=== PATIENT | female | born 1935 | race Hispanic/Latino ===

== ENCOUNTER 2018-01-23 18:37 | Observation (INO) | payer MEDICARE, BC ==
[2018-01-23 20:19] LABS: BASO # 0.01 K/mm3 (0.0-2.0); BASO % 0.1 % (0.0-3.0); EOS # 0.1 (0.0-0.7); EOS % 1.2 % (1.5-5.0); GRAN # 9.51 (1.4-6.5); GRAN % 84.7 % (50.0-68.0); HEMOGLOBIN 12.9 g/dL (12.0-16.0); LYMPH % 8.5 % (22.0-35.0); MEAN CELL VOLUME 87.6 fl (80.0-105.0); MEAN CORPUSCULAR HEMOGLOBIN 28.2 pg (25.0-35.0); MEAN CORPUSCULAR HGB CONC 32.2 g/dl (31.0-37.0); MEAN PLATELET VOLUME 12.1 fl (7.0-11.0); MONO # 0.6 (0.1-0.6); MONO % 5.5 % (1.0-6.0); RBC 4.58 10^6/uL (3.5-6.1); RED CELL DISTRIBUTION WIDTH 15.4 % (11.5-14.5); WHITE BLOOD COUNT 11.2 10^3/ul (4.5-11.0)
[2018-01-23 20:33] LABS: INR 0.99 (0.93-1.08); PROTHROMBIN TIME 11.3 SECONDS (9.4-12.5)
[2018-01-23 20:37] LABS: ALB/GLOB RATIO 1.2 (1.1-1.8); ALT/SGPT 29 U/L (7-56); AST/SGOT 26 U/L (14-36); BLOOD UREA NITROGEN 27 mg/dL (7-21); CALCIUM 9.3 mg/dL (8.4-10.5); GFR AFRICAN-AMERICAN > 60; GFR NON-AFRICAN AMERICAN 53
[2018-01-23 20:44] LABS: TROPONIN I 0.03 ng/mL
[2018-01-23] MEDS ORDERED: Potassium Chloride 20 mEq ER Tab PO STA (22:39)
[2018-01-23] MEDS ORDERED: Albuterol-Ipratrop 3 mg / 0.5 (3 ml) UD IH PRN (22:49)
--- NOTE | 2018-01-24 00:11 | ED PDOC ---
Arrival/HPI - General Chief Complaint: Trauma Time Seen by Provider: 01/23/18 19:24 Historian: Patient, Family - History of Present Illness Narrative History of Present Illness (Text): 01/24/18 00:07 82 year old female, whose past medical history includes COPD and CHF, who presents to the emergency department brought in by family for frequent falls this past week. Patient's family notes patient fell 3 times this week. Patient notes lower back pain. Patient notes recent change in medication, non specific water pill. Patient denies any fever, chills, chest pain, shortness of breath, nausea, vomiting, diarrhea, neck pain, headache, dizziness, or any other complaints. Time/Duration: 1 week Symptom Onset: Gradual Symptom Course: Unchanged Activities at Onset: Light Context: Home Past Medical History - Provider Review Nursing Documentation Reviewed: Yes - Infectious Disease Hx of Infectious Diseases: None - Tetanus Immunization Tetanus Immunization: Unknown - Cardiac Hx Cardiac Disorders: Yes Hx Congestive Heart Failure: Yes Hx Hypertension: Yes - Pulmonary Hx Respiratory Disorders: Yes Hx Chronic Obstructive Pulmonary Disease (COPD): Yes - Neurological Hx Neurological Disorder: No HX Cerebrovascular Accident: No - HEENT Hx HEENT Disorder: No - Renal Hx Renal Disorder: No - Endocrine/Metabolic Hx Endocrine Disorders: Yes Hx Diabetes Mellitus Type 2: Yes - Hematological/Oncological Hx Blood Disorders: Yes Hx Cancer: Yes - Integumentary Hx Dermatological Disorder: No - Musculoskeletal/Rheumatological Hx Musculoskeletal Disorders: Yes Hx Arthritis: Yes (left shoulder) Hx Rheumatoid Arthritis: No - Gastrointestinal Hx Gastrointestinal Disorders: No Hx Gastroesophageal Reflux: No - Genitourinary/Gynecological Hx Genitourinary Disorders: Yes Hx Bladder Cancer: Yes - Psychiatric Hx Psychophysiologic Disorder: No Hx Substance Use: No - Surgical History Hx Mastectomy: Yes (1989) - Anesthesia Hx Anesthesia: Yes Hx Anesthesia Reactions: No Hx Malignant Hyperthermia: No - Suicidal Assessment Feels Threatened In Home Enviroment: No Family/Social History - Physician Review Nursing Documentation Reviewed: Yes Family/Social History: Unknown Family HX Smoking Status: Former Smoker Hx Alcohol Use: No Hx Substance Use: No Hx Substance Use Treatment: No Allergies/Home Meds Allergies/Adverse Reactions: Allergies aspirin Allergy (Verified 08/31/16 12:03) PAIN Home Medications: Home Meds Medication Instructions Recorded Confirmed Furosemide [Lasix] 40 mg PO BID 01/20/16 01/25/18 Venlafaxine [Effexor XR] 75 mg PO DAILY 01/20/16 01/25/18 predniSONE [predniSONE Tab] 5 mg PO DAILY 01/20/16 01/25/18 Atorvastatin [Lipitor] 20 mg PO HS 08/31/16 01/25/18 Dipyridamole [Persantine] 25 mg PO TID 08/31/16 01/25/18 Lansoprazole [Lansoprazole] 30 mg PO HS 08/31/16 01/23/18 Mecobal/Levomefolat Ca/B6 Phos 1 tab PO DAILY 08/31/16 01/25/18 [Foltanx Tablet] Memantine HCl [Memantine HCl] 10 mg PO BID 08/31/16 01/25/18 Potassium Chloride [Klor-Con 10] 10 meq PO DAILY 08/31/16 01/25/18 Review of Systems - Physician Review All systems were reviewed & negative as marked: Yes - Review of Systems Constitutional: Normal Eyes: Normal ENT: Normal Respiratory: Normal. absent: SOB, Cough Cardiovascular: Normal. absent: Chest Pain Gastrointestinal: Normal Genitourinary Female: Normal. absent: Dysuria, Frequency Musculoskeletal: Back Pain (lower back pain). absent: Neck Pain Skin: Normal. absent: Rash Neurological: Normal. absent: Headache, Dizziness Endocrine: Normal Hemo/Lymphatic: Normal Psychiatric: Normal Physical Exam Vital Signs Reviewed: Yes Vital Signs Temp Pulse Pulse Resp BP Pulse Ox 01/24/18 01:03 98.6 F 96 H 20 133/81 90 L 01/24/18 00:37 97.8 F 101 H 90 20 126/68 01/24/18 00:23 97 H 20 91 L 01/23/18 20:21 98.2 F 70 18 91 L 01/23/18 18:53 99.3 F 88 21 110/64 93 L Temperature: Afebrile Blood Pressure: Normal Pulse: Regular Respiratory Rate: Normal Appearance: Positive for: Well-Appearing, Non-Toxic, Comfortable Pain Distress: None Mental Status: Positive for: Alert and Oriented X 3 - Systems Exam Head: Present: Atraumatic, Normocephalic Pupils: Present: PERRL Extroacular Muscles: Present: EOMI Conjunctiva: Present: Normal Mouth: Present: Moist Mucous Membranes Neck: Present: Normal Range of Motion. No: Meningeal Signs, MIDLINE TENDERNESS , Paraspinal Tenderness Respiratory/Chest: Present: Clear to Auscultation, Good Air Exchange. No: Respiratory Distress, Accessory Muscle Use Cardiovascular: Present: Regular Rate and Rhythm, Normal S1, S2. No: Murmurs Abdomen: No: Tenderness, Distention, Peritoneal Signs Back: Present: Normal Inspection. No: CVA Tenderness, Midline Tenderness, Paraspinal Tenderness Upper Extremity: Present: Normal Inspection. No: Cyanosis, Edema Lower Extremity: Present: Normal Inspection. No: Edema, CALF TENDERNESS Neurological: Present: GCS=15, CN II-XII Intact, Speech Normal Skin: Present: Warm, Dry, Normal Color. No: Rashes Psychiatric: Present: Alert, Oriented x 3, Normal Insight, Normal Concentration Medical Decision Making ED Course and Treatment: 01/24/18 00:14 Impression: 82 year old female presents to the emergency department by family for frequent falls this past week. Plan: -- CT Head -- CT Lumbar Spine -- CT Thoracic Spine -- EKG -- Chest X-ray -- Duoneb -- Humulin R Low -- Potassium Chloride -- Tylenol -- Reassess and disposition Progress Notes: 01/24/18 01:18 CT Head reviewed, shows: Brain: Periventricular hypoattenuation is likely related to small vessel disease. Isodensity noted in the left frontal region extra-axial space on image 22 series 2 probably related to a vessel. Calcified lesion in the left frontal region question hemangioma. No definite hemorrhage. Ventricles: Unremarkable. No ventriculomegaly. Bones/joints: Unremarkable. No acute fracture. Soft tissues: Unremarkable. Sinuses: Unremarkable as visualized. No acute sinusitis. Mastoid air cells: Unremarkable as visualized. No mastoid effusion. IMPRESSION: No acute findings. Other findings as above. CT Lumbar Spine reviewed, shows: Vertebrae: Osteopenia. No acute fracture. Other bones/joints: Sclerotic density in the left iliac bone. Discs/spinal canal/neural foramina: Disc degenerative changes are noted at multiple levels. No spinal canal stenosis. Soft tissues: Unremarkable. Vasculature: Infrarenal abdominal aortic dilatation, measuring 2.6 cm. Lungs: Bibasal atelectatic changes. Kidneys and ureters: cystic lesion in the left kidney partially included. Ultrasound correlation is advised. IMPRESSION: cystic lesion in the left kidney partially included. Ultrasound correlation is advised. CT Thoracic Spine reviewed, shows: Vertebrae: There is osteopenia. Sclerotic density in the seventh rib and sixth vertebra. No acute fracture. Discs/spinal canal/neural foramina: Disc degenerative changes are noted at multiple levels. No spinal canal stenosis. Soft tissues: Unremarkable. Vasculature: Significant atherosclerotic changes of the aorta. Lungs: Bibasal atelectatic changes. Heart: Significant coronary artery calcification. IMPRESSION: No acute findings case d/w dr gutierrez will obs on tele - Lab Interpretations Lab Results: 01/23/18 20:05 01/23/18 20:05 Lab Results 01/23/18 20:05: Sodium 133, Potassium 2.6 L* D, Chloride 77 L, Carbon Dioxide 44 H, Anion Gap 15, BUN 27 H, Creatinine 1.0, Est GFR ( Amer) > 60, Est GFR (Non-Af Amer) 53, Random Glucose 327 H* D, Calcium 9.3, Total Bilirubin 0.6 , AST 26, ALT 29, Alkaline Phosphatase 128 H, Troponin I 0.03 D, Total Protein 7.3, Albumin 4.0, Globulin 3.3, Albumin/Globulin Ratio 1.2 01/23/18 20:05: PT 11.3, INR 0.99, APTT 30.0 01/23/18 20:05: WBC 11.2 H D, RBC 4.58, Hgb 12.9, Hct 40.1, MCV 87.6, MCH 28.2, MCHC 32.2, RDW 15.4 H, Plt Count 223, MPV 12.1 H, Gran % 84.7 H, Lymph % (Auto) 8.5 L, [place] % (Auto) 5.5, Eos % (Auto) 1.2 L, Baso % (Auto) 0.1, Gran # 9.51 H, Lymph # (Auto) 1.0 L, [place] # (Auto) 0.6, Eos # (Auto) 0.1, Baso # (Auto) 0.01 - RAD Interpretation Radiology Orders: 01/23/18 19:39 HEAD W/O CONTRAST [CT] Stat 01/23/18 19:40 LUMBAR SPINE W/O CONTRAST [CT] Stat CHEST TWO VIEWS (PA/LAT) [RAD] Stat 01/23/18 19:41 THORACIC SPINE W/O CONT [CT] Stat - EKG Interpretation EKG Interpretation (Text): 01/24/18 04:[address] s changes - Medication Orders Current Medication Orders: Discontinued Medications Acetaminophen (Tylenol 325mg Tab) 650 mg PO Q4H PRN PRN Reason: Pain, Mild (1-3) Albuterol/Ipratropium (Duoneb 3 Mg/0.5 Mg (3 Ml) Ud) 3 ml IH Q4H PRN PRN Reason: Shortness of Breath Last Admin: 01/25/18 15:51 Dose: 3 ml Amlodipine Besylate (Norvasc) 10 mg PO DAILY [facility] Last Admin: 01/25/18 09:39 Dose: 10 mg MAR Blood Pressure Document 01/25/18 09:39 CD (Rec: 01/25/18 09:39 CD [id number]) Blood Pressure Blood Pressure (100/60-150/90) 161/76 Atorvastatin Calcium (Lipitor) 20 mg PO HS [facility] Last Admin: 01/24/18 21:15 Dose: 20 mg Donepezil HCl (Aricept) 10 mg PO [facility] Last Admin: 01/24/18 21:15 Dose: 10 mg Potassium Chloride (Potassium Chloride 20 Meq/100 Ml) 20 meq in 100 mls @ 50 mls/hr IVPB Q2H BABAR Stop: 01/24/18 00:44 Last Admin: 01/24/18 02:21 Dose: 50 mls/hr eMAR Start Stop Document 01/24/18 02:21 GC (Rec: 01/24/18 02:21 GC [id number]) Intravenous Solution Start Date 01/24/18 Start Time 02:21 Insulin Human Regular (Humulin R Low) 0 units SC [facility] PRN Reason: Protocol Insulin Human Regular (Humulin R Med) [address] [facility] PRN Reason: Protocol Last Admin: 01/25/18 16:56 Dose: 5 unit MAR Blood Glucose Document 01/25/18 16:56 CD (Rec: 01/25/18 16:56 CD [id number]) Blood Glucose Finger Stick Blood Glucose (70-120) 251 Subcutaneous Administrations Document 01/25/18 16:56 CD (Rec: 01/25/18 16:56 CD [id number]) Injection Site MAR Injection Site Right Arm Charges for Administration # of Subcutaneous Administrations 1 Memantine (Namenda) 10 mg PO BID [facility] Last Admin: 01/25/18 18:26 Dose: 10 mg Potassium Chloride (K-Dur 20 Meq Er Tab) 40 meq PO STAT STA Stop: 01/23/18 22:40 Last Admin: 01/24/18 00:25 Dose: 40 meq Potassium Chloride (K-Dur 20 Meq Er Tab) 20 meq PO ONCE ONE Stop: 01/24/18 03:01 Last Admin: 01/24/18 02:20 Dose: 20 meq Potassium Chloride (K-Dur 20 Meq Er Tab) 40 meq PO TID BABAR Stop: 01/25/18 10:15 Last Admin: 01/25/18 10:14 Dose: Potassium Chloride (K-Dur 20 Meq Er Tab) 40 meq PO ONCE ONE Stop: 01/25/18 08:39 Last Admin: 01/25/18 09:39 Dose: 40 meq Prednisone (Prednisone Tab) 5 mg PO DAILY [facility] Last Admin: 01/25/18 09:39 Dose: 5 mg Venlafaxine HCl (Effexor Xr) 75 mg PO DAILY [facility] Last Admin: 01/25/18 09:39 Dose: 75 mg - [place] Statement The provider has reviewed the documentation as recorded by the Franca Montanez All medical record entries made by the Franca were at my direction and personally dictated by me. I have reviewed the chart and agree that the record accurately reflects my personal performance of the history, physical exam, medical decision making, and the department course for this patient. I have also personally directed, reviewed, and agree with the discharge instructions and disposition. Disposition/Present on Arrival - Present on Arrival Any Indicators Present on Arrival: No History of DVT/PE: No History of Uncontrolled Diabetes: No Urinary Catheter: No History of Decub. Ulcer: No History Surgical Site Infection Following: None - Disposition Have Diagnosis and Disposition been Completed?: Yes Diagnosis: COPD with acute exacerbation, Hypokalemia Disposition: HOSPITALIZED Disposition Time: 22:35 Condition: GOOD
[2018-01-24 01:53] VITALS: BMI 32.7
[2018-01-24] MEDS ORDERED: Potassium Chloride 20 mEq ER Tab PO ONE (03:00)
[2018-01-24] MEDS ORDERED: Insulin Reg-LOW-Coverage SC SCH (07:30)
[2018-01-24 07:59] LABS: BLOOD UREA NITROGEN 21 mg/dL (7-21); CALCIUM 8.7 mg/dL (8.4-10.5); GFR AFRICAN-AMERICAN > 60; GFR NON-AFRICAN AMERICAN > 60
[2018-01-24] MEDS: Insulin Reg-MEDIUM-Coverage SC SCH ×4 (08:14→22:05)
[2018-01-24] MEDS: Venlafaxine 75 mg ER Cap PO SCH (09:55)
[2018-01-24] MEDS: Potassium Chloride 20 mEq ER Tab PO SCH ×3 (10:20→17:35)
--- NOTE | 2018-01-24 10:20 | CT ---
PROCEDURE: CT HEAD WITHOUT CONTRAST. HISTORY: syncope COMPARISON: Comparison made with prior studies dated 8 11/25/2014 TECHNIQUE: Axial computed tomography images were obtained through the head/brain without intravenous contrast. Radiation dose: Total exam DLP = 863.38 mGy-cm. This CT exam was performed using one or more of the following dose reduction techniques: Automated exposure control, adjustment of the mA and/or kV according to patient size, and/or use of iterative reconstruction technique. FINDINGS: HEMORRHAGE: No acute parenchymal, subarachnoid or extra-axial the the intracranial hemorrhage. BRAIN: Mild chronic periventricular white matter ischemic changes. . . There also appear to be a few scattered chronic bilateral basal nuclei lacunar type infarcts. Re- demonstrated is a elliptical shaped extra-axial calcification in the left inferior/mid frontal region that could represent a large dural base calcification however the possibility of an incidental partially calcified meningioma not excluded. Mild generalized volume loss. Vascular calcifications both carotid siphons vertebral arteries. VENTRICLES: No obstructive hydrocephalus. CALVARIUM: No acute calvarial fractures. PARANASAL SINUSES: Unremarkable as visualized. No significant inflammatory changes. MASTOID AIR CELLS: Unremarkable as visualized. No inflammatory changes. OTHER FINDINGS: Changes of bilateral cataract surgery. IMPRESSION: Mild chronic white matter ischemic and basal nuclei ischemic changes. Mild generalized volume loss. There is a elliptical shaped extra-axial calcification left frontal region that could represent dural based calcification versus calcified meningioma.
--- NOTE | 2018-01-24 13:45 | CARD ---
APPROVED REPORT EKG Measurement Heart [id number] <Conclusion> Sinus rhythm with sinus arrhythmia with 1st degree AV block Nonspecific ST and T wave abnormality Abnormal ECG
--- NOTE | 2018-01-24 15:25 | CT ---
PROCEDURE: CT Lumbar Spine without contrast HISTORY: Status post fall. COMPARISON: None. TECHNIQUE: Axial computed tomography images were obtained of the lumbar spine without the use of intravenous contrast. Coronal and sagittal reformatted images were created and reviewed. Radiation dose: Total exam DLP = 1352.34 mGy-cm. This CT exam was performed using one or more of the following dose reduction techniques: Automated exposure control, adjustment of the mA and/or kV according to patient size, and/or use of iterative reconstruction technique. FINDINGS: VERTEBRAE: No acute compression fractures no retropulsed fragments. Vertebral bodies exhibit normal stature. Vertebral bodies and facets normally aligned. DISCS/SPINAL CANAL/NEURAL FORAMINA: Multilevel degenerative spondylosis of the lumbar spine. Changes include varying degrees of disc space narrowing with vacuum disc phenomena. . mild varying degrees of facet arthropathy throughout. These changes most notably At the L5-S1 level, there is central and bilateral (right larger than left disc herniation which extends superiorly and inferiorly over short distance and results in compression of the ventral surface of the thecal sac and mild compressive effects on the descending extra thecal S1 nerve roots. Facets also quite hypertrophic at this level. Exit foramina are narrowed bilaterally. At the L4-L5 level with buckled ligamentum flavum of all which result in moderate bilateral lateral recess and central canal stenosis. Central canal stenosis. Exit foramina are narrowed bilaterally. Similar changes at the L3-L4 level also result in mild bilateral lateral recess and central canal stenosis. Exit foramina appear narrowed bilaterally. Similar but less severe broad-based disc bulging changes noted at the L2-L3 level. PARASPINAL SOFT TISSUES: Note made of an incompletely visualized cyst arising from the left kidney. OTHER FINDINGS: Bibasilar atelectasis and or scarring changes. IMPRESSION: No acute fractures. Multilevel degenerative spondylosis most notably affecting the through L5-S1 through the L3-L4 levels. Incompletely visualized left renal cystic lesion. Consider follow-up ultrasound for further evaluation
--- NOTE | 2018-01-24 15:41 | CT ---
PROCEDURE: CT Thoracic Spine without contrast HISTORY: Status post fall COMPARISON: None. TECHNIQUE: Axial computed tomography images were obtained of the thoracic spine without intravenous contrast. Coronal and sagittal reformatted images were created and reviewed. Radiation dose: Total exam DLP = 974.62 mGy-cm. This CT exam was performed using one or more of the following dose reduction techniques: Automated exposure control, adjustment of the mA and/or kV according to patient size, and/or use of iterative reconstruction technique. FINDINGS: VERTEBRAE: No acute compression fractures no retropulsed fragments. Vertebral bodies exhibit normal stature. Vertebral bodies and facets normally aligned. . Mild diffuse demineralization. There is also small bone island or osteoma within the posterior corner of the T7 segment. DISCS/SPINAL CANAL/NEURAL FORAMINA: Multilevel degenerative spondylosis. . Varying degrees of moderate to significant disc space narrowing with anterolateral partially bridging osteophyte formation. No disc herniation or significant disc bulge. The overall central bony canal and exit foramina appear adequate so far as can be seen. PARASPINAL SOFT TISSUES: Unremarkable. OTHER FINDINGS: Mild bibasilar atelectasis and or scarring. Heart appears enlarged IMPRESSION: No acute fractures. Mild multilevel degenerative spondylosis of the thoracic spine. Central canal and exit foramina appear adequate so far as can be seen. Mild bibasilar atelectasis and or scarring changes. Cardiomegaly.
--- NOTE | 2018-01-24 16:13 | RAD ---
HISTORY: sob COMPARISON: Comparison chest dated 09/07/2016 TECHNIQUE: Chest PA and lateral FINDINGS: LUNGS: Hyperinflation. Rule out underlying COPD .Coarsened/ increased interstitial markings. Bibasilar atelectasis and or scarring. . PLEURA: No significant pleural effusion identified. No pneumothorax apparent. CARDIOVASCULAR: Cardiomegaly OSSEOUS STRUCTURES: Deformity of the right left humeral head most consistent with old posttraumatic sequela (healed fracture deformity) and secondary DJD. Multilevel degenerative spondylosis of the thoracic spine. VISUALIZED UPPER ABDOMEN: Normal. OTHER FINDINGS: None. IMPRESSION: Hyperinflation. Rule out underlying COPD . The the the Coarsened/ increased interstitial markings. Bibasilar atelectasis and or scarring. .
[2018-01-25 05:41] VITALS: O2SAT 96
[2018-01-25 07:15] LABS: HEMOGLOBIN 11.8 g/dL (12.0-16.0); MEAN CELL VOLUME 88.6 fl (80.0-105.0); MEAN CORPUSCULAR HEMOGLOBIN 27.4 pg (25.0-35.0); MEAN PLATELET VOLUME 11.6 fl (7.0-11.0); RBC 4.3 10^6/uL (3.5-6.1); RED CELL DISTRIBUTION WIDTH 15.2 % (11.5-14.5); WHITE BLOOD COUNT 8.6 10^3/ul (4.5-11.0)
[2018-01-25 07:24] LABS: ALB/GLOB RATIO 1.1 (1.1-1.8); ALBUMIN 3.5 g/dL (3.0-4.8); ALT/SGPT 27 U/L (7-56); AST/SGOT 19 U/L (14-36); BLOOD UREA NITROGEN 21 mg/dL (7-21); GFR AFRICAN-AMERICAN > 60; GFR NON-AFRICAN AMERICAN > 60
[2018-01-25] MEDS: Insulin Reg-MEDIUM-Coverage SC SCH ×3 (08:00→16:56)
--- NOTE | 2018-01-25 08:22 | HP ---
CHIEF COMPLAINT AND HISTORY OF PRESENT ILLNESS: This is an 82-year-old female who is coming into the hospital with complaints of difficulty in ambulating. The patient has a past medical history of COPD and is on home O2. She has a history of CHF. The patient was brought in by her daughter because of frequent falls for the past week. The patient has not been eating well. She has been complaining of back pain. She has been having difficulty in remembering to take her medications and eating. She has no complaint of any chest pain. No nausea, no vomiting. No dysuria or frequency. No nocturia. No weakness in the arms or the legs. No headaches. No fevers or chills. All other review of symptoms are within normal limits except what is mentioned. She does have shortness of breath when she exerts herself even though she is on home O2, but this is at baseline. ALLERGIES: TO ASPIRIN. HOME MEDICATIONS: Has been reviewed on the [facility]. PAST MEDICAL HISTORY: 1. COPD, on home O2. 2. Hypertension. 3. Breast cancer with bilateral mastectomies. 4. Peripheral neuropathy. 5. Peptic ulcer disease. 6. Peripheral arterial disease. 7. Varicose veins. 8. History of bladder cancer. 9. Cervical and lumbar radiculopathy. SOCIAL HISTORY: She was a heavy smoker, but quit. She denies alcohol or drugs. FAMILY HISTORY: Nonsignificant. PHYSICAL EXAMINATION: VITAL SIGNS: She has a temperature of 98, pulse of 90, blood pressure is 127/75, respirations 20, O2 saturation 96%. Height is 5 feet 2 inches, weight is 173 pounds. BMI is 31.6 and normal. GENERAL: The patient lying in bed, uncomfortable, and in no acute distress. HEENT: Atraumatic and normocephalic. Anicteric sclerae. Moist mucosa. [place] conjunctivae. No oral lesions. NECK: No JVD, anterior and posterior adenopathy, thyromegaly, or bruits. CARDIOVASCULAR: S1 and S2 regular. No murmur, rubs, or gallop. LUNGS: Clear to auscultation bilaterally. No wheezes, rales, or rhonchi. ABDOMEN: Bowel sounds are positive. Soft, nontender and nondistended. No hepatosplenomegaly. No rebound and no guarding EXTREMITIES: No cyanosis, clubbing, or edema. NEUROLOGIC: No facial asymmetry. Tongue is midline. No uvula deviation. Power is 5/5 upper extremity and lower extremity. Sensation intact in upper extremity and lower extremity. Alert, awake, oriented x2. PSYCHIATRIC: She is awake, alert and oriented x3. No anxiety or depression. She has normal affect. GENITOURINARY: No CVA tenderness. VASCULAR: 2+ pulses in the carotid pulses and pedal pulses. SKIN: No erythema or nodules SPINE: Shows normal curvature. LABORATORY DATA: Labs have been reviewed. White count of 11.2. Patient's potassium is 2.6, bicarb is 44. Lumbar CAT scan is done shows no acute fractures. There is a multiple DJD that affects L5-S1 through L3-L4. Thoracic spine CT shows no acute fractures. Chest x-ray done shows . CT of the head done shows mild chronic white matter changes. An EKG done shows sinus rhythm with first degree AV block, nonspecific ST changes. ASSESSMENT: 1. Fall. 2. Hypokalemia. 3. Chronic obstructive lung disease, on home O2. 4. Degenerative joint disease of back. 5. Peripheral arterial disease. 6. Peripheral neuropathy. 7. History of bladder cancer. 8. History of breast cancer. 9. Dementia, Alzheimer's type. PLAN: The patient is admitted to the hospital. She is going to be getting multiple potassium treatment throughout the day. She did get potassium yesterday. She is on Aricept for dementia. She is on Lipitor for dyslipidemia. She is on Memantine for dementia. The patient is on amlodipine for hypertension. She is on prednisone chronically. She is on a carbohydrate-consistent diet. I did speak to the patient's daughter at the bedside to give her an update on the patient's diagnosis and plan of care. We will continue to follow closely. We will get physical therapy to evaluate the patient. Minh Scales MD
[2018-01-25] MEDS ORDERED: Potassium Chloride 20 mEq ER Tab PO ONE (08:38)
[2018-01-25] MEDS: Venlafaxine 75 mg ER Cap PO SCH (09:39)
[2018-01-25] MEDS: Potassium Chloride 20 mEq ER Tab PO SCH (10:14)
--- NOTE | 2018-01-25 16:23 | DS ---
HISTORY OF PRESENT ILLNESS: This is an 82-year-old female who has come into the hospital because of difficulty in walking. She has been falling. The patient was found to have significant hypokalemia. The patient has not been eating well as well. She does have underlying dementia and the patient's daughter states that she does forget at times. She says she is feeling better. She has no complaints of any headaches or dizziness. No nausea, no vomiting. She was given multiple doses of potassium and her potassium is normal today. PHYSICAL EXAMINATION VITAL SIGNS: Temperature is 97.8, pulse of 74, blood pressure 161/76, respirations 20, O2 saturation 96%. GENERAL: The patient is lying in bed, flat, comfortable. HEENT: No oral lesion. Anicteric sclerae. Moist mucosa. NECK: No JVD, adenopathy, or thyromegaly. CARDIOVASCULAR: S1 and S2, regular. No murmurs, rubs, or gallops. LUNGS: Clear to auscultation bilaterally. No wheeze, rales, or rhonchi. ABDOMEN: Bowel sounds are positive, soft, nontender and nondistended. EXTREMITIES: no cyanosis, clubbing or edema. ASSESSMENT: 1. Fall. 2. Hypokalemia, improved. 3. Chronic obstructive pulmonary disease, on home O2. 4. Degenerative joint disease. 5. Peripheral arterial disease. 6. Peripheral neuropathy. 7. Dementia of Alzheimer's type. 8. History of breast cancer. 9. History of bladder cancer. PLAN: The patient is currently on Aricept and memantine for her dementia. The patient is going to continue with nebulizer treatments. She is on amlodipine for her hypertension. She is on Tylenol. She is going to be discharged home today. I did speak to the patient's daughter to give an update. The patient is going to be followed up as an outpatient. She is going to have repeat blood work done in 1-2 weeks to check potassium levels. CONDITION: Stable. ACTIVITIES: Increase as tolerated. Minh Scales MD
[2018-01-25 17:38] VITALS: BP 146/77; PULSE 86; RESP 20; TEMP 98
== END 2018-01-25 19:50 | disposition home or self-care (01) ==
LOC: ED 18:37 → ERH 22:35 → 2RNO 01-24 01:19
PROVIDERS: ADMIT Internal Medicine Nephrology; ATTEND Internal Medicine Nephrology
DX: E87.6 Hypokalemia (principal); E11.51 Type 2 diabetes mellitus with diabetic peripheral angiopathy without gangrene; G30.9 Alzheimer's disease, unspecified; F02.80 Dementia in other diseases classified elsewhere, unspecified severity, without behavioral disturbance, psychotic disturbance, mood disturbance, and anxiety; G62.9 Polyneuropathy, unspecified; I11.0 Hypertensive heart disease with heart failure; I25.10 Atherosclerotic heart disease of native coronary artery without angina pectoris; I50.9 Heart failure, unspecified; I70.0 Atherosclerosis of aorta; I77.811 Abdominal aortic ectasia; J44.9 Chronic obstructive pulmonary disease, unspecified; M47.9 Spondylosis, unspecified; M85.88 Other specified disorders of bone density and structure, other site; N28.9 Disorder of kidney and ureter, unspecified; R29.6 Repeated falls; Z85.3 Personal history of malignant neoplasm of breast; Z85.51 Personal history of malignant neoplasm of bladder; Z87.11 Personal history of peptic ulcer disease; Z87.891 Personal history of nicotine dependence; Z90.13 Acquired absence of bilateral breasts and nipples; Z99.81 Dependence on supplemental oxygen; M54.5 Low back pain; Z88.6 Allergy status to analgesic agent; R40.2412 Glasgow coma scale score 13-15, at arrival to emergency department
CPT/HCPCS: 36415; 70450; 71046; 72128; 72131; 80048; 80053; 82948; 83735; 84100; 84484; 85025; 85027; 85610; 85730; 93005; 94640; 94760; 96360; 96361; 97161; 97530; 99285; G0378; G8978; G8979; J3480

== ENCOUNTER 2018-03-20 07:05 | Inpatient (IN) | payer MEDICARE, BC ==
[2018-03-20 07:15] VITALS: BMI 31.8
--- NOTE | 2018-03-20 08:20 | ED PDOC ---
Arrival/HPI <Luiz Hicks - Last Filed: 03/20/18 09:09> - General Historian: Patient, Family - History of Present Illness Time/Duration: Prior to Arrival Symptom Onset: Sudden Symptom Course: Unchanged Activities at Onset: Other (bathroom) Context: Tripped <TommyDerek - Last Filed: 03/20/18 13:08> - General Chief Complaint: Trauma Time Seen by Provider: 03/20/18 07:19 - History of Present Illness Narrative History of Present Illness (Text): 03/20/18 08:15 Patient is an 82 year old female with PMH of COPD (on home O2 3L), L shoulder fx (s/p repair 3 years ago), HTN, HLD, dementia, bladder CA (treated, in remission), and breast CA (s/p b/l mastectomy) who presents to Emergency department following a fall in her bathroom. She fell while getting up from the toilet, she believes she tripped on her clothes. She hit her head on the vanity. She remembers the fall and denies losing consciousness at the time. She has had multiple falls in the past few weeks. She has been working with PT who recently signed off. Her daughter is present at the bedside and is her main caregiver. In spite of having a home health aid who comes four times a week, patient lives alone. Currently, her main complaint is left sided neck pain, ANDERSON, and left knee pain. She denies fever, chills, CP, SOB, peripheral numbness/tingling, or other arthralgias. (Derek Sanders) Past Medical History - Provider Review Nursing Documentation Reviewed: Yes - Travel History Have you recently traveled outside [place] w/in the past 3 mons?: No - Infectious Disease Hx of Infectious Diseases: None - Tetanus Immunization Tetanus Immunization: Unknown - Cardiac Hx Cardiac Disorders: Yes Hx Congestive Heart Failure: Yes Hx Hypertension: Yes - Pulmonary Hx Respiratory Disorders: Yes Hx Chronic Obstructive Pulmonary Disease (COPD): Yes - Neurological Hx Neurological Disorder: No HX Cerebrovascular Accident: No - HEENT Hx HEENT Disorder: No - Renal Hx Renal Disorder: No - Endocrine/Metabolic Hx Endocrine Disorders: Yes Hx Diabetes Mellitus Type 2: Yes - Hematological/Oncological Hx Blood Disorders: Yes Hx Cancer: Yes - Integumentary Hx Dermatological Disorder: No - Musculoskeletal/Rheumatological Hx Musculoskeletal Disorders: Yes Hx Arthritis: Yes (left shoulder) Hx Rheumatoid Arthritis: No - Gastrointestinal Hx Gastrointestinal Disorders: No Hx Gastroesophageal Reflux: No - Genitourinary/Gynecological Hx Genitourinary Disorders: Yes Hx Bladder Cancer: Yes - Psychiatric Hx Psychophysiologic Disorder: No Hx Substance Use: No - Surgical History Hx Mastectomy: Yes (1989) - Anesthesia Hx Anesthesia: Yes Hx Anesthesia Reactions: No Hx Malignant Hyperthermia: No - Suicidal Assessment Feels Threatened In Home Enviroment: No <Derek Sanders - Last Filed: 03/20/18 13:08> Family/Social History - Physician Review Nursing Documentation Reviewed: Yes Family/Social History: No Known Family HX Smoking Status: Former Smoker Hx Alcohol Use: No Hx Substance Use: No Hx Substance Use Treatment: No <Derek Sanders - Last Filed: 03/20/18 13:08> Allergies/Home Meds <Luiz Hicks - Last Filed: 03/20/18 09:09> <Derek Sanders - Last Filed: 03/20/18 13:08> Allergies/Adverse Reactions: Allergies aspirin Allergy (Verified 03/20/18 12:53) PAIN Home Medications: Home Meds Medication Instructions Recorded Confirmed Furosemide [Lasix] 40 mg PO BID 01/20/16 03/20/18 Venlafaxine [Effexor XR] 75 mg PO DAILY 01/20/16 03/20/18 predniSONE [predniSONE Tab] 5 mg PO DAILY 01/20/16 03/20/18 Atorvastatin [Lipitor] 20 mg PO HS 08/31/16 03/20/18 Dipyridamole [Persantine] 25 mg PO TID 08/31/16 03/20/18 Memantine HCl [Memantine HCl] 10 mg PO BID 08/31/16 03/20/18 Potassium Chloride [Klor-Con 10] 20 meq PO DAILY 08/31/16 03/20/18 Esomeprazole Magnesium [Nexium] 40 mg PO DAILY 03/20/18 03/20/18 Review of Systems - Physician Review All systems were reviewed & negative as marked: Yes - Review of Systems Constitutional: absent: Fatigue, Fevers Eyes: absent: Vision Changes, Photophobia ENT: absent: Hearing Changes, Sore Throat Respiratory: absent: SOB, Cough Cardiovascular: absent: Chest Pain, Syncope Gastrointestinal: absent: Abdominal Pain, Nausea, Vomiting Genitourinary Female: absent: Dysuria, Frequency Musculoskeletal: Neck Pain, Joint Swelling Skin: absent: Rash, Pruritis Neurological: Headache. absent: Dizziness, Speech Changes, Facial Droop Endocrine: absent: Diaphoresis Hemo/Lymphatic: absent: Adenopathy Psychiatric: absent: Anxiety, Depression <Derek Sanders - Last Filed: 03/20/18 13:08> Physical Exam Vital Signs Reviewed: Yes Temperature: Afebrile Blood Pressure: Normal Pulse: Regular Respiratory Rate: Normal Appearance: Positive for: Non-Toxic, Uncomfortable Pain Distress: Moderate Mental Status: Positive for: Alert and Oriented X 3 - Systems Exam Head: Present: Other (visible hematoma on left forehead) Pupils: Present: PERRL Extroacular Muscles: Present: EOMI Conjunctiva: Present: Normal Ears: Present: Normal Mouth: Present: Moist Mucous Membranes Pharnyx: Present: Normal. No: ERYTHEMA, EXUDATE Nose (External): Present: Atraumatic Neck: Present: Paraspinal Tenderness (L > R) Respiratory/Chest: Present: Clear to Auscultation. No: Wheezes, Rales, Rhonchi Cardiovascular: Present: Regular Rate and Rhythm, Normal S1, S2. No: Murmurs, Rub, Gallop Abdomen: No: Tenderness, Rebound, Guarding Upper Extremity: Present: Neurovascularly Intact, Other (visible ecchymosis on dorsum of left hand, no tenderness to palpation of UE, including shoulders, bilaterally). No: Cyanosis, Edema, Normal ROM (ROM limited in left shoulder due to old fx), Tenderness Lower Extremity: Present: Neurovascularly Intact, Other (ecchymosis noted on R knee, L knee tender to palpation). No: Edema, CALF TENDERNESS Neurological: Present: CN II-XII Intact, Speech Normal, Motor Func Grossly Intact, Normal Sensory Function, Normal 2Pt Descrimination Skin: Present: Warm, Other (erythematous patches on lower legs bilaterally consistent with venous stasis dermatitis) Psychiatric: Present: Alert, Oriented x 3 <Derek Sanders - Last Filed: 03/20/18 13:08> Vital Signs Temp Pulse Resp BP Pulse Ox 03/20/18 12:48 98.4 F 85 19 103/53 L 94 L 03/20/18 11:00 76 18 133/61 95 03/20/18 09:32 81 18 137/59 L 94 L 03/20/18 07:27 97.9 F 88 20 139/55 L 93 L Medical Decision Making <Luiz Hicks - Last Filed: 03/20/18 09:09> - Lab Interpretations I have reviewed the lab results: Yes Interpretation: Abnormal lab values (consistent with UTI) - RAD Interpretation Security Guard Supervisor: ED Physician, Radiologist <Derek Sanders - Last Filed: 03/20/18 13:08> ED Course and Treatment: 03/20/18 09:07 An 82 year old female presenting to the Emergency department status post fall. Patient Seen With Resident: In agreement with resident note which contains more details about the patient. Patient was seen and evaluated with resident. Came up with plan and treatment together. (Luiz Hicks) 03/20/18 08:27 -Patient presenting s/p fall -Main complaints are ANDERSON, neck pain, and left knee pain -Will get CT head and cervical spine wo contrast, L knee, chest, and pelvis radiographs -CBC, CMP, UA 03/20/18 10:21 -Patient noted to be hypokalemic at 3.2 -Single dose of KCl 40 mEq tablet given in ED 03/20/18 12:12 -Patient states she still has pain in her neck -Will give single dose of ibuprofen 600 mg in Emergency department -Patient's family states they do not feel comfortable with her going home as she lives alone and they would like additional PT -Case discussed with Dr. Scales who agrees to admission 03/20/18 12:27 -Patient noted to have UTI -Rocephin 1 g IVPB given in ED (Derek Sanders) - Lab Interpretations Lab Results: 03/20/18 09:00 03/20/18 09:00 Lab Results 03/20/18 10:25: Urine Color Yellow, Urine Appearance Clear, Urine pH 7.0, Ur Specific [place] 1.010, Urine Protein Negative, Urine Glucose (UA) 100 H, Urine Ketones Negative, Urine Blood Negative, Urine Nitrate Negative, Urine Bilirubin Negative, Urine Urobilinogen 1.0 H, Ur Leukocyte Esterase Moderate H, Urine RBC 0 - 2, Urine WBC 20 - 25, Ur Epithelial Cells 4 - 5, Urine Bacteria Large, Urine Other Uyeast 03/20/18 09:00: Sodium 137, Potassium 3.2 L, Chloride 79 L, Carbon Dioxide 45 H , Anion Gap 16, BUN 31 H, Creatinine 0.9, Est GFR ( Amer) > 60, Est GFR ( Non-Af Amer) 60, Random Glucose 288 H, Calcium 8.9, Total Bilirubin 0.5, AST 19 , ALT 32, Alkaline Phosphatase 130 H D, Total Protein 7.1, Albumin 3.9, Globulin 3.2, Albumin/Globulin Ratio 1.2 03/20/18 09:00: WBC 10.2, RBC 4.42, Hgb 12.5, Hct 39.1, MCV 88.5, MCH 28.3, MCHC 32.0, RDW 15.7 H, Plt Count 214, MPV 12.1 H, Gran % 83.0 H, Lymph % (Auto) 9.5 L, [place] % (Auto) 6.6 H, Eos % (Auto) 0.8 L, Baso % (Auto) 0.1, Gran # 8.49 H , Lymph # (Auto) 1.0 L, [place] # (Auto) 0.7 H, Eos # (Auto) 0.1, Baso # (Auto) 0.01 - RAD Interpretation Narrative RAD Interpretations (Text): 03/20/18 10:00 Left Knee, pelvis, chest, and right great and second toe xrays without acute fractures, mild degenerative changes seen in pelvic xray. PROCEDURE: CT HEAD WITHOUT CONTRAST. COMPARISON: Comparison made with prior CT scan brain 01/23/2018 TECHNIQUE: Axial computed tomography images were obtained through the head/brain without intravenous contrast. Radiation dose: Total exam DLP = 927.42 mGy-cm. This CT exam was performed using one or more of the following dose reduction techniques: Automated exposure control, adjustment of the mA and/or kV according to patient size, and/or use of iterative reconstruction technique. FINDINGS: HEMORRHAGE: No intracranial hemorrhage. BRAIN: Re- demonstrated are mild chronic periventricular white matter ischemic changes with a few scattered chronic bilateral basal nuclei lacunar type infarcts. Also again seen is an elliptical shaped extra-axial calcification in the left inferior/mid frontal region that could represent a large dural base calcification however the possibility of an incidental partially calcified meningioma not excluded. Mild moderate generalized volume loss. Vascular calcifications both carotid siphons and right vertebral artery again seen VENTRICLES: Unremarkable. No hydrocephalus. CALVARIUM: No acute calvarial fractures. Moderate left frontal scalp contusion/ soft tissue swelling. Note also made of a rounded soft tissue density within the left pre maxillary soft tissues that could represent inspissated sebaceous cyst. PARANASAL SINUSES: Unremarkable as visualized. No significant inflammatory changes. MASTOID AIR CELLS: Unremarkable as visualized. No inflammatory changes. OTHER FINDINGS: Changes of bilateral cataract surgery again noted. IMPRESSION: No acute intracranial hemorrhage. Mild chronic white matter and basal nuclei ischemic changes. Again noted is an elliptical shaped extra-axial calcification in the left inferior/mid frontal region that could represent a large dural based calcification however the possibility of an incidental partially calcified meningioma not excluded. This is unchanged from prior study Mild moderate generalized volume loss. Left frontal scalp contusion. Cervical Spine CT without acute fracture, showed mild degenerative spondylosis (Derek Sanders) Radiology Orders: 03/20/18 08:00 CERVICAL SPINE W/O CONTRAST [CT] Stat HEAD W/O CONTRAST [CT] Stat 03/20/18 08:10 KNEE LEFT 2 VIEWS (AP & LAT) [RAD] Stat 03/20/18 08:30 CHEST ONE VIEW FALL PROTOCOL [RAD] Stat PELVIS ONE VIEW [RAD] Stat 03/20/18 09:56 FOOT RIGHT 3 VIEWS ROUTINE [RAD] Stat - Medication Orders Current Medication Orders: Ceftriaxone Sodium (Rocephin 1 Gram Ivpb) 1 gm in 100 mls @ 100 mls/hr IVPB STAT STA PRN Reason: Protocol Stop: 03/20/18 13:48 Last Admin: 03/20/18 13:06 Dose: 100 mls/hr eMAR Start Stop Document 03/20/18 13:06 [email or web address] (Rec: 03/20/18 13:06 [email or web address] [id number]) Intravenous Solution Start Date 03/20/18 Start Time 13:06 End Date 03/20/18 Discontinued Medications Ceftriaxone Sodium (Rocephin 1 Gram Ivpb) 1 gm in 100 mls @ 100 mls/hr IVPB ONCE ONE PRN Reason: Protocol Stop: 03/21/18 13:31 Ibuprofen (Motrin Tab) 600 mg PO STAT STA Stop: 03/20/18 12:03 Last Admin: 03/20/18 12:15 Dose: 600 mg MAR Pain/Vitals Document 03/20/18 12:15 [email or web address] (Rec: 03/20/18 12:18 [email or web address] [id number]) Pain Reassessment Is This A Pain ReAssessment? No Sleep Is patient sleeping during reassessment? No Presence of Pain Presence of Pain Yes Pain Scale Used Pain Scale Used Numeric Location Description Constant Intensity 8 Scale Used Numeric Pain Behavior Facial Grimacing Aggravating Factors Changing Position Alleviating Factors Medication Potassium Chloride (K-Dur 20 Meq Er Tab) 40 meq PO STAT STA Stop: 03/20/18 10:21 Last Admin: 03/20/18 11:03 Dose: 40 meq - PA / DIRECTOR OF MANAGED SERVICES / Resident Statement MD/DO has reviewed & agrees with the documentation as recorded. MD/DO has examined the patient and agrees with the treatment plan. - Scribe Statement The provider has reviewed the documentation as recorded by the Scribe <Luiz Hicks - Last Filed: 03/20/18 09:09> <Derek Sanders - Last Filed: 03/20/18 13:08> - Scribe Statement Jasmin Hernandez All medical record entries made by the Scribe were at my direction and personally dictated by me. I have reviewed the chart and agree that the record accurately reflects my personal performance of the history, physical exam, medical decision making, and the department course for this patient. I have also personally directed, reviewed, and agree with the discharge instructions and disposition. (Luiz Hicks) Disposition/Present on Arrival <Luiz Hicks - Last Filed: 03/20/18 09:09> - Present on Arrival Any Indicators Present on Arrival: No History of DVT/PE: No History of Uncontrolled Diabetes: No Urinary Catheter: No History of Decub. Ulcer: No History Surgical Site Infection Following: None - Disposition Have Diagnosis and Disposition been Completed?: Yes Disposition Time: 12:40 Patient Plan: Admission <Derek Sanders - Last Filed: 03/20/18 13:08> - Disposition Diagnosis: Fall, History of falling, UTI (urinary tract infection) Disposition: HOSPITALIZED Patient Problems: Current Active Problems Problem Status Onset Fall Acute History of falling Acute UTI (urinary tract infection) Acute Condition: FAIR
[2018-03-20 09:31] LABS: BASO # 0.01 K/mm3 (0.0-2.0); BASO % 0.1 % (0.0-3.0); EOS # 0.1 (0.0-0.7); EOS % 0.8 % (1.5-5.0); GRAN # 8.49 (1.4-6.5); HEMOGLOBIN 12.5 g/dL (12.0-16.0); LYMPH % 9.5 % (22.0-35.0); MEAN CELL VOLUME 88.5 fl (80.0-105.0); MEAN CORPUSCULAR HEMOGLOBIN 28.3 pg (25.0-35.0); MEAN PLATELET VOLUME 12.1 fl (7.0-11.0); MONO # 0.7 (0.1-0.6); MONO % 6.6 % (1.0-6.0); RBC 4.42 10^6/uL (3.5-6.1); RED CELL DISTRIBUTION WIDTH 15.7 % (11.5-14.5); WHITE BLOOD COUNT 10.2 10^3/ul (4.5-11.0)
--- NOTE | 2018-03-20 09:52 | RAD ---
Date of service: 03/20/2018 PROCEDURE: Left Knee Radiographs. HISTORY: Pain. COMPARISON: None. FINDINGS: BONES: No evidence of acute displaced fracture nor dislocation. . JOINTS: Normal. No osteoarthritis. JOINT EFFUSION: None. OTHER FINDINGS: None. IMPRESSION: No evidence of acute displaced fracture nor dislocation.
--- NOTE | 2018-03-20 09:53 | RAD ---
Date of service: 03/20/2018. PROCEDURE: Radiographs of the pelvis. . HISTORY: Status post fall COMPARISON: None. . FINDINGS: BONES: No evidence of acute displaced fracture nor dislocation. The osseous structures appear intact. Both femoral heads appropriately located within the respective acetabula. Degenerative changes both hip joints. There is also degenerative spondylosis involving the lower lumbosacral spine JOINTS: Sacroiliac Joints: Intact. . Pubic Symphysis: Intact. . OTHER FINDINGS: None. IMPRESSION: No acute fractures. Mild degenerative osteoarthritis as above.
--- NOTE | 2018-03-20 10:01 | CT ---
Date of service: 03/20/2018 PROCEDURE: CT HEAD WITHOUT CONTRAST. HISTORY: s/p fall COMPARISON: Comparison made with prior CT scan brain 01/23/2018 TECHNIQUE: Axial computed tomography images were obtained through the head/brain without intravenous contrast. Radiation dose: Total exam DLP = 927.42 mGy-cm. This CT exam was performed using one or more of the following dose reduction techniques: Automated exposure control, adjustment of the mA and/or kV according to patient size, and/or use of iterative reconstruction technique. FINDINGS: HEMORRHAGE: No intracranial hemorrhage. BRAIN: Re- demonstrated are mild chronic periventricular white matter ischemic changes with a few scattered chronic bilateral basal nuclei lacunar type infarcts. Also again seen is an elliptical shaped extra-axial calcification in the left inferior/mid frontal region that could represent a large dural base calcification however the possibility of an incidental partially calcified meningioma not excluded. Mild moderate generalized volume loss. Vascular calcifications both carotid siphons and right vertebral artery again seen . VENTRICLES: Unremarkable. No hydrocephalus. CALVARIUM: No acute calvarial fractures. Moderate left frontal scalp contusion/ soft tissue swelling. Note also made of a rounded soft tissue density within the left pre maxillary soft tissues that could represent inspissated sebaceous cyst. PARANASAL SINUSES: Unremarkable as visualized. No significant inflammatory changes. MASTOID AIR CELLS: Unremarkable as visualized. No inflammatory changes. OTHER FINDINGS: Changes of bilateral cataract surgery again noted. IMPRESSION: No acute intracranial hemorrhage. Mild chronic white matter and basal nuclei ischemic changes. Again noted is an elliptical shaped extra-axial calcification in the left inferior/mid frontal region that could represent a large dural based calcification however the possibility of an incidental partially calcified meningioma not excluded. This is unchanged from prior study Mild moderate generalized volume loss. Left frontal scalp contusion.
[2018-03-20 10:04] LABS: ALB/GLOB RATIO 1.2 (1.1-1.8); ALBUMIN 3.9 g/dL (3.0-4.8); ALT/SGPT 32 U/L (7-56); AST/SGOT 19 U/L (14-36); BLOOD UREA NITROGEN 31 mg/dL (7-21); CALCIUM 8.9 mg/dL (8.4-10.5); GFR AFRICAN-AMERICAN > 60; GFR NON-AFRICAN AMERICAN 60
--- NOTE | 2018-03-20 10:07 | CT ---
Date of service: 03/20/2018 PROCEDURE: CT Cervical Spine without contrast HISTORY: Status post fall COMPARISON: None available. TECHNIQUE: Axial computed tomography images were obtained of the cervical spine without the use of intravenous contrast. Coronal and sagittal reformatted images were created and reviewed. Radiation dose: Total exam DLP = 375.54 mGy-cm. This CT exam was performed using one or more of the following dose reduction techniques: Automated exposure control, adjustment of the mA and/or kV according to patient size, and/or use of iterative reconstruction technique. FINDINGS: VERTEBRAE: No evidence of acute displaced or anterior wedge compression fractures no retropulsed fragments. There is straightening of the normal cervical lordosis which could be secondary to patient positioning gantry however element of muscle spasm may contribute. . There is very slight anterior subluxation of C3 over C4. Remaining vertebral bodies otherwise exhibit relatively normal alignment. Facets normally aligned. DISCS/SPINAL CANAL/NEURAL FORAMINA: Multilevel degenerative spondylosis. Changes include varying degrees of disc space narrowing, endplate eburnation as well as anterior and smaller posterior osteophyte formation. The uncovertebral facet joints also hypertrophic throughout with bilateral foraminal stenotic changes from C3-C4 through C6-C7 levels. Ileum. Central canal is also slightly narrowed at C3-C4 level. PARASPINAL SOFT TISSUES: Unremarkable. OTHER FINDINGS: Mild vascular calcifications both carotid bifurcations. In Note is made of an elliptical shaped soft tissue density within the right facial soft tissues at the level of the mandible that could represent inspissated sebaceous cyst. Apparent mild on centrilobular emphysematous changes in both lung apices. IMPRESSION: No acute fractures. No acute fractures. Mild multilevel degenerative spondylosis. See above discussion for additional details and findings.
[2018-03-20] MEDS ORDERED: Potassium Chloride 20 mEq ER Tab PO STA (10:20)
[2018-03-20 10:47] LABS: URINE BILIRUBIN NEGATIVE (NEGATIVE); URINE BLOOD NEGATIVE (NEGATIVE); URINE GLUCOSE (UA) 100 mg/dL (NEGATIVE); URINE LEUKOCYTE ESTERASE MODERATE Leu/uL (NEGATIVE); URINE PROTEIN NEGATIVE mg/dL (<30 mg/dL)
[2018-03-20 10:48] LABS: URINE APPEARANCE CLEAR (CLEAR); URINE COLOR YELLOW (YELLOW)
[2018-03-20 11:00] LABS: URINE BACTERIA LARGE (NEG); URINE RBC 0 - 2 /hpf (0-2); URINE WBC 20 - 25 /hpf (0-6)
[2018-03-20] MEDS ORDERED: cefTRIAXone 1 gm 1 GM/100 ML BAG IVPB STA (12:50)
--- NOTE | 2018-03-20 14:07 | CP.PCM.HP ---
<Marie Ricketts - Last Filed: 03/20/18 16:18> History of Present Illness - History of Present Illness History of Present Illness: PGY-[address] Scales Admission: Multiple falls seemed to related to positional changes Ms Oakley, 82F, with PMH of COPD (on home O2 3L), dCHF, L shoulder fx (s/p repair 3 years ago), HTN/HLD, dementia, bladder CA (treated, in remission), and breast CA (s/p b/l mastectomy) who presents to Emergency department following a fall in her bathroom. Pt fell from the toilet and hit her head on the vanity. She remembers the fall and denies losing consciousness at the time. Daughter found her half laying on her left side leaning by the wall. She has had multiple falls in the past few weeks. The multiple falls seemed to related to positional changes from sitting at the commode to rising. She finished her PT recently. Both daughters by bedside. Per daughter, the multiple falls are in the bathroom and pt tend to fell asleep in the bathroom. Pt hit her L foot at the stretcher when EMT arrived. In ED, she complained left sided neck pain, ANDERSON, and left knee pain. ROS: denies fever, chills, CP, SOB, peripheral numbness/tingling, or other arthralgias. PMH COPD on home O2 3-4 L continous dCHF (ECHO (08/2017)L LVEF 60. RVSP 35. MR/TR mild. IVC severely dilated) HTN Peripheral neuropahy Peptic ulcer disease PAD, varicose veins, chronic LE edema Cervical and lumbar radiculopathy Breast cancer with bilateral mastectomy (2004) Bladder cancer s/p botulinum toxin injection x 5 (1988) Hx frequent fall Dementia PSH Mastectomy Hysterectomy, 1988 L shoulder repair, 2014, due to L shoulder fracture FH NS SH Former Heavy smoker, quit year 1989. Denies alcohol or drugs Daughter is her main caregiver. In spite of having a home health aid who comes four times a week, patient lives alone. All Aspirin Med Reviewed Present on Admission - Present on Admission Any Indicators Present on Admission: No Past Patient History - Infectious Disease Hx of Infectious Diseases: None - Tetanus Immunizations Tetanus Immunization: Unknown - Past Social History Smoking Status: Former Smoker - CARDIAC Hx Cardiac Disorders: Yes Hx Congestive Heart Failure: Yes Hx Hypertension: Yes - PULMONARY Hx Respiratory Disorders: Yes Hx Chronic Obstructive Pulmonary Disease (COPD): Yes - NEUROLOGICAL Hx Neurological Disorder: No HX Cerebrovascular Accident: No - HEENT Hx HEENT Problems: No - RENAL Hx Chronic Kidney Disease: No - ENDOCRINE/METABOLIC Hx Endocrine Disorders: Yes Hx Diabetes Mellitus Type 2: Yes - HEMATOLOGICAL/ONCOLOGICAL Hx Blood Disorders: Yes Hx Cancer: Yes - INTEGUMENTARY Hx Dermatological Problems: No - MUSCULOSKELETAL/RHEUMATOLOGICAL Hx Musculoskeletal Disorders: Yes Hx Arthritis: Yes (left shoulder) Hx Rheumatoid Arthritis: No - GASTROINTESTINAL Hx Gastrointestinal Disorders: No Hx Gastroesophageal Reflux: No - GENITOURINARY/GYNECOLOGICAL Hx Genitourinary Disorders: Yes Hx Bladder Cancer: Yes - PSYCHIATRIC Hx Psychophysiologic Disorder: No Hx Substance Use: No - SURGICAL HISTORY Hx Mastectomy: Yes (1989) - ANESTHESIA Hx Anesthesia: Yes Hx Anesthesia Reactions: No Hx Malignant Hyperthermia: No Meds Allergies/Adverse Reactions: Allergies Allergy/AdvReac Type Severity Reaction Status Date / Time aspirin Allergy PAIN Verified 03/20/18 12:53 Physical Exam - Constitutional Appears: No Acute Distress - Head Exam Head Exam: NORMAL INSPECTION, NORMOCEPHALIC Additional comments: Ecchymosis L forehead, scanty dried blood in medial L eye. No pain upon eye movement - Eye Exam Eye Exam: EOMI, Normal appearance, PERRL. absent: Scleral icterus Pupil Exam: NORMAL ACCOMODATION - ENT Exam ENT Exam: Mucous Membranes Moist - Neck Exam Additional comments: supple. focal Tenderness at C7. No pain radiation to jaw or arm b/l - Respiratory Exam Respiratory Exam: Clear to Auscultation Bilateral, NORMAL BREATHING PATTERN. absent: Rales, Rhonchi, Wheezes - Cardiovascular Exam Cardiovascular Exam: REGULAR RHYTHM, +S1, +S2. absent: Systolic Murmur - GI/Abdominal Exam GI & Abdominal Exam: Normal Bowel Sounds, Soft. absent: Distended, Guarding, Rigid, Tenderness - Extremities Exam Extremities exam: Positive for: normal capillary refill, pedal edema (2+ pitting with stasis dermatitis), pedal pulses present (very diminished). Negative for: calf tenderness - Back Exam Back exam: absent: CVA tenderness (L), CVA tenderness (R), paraspinal tenderness , tenderness, vertebral tenderness - Neurological Exam Neurological exam: Alert, CN II-XII Intact, Oriented x3 Additional comments: motor and sensory grossly intact move all extremities equally - Psychiatric Exam Psychiatric exam: Normal Affect, Normal Mood - Skin Skin Exam: Dry, Warm Results - Vital Signs Recent Vital Signs: Last Vital Signs Temp 98.4 F 03/20/18 13:26 Pulse 79 03/20/18 13:26 Resp 19 03/20/18 13:26 BP 103/53 L 03/20/18 12:48 Pulse Ox 93 L 03/20/18 13:26 - Labs Result Diagrams: 03/20/18 09:00 03/20/18 09:00 Assessment & Plan - Assessment and Plan (Free Text) Plan: Multiple falls seemed to related to positional changes R/O orthostatic hypotension R/O vertebral insufficiency: Mild vascular carotid bifurcation on CT R/O cardiac etiology - Telemetry - EKG - No plan for echo. No murmur appreciated - carotid doppler - measure orthostatic VS - physical/occupation therapy Acute neck pain at C7 Cervical and lumbar radiculopathy, chronic - C-spine CT: No acute fracture. Chronic spondylosis with b/l foraminal stenosis - Lidoderm patch at neck COPD on home O2 continuous 3-4L O2 - continue Duoneb PRN, Brovana, Budesonide, spiriva, prednisone, cont O2 CHF, diastolic, ECHO (08/2017)L LVEF 60. RVSP 35. MR/TR mild. IVC severely dilated HTN - continue home Amlodipine, lasix, Hctz. Continue Persantine for angina Hypokelemia - Continue home Potassium PO HLD - continue lipitor Periperhal neuropathy PAD, varicose veins, chronic LE edema Cervical and lumbar radiculopathy, acute on chronic Dementia - continue home Aricept, namenda; continue Effexor for mood Hx Breast cancer with bilateral mastectomy (2004) Hx Bladder cancer s/p botulinum toxin injection x 5 (1988) s/r/d/w Dr Scales <Minh Scales S - Last Filed: 03/21/18 11:27> Results - Vital Signs Recent Vital Signs: Last Vital Signs Temp 98.1 F 03/21/18 06:00 Pulse 81 03/21/18 06:00 Resp 19 03/21/18 06:00 BP 168/78 H 03/21/18 09:58 Pulse Ox 95 03/21/18 06:00 - Labs Result Diagrams: 03/21/18 07:00 03/21/18 07:00 Labs: Laboratory Results - last 24 hr 03/21/18 03/21/18 07:00 07:00 WBC 8.3 RBC 4.12 Hgb 11.3 L Hct 37.0 MCV 89.8 MCH 27.4 MCHC 30.5 L RDW 16.5 H Plt Count 197 MPV 12.1 H Gran % 80.0 H Lymph % (Auto) 12.6 L [place] % (Auto) 5.4 Eos % (Auto) 1.8 Baso % (Auto) 0.2 Gran # 6.67 H Lymph # (Auto) 1.1 L [place] # (Auto) 0.5 Eos # (Auto) 0.2 Baso # (Auto) 0.02 Sodium 138 Potassium 3.1 L Chloride 82 L Carbon Dioxide 46 H Anion Gap 13 BUN 25 H Creatinine 0.8 Est GFR ( Amer) > 60 Est GFR (Non-Af Amer) > 60 Random Glucose 249 H Calcium 8.8 Magnesium 1.8 Total Bilirubin 0.3 AST 18 ALT 22 Alkaline Phosphatase 118 Total Protein 6.2 Albumin 3.3 Globulin 2.9 Albumin/Globulin Ratio 1.1 Assessment & Plan - Assessment and Plan (Free Text) Plan: Pt seen and examined. I have reviewed the note of the medical reimbursement manager and agree with it. I have discussed the assessment and plan with the resident. I have reviewed the patient's labs and medications. Pt with fall. She has multiple xrays that were done and were negative. Pt is not a safe discharge. She will need PT evaluation and possible KJ. She has severe COPD on home O2. HTN controlled with HCTZ and Amlodipine and lasix. Spoke to daughter at bedside.
[2018-03-20] MEDS ORDERED: Albuterol-Ipratrop 3 mg / 0.5 (3 ml) UD IH PRN (15:13)
[2018-03-20] MEDS: Lidocaine 5% Patch TD SCH (16:40)
--- NOTE | 2018-03-20 17:29 | RAD ---
Date of service: 03/20/2018 PROCEDURE: CHEST RADIOGRAPH, 1 VIEW HISTORY: s/p fall COMPARISON: Comparison chest 01/23/2018. FINDINGS: LUNGS: Bibasilar atelectasis and or developing infiltrates. There may also be some chronic pleural thickening or small effusion left lung base PLEURA: As above. No pneumothorax. CARDIOVASCULAR: Cardiomegaly. OSSEOUS STRUCTURES: Multilevel degenerative spondylosis of the thoracic spine. Old fracture deformity left humeral head/ neck. Osteoarthritis of both shoulder girdles. VISUALIZED UPPER ABDOMEN: Normal. OTHER FINDINGS: None. IMPRESSION: Bibasilar atelectasis and or developing infiltrates. There may also be some chronic pleural thickening or small effusion left lung base
--- NOTE | 2018-03-20 17:31 | RAD ---
Date of service: 03/20/2018 PROCEDURE: Right Foot Radiographs. HISTORY: s/p fall COMPARISON: None. FINDINGS: BONES: No evidence of acute displaced fracture nor dislocation. The osseous structures appear intact. JOINTS: Extension -hammertoe deformities 3rd 4th 5th and to a lesser degree 5th digits. Mild hallux valgus deformity with mild degenerative osteoarthritis 1st MTP joint. Mild multi articular degenerative osteoarthritis Small and posterior and tiny plantar SOFT TISSUES: Normal. OTHER FINDINGS: None. IMPRESSION: No evidence of acute displaced fracture nor dislocation. See above discussion for additional details and findings.
[2018-03-20] MEDS ORDERED: Pneumococcal 23-Valent Vaccine IM ONE (17:54)
[2018-03-20] MEDS: Arformoterol 15 mcg/2 ml Inh Sol IH SCH (19:51)
[2018-03-20] MEDS: Budesonide 0.25 mg/2 ml Inhal Susp UD IH SCH (19:51)
[2018-03-20] MEDS ORDERED: Fluticasone-Salmeterol 100-50mcg Diskus IH SCH (22:00)
[2018-03-21] MEDS: Arformoterol 15 mcg/2 ml Inh Sol IH SCH ×2 (07:56→19:40)
[2018-03-21] MEDS: Budesonide 0.25 mg/2 ml Inhal Susp UD IH SCH ×2 (07:56→19:40)
[2018-03-21 08:07] LABS: BASO # 0.02 K/mm3 (0.0-2.0); BASO % 0.2 % (0.0-3.0); EOS # 0.2 (0.0-0.7); EOS % 1.8 % (1.5-5.0); GRAN # 6.67 (1.4-6.5); HEMOGLOBIN 11.3 g/dL (12.0-16.0); LYMPH # 1.1 (1.2-3.4); LYMPH % 12.6 % (22.0-35.0); MEAN CELL VOLUME 89.8 fl (80.0-105.0); MEAN CORPUSCULAR HEMOGLOBIN 27.4 pg (25.0-35.0); MEAN CORPUSCULAR HGB CONC 30.5 g/dl (31.0-37.0); MEAN PLATELET VOLUME 12.1 fl (7.0-11.0); MONO # 0.5 (0.1-0.6); MONO % 5.4 % (1.0-6.0); RBC 4.12 10^6/uL (3.5-6.1); RED CELL DISTRIBUTION WIDTH 16.5 % (11.5-14.5); WHITE BLOOD COUNT 8.3 10^3/ul (4.5-11.0)
[2018-03-21 08:46] LABS: ALB/GLOB RATIO 1.1 (1.1-1.8); ALBUMIN 3.3 g/dL (3.0-4.8); ALT/SGPT 22 U/L (7-56); AST/SGOT 18 U/L (14-36); BLOOD UREA NITROGEN 25 mg/dL (7-21); CALCIUM 8.8 mg/dL (8.4-10.5); GFR AFRICAN-AMERICAN > 60; GFR NON-AFRICAN AMERICAN > 60
--- NOTE | 2018-03-21 08:54 | CP.PCM.PN ---
<Marie Ricketts - Last Filed: 03/21/18 10:27> Subjective - Date & Time of Evaluation Date of Evaluation: 03/21/18 Time of Evaluation: 08:00 - Subjective Subjective: PGY-[address] Loyda ANDERSON controlled by tylenol. No visual changes, dizziness, n/v. Neck pain chronic and persist. No radiation pain. no other complaints Objective - Vital Signs/Intake and Output Vital Signs (last 24 hours): Temp Pulse Resp BP Pulse Ox 98.1 F 81 19 168/78 H 95 03/21/18 06:00 03/21/18 06:00 03/21/18 06:00 03/21/18 06:00 03/21/18 06:00 Intake and Output: 03/21/18 03/21/18 06:59 18:59 Intake Total 120 Output Total 400 Balance -280 - Medications Medications: Current Medications Albuterol/Ipratropium (Duoneb 3 Mg/0.5 Mg (3 Ml) Ud) 3 ml IH [id number] PRN PRN Reason: Shortness of Breath Amlodipine Besylate (Norvasc) 10 mg PO DAILY [facility] Arformoterol Tartrate (Brovana) 15 mcg IH [id number] [facility] Last Admin: 03/21/18 07:56 Dose: 15 mcg Atorvastatin Calcium (Lipitor) 20 mg PO HS [facility] Last Admin: 03/20/18 21:29 Dose: 20 mg Budesonide (Pulmicort Respules) 0.25 mg IH [id number] [facility] Last Admin: 03/21/18 07:56 Dose: 0.25 mg Dipyridamole (Persantine) 25 mg PO TID [facility] Last Admin: 03/20/18 18:02 Dose: 25 mg Donepezil HCl (Aricept) 10 mg PO HS [facility] Last Admin: 03/20/18 21:29 Dose: 10 mg Furosemide (Lasix) 40 mg PO BID [facility] Last Admin: 03/20/18 18:01 Dose: Not Given Hydrochlorothiazide (Hydrodiuril) 25 mg PO DAILY [facility] Lactobacillus Acidophilus (Bacid Acidophilus) 1 cap PO DAILY [facility] Lidocaine (Lidoderm) 1 ea TD DAILY [facility] Last Admin: 03/20/18 16:40 Dose: 1 ea Memantine (Namenda) 10 mg PO BID [facility] Last Admin: 03/20/18 18:02 Dose: 10 mg Potassium Chloride (Klor-Con 10) 20 meq PO DAILY [facility] Prednisone (Prednisone Tab) 5 mg PO DAILY [facility] Tiotropium Taylor (Spiriva) 18 mcg IH DAILY [facility] Venlafaxine HCl (Effexor Xr) 75 mg PO DAILY [facility] - Labs Labs: 03/21/18 07:00 03/21/18 07:00 - Constitutional Appears: No Acute Distress - Head Exam Head Exam: ATRAUMATIC, NORMAL INSPECTION, NORMOCEPHALIC - Eye Exam Eye Exam: EOMI, Normal appearance, PERRL. absent: Scleral icterus Pupil Exam: NORMAL ACCOMODATION - ENT Exam Additional comments: supple - Neck Exam Additional comments: Tight muscle C7 pinpoint tenderness - Respiratory Exam Respiratory Exam: Clear to Ausculation Bilateral, Rhonchi, Wheezes. absent: Rales - Cardiovascular Exam Cardiovascular Exam: REGULAR RHYTHM, +S1, +S2 - GI/Abdominal Exam GI & Abdominal Exam: Soft, Normal Bowel Sounds. absent: Guarding, Rigid, Tenderness, Organomegaly - Extremities Exam Extremities Exam: Normal Capillary Refill. absent: Calf Tenderness, Pedal Edema , Tenderness - Back Exam Back Exam: absent: CVA tenderness (L), CVA tenderness (R) - Neurological Exam Neurological Exam: Alert, Awake, Oriented x3 Neuro motor strength exam: Left Upper Extremity: 5, Right Upper Extremity: 5, Left Lower Extremity: 5, Right Lower Extremity: 5 - Psychiatric Exam Psychiatric exam: Normal Affect, Normal Mood - Skin Skin Exam: Dry, Warm Assessment and Plan - Assessment and Plan (Free Text) Plan: Multiple falls seemed to related to positional changes Had ruled out orthostatic hypotension R/O vertebral insufficiency: Mild vascular carotid bifurcation on CT R/O cardiac etiology - Telemetry: sinus 80s - ECG 03/20: Sinus 80 with sinus arrhythia 1st degree AV block. prolong QT 470 - No plan for echo. No murmur appreciated - carotid doppler - physical/occupation therapy - neurology consult Acute neck pain at C7 Cervical and lumbar radiculopathy, chronic - C-spine CT: No acute fracture. Chronic spondylosis with b/l foraminal stenosis - Lidoderm patch at neck COPD on home O2 continuous 3-4L O2 - continue Duoneb PRN, Brovana, Budesonide, spiriva, prednisone, cont O2 CHF, diastolic, ECHO (08/2017)L LVEF 60. RVSP 35. MR/TR mild. IVC severely dilated HTN - continue home Amlodipine, lasix, Hctz. Continue Persantine for angina Hypokelemia - Continue home Potassium PO HLD - continue lipitor Periperhal neuropathy PAD, varicose veins, chronic LE edema Cervical and lumbar radiculopathy, acute on chronic Dementia - continue home Aricept, namenda; continue Effexor for mood Hx Breast cancer with bilateral mastectomy (2004) Hx Bladder cancer s/p botulinum toxin injection x 5 (1988) Discharge planning: Pt finished home PT 1 week ago and still experience frequent falling afterwards. Pt lives alone with home mortgage disclosure act specialist. Lina, daughter, and patient wants to try subacute rehab. Lina is open to the idea of residential care. However, other family member do not agree with plan of residential care. s/r/d/w Dr Scales <Minh Scales S - Last Filed: 03/21/18 11:32> Objective - Vital Signs/Intake and Output Vital Signs (last 24 hours): Temp Pulse Resp BP Pulse Ox 98.1 F 81 19 168/78 H 95 03/21/18 06:00 03/21/18 06:00 03/21/18 06:00 03/21/18 09:58 03/21/18 06:00 Intake and Output: 03/21/18 03/21/18 06:59 18:59 Intake Total 120 Output Total 400 Balance -280 - Medications Medications: Current Medications Acetaminophen (Tylenol 325mg Tab) 650 mg PO Q6H PRN PRN Reason: Pain, moderate (4-7) Albuterol/Ipratropium (Duoneb 3 Mg/0.5 Mg (3 Ml) Ud) 3 ml IH [id number] PRN PRN Reason: Shortness of Breath Amlodipine Besylate (Norvasc) 10 mg PO DAILY [facility] Last Admin: 03/21/18 09:58 Dose: 10 mg Arformoterol Tartrate (Brovana) 15 mcg IH [id number] [facility] Last Admin: 03/21/18 07:56 Dose: 15 mcg Atorvastatin Calcium (Lipitor) 20 mg PO HS [facility] Last Admin: 03/20/18 21:29 Dose: 20 mg Budesonide (Pulmicort Respules) 0.25 mg IH [id number] [facility] Last Admin: 03/21/18 07:56 Dose: 0.25 mg Dipyridamole (Persantine) 25 mg PO TID [facility] Last Admin: 03/21/18 09:58 Dose: 25 mg Donepezil HCl (Aricept) 10 mg PO HS [facility] Last Admin: 03/20/18 21:29 Dose: 10 mg Furosemide (Lasix) 40 mg PO BID [facility] Last Admin: 03/21/18 09:58 Dose: 40 mg Hydrochlorothiazide (Hydrodiuril) 25 mg PO DAILY [facility] Last Admin: 03/21/18 09:57 Dose: 25 mg Lactobacillus Acidophilus (Bacid Acidophilus) 1 cap PO DAILY [facility] Last Admin: 03/21/18 09:57 Dose: 1 cap Lidocaine (Lidoderm) 1 ea TD DAILY [facility] Last Admin: 03/21/18 10:04 Dose: 1 ea Memantine (Namenda) 10 mg PO BID [facility] Last Admin: 03/21/18 09:58 Dose: 10 mg Potassium Chloride (Klor-Con 10) 20 meq PO DAILY [facility] Last Admin: 03/21/18 09:57 Dose: 20 meq Prednisone (Prednisone Tab) 5 mg PO DAILY [facility] Last Admin: 03/21/18 09:59 Dose: 5 mg Tiotropium Taylor (Spiriva) 18 mcg IH DAILY [facility] Last Admin: 03/21/18 09:58 Dose: 18 mcg Venlafaxine HCl (Effexor Xr) 75 mg PO DAILY [facility] Last Admin: 03/21/18 10:03 Dose: 75 mg - Labs Labs: 03/21/18 07:00 03/21/18 07:00 Assessment and Plan - Assessment and Plan (Free Text) Plan: Pt seen and examined. I have reviewed the note of the medical corps officer and agree with it. I have discussed the assessment and plan with the resident. I have reviewed the patient's labs and medications. Pt with fall at home. She will need PT and probable KJ. BP is controlled. Spoke to daughter.
[2018-03-21] MEDS: Potassium Chloride 10 mEq ER Tab PO SCH (09:57)
[2018-03-21] MEDS: Lactobacillus Acidophilus 500 MU Cap PO SCH (09:57)
[2018-03-21] MEDS: Tiotropium 18 mcg Cap For Inhalation IH SCH (09:58)
[2018-03-21] MEDS: Venlafaxine 75 mg ER Cap PO SCH (10:03)
[2018-03-21] MEDS: Lidocaine 5% Patch TD SCH (10:04)
--- NOTE | 2018-03-21 11:23 | CARD ---
APPROVED REPORT Date of service: 03/20/2018 EKG Measurement Heart [id number] <Conclusion> Sinus rhythm with sinus arrhythmia with 1st degree AV block Nonspecific ST and T wave abnormality Prolonged QT Abnormal ECG
[2018-03-21] MEDS ORDERED: cefTRIAXone 1 gm 1 GM/100 ML BAG IVPB ONE (12:32)
--- NOTE | 2018-03-21 17:54 | CON ---
Copied To: Miguel Mitchell MD Attending MD: Miguel Mitchell MD DATE: 03/21/2018 HISTORY OF PRESENT ILLNESS: This is an 82-year-old female with past medical history of COPD, hypertension, dementia, bladder cancer and breast CA, status post bilateral mastectomy. Came to hospital. The patient fell on the hallway to bathroom. Denies any complaint, hit her head. Does not remember loss of consciousness. Also, had small hematoma on the right leg above the knee. The patient seems to have multiple falls. PAST MEDICAL HISTORY: COPD, hypertension, peripheral neuropathy and dementia and frequent falls. SOCIAL HISTORY: The patient ex-smoker. Does not drink now. ALLERGIES: ALLERGIC TO ASPIRIN. PHYSICAL EXAMINATION: HEENT: Normocephalic, atraumatic. VITAL SIGNS: Blood pressure 168/78. NEUROLOGIC: Spontaneous movement of the extremities noted. Deep tendon reflexes 1+. Both plantars downgoing. On examination, moves all the extremities. Tone normal. Sensory appears intact. Cerebellar gait deferred. IMPRESSION: Recurrent fall and peripheral neuropathy, possible. CAT scan of the head was done and no intracranial pathology. Possibly, meningioma not excluded. Workup in progress. We will follow up. Miguel Mitchell MD
--- NOTE | 2018-03-21 19:58 | US ---
PROCEDURE: Bilateral carotid artery duplex ultrasound HISTORY: Carotid stenosis PHYSICIAN(S): Donny Dumont MD. TECHNIQUE: Duplex sonography and color-flow Doppler were used to evaluate the carotid bifurcations and limited segments of the vertebral arteries bilaterally. FINDINGS: There is moderate to severe heterogeneous echogenic plaque noted at the carotid bifurcations bilaterally. The peak systolic velocity in the proximal right internal carotid artery is 201 cm/sec. This corresponds to a 60-79 percent proximal right ICA stenosis. Severely elevated systolic velocities are noted in the proximal right external carotid artery. The right vertebral artery is not visualized and may be occluded The peak systolic velocity in the proximal left internal carotid artery is 421 cm/sec. This corresponds to a severe 80-99 percent proximal left ICA stenosis. Normal systolic velocities are noted in the proximal left external carotid artery. There is antegrade flow in the left vertebral artery. IMPRESSION: 1. Severe 80-99 percent proximal left ICA stenosis 2. 60-79 percent proximal right ICA stenosis 3. Antegrade flow in the left vertebral artery. The right vertebral artery is not visualized and may be occluded. If clinically indicated, sonographic findings can be confirmed with MRA with gadolinium the exam, CTA, or conventional arteriography
[2018-03-22] MEDS: Arformoterol 15 mcg/2 ml Inh Sol IH SCH ×2 (07:31→20:30)
[2018-03-22] MEDS: Budesonide 0.25 mg/2 ml Inhal Susp UD IH SCH ×2 (07:31→20:30)
[2018-03-22] MEDS: Lidocaine 5% Patch TD SCH (09:08)
[2018-03-22] MEDS: Tiotropium 18 mcg Cap For Inhalation IH SCH (09:09)
[2018-03-22] MEDS: Lactobacillus Acidophilus 500 MU Cap PO SCH (09:09)
[2018-03-22] MEDS: Venlafaxine 75 mg ER Cap PO SCH (09:10)
[2018-03-22] MEDS: Potassium Chloride 10 mEq ER Tab PO SCH (09:10)
--- NOTE | 2018-03-22 10:24 | CP.PCM.PN ---
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 Pt did not recall event. Daughter report that she saw pt gasping for air at natural resources instructor while asleep. no other acute complaint except focal tenderness on L forehead Objective - Vital Signs/Intake and Output Vital Signs (last 24 hours): Temp Pulse Resp BP Pulse Ox 98 F 84 19 142/72 95 03/22/18 08:05 03/22/18 08:49 03/22/18 08:05 03/22/18 09:10 03/22/18 08:05 Intake and Output: 03/22/18 03/22/18 06:59 18:59 Intake Total 240 Balance 240 - Medications Medications: Current Medications Acetaminophen (Tylenol 325mg Tab) 650 mg PO Q6H PRN PRN Reason: Pain, moderate (4-7) Last Admin: 03/22/18 09:09 Dose: 650 mg Albuterol/Ipratropium (Duoneb 3 Mg/0.5 Mg (3 Ml) Ud) 3 ml IH [id number] PRN PRN Reason: Shortness of Breath Amlodipine Besylate (Norvasc) [address] [facility] Last Admin: 03/22/18 09:09 Dose: 10 mg Arformoterol Tartrate (Brovana) [id number] [facility] Last Admin: 03/22/18 07:31 Dose: 15 mcg Atorvastatin Calcium (Lipitor) [address] [facility] Last Admin: 03/21/18 21:23 Dose: 20 mg Budesonide (Pulmicort Respules) 0.[id number] [facility] Last Admin: 03/22/18 07:31 Dose: 0.25 mg Dipyridamole (Persantine) [address] [facility] Last Admin: 03/22/18 09:10 Dose: 25 mg Donepezil HCl (Aricept) [address] [facility] Last Admin: 03/21/18 21:23 Dose: 10 mg Furosemide (Lasix) 40 mg PO BID [facility] Last Admin: 03/22/18 09:10 Dose: 40 mg Hydrochlorothiazide (Hydrodiuril) [address] [facility] Last Admin: 03/22/18 09:09 Dose: 25 mg Lactobacillus Acidophilus (Bacid Acidophilus) 1 cap PO DAILY [facility] Last Admin: 03/22/18 09:09 Dose: 1 cap Lidocaine (Lidoderm) 1 ea TD DAILY [facility] Last Admin: 03/22/18 09:08 Dose: 1 ea Memantine (Namenda) [address] [facility] Last Admin: 03/22/18 09:14 Dose: 10 mg Potassium Chloride (Klor-Con 10) 20 meq PO DAILY [facility] Last Admin: 03/22/18 09:10 Dose: 20 meq Prednisone (Prednisone Tab) [address] [facility] Last Admin: 03/22/18 09:10 Dose: 5 mg Tiotropium Ellsworth (Spiriva) [address] [facility] Last Admin: 03/22/18 09:09 Dose: 18 mcg Venlafaxine HCl (Effexor Xr) [address] [facility] Last Admin: 03/22/18 09:10 Dose: 75 mg - Labs Labs: 03/21/18 07:00 03/21/18 07:00 - Constitutional Appears: No Acute Distress - Head Exam Head Exam: NORMAL INSPECTION, NORMOCEPHALIC Additional comments: tender on L forehead upon palpation. ecchymosis faded - Eye Exam Eye Exam: EOMI, Normal appearance, PERRL. absent: Scleral icterus Pupil Exam: NORMAL ACCOMODATION - ENT Exam ENT Exam: Mucous Membranes Moist - Neck Exam Additional comments: supple - Respiratory Exam Respiratory Exam: Clear to Ausculation Bilateral, Rhonchi, Wheezes - Cardiovascular Exam Cardiovascular Exam: REGULAR RHYTHM, +S1, +S2 - GI/Abdominal Exam GI & Abdominal Exam: Soft, Normal Bowel Sounds. absent: Guarding, Rigid, Tenderness - Extremities Exam Extremities Exam: Normal Capillary Refill, Pedal Edema. absent: Calf Tenderness - Back Exam Back Exam: absent: CVA tenderness (L), CVA tenderness (R) - Neurological Exam Neurological Exam: Alert, Awake, Oriented x3 - Psychiatric Exam Psychiatric exam: Normal Affect, Normal Mood - Skin Skin Exam: Dry, Warm Assessment and Plan - Assessment and Plan (Free Text) Plan: Ms Oakley, 82F, with PMH of COPD (on home O2 3L), dCHF, L shoulder fx (s/p repair 3 years ago), HTN/HLD, dementia, bladder CA (treated, in remission), and breast CA (s/p b/l mastectomy) admitted for recurrent falls, multiple incidents in the past weeks. Multiple falls seemed to related to positional changes & falling asleep in the commode Had ruled out orthostatic hypotension Possible vertebral insufficiency due to Critical ICA stenosis b/l R/O cardiac etiology - Telemetry: sinus 80s - ECG 03/20: Sinus 80 with sinus arrhythia 1st degree AV block. prolong QT 470 - No plan for echo. No murmur appreciated - carotid doppler result as below - physical/occupation therapy - neurology consult Critical ICA stenosis, symptomatic related to frequent falls Allergy to aspirin - 80-99% proximal L ICA - 60-79% proximal R ICA - IR consult for possible stenting. May need pulmonary clearance - May confirm with MRA vs CTA vs arteriography, pending IR recs - Increase lipitor Suspected obstructive sleep apnea - Continue O2 at night with assistance to commode - Outpatient sleep study Acute neck pain at C7 Cervical and lumbar radiculopathy, chronic - C-spine CT: No acute fracture. Chronic spondylosis with b/l foraminal stenosis - Lidoderm patch at neck COPD on home O2 continuous 3-4L O2 - continue Duoneb PRN, Brovana, Budesonide, spiriva, prednisone, cont O2 CHF, diastolic, ECHO (08/2017)L LVEF 60. RVSP 35. MR/TR mild. IVC severely dilated HTN - continue home Amlodipine, lasix, Hctz. Continue Persantine for angina Hypokelemia - Continue home Potassium PO HLD - continue lipitor Periperhal neuropathy PAD, varicose veins, chronic LE edema Cervical and lumbar radiculopathy, acute on chronic Dementia - continue home Aricept, namenda; continue Effexor for mood Hx Breast cancer with bilateral mastectomy (2004) Hx Bladder cancer s/p botulinum toxin injection x 5 (1988) Discharge planning: Pt finished home PT 1 week ago and still experience frequent falling afterwards. Pt lives alone. Family can afford home furnishings sales representative only comes 2 hours/day x 4/week. Lina, daughter, and patient wants to try subacute rehab. Lina is open to the idea of [facility] care. However, other family member do not agree with plan of intermediate card tender care. Pending PT eval s/r/d/w Dr Scales <Minh Scales S - Last Filed: 03/22/18 18:46> Objective - Vital Signs/Intake and Output Vital Signs (last 24 hours): Temp Pulse Resp BP Pulse Ox 98.4 F 84 20 136/72 90 L 03/22/18 16:00 03/22/18 18:00 03/22/18 16:00 03/22/18 17:14 03/22/18 16:00 Intake and Output: 03/22/18 03/22/18 06:59 18:59 Intake Total 240 450 Balance 240 450 - Medications Medications: Current Medications Acetaminophen (Tylenol 325mg Tab) 650 mg PO Q6H PRN PRN Reason: Pain, moderate (4-7) Last Admin: 03/22/18 17:14 Dose: 650 mg Albuterol/Ipratropium (Duoneb 3 Mg/0.5 Mg (3 Ml) Ud) 3 ml IH [id number] PRN PRN Reason: Shortness of Breath Amlodipine Besylate (Norvasc) [address] [facility] Last Admin: 03/22/18 09:09 Dose: 10 mg Arformoterol Tartrate (Brovana) [id number] [facility] Last Admin: 03/22/18 07:31 Dose: 15 mcg Atorvastatin Calcium (Lipitor) [address] [facility] Budesonide (Pulmicort Respules) 0.[id number] [facility] Last Admin: 03/22/18 07:31 Dose: 0.25 mg Dipyridamole (Persantine) [address] [facility] Last Admin: 03/22/18 17:14 Dose: 25 mg Donepezil HCl (Aricept) [address] [facility] Last Admin: 03/21/18 21:23 Dose: 10 mg Furosemide (Lasix) [address] [facility] Last Admin: 03/22/18 17:14 Dose: 40 mg Hydrochlorothiazide (Hydrodiuril) [address] [facility] Last Admin: 03/22/18 09:09 Dose: 25 mg Insulin Human Regular (Humulin R Low) 0 units SC ACHS [facility] PRN Reason: Protocol Lactobacillus Acidophilus (Bacid Acidophilus) 1 cap PO DAILY [facility] Last Admin: 03/22/18 09:09 Dose: 1 cap Lidocaine (Lidoderm) 1 ea TD DAILY [facility] Last Admin: 03/22/18 09:08 Dose: 1 ea Memantine (Namenda) 10 mg PO BID [facility] Last Admin: 03/22/18 17:14 Dose: 10 mg Potassium Chloride (Klor-Con 10) 20 meq PO DAILY [facility] Last Admin: 03/22/18 09:10 Dose: 20 meq Prednisone (Prednisone Tab) 5 mg PO DAILY [facility] Last Admin: 03/22/18 09:10 Dose: 5 mg Tiotropium Ellsworth (Spiriva) 18 mcg IH DAILY [facility] Last Admin: 03/22/18 09:09 Dose: 18 mcg Venlafaxine HCl (Effexor Xr) 75 mg PO DAILY [facility] Last Admin: 03/22/18 09:10 Dose: 75 mg - Labs Labs: 03/21/18 07:00 03/22/18 17:00 Assessment and Plan - Assessment and Plan (Free Text) Plan: Pt seen and examined. I have reviewed the note of the pediatrician/medical doctor and agree with it. I have discussed the assessment and plan with the resident. I have reviewed the patient's labs and medications. Pt with fall. She has COPD and is home O2 dependent. Spoke to daughter at the bedside. Pt's BP is controlled. She will need PT evaluation. She is open to the idea of KJ at [facility]. Spoke to Dr Donny RONDON for the carotid artery stenosis.
[2018-03-22 16:56] VITALS: RESP 20
[2018-03-22 17:27] LABS: ALB/GLOB RATIO 1.2 (1.1-1.8); ALBUMIN 3.8 g/dL (3.0-4.8); ALT/SGPT 22 U/L (7-56); AST/SGOT 22 U/L (14-36); BLOOD UREA NITROGEN 26 mg/dL (7-21); CALCIUM 9.1 mg/dL (8.4-10.5); GFR AFRICAN-AMERICAN > 60; GFR NON-AFRICAN AMERICAN > 60
[2018-03-22] MEDS ORDERED: Gadodiamide 287 MG/ML VIAL (20ML) IV ONE (17:30)
[2018-03-22 17:32] LABS: TROPONIN I 0.03 ng/mL
--- NOTE | 2018-03-22 19:33 | CARD ---
APPROVED REPORT Date of service: 03/22/2018 EKG Measurement Heart [id number] MD [id number] <Conclusion> Sinus rhythm with sinus arrhythmia with 1st degree AV block Prolonged QT Abnormal ECG
[2018-03-22] MEDS: Insulin Reg-LOW-Coverage SC SCH (21:31)
[2018-03-23] MEDS: Budesonide 0.25 mg/2 ml Inhal Susp UD IH SCH (07:23)
[2018-03-23] MEDS: Arformoterol 15 mcg/2 ml Inh Sol IH SCH (07:23)
[2018-03-23 08:02] VITALS: TEMP 97.8; O2SAT 93
[2018-03-23] MEDS ORDERED: Sodium Chloride 0.9% 500 ML IV SCH (08:15)
[2018-03-23] MEDS: Insulin Reg-LOW-Coverage SC SCH ×2 (08:21→11:57)
[2018-03-23] MEDS: Venlafaxine 75 mg ER Cap PO SCH (09:05)
[2018-03-23] MEDS: Lactobacillus Acidophilus 500 MU Cap PO SCH (09:05)
[2018-03-23] MEDS: Potassium Chloride 10 mEq ER Tab PO SCH (09:05)
[2018-03-23] MEDS: Tiotropium 18 mcg Cap For Inhalation IH SCH (09:05)
[2018-03-23] MEDS: Lidocaine 5% Patch TD SCH (09:06)
[2018-03-23 09:09] VITALS: BP 138/72
--- NOTE | 2018-03-23 09:52 | CP.PCM.DIS ---
<LiliamMarie - Last Filed: 03/23/18 15:04> Provider - Provider Date of Admission: 03/20/18 12:29 Attending physician: Minh Scales MD Primary care physician: Minh Scales MD Time Spent in preparation of Discharge (in minutes): 30 Diagnosis - Discharge Diagnosis (1) Fall Status: Acute (2) History of falling Status: Acute (3) COPD (chronic obstructive pulmonary disease) Status: Acute (4) Hypokalemia Status: Acute Hospital Course - Lab Results Lab Results: Micro Results 03/20/18 18:13 Urine,Clean Catch Urine Culture - Final MULTIPLE SPECIES. SUGGEST REPEAT SPECIMEN. Most Recent Lab Values WBC 8.3 10^3/ul (4.5-11.0) 03/21/18 07:00 RBC 4.12 10^6/uL (3.5-6.1) 03/21/18 07:00 Hgb 11.3 g/dL (12.0-16.0) L 03/21/18 07:00 Hct 37.0 % (36.0-48.0) 03/21/18 07:00 MCV 89.8 fl (80.0-105.0) 03/21/18 07:00 MCH 27.4 pg (25.0-35.0) 03/21/18 07:00 MCHC 30.5 g/dl (31.0-37.0) L 03/21/18 07:00 RDW 16.5 % (11.5-14.5) H 03/21/18 07:00 Plt Count 197 10^3/uL (120.0-450.0) 03/21/18 07:00 MPV 12.1 fl (7.0-11.0) H 03/21/18 07:00 Gran % 80.0 % (50.0-68.0) H 03/21/18 07:00 Lymph % (Auto) 12.6 % (22.0-35.0) L 03/21/18 07:00 Scott % (Auto) 5.4 % (1.0-6.0) 03/21/18 07:00 Eos % (Auto) 1.8 % (1.5-5.0) 03/21/18 07:00 Baso % (Auto) 0.2 % (0.0-3.0) 03/21/18 07:00 Gran # 6.67 (1.4-6.5) H 03/21/18 07:00 Lymph # (Auto) 1.1 (1.2-3.4) L 03/21/18 07:00 Scott # (Auto) 0.5 (0.1-0.6) 03/21/18 07:00 Eos # (Auto) 0.2 (0.0-0.7) 03/21/18 07:00 Baso # (Auto) 0.02 K/mm3 (0.0-2.0) 03/21/18 07:00 Sodium 138 mmol/L (132-148) 03/22/18 17:00 Potassium 3.8 mmol/L (3.6-5.0) 03/22/18 17:00 Chloride 80 mmol/L (98-107) L 03/22/18 17:00 Carbon Dioxide 46 mmol/L (21-33) H 03/22/18 17:00 Anion Gap 16 (10-20) 03/22/18 17:00 BUN 26 mg/dL (7-21) H 03/22/18 17:00 Creatinine 0.8 mg/dl (0.7-1.2) 03/22/18 17:00 Est GFR ( Amer) > 60 03/22/18 17:00 Est GFR (Non-Af Amer) > 60 03/22/18 17:00 POC Glucose (mg/dL) 211 mg/dL (65-110) H 03/23/18 07:08 Random Glucose 372 mg/dL (70-110) H* D 03/22/18 17:00 Calcium 9.1 mg/dL (8.4-10.5) 03/22/18 17:00 Phosphorus 3.1 mg/dL (2.5-4.5) 03/22/18 17:00 Magnesium 1.8 mg/dL (1.7-2.2) 03/22/18 17:00 Total Bilirubin 0.4 mg/dL (0.2-1.3) 03/22/18 17:00 AST 22 U/L (14-36) 03/22/18 17:00 ALT 22 U/L (7-56) 03/22/18 17:00 Alkaline Phosphatase 139 U/L (38-126) H 03/22/18 17:00 Troponin I 0.03 ng/mL 03/22/18 17:00 Total Protein 7.0 g/dL (5.8-8.3) 03/22/18 17:00 Albumin 3.8 g/dL (3.0-4.8) 03/22/18 17:00 Globulin 3.2 gm/dL 03/22/18 17:00 Albumin/Globulin Ratio 1.2 (1.1-1.8) 03/22/18 17:00 Urine Color Yellow (YELLOW) 03/20/18 10:25 Urine Appearance Clear (CLEAR) 03/20/18 10:25 Urine pH 7.0 (4.7-8.0) 03/20/18 10:25 Ur Specific Dorset 1.010 (1.005-1.035) 03/20/18 10:25 Urine Protein Negative mg/dL (<30 mg/dL) 03/20/18 10:25 Urine Glucose (UA) 100 mg/dL (NEGATIVE) H 03/20/18 10:25 Urine Ketones Negative mg/dL (NEGATIVE) 03/20/18 10:25 Urine Blood Negative (NEGATIVE) 03/20/18 10:25 Urine Nitrate Negative (NEGATIVE) 03/20/18 10:25 Urine Bilirubin Negative (NEGATIVE) 03/20/18 10:25 Urine Urobilinogen 1.0 E.U./dL (<1 E.U./dL) H 03/20/18 10:25 Ur Leukocyte Esterase Moderate Queta/uL (NEGATIVE) H 03/20/18 10:25 Urine RBC 0 - 2 /hpf (0-2) 03/20/18 10:25 Urine WBC 20 - 25 /hpf (0-6) 03/20/18 10:25 Ur Epithelial Cells 4 - 5 /hpf (0-5) 03/20/18 10:25 Urine Bacteria Large (NEG) 03/20/18 10:25 Urine Other Uyeast 03/20/18 10:25 - Hospital Course Hospital Course: Ms Oakley, 82F, with PMH of COPD (on home O2 3L), dCHF, L shoulder fx (s/p repair 3 years ago), HTN/HLD, dementia, bladder CA (treated, in remission), and breast CA (s/p b/l mastectomy) admitted for recurrent falls, multiple incidents in the past weeks. Multiple falls related to peripheral neuropathy, positional changes & falling asleep in the commode Had ruled out orthostatic hypotension Possible vertebral insufficiency due to Critical ICA stenosis b/l - Telemetry: sinus 80s - ECG 03/20: Sinus 80 with sinus arrhythia 1st degree AV block. prolong QT 470 - No plan for echo. No murmur appreciated - carotid doppler showed critical stenosis b/l ICA - physical therapist recommends [facility] Critical ICA stenosis, symptomatic related to frequent falls Allergy to aspirin - 80-99% proximal L ICA - 60-79% proximal R ICA - IR: Not candidate for carotid stent due to high operative risk. No documented LOC or stroke related to ICA stenosis - MRA: severe stenosis of distal L common carotid and proximal internal carotid - Increase lipitor Suspected obstructive sleep apnea - Continue O2 at night with assistance to commode - Outpatient sleep study Acute neck pain at C7 Cervical and lumbar radiculopathy, chronic - C-spine CT: No acute fracture. Chronic spondylosis with b/l foraminal stenosis - Lidoderm patch at neck COPD on home O2 continuous 3-4L O2 - continue Duoneb PRN, Brovana, Budesonide, spiriva, prednisone, cont O2 CHF, diastolic, ECHO (08/2017)L LVEF 60. RVSP 35. MR/TR mild. IVC severely dilated HTN - continue home Amlodipine, lasix, Hctz. Continue Persantine for angina Hypokelemia - Continue home Potassium PO HLD - continue lipitor Periperhal neuropathy PAD, varicose veins, chronic LE edema Dementia - continue home Aricept, namenda; continue Effexor for mood Hx Breast cancer with bilateral mastectomy (2004) Hx Bladder cancer s/p botulinum toxin injection x 5 (1988) Discharge planning: Pt finished home PT 1 week ago and still experience frequent falling afterwards. Pt lives alone. Family can afford in home tutor only comes 2 hours/day x 4/week. Lina, daughter, and patient wants to try subacute rehab. Lina is open to the idea of termite treater helper care. However, other family member do not agree with plan of termite treater helper care. At discharge, VS stable. Pt will go to [facility] to continual rehab s/r/d/w Dr Scales Discharge Exam - Head Exam Head Exam: NORMAL INSPECTION, NORMOCEPHALIC - Eye Exam Eye Exam: EOMI, Normal appearance, PERRL. absent: Scleral icterus Pupil Exam: NORMAL ACCOMODATION - ENT Exam ENT Exam: Mucous Membranes Moist - Neck Exam Additional comments: supple - Respiratory Exam Respiratory Exam: Decreased Breath Sounds (b/l franck gbases), Rales, Rhonchi (same ), NORMAL BREATHING PATTERN. absent: Wheezes - Cardiovascular Exam Cardiovascular Exam: REGULAR RHYTHM, +S1, +S2 - GI/Abdominal Exam GI & Abdominal Exam: Normal Bowel Sounds, Soft, Unremarkable. absent: Distended , Firm, Guarding, Rigid, Tenderness - Extremities Exam Extremities exam: normal capillary refill, pedal pulses present - Back Exam Back exam: absent: CVA tenderness (L), CVA tenderness (R) - Neurological Exam Neurological exam: Alert, Oriented x3 - Psychiatric Exam Psychiatric exam: Normal Affect, Normal Mood - Skin Skin Exam: Dry, Warm Discharge Plan - Follow Up Plan Condition: FAIR Disposition: TRANSF TO SNF Instructions: Preventing Falls in the Older Adult, Preventing Falls Additional Instructions: Patient will be benefit from outpatient sleep study Repeat CT head to monitor calcified meningioma Follow up with primary care doctor in 1 week Increase lipitor to 40mg Referrals: Minh Scales MD [Primary Care Provider] - Lloyd Mitchell MD [Staff Provider] - <Minh Scales - Last Filed: 03/24/18 21:21> Provider - Provider Date of Admission: 03/20/18 12:29 Attending physician: Minh Scales MD Primary care physician: Minh Scales MD Hospital Course - Lab Results Lab Results: Micro Results 03/20/18 18:13 Urine,Clean Catch Urine Culture - Final MULTIPLE SPECIES. SUGGEST REPEAT SPECIMEN. Most Recent Lab Values WBC 8.3 10^3/ul (4.5-11.0) 03/21/18 07:00 RBC 4.12 10^6/uL (3.5-6.1) 03/21/18 07:00 Hgb 11.3 g/dL (12.0-16.0) L 03/21/18 07:00 Hct 37.0 % (36.0-48.0) 03/21/18 07:00 MCV 89.8 fl (80.0-105.0) 03/21/18 07:00 MCH 27.4 pg (25.0-35.0) 03/21/18 07:00 MCHC 30.5 g/dl (31.0-37.0) L 03/21/18 07:00 RDW 16.5 % (11.5-14.5) H 03/21/18 07:00 Plt Count 197 10^3/uL (120.0-450.0) 03/21/18 07:00 MPV 12.1 fl (7.0-11.0) H 03/21/18 07:00 Gran % 80.0 % (50.0-68.0) H 03/21/18 07:00 Lymph % (Auto) 12.6 % (22.0-35.0) L 03/21/18 07:00 Scott % (Auto) 5.4 % (1.0-6.0) 03/21/18 07:00 Eos % (Auto) 1.8 % (1.5-5.0) 03/21/18 07:00 Baso % (Auto) 0.2 % (0.0-3.0) 03/21/18 07:00 Gran # 6.67 (1.4-6.5) H 03/21/18 07:00 Lymph # (Auto) 1.1 (1.2-3.4) L 03/21/18 07:00 Scott # (Auto) 0.5 (0.1-0.6) 03/21/18 07:00 Eos # (Auto) 0.2 (0.0-0.7) 03/21/18 07:00 Baso # (Auto) 0.02 K/mm3 (0.0-2.0) 03/21/18 07:00 Sodium 138 mmol/L (132-148) 03/22/18 17:00 Potassium 3.8 mmol/L (3.6-5.0) 03/22/18 17:00 Chloride 80 mmol/L (98-107) L 03/22/18 17:00 Carbon Dioxide 46 mmol/L (21-33) H 03/22/18 17:00 Anion Gap 16 (10-20) 03/22/18 17:00 BUN 26 mg/dL (7-21) H 03/22/18 17:00 Creatinine 0.8 mg/dl (0.7-1.2) 03/22/18 17:00 Est GFR ( Amer) > 60 03/22/18 17:00 Est GFR (Non-Af Amer) > 60 03/22/18 17:00 POC Glucose (mg/dL) 303 mg/dL (65-110) H 03/23/18 11:23 Random Glucose 372 mg/dL (70-110) H* D 03/22/18 17:00 Hemoglobin A1c 10.7 % (4.2-6.5) H D 03/23/18 08:00 Calcium 9.1 mg/dL (8.4-10.5) 03/22/18 17:00 Phosphorus 3.1 mg/dL (2.5-4.5) 03/22/18 17:00 Magnesium 1.8 mg/dL (1.7-2.2) 03/22/18 17:00 Total Bilirubin 0.4 mg/dL (0.2-1.3) 03/22/18 17:00 AST 22 U/L (14-36) 03/22/18 17:00 ALT 22 U/L (7-56) 03/22/18 17:00 Alkaline Phosphatase 139 U/L (38-126) H 03/22/18 17:00 Troponin I 0.03 ng/mL 03/22/18 17:00 Total Protein 7.0 g/dL (5.8-8.3) 03/22/18 17:00 Albumin 3.8 g/dL (3.0-4.8) 03/22/18 17:00 Globulin 3.2 gm/dL 03/22/18 17:00 Albumin/Globulin Ratio 1.2 (1.1-1.8) 03/22/18 17:00 Urine Color Yellow (YELLOW) 03/20/18 10:25 Urine Appearance Clear (CLEAR) 03/20/18 10:25 Urine pH 7.0 (4.7-8.0) 03/20/18 10:25 Ur Specific [place]et 1.010 (1.005-1.035) 03/20/18 10:25 Urine Protein Negative mg/dL (<30 mg/dL) 03/20/18 10:25 Urine Glucose (UA) 100 mg/dL (NEGATIVE) H 03/20/18 10:25 Urine Ketones Negative mg/dL (NEGATIVE) 03/20/18 10:25 Urine Blood Negative (NEGATIVE) 03/20/18 10:25 Urine Nitrate Negative (NEGATIVE) 03/20/18 10:25 Urine Bilirubin Negative (NEGATIVE) 03/20/18 10:25 Urine Urobilinogen 1.0 E.U./dL (<1 E.U./dL) H 03/20/18 10:25 Ur Leukocyte Esterase Moderate Queta/uL (NEGATIVE) H 03/20/18 10:25 Urine RBC 0 - 2 /hpf (0-2) 03/20/18 10:25 Urine WBC 20 - 25 /hpf (0-6) 03/20/18 10:25 Ur Epithelial Cells 4 - 5 /hpf (0-5) 03/20/18 10:25 Urine Bacteria Large (NEG) 03/20/18 10:25 Urine Other Uyeast 03/20/18 10:25 - Hospital Course Hospital Course: Pt seen and examined. I have reviewed the note of the medical insurance clerk and agree with it. I have discussed the assessment and plan with the resident. I have reviewed the patient's labs and medications. Pt had a fall and will need KJ. She has been accepted to [facility] and will be discharged today. Spoke to daughter. COPD is controlled. D/C today.
[2018-03-23 11:18] VITALS: PULSE 82
[2018-03-23] MEDS ORDERED: Gadodiamide 287 MG/ML VIAL (20ML) IV ONE (11:35)
--- NOTE | 2018-03-23 12:13 | MRI ---
Date of service: 03/23/2018 PROCEDURE: MR Angiography of the neck with and without contrast HISTORY: eval carotid stenoses and vertebral arteries COMPARISON: Doppler ultrasound report from 03/21/2018 TECHNIQUE: Contrast enhanced and [id number] angiography of the neck was performed. Rotating 3D maximum intensity projection images of the cervical carotid and vertebral arteries were generated. 20 cc of Omniscan were injected. There are some technical difficulties on the postcontrast study. Because the precontrast study was adequate the postcontrast exam was not repeated. FINDINGS: RIGHT CAROTID ARTERIES: There is mild stenosis of the internal carotid with loss of the normal bulbar shape. There is a moderate stenosis of the external carotid origin. LEFT CAROTID ARTERIES: There is a moderate to severe stenosis of the distal common carotid and proximal internal carotid. The degree of stenosis is probably 80 percent VERTEBRAL ARTERIES: Right Vertebral Artery: Not visualized Left Vertebral Artery: Normal. OTHER FINDINGS: None. IMPRESSION: Severe stenosis of the distal left common carotid and proximal internal carotid.
--- NOTE | 2018-03-23 15:01 | CON ---
Copied To: Tre Albrecht MD Attending MD: Tre Albrecht MD DATE: 03/23/2018 REQUESTING PHYSICIAN: Dr. Scales. REASON FOR CONSULT: I have been asked to see this 82-year-old female with multiple comorbidities who was admitted to the hospital on 03/20/2018 for multiple falls at home. I have been asked to see this patient for a question of rectal bleeding. The patient is unsure if she had any rectal bleeding. She relates the possibility of rectal bleeding to her most recent fall. The patient apparently fell in her bathroom and hit her head on the vanity. She denies any abdominal pain. She has regular bowel movements. She is unsure of her last colonoscopy. PAST MEDICAL HISTORY: Notable for dementia; COPD, on home oxygen; congestive heart failure; hypertension; bladder cancer; breast cancer; multiple falls. PAST SURGICAL HISTORY: Notable for bilateral mastectomy, hysterectomy, left shoulder repair due to fracture. SOCIAL HISTORY: The patient is a former heavy cigarette smoker having quit over 20 years ago. She denies alcoholism. She lives alone at home with a home health aide. REVIEW OF SYSTEMS: The 14-point review of systems is notable for frequent falls. PHYSICAL EXAMINATION: GENERAL: Pleasant elderly female sitting in a chair in no acute distress. VITAL SIGNS: Reveal temperature of 97.8, blood pressure 138/72, heart rate of 82. HEENT: Reveal sclerae to be white. Conjunctivae pink. She has bilateral periorbital ecchymosis. NECK: Supple. CHEST: Reveal distant breath sounds. HEART: Exam reveals regular rate and rhythm. ABDOMEN: Flabby, soft, nontender. EXTREMITIES: Show no edema. RECTAL: Exam shows the presence of bilateral external hemorrhoids, left greater than right. There is a nonbloody soft stool in the rectum. No rectal masses appreciated. DATA: Laboratory data reveal white blood cell count 8.3, hemoglobin 11.3. Chemistries from this morning reveal a blood sugar of 303, BUN 26, creatinine 0.8. IMPRESSION: This is an 82-year-old female with multiple comorbidities including diabetes mellitus, congestive heart failure, hypertension, multiple falls at home, history of breast cancer with question of rectal bleeding. I performed a rectal exam, which did not show any blood. She does have bilateral external hemorrhoids, she did have bleeding from hemorrhoids the most likely cause. The patient cannot remember her last colonoscopy. RECOMMENDATIONS: No further workup planned at this time given the patient's age and multiple comorbidities. The patient has been asked to follow up with me if she has any further recurrence of rectal bleeding. Tre Albrecht MD [id number]
[2018-03-23] MEDS ORDERED: Home Med 1 UNIT OD SCH (22:00)
[2018-03-23] MEDS ORDERED: Latanoprost 2.5 ml Opht Soln OD SCH (22:00)
== END 2018-03-23 15:32 | DRG 68 ==
LOC: ED 07:05 → ERH 12:29 → 3RNO 14:24
PROVIDERS: ADMIT Internal Medicine Nephrology; ATTEND Internal Medicine Nephrology
DX: I65.23 Occlusion and stenosis of bilateral carotid arteries (principal); N39.0 Urinary tract infection, site not specified; I50.30 Unspecified diastolic (congestive) heart failure; I11.0 Hypertensive heart disease with heart failure; J44.9 Chronic obstructive pulmonary disease, unspecified; E87.6 Hypokalemia; F03.90 Unspecified dementia, unspecified severity, without behavioral disturbance, psychotic disturbance, mood disturbance, and anxiety; E78.5 Hyperlipidemia, unspecified; E11.42 Type 2 diabetes mellitus with diabetic polyneuropathy; E11.51 Type 2 diabetes mellitus with diabetic peripheral angiopathy without gangrene; I20.9 Angina pectoris, unspecified; I83.90 Asymptomatic varicose veins of unspecified lower extremity; M47.22 Other spondylosis with radiculopathy, cervical region; M48.02 Spinal stenosis, cervical region; M54.16 Radiculopathy, lumbar region; R29.6 Repeated falls; G89.29 Other chronic pain; K64.4 Residual hemorrhoidal skin tags; S00.03XA Contusion of scalp, initial encounter; W18.11XA Fall from or off toilet without subsequent striking against object, initial encounter; Y92.091 Bathroom in other non-institutional residence as the place of occurrence of the external cause; Z85.3 Personal history of malignant neoplasm of breast; Z99.81 Dependence on supplemental oxygen; Z88.6 Allergy status to analgesic agent; Z90.13 Acquired absence of bilateral breasts and nipples; Z85.51 Personal history of malignant neoplasm of bladder; Z79.4 Long term (current) use of insulin; Z87.891 Personal history of nicotine dependence; Z87.11 Personal history of peptic ulcer disease

== ENCOUNTER 2018-04-14 20:49 | Inpatient (IN) | payer MEDICARE, BC ==
[2018-04-14 20:58] VITALS: BMI 32.1
--- NOTE | 2018-04-14 21:26 | ED PDOC ---
Arrival/HPI - General Chief Complaint: Weakness/Neurological Deficit Time Seen by Provider: 04/14/18 20:51 Historian: Patient - History of Present Illness Narrative History of Present Illness (Text): 04/14/18 21:00 Lina Oakley is an 82 year old female, whose past medical history includes COPD, CHF, hypertension, hyperlipidemia, peripheral neuropathy, bladder cancer, and breast cancer s/p bilateral mastectomy, who presents to the Emergency department brought in by family complaining of lethargy. Son states patient has been very lethargic throughout the day and was complaining of difficulty urinating earlier. Son notes patient recently returned from [facility] 1.5 weeks ago and was fine yesterday. Patient denies any chest pain, abdominal pain, back pain, neck pain, headache, dizziness, or any other complaints. PMD: Dr. Scales Symptom Onset: Gradual Symptom Course: Unchanged Activities at Onset: Light Context: Home Past Medical History - Provider Review Nursing Documentation Reviewed: Yes - Infectious Disease Hx of Infectious Diseases: None - Tetanus Immunization Tetanus Immunization: Unknown - Cardiac Hx Cardiac Disorders: Yes (VARICOSITIES) Hx Congestive Heart Failure: Yes Hx Hypertension: Yes - Pulmonary Hx Chronic Obstructive Pulmonary Disease (COPD): Yes (HOME O2 3 LITERS CONTINOUSLY) - Neurological Hx Neurological Disorder: Yes HX Cerebrovascular Accident: No Hx Dementia: Yes - HEENT Hx HEENT Disorder: Yes Hx Deafness: Yes (L HEARING AIDE) - Renal Hx Renal Disorder: No - Endocrine/Metabolic Hx Diabetes Mellitus Type 2: Yes - Hematological/Oncological Hx Blood Disorders: Yes Hx Cancer: Yes (BREAST CA-MASTECTOMY,BLADDER CA CHEMOTHERAPHY ON REMISSION) - Integumentary Hx Dermatological Disorder: Yes Other/Comment: [id number] BRUISING FROM MULTIPLE FALLS,LEFT TEMPORAL, BILATERAL KNEE,LEFT HAND . CELLULITIS BILATERAL LE. - Musculoskeletal/Rheumatological Hx Arthritis: Yes (LEFT SHOULDER) - Gastrointestinal Hx Gastrointestinal Disorders: Yes Hx Gastroesophageal Reflux: Yes - Genitourinary/Gynecological Hx Genitourinary Disorders: Yes (HYSTERECTOMY,MASTECTOMY 1989 BILATERAL) - Psychiatric Hx Psychophysiologic Disorder: No Hx Substance Use: No - Surgical History Hx Mastectomy: Yes (1989) - Anesthesia Hx Anesthesia: Yes Hx Anesthesia Reactions: No Hx Malignant Hyperthermia: No - Suicidal Assessment Feels Threatened In Home Enviroment: No Family/Social History - Physician Review Nursing Documentation Reviewed: Yes Family/Social History: Unknown Family HX Smoking Status: Former Smoker Hx Alcohol Use: No Hx Substance Use: No Hx Substance Use Treatment: No Allergies/Home Meds Allergies/Adverse Reactions: Allergies aspirin Allergy (Verified 03/20/18 12:53) PAIN Home Medications: Home Meds Medication Instructions Recorded Confirmed Furosemide [Lasix] 40 mg PO BID 01/20/16 04/14/18 Venlafaxine [Effexor XR] 75 mg PO DAILY 01/20/16 04/14/18 Dipyridamole [Persantine] 25 mg PO TID 08/31/16 04/14/18 Memantine HCl 10 mg PO BID 08/31/16 04/14/18 Potassium Chloride [Klor-Con 10] 20 meq PO DAILY 08/31/16 04/14/18 Lactobacillus Acidophilus/Fos 1 tab PO DAILY 03/20/18 04/14/18 [Acidophilus Probiotic Tablet] MetFORMIN [glucOPHAGE] 1,000 mg PO DAILY 04/14/18 04/14/18 Review of Systems - Physician Review All systems were reviewed & negative as marked: Yes - Review of Systems Constitutional: Other (+lethargic ). absent: Fevers Eyes: Normal ENT: Normal Respiratory: Normal. absent: SOB, Cough Cardiovascular: Normal. absent: Chest Pain Gastrointestinal: Normal. absent: Abdominal Pain, Nausea, Vomiting Genitourinary Female: Urine Output Changes (+difficulty urinating) Musculoskeletal: Normal. absent: Back Pain, Neck Pain Skin: Normal. absent: Rash Neurological: Normal. absent: Headache, Dizziness Endocrine: Normal Hemo/Lymphatic: Normal Psychiatric: Normal Physical Exam Vital Signs Reviewed: Yes Vital Signs Temp Pulse Resp BP Pulse Ox 04/15/18 00:36 98.2 F 04/15/18 00:29 98.2 F 99 H 19 111/60 100 04/14/18 23:10 117 H 20 106/57 L 96 04/14/18 22:10 20 80 L 04/14/18 21:55 99.5 F 92 H 14 179/69 H 96 04/14/18 21:05 100.8 F H 104 H 20 160/96 H 97 Temperature: Febrile Blood Pressure: Hypertensive Pulse: Tachycardic Respiratory Rate: Normal Appearance: Positive for: Well-Appearing, Non-Toxic, Comfortable Pain Distress: None Mental Status: Positive for: Alert and Oriented X 3 Finger Stick Blood Glucose: 239 - Systems Exam Head: Present: Atraumatic, Normocephalic Pupils: Present: PERRL Extroacular Muscles: Present: EOMI Conjunctiva: Present: Normal Mouth: Present: Moist Mucous Membranes Neck: Present: Normal Range of Motion Respiratory/Chest: Present: Clear to Auscultation, Good Air Exchange. No: Respiratory Distress, Accessory Muscle Use Cardiovascular: Present: Regular Rate and Rhythm, Normal S1, S2. No: Murmurs Abdomen: No: Tenderness, Distention, Peritoneal Signs Back: Present: Normal Inspection. No: CVA Tenderness, Midline Tenderness, Paraspinal Tenderness Upper Extremity: Present: Normal Inspection. No: Cyanosis, Edema Lower Extremity: Present: Normal Inspection. No: Edema Neurological: Present: GCS=15, CN II-XII Intact, Speech Normal Skin: Present: Warm, Dry, Normal Color. No: Rashes Psychiatric: Present: Alert, Oriented x 3, Normal Insight, Normal Concentration Medical Decision Making ED Course and Treatment: 04/14/18 21:00 Impression: 82 year old female brought in by family for lethargy, also report pt has been having difficulty urinating. Plan: -- EKG -- Chest X-ray -- Labs, ABG, troponin, blood cultures -- Urinalysis, urine cultures -- Reassess and disposition Prior Visits: Notes and results from previous visits were reviewed. On 03/20/2018, pt was seen in the Emergency department status fall on to her face with neck pain, headache, and left knee pain. Pt was admitted to the hospital for further evaluation. Progress Notes: Reviewed EKG, sinus tachycardia at 127 bpm. Septal infarct. Non-specific ST/T wave changes. 04/14/18 22:00 ABG results noted, pCO2: 62. Pt placed on BiPAP, 04/14/18 22:29 Chest X-ray reviewed, shows questionable right lobe infiltrate. 04/14/18 22:[address] Scales, who is aware and agrees with plan. Accepts pt in to his service. Pt will be admitted to telemetry for COPD. - Lab Interpretations Microbiology Results: Microbiology Results 04/14/18 21:16 Blood Blood Culture - Preliminary NO GROWTH AFTER 3 DAYS 04/14/18 21:00 Blood Blood Culture - Final Escherichia Coli 04/14/18 21:00 Blood Gram Stain - Final Lab Results: 04/14/18 21:16 04/14/18 21:16 Lab Results 04/14/18 21:45: pCO2 62 H, pO2 61.0 L, HCO3 48.3 H*, ABG pH 7.50 H, ABG Total CO2 50.2 H, ABG O2 Saturation 94.5 L, ABG Base Excess 21.2 H, ABG Potassium 2.8 L, Glucose 204 H, Lactate 1.2, FiO2 36.0, Sodium 135.0, Chloride 89.0 L, Arterial Blood Potassium 2.8 L 04/14/18 21:16: Sodium 136, Potassium 3.5 L, Chloride 78 L, Carbon Dioxide 45 H , Anion Gap 17, BUN 35 H, Creatinine 1.0, Est GFR ( Amer) > 60, Est GFR ( Non-Af Amer) 53, Random Glucose 226 H, Calcium 8.7, Phosphorus 2.5, Magnesium 1.5 L, Total Bilirubin 0.8, AST 32, ALT 17, Alkaline Phosphatase 106, Troponin I 0.07 D, Total Protein 7.3, Albumin 3.9, Globulin 3.4, Albumin/Globulin Ratio 1.1 04/14/18 21:16: PT 12.7 H, INR 1.11, APTT 31.3 04/14/18 21:16: WBC 14.7 H D, RBC 4.27, Hgb 12.0, Hct 38.8, MCV 90.9, MCH 28.1, MCHC 30.9 L, RDW 16.6 H, Plt Count 184, MPV 12.7 H, Gran % 83.5 H, Lymph % (Auto ) 6.5 L, Gallia % (Auto) 9.9 H, Eos % (Auto) 0.0 L, Baso % (Auto) 0.1, Gran # 12.31 H, Lymph # (Auto) 1.0 L, Gallia # (Auto) 1.5 H, Eos # (Auto) 0.0, Baso # ( Auto) 0.01 04/14/18 20:56: POC Glucose (mg/dL) 239 H I have reviewed the lab results: Yes - RAD Interpretation Radiology Orders: 04/14/18 21:09 CHEST PORTABLE [RAD] Stat - EKG Interpretation Interpreted by ED Physician: Yes Type: 12 lead EKG - Medication Orders Current Medication Orders: Acetaminophen (Tylenol 325mg Tab) 650 mg PO Q4H PRN PRN Reason: Fever >100.5 F Last Admin: 04/14/18 23:36 Dose: 650 mg Re-Assess: GOLDEN Pain/Vitals Document 04/15/18 00:36 KOPPS (Rec: 04/15/18 05:02 KOPPS [id number] ) Vitals Temperature (97.6 F-99.6 F) 98.2 F Albuterol/Ipratropium (Duoneb 3 Mg/0.5 Mg (3 Ml) Ud) 3 ml IH [id number] BABAR Last Admin: 04/18/18 08:28 Dose: 3 ml Albuterol/Ipratropium (Duoneb 3 Mg/0.5 Mg (3 Ml) Ud) 3 ml IH Q2H PRN PRN Reason: Shortness of Breath Last Admin: 04/16/18 23:48 Dose: 3 ml Atorvastatin Calcium (Lipitor) 40 mg PO HS [facility] Last Admin: 04/17/18 22:04 Dose: 40 mg Budesonide (Pulmicort Respules) 0.5 mg IH [id number] BABAR Last Admin: 04/18/18 08:28 Dose: 0.5 mg Furosemide (Lasix) 40 mg PO BID [facility] Last Admin: 04/18/18 10:12 Dose: 40 mg MAR Blood Pressure Document 04/18/18 10:12 RDS (Rec: 04/18/18 10:12 RDS [id number]) Blood Pressure Blood Pressure (100/60-150/90) 117/62 Ceftriaxone Sodium (Rocephin 1 Gram Ivpb) 1 gm in 100 mls @ 100 mls/hr IVPB DAILY BABAR PRN Reason: Protocol Stop: 04/26/18 10:07 Last Admin: 04/18/18 10:13 Dose: 100 mls/hr eMAR Start Stop Document 04/18/18 10:13 RDS (Rec: 04/18/18 10:13 RDS [id number]) Intravenous Solution Start Date 04/18/18 Start Time 10:13 End Date 04/18/18 End time 11:13 Total Infusion Time 60 Insulin Human Regular (Humulin R High) 0 units SC ACHS BABAR PRN Reason: Protocol Last Admin: 04/18/18 12:17 Dose: 7 units MAR Blood Glucose Document 04/18/18 12:17 RDS (Rec: 04/18/18 12:17 RDS [id number]) Blood Glucose Finger Stick Blood Glucose (70-120) 288 Subcutaneous Administrations Document 04/18/18 12:17 RDS (Rec: 04/18/18 12:17 RDS [id number]) Charges for Administration # of Subcutaneous Administrations 1 Latanoprost (Xalatan Opht) 0 ml OD HS BABAR Last Admin: 04/17/18 22:05 Dose: 2.5 ml Magnesium Oxide (Mag-Ox) 400 mg PO BID BABAR Last Admin: 04/18/18 10:13 Dose: 400 mg Methylprednisolone (Solu-Medrol) 20 mg IVP Q12 BABAR Last Admin: 04/18/18 10:13 Dose: 20 mg IVP Administration Document 04/18/18 10:13 RDS (Rec: 04/18/18 10:13 RDS [id number]) Charges for Administration # of IVP Administrations 1 Discontinued Medications Albuterol/Ipratropium (Duoneb 3 Mg/0.5 Mg (3 Ml) Ud) 3 ml IH Q4H PRN PRN Reason: Shortness of Breath Last Admin: 04/14/18 23:46 Dose: 3 ml Ceftriaxone Sodium (Rocephin 1 Gram Ivpb) 1 gm in 100 mls @ 200 mls/hr IVPB STAT STA PRN Reason: Protocol Stop: 04/14/18 23:48 Last Admin: 04/14/18 23:37 Dose: 200 mls/hr eMAR Start Stop Document 04/14/18 23:37 RG (Rec: 04/14/18 23:37 RG [id number]) Intravenous Solution Start Date 04/14/18 Start Time 23:37 Azithromycin (Zithromax 500mg In Ns) 500 mg in 250 mls @ 167 mls/hr IVPB STAT STA PRN Reason: Protocol Stop: 04/15/18 00:49 Last Admin: 04/15/18 00:15 Dose: 167 mls/hr eMAR Start Stop Document 04/15/18 00:15 RG (Rec: 04/15/18 00:16 RG [id number]) Intravenous Solution Start Date 04/15/18 Start Time 00:15 Potassium Chloride (Potassium Chloride 20 Meq/100 Ml) 20 meq in 100 mls @ 50 mls/hr IVPB ONCE ONE Stop: 04/15/18 13:36 Last Admin: 04/15/18 12:53 Dose: 50 mls/hr eMAR Start Stop Document 04/15/18 12:53 AMARIK (Rec: 04/15/18 12:53 [email or web address] [id number]) Intravenous Solution Start Date 04/15/18 Start Time 12:53 Meropenem (Merrem Iv 1 Gm Premix) 50 mls @ 100 mls/hr IVPB Q12 BABAR PRN Reason: Protocol Stop: 04/24/18 13:40 Last Admin: 04/17/18 10:13 Dose: Vancomycin HCl (Vancomycin 750 Mg In Ns) 750 mg in 250 mls @ 167 mls/hr IVPB Q12H BABAR PRN Reason: Protocol Stop: 04/24/18 13:46 Last Admin: 04/15/18 18:52 Dose: 167 mls/hr eMAR Start Stop Document 04/15/18 18:52 GERMAN (Rec: 04/15/18 18:52 GERMAN [id number]) Intravenous Solution Start Date 04/15/18 Start Time 18:52 Doxycycline Hyclate 100 mg/ (Sodium Chloride) 100 mls @ 100 mls/hr IVPB Q12 BABAR PRN Reason: Protocol Stop: 04/24/18 22:01 Last Admin: 04/17/18 10:13 Dose: Vancomycin HCl (Vancomycin 750 Mg In Ns) 750 mg in 250 mls @ 167 mls/hr IVPB 0600,1800 BABAR PRN Reason: Protocol Stop: 04/24/18 13:46 Last Admin: 04/17/18 06:09 Dose: 167 mls/hr eMAR Start Stop Document 04/17/18 06:09 CDL (Rec: 04/17/18 06:09 CDL [id number]) Intravenous Solution Start Date 04/17/18 Start Time 06:09 End Date 04/17/18 End time 07:39 Total Infusion Time 90 Insulin Human Regular (Humulin R Low) 0 units SC ACHS BABAR PRN Reason: Protocol Last Admin: 04/17/18 17:33 Dose: 5 units MAR Blood Glucose Document 04/17/18 17:33 SG (Rec: 04/17/18 17:34 SG [id number]) Blood Glucose Finger Stick Blood Glucose (70-120) 360 Subcutaneous Administrations Document 04/17/18 17:33 SG (Rec: 04/17/18 17:34 SG [id number]) Charges for Administration # of Subcutaneous Administrations 1 Magnesium Oxide (Mag-Ox) 400 mg PO BID [facility] Last Admin: 04/15/18 10:24 Dose: Not Given Non-Admin Reason: Patient Lethargic Methylprednisolone (Solu-Medrol) 125 mg IVP ONCE ONE Stop: 04/14/18 23:19 Last Admin: 04/14/18 23:37 Dose: 125 mg IVP Administration Document 04/14/18 23:37 RG (Rec: 04/14/18 23:37 RG [id number]) Charges for Administration # of IVP Administrations 1 Methylprednisolone (Solu-Medrol) 30 mg IVP Q12 [facility] Last Admin: 04/15/18 22:46 Dose: 30 mg IVP Administration Document 04/15/18 22:46 CDL (Rec: 04/15/18 22:46 CDL [id number]) Charges for Administration # of IVP Administrations 1 Metronidazole (Flagyl) 500 mg PO Q8 [facility] PRN Reason: Protocol Stop: 04/26/18 14:01 Last Admin: 04/18/18 06:08 Dose: 500 mg Potassium Chloride (K-Dur 20 Meq Er Tab) 40 meq PO ONCE ONE Stop: 04/15/18 09:25 Last Admin: 04/15/18 09:45 Dose: Not Given Non-Admin Reason: Patient Lethargic Comments: patient unable to swalllow, received order for IV potassium Potassium Chloride (K-Dur 20 Meq Er Tab) 40 meq PO ONCE ONE Stop: 04/16/18 09:29 Last Admin: 04/16/18 10:01 Dose: 40 meq Potassium Chloride (K-Dur 20 Meq Er Tab) 40 meq PO ONCE ONE Stop: 04/16/18 20:01 Last Admin: 04/16/18 21:25 Dose: 40 meq - Scribe Statement The provider has reviewed the documentation as recorded by the Franca Fields Provider Scribe Attestation: All medical record entries made by the Scribe were at my direction and personally dictated by me. I have reviewed the chart and agree that the record accurately reflects my personal performance of the history, physical exam, medical decision making, and the department course for this patient. I have also personally directed, reviewed, and agree with the discharge instructions and disposition. Disposition/Present on Arrival - Present on Arrival Any Indicators Present on Arrival: No History of DVT/PE: No History of Uncontrolled Diabetes: No Urinary Catheter: No History of Decub. Ulcer: No History Surgical Site Infection Following: None - Disposition Have Diagnosis and Disposition been Completed?: Yes Diagnosis: COPD (chronic obstructive pulmonary disease), Hypercapnia Disposition: HOSPITALIZED Disposition Time: 22:50 Condition: GOOD
[2018-04-14 21:50] LABS: BASO # 0.01 K/mm3 (0.0-2.0); BASO % 0.1 % (0.0-3.0); GRAN # 12.31 (1.4-6.5); GRAN % 83.5 % (50.0-68.0); LYMPH % 6.5 % (22.0-35.0); MEAN CELL VOLUME 90.9 fl (80.0-105.0); MEAN CORPUSCULAR HEMOGLOBIN 28.1 pg (25.0-35.0); MEAN CORPUSCULAR HGB CONC 30.9 g/dl (31.0-37.0); MEAN PLATELET VOLUME 12.7 fl (7.0-11.0); MONO # 1.5 (0.1-0.6); MONO % 9.9 % (1.0-6.0); RBC 4.27 10^6/uL (3.5-6.1); RED CELL DISTRIBUTION WIDTH 16.6 % (11.5-14.5); WHITE BLOOD COUNT 14.7 10^3/ul (4.5-11.0)
[2018-04-14 21:51] LABS: ARTERIAL BLOOD GAS O2 SAT 94.5 % (95-98); ARTERIAL BLOOD GAS PCO2 62 mm/Hg (35-45); ARTERIAL BLOOD GAS TCO2 50.2 mmol.L (22-28)
[2018-04-14 21:54] LABS: INR 1.11; PARTIAL THROMBOPLASTIN TIME 31.3 Seconds (25.1-36.5); PROTHROMBIN TIME 12.7 SECONDS (9.4-12.5)
[2018-04-14 21:55] LABS: ARTERIAL BLOOD GAS HCO3 48.3 mmol/L (21-28)
[2018-04-14 22:09] LABS: TROPONIN I 0.07 ng/mL
[2018-04-14 22:36] LABS: ALB/GLOB RATIO 1.1 (1.1-1.8); ALBUMIN 3.9 g/dL (3.0-4.8); ALT/SGPT 17 U/L (7-56); AST/SGOT 32 U/L (14-36); BLOOD UREA NITROGEN 35 mg/dL (7-21); CALCIUM 8.7 mg/dL (8.4-10.5); GFR NON-AFRICAN AMERICAN 53
[2018-04-14] MEDS ORDERED: cefTRIAXone 1 gm 1 GM/100 ML BAG IVPB STA (23:19)
[2018-04-14] MEDS ORDERED: Albuterol-Ipratrop 3 mg / 0.5 (3 ml) UD IH PRN (23:20)
[2018-04-14] MEDS ORDERED: Azithromycin 500MG/NS 250ml 500 MG/250 ML BAG IVPB STA (23:20)
[2018-04-15] MEDS ORDERED: Albuterol-Ipratrop 3 mg / 0.5 (3 ml) UD IH PRN (07:21)
--- NOTE | 2018-04-15 08:15 | CON ---
DATE: 04/15/2018 PULMONARY CONSULTATION REASON FOR PULMONARY CONSULTATION: Chronic obstructive pulmonary disease. REFERRING PHYSICIAN: Minh Scales MD. HISTORY OF PRESENT ILLNESS: I did discuss the case with the night nurse at length. I have also reviewed the chart at length. The patient does not appear to be an adequate historian. The patient is a chronically ill 82-year-old female, with past medical history significant for advanced chronic obstructive pulmonary disease, on home oxygen; congestive heart failure; respiratory failure in the past; peripheral vascular disease; hypertension; bladder cancer; breast cancer, status post bilateral mastectomy, who presents to [facility] - brought in by family - because of increasing lethargy for the past 1 day. The family also noted that the patient was not urinating at home. Again, I did discuss the case with the night nurse at length. There is no history of shortness of breath at rest, dyspnea on exertion, cough, or sputum production. There is no history of chest pain, coughing up of blood, or chest pain - made worse with deep respirations. The patient did present to [facility] with low-grade fevers (99.5). No history of chills or infectious exposure. No history of night sweats, weight loss, or appetite change prior to the above events. No history of calf pains. No history of syncope or diaphoresis. No history of recent travel or trauma. REVIEW OF SYSTEMS: No history of nausea, vomiting, or diarrhea. No new musculoskeletal complaints. Rest of the review of systems is negative. ALLERGIES: ASPIRIN. SOCIAL HISTORY: Positive for tobacco and negative for alcohol. FAMILY HISTORY: No inheritable diseases. HOME MEDICATIONS: Include Glucophage, Norvasc, Effexor, Spiriva, acidophilus, hydrochlorothiazide, Lasix, Aricept, Persantine, Pulmicort, Lipitor, Brovana, DuoNeb. PHYSICAL EXAMINATION: GENERAL: The patient is not short of breath at the present time. She is awake and alert. She is not using accessory muscles for breathing. VITAL SIGNS: Temperature is 97.5, pulse 75, respirations 19, blood pressure 132/70. Oxygen saturation on BiPAP is 98%. HEENT: Normocephalic, atraumatic. No JVD. CARDIOVASCULAR: Systolic ejection murmur at the lower left sternal border. No S3 gallop. LUNGS: Decreased breath sounds at the bases. Mild rhonchi and wheezing bilaterally. EXTREMITIES: Positive for mild edema. No cyanosis, no clubbing. Calves are nontender to palpation. GASTROINTESTINAL: Abdomen is soft, nontender, and nondistended. Bowel sounds are positive. SKIN: No acute rash. NEUROLOGIC: Limited at the present time. PERTINENT LABORATORY DATA: Chest x-ray was done and reviewed. Official results are pending. There are chronic abnormalities/scarring noted at the right base. However, there is a possible retrocardiac/left lower lobe infiltrate noted. CBC: White count 14.7K, hemoglobin 12, hematocrit 38.8, platelets of 184,000. Arterial blood gas was done on nasal cannula, results are: pH 7.50, pCO2 of 62, pO2 of 61. Complete metabolic profile: Potassium 3.5, chloride 78, carbon dioxide 45, BUN 35, glucose 226, magnesium 1.5, troponin 0.07. Rest of the metabolic profile is within normal limits. IMPRESSION: 1. Lethargy. 2. Acute bronchitis. 3. Advanced chronic obstructive pulmonary disease - on home oxygen. 4. Rule out pneumonia - left lower lobe. 5. Metabolic alkalosis. PLAN: Again, I did discuss the case with the night nurse at length. I have also reviewed the chart at length. The patient presents to [facility] - brought in by the family - because of increasing lethargy for the past day. As above, the family also noted that the patient was not urinating normally. I did review the chest x-ray as above. There are chronic abnormalities/scarring noted in the right lower lobe/base. However, there is a possible retrocardiac/left lower lobe infiltrate noted. Official results are pending. The patient has been pancultured. Dr. Celeste (infectious disease) has been called on the case for antibiotic usage. I also reviewed the arterial blood gas. The arterial blood gas is most consistent with a metabolic alkalosis, with an increase in the alveolar-arterial gradient. The metabolic alkalosis is probably due to diuretic therapy (at home). I would hold off on any further diuretic therapy at this point in time. I will also try changing to nasal cannula this morning and recheck the oxygen saturation. Lastly, on physical exam, the patient is in mild bronchospasm. I will start the patient on nebulizer treatments and low-dose intravenous steroids. I will also order aspiration precautions. The clinical status of the patient does appear improved - compared to the initial presentation. However, the future status/prognosis for this chronically ill-- patient does remain guarded. I will discuss the above with Dr. Scales. Thank you very much for this pulmonary consultation. Anil Tate MD MTDD
[2018-04-15] MEDS ORDERED: Potassium Chloride 20 mEq ER Tab PO ONE (09:24)
--- NOTE | 2018-04-15 09:25 | RAD ---
Date of service: 04/14/2018 HISTORY: Sepsis Patient COMPARISON: Frontal chest radiograph 03/20/2018. FINDINGS: LUNGS: No active pulmonary disease. PLEURA: Persistent small pleural effusion, not significantly changed in the interval. No right pleural effusion. No pneumothorax bilaterally. CARDIOVASCULAR: Cardiomegaly is reiterated with mild pulmonary vascular congestion potentially slightly increased. OSSEOUS STRUCTURES: No significant abnormalities. VISUALIZED UPPER ABDOMEN: Normal. OTHER FINDINGS: None. IMPRESSION: Pulmonary vascular congestion potentially slightly increased. No definite airspace disease. Persistent, unchanged left pleural effusion.
--- NOTE | 2018-04-15 09:47 | CARD ---
APPROVED REPORT Date of service: 04/14/2018 EKG Measurement Heart [id number] HI 186P [id number] <Conclusion> Poor data quality, interpretation may be adversely affected Sinus tachycardia Septal infarct, age undetermined Abnormal ECG
[2018-04-15] MEDS ORDERED: Magnesium Oxide 400 mg Tab UD PO SCH (10:00)
[2018-04-15] MEDS: Insulin Reg-LOW-Coverage SC SCH ×4 (10:23→22:48)
[2018-04-15] MEDS: MethylPREDNISolone 40 mg Vial IVP SCH ×2 (10:43→22:46)
[2018-04-15] MEDS ORDERED: Magnesium Sulfate 1 gm in D5W 1 GM/100 ML BAG IVPB ONE (11:36)
[2018-04-15 12:51] LABS: URINE BILIRUBIN NEGATIVE (NEGATIVE); URINE BLOOD TRACE-INTACT (NEGATIVE); URINE GLUCOSE (UA) NEGATIVE (NEGATIVE); URINE LEUKOCYTE ESTERASE TRACE Leu/uL (NEGATIVE); URINE PROTEIN 30 mg/dL (<30 mg/dL); URINE UROBILINOGEN 0.2 E.U./dL (<1 E.U./dL)
[2018-04-15 12:55] LABS: URINE APPEARANCE CLEAR (CLEAR); URINE COLOR YELLOW (YELLOW)
[2018-04-15 13:04] LABS: URINE BACTERIA MANY (NEG); URINE COARSE GRANULAR CAST TRACE /hpf (0-2)
[2018-04-15 13:05] LABS: URINE AMORPHOUS SEDIMENT FEW
[2018-04-15] MEDS ORDERED: Vancomycin 750mg 750 MG/250 ML BAG IVPB SCH (13:45)
--- NOTE | 2018-04-15 15:47 | CON ---
DATE: 04/15/2018 LOCATION: The patient seen earlier in [facility], bed 1. CHIEF COMPLAINT: Weakness times several days. HISTORY OF PRESENT ILLNESS: This is an 82-year-old female with chronic obstructive lung disease, congestive heart failure, hypertension, hyperlipidemia, peripheral neuropathy, bladder cancer, breast cancer. The patient with history of bilateral mastectomy, who is admitted through the emergency room because of weakness and found to have change in mental status and lethargic and mild shortness of breath. The patient was in the residential, [facility]. There has been no abdominal pain or diarrhea. There is mild shortness of breath, minimal cough. No headaches or blurred vision. REVIEW OF SYSTEMS: Reveals the 12-point review of systems is noted. PAST MEDICAL HISTORY: Significant for chronic obstructive lung disease, congestive heart failure, hypertension, hyperlipidemia, peripheral neuropathy, breast cancer, diverticulitis, bladder cancer, arthritis. The patient is an ex-smoker. PAST SURGICAL HISTORY: Noted bilateral mastectomy. ALLERGIES: THE PATIENT HAS ALLERGIES TO ASPIRIN. MEDICATIONS AT HOME: Reviewed and include metformin, amlodipine, Effexor, statin. Dr. Tate's consultation is reviewed. The patient had a chest x-ray, which is reported to be negative. However, Dr. Tate feels there is an infiltrate in the left lower lobe. PHYSICAL EXAMINATION: GENERAL: On exam, the patient is in bed, appearing weak. VITAL SIGNS: Temperature of 100.8; blood pressure is 130/70; heart rate of 104, it was up to 117; respiratory rate of 22; blood pressure 132/70. HEENT:' Examination of HEENT is unremarkable. NECK: Supple. LUNGS: Have decreased breath sounds. HEART: Normal S1, S2. ABDOMEN: Soft, nontender. No rebound or guarding. LABORATORY DATA: Laboratory examination reveals a white count of 14,000, hemoglobin of 12, platelets of 184. Chemistries reveals a BUN of 35, creatinine of 1. The urinalysis is noted. Microbiology is reviewed. Yeast in the sputum in the past in 2017. Blood cultures have been negative in the past. ASSESSMENT AND PLAN: This is an 82-year-old female with chronic obstructive lung disease, diverticulitis, congestive heart failure, arthritis, hypertension, hyperlipidemia, peripheral neuropathy, bladder cancer, breast cancer, history of bilateral mastectomy, recent hospitalization in the residential. Now presenting with shortness of breath, weakness and fever of 100.8, heart rate of 104 and new infiltrate. #1 is sepsis with a left healthcare-associated pneumonia. We will treat the patient with vancomycin and meropenem and doxycycline. We will check on the pancultures, procalcitonin. We will adjust the vancomycin at 750 every 12 because of her renal insufficiency and her age. Not that her body mass index is 32. We will adjust the meropenem at 1 g every 12 also because of the renal insufficiency. Blood cultures and urine cultures have been ordered. We will order nasal methicillin-resistant Staphylococcus aureus screen and sputum culture. We will order a urine for Legionella antigen and a procalcitonin. I will make further recommendations upon availability of initial results. Thanh Celeste MD
[2018-04-15] MEDS: Meropenem IV 1 gm in NS 50 ML IVPB SCH ×2 (18:19→22:46)
[2018-04-15] MEDS: Magnesium Oxide 400 mg Tab UD PO SCH (18:52)
[2018-04-15] MEDS: Budesonide 0.5 mg/2 ml Inhal Susp UD IH SCH (19:36)
[2018-04-15] MEDS: Albuterol-Ipratrop 3 mg / 0.5 (3 ml) UD IH SCH (19:36)
--- NOTE | 2018-04-15 20:16 | HP ---
CHIEF COMPLAINT AND HISTORY OF PRESENT ILLNESS: This is an 82-year-old female who is coming into the hospital because of altered mental status. The patient was in her usual state at home and was having difficulty in being awake. She was not able to eat. This was a change in her status from her baseline according to the patient's daughter, who was advised to come into the hospital for further evaluation. Patient has a history of COPD and has been on home O2. She has a history of left shoulder fracture with repair about 3 years ago. She has hypertension and dyslipidemia. The patient has no complaints of any chest pain. She is more awake today. She has no headache, no dizziness, no nausea, no vomiting. She says she feels weak. She is not complaining of any difficulty with breathing. She is not able to give a full review of symptoms because of her confusion, although it is mild. ALLERGIES: ASPIRIN. PAST MEDICAL HISTORY: 1. COPD, on home O2. 2. Congestive heart failure secondary to diastolic dysfunction. 3. Peripheral neuropathy. 4. Lower extremity edema. 5. Hypertension. 6. Peptic ulcer disease. 7. Peripheral arterial disease. 8. Chronic back pain with lumbar radiculopathy. 9. Breast cancer, status post bilateral mastectomy in 2004. 10. Bladder cancer, status post botulinum toxin injection in 1988. PAST SURGICAL HISTORY: 1. Mastectomy. 2. Hysterectomy. 3. Left shoulder repair in 2014. FAMILY HISTORY: Noncontributory. SOCIAL HISTORY: She is a former smoker, but quit in 1989. She denies alcohol. She has a daughter who is the main caregiver. ADVANCED DIRECTIVE: She is DNR. PHYSICAL EXAMINATION VITAL SIGNS: Temperature is 97.5, pulse is 80, blood pressure 132/70, respirations 19, and O2 saturation 98%. GENERAL: The patient lying in bed, uncomfortable, and in no acute distress. HEENT: Atraumatic and normocephalic. Anicteric sclerae. Moist mucosa. Overlea conjunctivae. No oral lesions. NECK: No JVD, anterior and posterior adenopathy, thyromegaly, or bruits. CARDIOVASCULAR: S1 and S2 regular. No murmur, rubs, or gallop. LUNGS: Clear to auscultation bilaterally. No wheezes, rales, or rhonchi. ABDOMEN: Bowel sounds are positive. Soft, nontender and nondistended. No hepatosplenomegaly. No rebound and no guarding EXTREMITIES: No cyanosis, clubbing, or edema. NEUROLOGIC: No facial asymmetry. Tongue is midline. No uvula deviation. Power is 5/5 upper extremity and lower extremity. Sensation intact in upper extremity and lower extremity. PSYCHIATRIC: She is awake and alert x2. No hallucinations or delusions. GENITOURINARY: No CVA tenderness. VASCULAR: 2+ pulses in the carotid pulses and pedal pulses. SKIN: No erythema or nodules SPINE: Shows normal curvature. LABORATORY DATA: White count of 14.7. INR 1.1. Patient's pH is 7.5 with a bicarbonate of 48, pCO2 of 62. Chemistry shows creatinine of 1. Her magnesium is 1.5. EKG shows heart rate of 127, sinus tachycardia. Chest x-ray shows possible left lower lobe infiltrate versus atelectasis. ASSESSMENT: 1. Systemic inflammatory respiratory syndrome. 2. Delirium. 3. Tachycardia. 4. Chronic obstructive pulmonary disease. 5. Hypertension. 6. Hypomagnesemia. 7. Congestive heart failure secondary to diastolic dysfunction. 8. Peripheral arterial disease. 9. Chronic back pain with radiculopathy. 10. Metabolic alkalosis. PLAN: The patient is currently comfortable. Patient is going to be on Pulmicort. She is on nebulizer treatment. She was given IV antibiotics and steroids in the ER. She is going to continue on the steroids. I did get Dr. Tate to see the patient from Pulmonary. I did speak to him. The patient is going to be seen by Dr. Celeste. The patient is on BiPAP. The patient is going to be getting physical therapy. We will speak to the patient's daughter to give her an update. I did speak to the patient's daughter yesterday. Minh Scales MD
[2018-04-15] MEDS: Latanoprost 2.5 ml Opht Soln OD SCH (22:00)
[2018-04-16] MEDS: Albuterol-Ipratrop 3 mg / 0.5 (3 ml) UD IH SCH ×4 (01:08→19:54)
[2018-04-16] MEDS: Vancomycin 750mg 750 MG/250 ML BAG IVPB SCH ×2 (06:22→17:52)
--- NOTE | 2018-04-16 07:45 | PN ---
DATE: 04/16/2018 PULMONARY NOTE SUBJECTIVE: The patient appears comfortable this morning. She is not short of breath at rest. She is awake and alert. PHYSICAL EXAMINATION: VITAL SIGNS: Temperature is 98.3, pulse on the monitor is 105, respiratory rate 18, blood pressure 110/50. Oxygen saturation on nasal cannula is 92-94%. HEENT: Normocephalic, atraumatic. No JVD. CARDIOVASCULAR: Systolic ejection murmur at the lower left sternal border. No S3 gallop. LUNGS: Decreased breath sounds at the bases. Less rhonchi. No wheezing this morning. EXTREMITIES: Positive for mild edema. No cyanosis, no clubbing. Calves are nontender to palpation. GI: Abdomen is soft, nontender and nondistended. Bowel sounds are positive. SKIN: No acute rash. NEUROLOGIC: Limited at the present time. IMPRESSION: 1. Lethargy - resolved. 2. Acute bronchitis. 3. Advanced chronic obstructive pulmonary disease. 4. Rule out pneumonia - left lower lobe. 5. Metabolic alkalosis. PLAN: The patient appears comfortable this morning. She is much more awake and alert. She is not short of breath. I did discuss the case with the night nurse at length. The night nurse stated that the patient had a very good night. She did refuse her BiPAP. However, the oxygen saturation on nasal cannula is now 92-94%. I will change the BiPAP usage to p.r.n. and for oxygen desaturation. On physical exam, her bronchospasm is certainly less. In addition, the alveolar-arterial gradient is also less. I will continue with the current nebulizer treatments and decrease the intravenous steroids this morning. The patient remains on antibiotic therapy - as per Infectious Disease. The temperatures are resolving. Repeat a.m. labs are pending. Clinical status of the patient is certainly improved - compared to the initial presentation. However, again, the future status/prognosis for this chronically ill ,elderly patient does remain guarded. I will discuss the above with Dr. Scales. Anil Tate MD [facility] CENTERDominik
[2018-04-16] MEDS: Budesonide 0.5 mg/2 ml Inhal Susp UD IH SCH ×2 (08:09→19:54)
[2018-04-16] MEDS: Insulin Reg-LOW-Coverage SC SCH ×4 (08:33→21:35)
[2018-04-16] MEDS ORDERED: Potassium Chloride 20 mEq ER Tab PO ONE ×2 (09:28→20:00)
[2018-04-16] MEDS: Magnesium Oxide 400 mg Tab UD PO SCH ×2 (10:01→17:52)
[2018-04-16] MEDS: Meropenem IV 1 gm in NS 50 ML IVPB SCH ×2 (10:02→21:26)
[2018-04-16] MEDS: MethylPREDNISolone 40 mg Vial IVP SCH ×2 (10:02→21:26)
--- NOTE | 2018-04-16 10:06 | PN ---
DATE: 04/16/2018 SUBJECTIVE: The patient has no complaints of any chest pain. No shortness of breath. She was able to sleep last night. PHYSICAL EXAMINATION: VITAL SIGNS: Temperature is 98.3, pulse of 124, blood pressure 110/50, respirations 18. GENERAL: The patient is lying in bed, flat, comfortable. HEENT: No oral lesion. Anicteric sclerae. Moist mucosa. NECK: No JVD, adenopathy, or thyromegaly. CARDIOVASCULAR: S1 and S2, regular. No murmurs, rubs, or gallops. LUNGS: Clear to auscultation bilaterally. No wheeze, rales, or rhonchi. ABDOMEN: Bowel sounds are positive, soft, nontender and nondistended. EXTREMITIES: No cyanosis, clubbing or edema. LABORATORY DATA: White count of 14.7, hemoglobin 12. Creatinine is 1, potassium is 3.5. This is blood work from 04/14/2018. ASSESSMENT: 1. Systemic inflammatory respiratory syndrome. 2. Delirium, improved. 3. Acute congestive heart failure secondary to diastolic dysfunction. 4. Tachycardia, improved. 5. Acute chronic obstructive pulmonary disease. 6. Hypertension. 7. Hypomagnesemia. 8. Hypophosphatemia. 9. Peripheral arterial disease/carotid disease. 10. Chronic back pain with radiculopathy. 11. Metabolic alkalosis. PLAN: The patient is on doxycycline for antibiotics. She is receiving nebulizer treatments. The patient was given potassium replacement yesterday. She is going to continue with Lasix. She is on Lipitor for dyslipidemia. She is on meropenem for antibiotics as well. She is on Pulmicort. She is receiving Solu-Medrol. The patient has been placed on her eye drops. She is on vancomycin. She gets BiPAP intermittently in the night. Minh Scales MD
--- NOTE | 2018-04-16 13:43 | CP.PCM.PN ---
Subjective - Date & Time of Evaluation Date of Evaluation: 04/16/18 Time of Evaluation: 10:55 - Subjective Subjective: Feeling a little better, comfortable in bed, no fevers this morning, no nausea. Objective - Vital Signs/Intake and Output Vital Signs (last 24 hours): Temp Pulse Resp BP Pulse Ox 98.3 F 124 H 18 110/50 L 92 L 04/16/18 05:41 04/16/18 05:41 04/16/18 05:41 04/16/18 05:41 04/16/18 05:41 Intake and Output: 04/16/18 04/16/18 06:59 18:59 Intake Total 120 Output Total 350 Balance -230 - Medications Medications: Current Medications Acetaminophen (Tylenol 325mg Tab) 650 mg PO Q4H PRN PRN Reason: Fever >100.5 F Last Admin: 04/14/18 23:36 Dose: 650 mg Albuterol/Ipratropium (Duoneb 3 Mg/0.5 Mg (3 Ml) Ud) 3 ml IH [id number] [facility] Last Admin: 04/16/18 01:08 Dose: 3 ml Albuterol/Ipratropium (Duoneb 3 Mg/0.5 Mg (3 Ml) Ud) 3 ml IH Q2H PRN PRN Reason: Shortness of Breath Atorvastatin Calcium (Lipitor) 40 mg PO HS [facility] Last Admin: 04/15/18 22:48 Dose: 40 mg Budesonide (Pulmicort Respules) 0.5 mg IH [id number] [facility] Last Admin: 04/15/18 19:36 Dose: 0.5 mg Furosemide (Lasix) 40 mg PO BID [facility] Last Admin: 04/15/18 17:48 Dose: 40 mg Meropenem (Merrem Iv 1 Gm Premix) 50 mls @ 100 mls/hr IVPB Q12 [facility] PRN Reason: Protocol Stop: 04/24/18 13:40 Last Admin: 04/15/18 22:46 Dose: 100 mls/hr Doxycycline Hyclate 100 mg/ (Sodium Chloride) 100 mls @ 100 mls/hr IVPB Q12 [facility] PRN Reason: Protocol Stop: 04/24/18 22:01 Last Admin: 04/15/18 22:47 Dose: 100 mls/hr Vancomycin HCl (Vancomycin 750 Mg In Ns) 750 mg in 250 mls @ 167 mls/hr IVPB 0600,1800 [facility] PRN Reason: Protocol Stop: 04/24/18 13:46 Last Admin: 04/16/18 06:22 Dose: 167 mls/hr Insulin Human Regular (Humulin R Low) 0 units SC ACHS [facility] PRN Reason: Protocol Last Admin: 04/15/18 22:48 Dose: 3 unit Latanoprost (Xalatan Opht) 0 ml OD HS [facility] Last Admin: 04/15/18 22:00 Dose: Not Given Magnesium Oxide (Mag-Ox) 400 mg PO BID [facility] Last Admin: 04/15/18 18:52 Dose: 400 mg Methylprednisolone (Solu-Medrol) 30 mg IVP Q12 [facility] Last Admin: 04/15/18 22:46 Dose: 30 mg - Labs Labs: PT 12.7 SECONDS (9.4-12.5) H 04/14/18 21:16 INR 1.11 04/14/18 21:16 APTT 31.3 Seconds (25.1-36.5) 04/14/18 21:16 - Constitutional Appears: Chronically Ill - Head Exam Head Exam: NORMAL INSPECTION - ENT Exam ENT Exam: Mucous Membranes Moist - Neck Exam Neck Exam: absent: Meningismus - Respiratory Exam Respiratory Exam: Decreased Breath Sounds - Cardiovascular Exam Cardiovascular Exam: +S1, +S2 - GI/Abdominal Exam GI & Abdominal Exam: Soft. absent: Tenderness Assessment and Plan - Assessment and Plan (Free Text) Plan: Assessment sepsis due to left sided HCAP history of ventilator-dependent respiratory failure probably secondary to atypical healthcare-associated pneumonia on top of severe COPD exacerbation in a patient with hypoxia history of left lower extremity skin and skin structure infection in a patient who had prior trauma to the said extremity chronic CHF COPD breast CA with history of double mastectomy history of diverticulitis history of gastrointestinal ulcer Bladder CA arthritis of the left shoulder Plan will continue Vancomycin, Merrem and Doxycycline day 2 pending final culture results will continue to monitor clinically overall prognosis is poor and patient is DNR and DNI
--- NOTE | 2018-04-16 17:38 | CARD ---
APPROVED REPORT Date of service: 04/16/2018 EKG Measurement Heart [id number] MA 168P [id number] <Conclusion> Sinus tachycardia Septal infarct, age undetermined Abnormal ECG
[2018-04-16] MEDS: Latanoprost 2.5 ml Opht Soln OD SCH (21:26)
[2018-04-17] MEDS: Albuterol-Ipratrop 3 mg / 0.5 (3 ml) UD IH SCH ×4 (01:21→20:00)
[2018-04-17] MEDS: Vancomycin 750mg 750 MG/250 ML BAG IVPB SCH (06:09)
--- NOTE | 2018-04-17 07:27 | PN ---
DATE: 04/17/2018 PULMONARY NOTE SUBJECTIVE: The patient appears comfortable this morning. She is not short of breath at rest. She is awake and alert. PHYSICAL EXAMINATION: VITAL SIGNS: Temperature is 98.9, pulse is 88, respirations 18, blood pressure 133/76. Oxygen saturation on nasal cannula is 92-94%. HEENT: Normocephalic, atraumatic. No JVD. CARDIOVASCULAR: Systolic ejection murmur at the lower left sternal border. No S3 gallop. LUNGS: Decreased breath sounds at the bases. Minimal rhonchi. No wheezing. EXTREMITIES: Positive for mild edema. No cyanosis or clubbing. Calves are nontender to palpation. GI: Abdomen is soft, nontender and nondistended. Bowel sounds are positive. SKIN: No acute rash. NEUROLOGIC: Limited at the present time. IMPRESSION: 1. Lethargy - resolved. 2. Acute bronchitis. 3. Advanced chronic obstructive pulmonary disease. 4. Rule out pneumonia - left lower lobe. 5. Metabolic alkalosis. PLAN: The patient appears comfortable this morning. She is not short of breath at rest. She is awake and alert. She does state to feeling much better overall. I did discuss the case with the night nurse at length. The night nurse stated that the patient had a very good night. On physical exam, her bronchospasm continues to resolve. In addition, the alveolar arterial gradient also continues to resolve. I will continue with the current nebulizer treatments and low-dose intravenous steroids (decreased yesterday) for now. I would continue with the antibiotic coverage as per Infectious Disease. Input by Dr. Zimmer is noted. The temperatures have fully resolved. Repeat a.m. labs are pending. Clinical status of the patient is certainly improved - compared to the initial presentation. However, again, the future status/prognosis for this elderly patient does remain guarded. I will discuss the above with the attending physician. Anil Tate MD [facility]
[2018-04-17 07:50] LABS: GRAN # 8.99 (1.4-6.5); GRAN % 89.6 % (50.0-68.0); HEMOGLOBIN 10.1 g/dL (12.0-16.0); LYMPH # 0.4 (1.2-3.4); LYMPH % 3.8 % (22.0-35.0); MEAN CELL VOLUME 92.7 fl (80.0-105.0); MEAN CORPUSCULAR HEMOGLOBIN 27.3 pg (25.0-35.0); MEAN CORPUSCULAR HGB CONC 29.4 g/dl (31.0-37.0); MEAN PLATELET VOLUME 12.3 fl (7.0-11.0); MONO # 0.7 (0.1-0.6); MONO % 6.6 % (1.0-6.0); PLATELET COUNT 207 10^3/uL (120.0-450.0); RED CELL DISTRIBUTION WIDTH 16.6 % (11.5-14.5)
[2018-04-17 08:21] LABS: ALB/GLOB RATIO 1.1 (1.1-1.8); ALBUMIN 3.2 g/dL (3.0-4.8); ALT/SGPT 26 U/L (7-56); AST/SGOT 30 U/L (14-36); BLOOD UREA NITROGEN 44 mg/dL (7-21); CALCIUM 8.3 mg/dL (8.4-10.5); GFR NON-AFRICAN AMERICAN > 60
[2018-04-17] MEDS: Insulin Reg-LOW-Coverage SC SCH ×3 (08:36→17:33)
[2018-04-17 09:12] LABS: LYMPHOCYTE 4 % (22.0-35.0); MONOCYTE 6 % (1.0-6.0); NEUTROPHIL 90 % (50.0-70.0); PLATELET ESTIMATE NORMAL (NORMAL)
[2018-04-17] MEDS: Budesonide 0.5 mg/2 ml Inhal Susp UD IH SCH ×2 (09:23→20:00)
[2018-04-17] MEDS: Meropenem IV 1 gm in NS 50 ML IVPB SCH (10:13)
[2018-04-17] MEDS: cefTRIAXone 1 gm 1 GM/100 ML BAG IVPB SCH (10:25)
[2018-04-17] MEDS: MethylPREDNISolone 40 mg Vial IVP SCH ×2 (10:26→22:05)
[2018-04-17] MEDS: Magnesium Oxide 400 mg Tab UD PO SCH ×2 (10:27→17:33)
--- NOTE | 2018-04-17 11:14 | CP.PCM.PN ---
<Navin Atkinson - Last Filed: 04/17/18 11:09> Subjective - Date & Time of Evaluation Date of Evaluation: 04/17/18 Time of Evaluation: 08:00 - Subjective Subjective: Patient seen and examined at bedside. Patient states breathing is almost at baseline, complains of mild shortness of breath. Denies chest pain, nausea, vomiting, diarrhea, fever, chills. Objective - Vital Signs/Intake and Output Vital Signs (last 24 hours): Temp Pulse Resp BP Pulse Ox 98.0 F 83 18 134/68 98 04/17/18 06:00 04/17/18 06:00 04/17/18 06:00 04/17/18 10:26 04/17/18 06:00 Intake and Output: 04/17/18 04/17/18 06:59 18:59 Intake Total 1660 Output Total 953 Balance 707 - Medications Medications: Current Medications Acetaminophen (Tylenol 325mg Tab) 650 mg PO Q4H PRN PRN Reason: Fever >100.5 F Last Admin: 04/14/18 23:36 Dose: 650 mg Albuterol/Ipratropium (Duoneb 3 Mg/0.5 Mg (3 Ml) Ud) 3 ml IH [id number] [facility] Last Admin: 04/17/18 09:24 Dose: 3 ml Albuterol/Ipratropium (Duoneb 3 Mg/0.5 Mg (3 Ml) Ud) 3 ml IH Q2H PRN PRN Reason: Shortness of Breath Last Admin: 04/16/18 23:48 Dose: 3 ml Atorvastatin Calcium (Lipitor) 40 mg PO HS [facility] Last Admin: 04/16/18 21:25 Dose: 40 mg Budesonide (Pulmicort Respules) 0.5 mg IH [id number] [facility] Last Admin: 04/17/18 09:23 Dose: 0.5 mg Furosemide (Lasix) 40 mg PO BID [facility] Last Admin: 04/17/18 10:26 Dose: 40 mg Ceftriaxone Sodium (Rocephin 1 Gram Ivpb) 1 gm in 100 mls @ 100 mls/hr IVPB DAILY [facility] PRN Reason: Protocol Stop: 04/26/18 10:07 Last Admin: 04/17/18 10:25 Dose: 100 mls/hr Insulin Human Regular (Humulin R Low) 0 units SC ACHS [facility] PRN Reason: Protocol Last Admin: 04/17/18 08:36 Dose: 3 units Latanoprost (Xalatan Opht) 0 ml OD HS [facility] Last Admin: 04/16/18 21:26 Dose: 2.5 ml Magnesium Oxide (Mag-Ox) 400 mg PO BID [facility] Last Admin: 04/17/18 10:27 Dose: 400 mg Methylprednisolone (Solu-Medrol) 20 mg IVP Q12 [facility] Last Admin: 04/17/18 10:26 Dose: 20 mg Metronidazole (Flagyl) 500 mg PO Q8 [facility] PRN Reason: Protocol Stop: 04/26/18 14:01 - Labs Labs: 04/17/18 07:00 04/17/18 07:00 PT 12.7 SECONDS (9.4-12.5) H 04/14/18 21:16 INR 1.11 04/14/18 21:16 APTT 31.3 Seconds (25.1-36.5) 04/14/18 21:16 - Constitutional Appears: Non-toxic, No Acute Distress - Head Exam Head Exam: ATRAUMATIC, NORMAL INSPECTION, NORMOCEPHALIC - ENT Exam ENT Exam: Mucous Membranes Moist - Respiratory Exam Respiratory Exam: Decreased Breath Sounds (b/l), NORMAL BREATHING PATTERN. absent: Rales, Rhonchi, Wheezes - Cardiovascular Exam Cardiovascular Exam: RRR, +S1, +S2 - GI/Abdominal Exam GI & Abdominal Exam: Soft, Normal Bowel Sounds. absent: Tenderness - Extremities Exam Extremities Exam: Pedal Edema (trace b/l). absent: Calf Tenderness - Neurological Exam Neurological Exam: Alert, Awake, CN II-XII Intact, Oriented x3 - Psychiatric Exam Psychiatric exam: Normal Affect, Normal Mood - Skin Skin Exam: Intact, Normal Color, Warm Assessment and Plan - Assessment and Plan (Free Text) Plan: 1. Left sided HCAP 2. Delirum, improved 3. CHF secondary to diastolic dysfunction 4. COPD 5. HTN 6. PAD 7. Chronic back pain with radiculopathy 8. Metabolic alkalosis Patient is currently on Rocephin and Flagyl as per ID recommendations. Patient with improved breathing status today and is being followed by pulmonology. Patient will have steroids tapered at this time. Patient will continue Lasix for her CHF. Patient is also recommended to have BIPAP at night, although she is noncompliant. Will continue to monitor patient closely and continue current medical regimen. [place], PGY-3 <Minh Scales S - Last Filed: 04/17/18 20:03> Objective - Vital Signs/Intake and Output Vital Signs (last 24 hours): Temp Pulse Resp BP Pulse Ox 98.3 F 93 H 20 123/64 98 04/17/18 12:00 04/17/18 18:00 04/17/18 12:00 04/17/18 17:33 04/17/18 06:00 Intake and Output: 04/17/18 04/18/18 18:59 06:59 Intake Total 580 Output Total 600 Balance -20 - Medications Medications: Current Medications Acetaminophen (Tylenol 325mg Tab) 650 mg PO Q4H PRN PRN Reason: Fever >100.5 F Last Admin: 04/14/18 23:36 Dose: 650 mg Albuterol/Ipratropium (Duoneb 3 Mg/0.5 Mg (3 Ml) Ud) 3 ml IH [id number] [facility] Last Admin: 04/17/18 20:00 Dose: 3 ml Albuterol/Ipratropium (Duoneb 3 Mg/0.5 Mg (3 Ml) Ud) 3 ml IH Q2H PRN PRN Reason: Shortness of Breath Last Admin: 04/16/18 23:48 Dose: 3 ml Atorvastatin Calcium (Lipitor) 40 mg PO HS [facility] Last Admin: 04/16/18 21:25 Dose: 40 mg Budesonide (Pulmicort Respules) 0.5 mg IH [id number] [facility] Last Admin: 04/17/18 20:00 Dose: 0.5 mg Furosemide (Lasix) 40 mg PO BID [facility] Last Admin: 04/17/18 17:33 Dose: 40 mg Ceftriaxone Sodium (Rocephin 1 Gram Ivpb) 1 gm in 100 mls @ 100 mls/hr IVPB DAILY [facility] PRN Reason: Protocol Stop: 04/26/18 10:07 Last Admin: 04/17/18 10:25 Dose: 100 mls/hr Insulin Human Regular (Humulin R Low) 0 units SC ACHS [facility] PRN Reason: Protocol Last Admin: 04/17/18 17:33 Dose: 5 units Latanoprost (Xalatan Opht) 0 ml OD HS [facility] Last Admin: 04/16/18 21:26 Dose: 2.5 ml Magnesium Oxide (Mag-Ox) 400 mg PO BID [facility] Last Admin: 04/17/18 17:33 Dose: 400 mg Methylprednisolone (Solu-Medrol) 20 mg IVP Q12 [facility] Last Admin: 04/17/18 10:26 Dose: 20 mg Metronidazole (Flagyl) 500 mg PO Q8 [facility] PRN Reason: Protocol Stop: 04/26/18 14:01 Last Admin: 04/17/18 14:48 Dose: Not Given - Labs Labs: 04/17/18 07:00 04/17/18 07:00 PT 12.7 SECONDS (9.4-12.5) H 04/14/18 21:16 INR 1.11 04/14/18 21:16 APTT 31.3 Seconds (25.1-36.5) 04/14/18 21:16 Assessment and Plan - Assessment and Plan (Free Text) Plan: Pt seen and examined. I have reviewed the note of the director medical science and agree with it. I have discussed the assessment and plan with the resident. I have reviewed the patient's labs and medications. Pt improving with SOB. CHF is improved. On Lasix. She is on BIPAP. She is on IV Abx.
[2018-04-17] MEDS ORDERED: Iohexol 240 (50 ml) ONE (11:40)
--- NOTE | 2018-04-17 13:58 | PN ---
DATE: 04/17/2018 SUBJECTIVE: The patient is in bed, in no acute distress. PHYSICAL EXAMINATION: VITAL SIGNS: On exam, the patient's temperature is 98, blood pressure is 160/80, respiratory rate of 18. HEENT: Unremarkable. NECK: Supple. LUNGS: Have decreased breath sounds. HEART: Normal S1, S2. ABDOMEN: Soft, nontender. LABORATORY DATA: Laboratory examination reveals a white count of 10,000, hemoglobin of 10, platelets of 207. Chemistries reveals a BUN of 44, creatinine of 0.7. Urinalysis is noted and urine for Legionella antigen is negative. Review of orders reveals the patient to be on doxycycline, IV meropenem and vancomycin. The patient's nares is undetected. The blood cultures was positive blood cultures for E-coli which is pansensitive E. Coli with a negative urine culture. ASSESSMENT AND PLAN: An 82-year-old female admitted with temperature of 100.8 with tachycardia and sepsis with Escherichia coli bacteremia with an elevated procalcitonin. Negative urine culture. Concerned about the GI tract as a source. The patient's initial chest x-ray is noted to be negative. We will order a CAT scan of the abdomen and pelvis, concern about the gallbladder as the source or biliary tract and we will also discontinue the meropenem since the Escherichia coli in the blood is pansensitive. The patient is also on Solu-Medrol. The Escherichia coli is pansensitive. We will repeat the urinalysis and urine culture and the source for Escherichia coli may be the GI tract versus the G, although the urine culture is negative. We will follow closely with you. Thanh Celeste MD
--- NOTE | 2018-04-17 15:50 | CT ---
Date of service: 04/17/2018 PROCEDURE: CT Abdomen and Pelvis without intravenous contrast HISTORY: sepsis COMPARISON: None. TECHNIQUE: Without contrast.. Contrast dose: Radiation dose: Total exam DLP = 984 mGy-cm. This CT exam was performed using one or more of the following dose reduction techniques: Automated exposure control, adjustment of the mA and/or kV according to patient size, and/or use of iterative reconstruction technique. FINDINGS: LOWER THORAX: Focal area of dense consolidation in the left lower lobe suspicious for pneumonia LIVER: Unremarkable. No gross lesion or ductal dilatation. GALLBLADDER AND BILE DUCTS: Unremarkable. PANCREAS: Unremarkable. No gross lesion or ductal dilatation. SPLEEN: Unremarkable. ADRENALS: Unremarkable. No mass. KIDNEYS AND URETERS: Unremarkable. No hydronephrosis. No solid mass. VASCULATURE: Unremarkable. No aortic aneurysm. BOWEL: Unremarkable. No obstruction. No gross mural thickening. APPENDIX: Unremarkable. Normal appendix. PERITONEUM: Unremarkable. No free fluid. No free air. LYMPH NODES: Unremarkable. No enlarged lymph nodes. BLADDER: Unremarkable. REPRODUCTIVE: Unremarkable. BONES: No acute fracture. OTHER FINDINGS: None. IMPRESSION: Focal consolidation in the left lower lobe suspicious for pneumonia. No acute intra-abdominal abnormalities
--- NOTE | 2018-04-17 16:46 | US ---
Date of service: 04/17/2018 HISTORY: size of cbd COMPARISON: None. TECHNIQUE: Sonographic evaluation of the abdomen. FINDINGS: LIVER: Measures 15.13 x 12.52 cm. Increased echogenicity of the liver parenchyma. No mass. No intrahepatic bile duct dilatation. GALLBLADDER: Distended gallbladder with no definite stones visualized COMMON BILE DUCT: Measures 4 mm. No stones. No dilatation. PANCREAS: Unremarkable as visualized. No mass. No ductal dilatation. RIGHT KIDNEY: Measures 11.74 x 5.35 x 5.56cm. Normal echogenicity. No calculus, mass, or hydronephrosis. LEFT KIDNEY: Measures 11.91 x 4.57 x 5.60cm. Normal echogenicity. No calculus, mass, or hydronephrosis. 3.5 cm cyst SPLEEN: Normal in size and contour. No mass. 12.87 x 5.80 AORTA: Not visualized IVC: Unremarkable. OTHER FINDINGS: None. IMPRESSION: Mild fatty infiltration of the liver. Distended gallbladder.
[2018-04-17] MEDS: Latanoprost 2.5 ml Opht Soln OD SCH (22:05)
[2018-04-17] MEDS: Insulin Reg-HIGH-Coverage SC SCH (22:06)
[2018-04-18] MEDS: Albuterol-Ipratrop 3 mg / 0.5 (3 ml) UD IH SCH ×4 (01:49→19:46)
[2018-04-18 04:58] LABS: PH,URINE 5.5 (4.7-8.0); URINE BILIRUBIN NEGATIVE (NEGATIVE); URINE BLOOD TRACE-INTACT (NEGATIVE); URINE GLUCOSE (UA) 250 mg/dL (NEGATIVE); URINE LEUKOCYTE ESTERASE TRACE Leu/uL (NEGATIVE); URINE PROTEIN NEGATIVE mg/dL (<30 mg/dL); URINE UROBILINOGEN 0.2 E.U./dL (<1 E.U./dL)
[2018-04-18 05:03] LABS: URINE APPEARANCE CLEAR (CLEAR); URINE COLOR YELLOW (YELLOW)
[2018-04-18 07:36] LABS: BASO # 0.01 K/mm3 (0.0-2.0); BASO % 0.1 % (0.0-3.0); GRAN # 8.7 (1.4-6.5); GRAN % 88.6 % (50.0-68.0); HEMOGLOBIN 10.7 g/dL (12.0-16.0); LYMPH # 0.8 (1.2-3.4); LYMPH % 7.9 % (22.0-35.0); MEAN CELL VOLUME 93.8 fl (80.0-105.0); MEAN CORPUSCULAR HEMOGLOBIN 27.5 pg (25.0-35.0); MEAN CORPUSCULAR HGB CONC 29.3 g/dl (31.0-37.0); MEAN PLATELET VOLUME 12.4 fl (7.0-11.0); MONO # 0.3 (0.1-0.6); MONO % 3.4 % (1.0-6.0); RBC 3.89 10^6/uL (3.5-6.1); RED CELL DISTRIBUTION WIDTH 16.5 % (11.5-14.5); WHITE BLOOD COUNT 9.8 10^3/ul (4.5-11.0)
[2018-04-18] MEDS: Insulin Reg-HIGH-Coverage SC SCH ×4 (08:23→21:44)
[2018-04-18] MEDS: Budesonide 0.5 mg/2 ml Inhal Susp UD IH SCH ×2 (08:28→19:46)
--- NOTE | 2018-04-18 08:33 | PN ---
DATE: 04/18/2018 PULMONARY NOTE DICTATION SUBJECTIVE: The patient appears comfortable this morning. She is not short of breath at rest. PHYSICAL EXAMINATION: VITAL SIGNS: Temperature is 97.8, pulse 75, respirations 19, blood pressure 176/87. Oxygen saturation on BiPAP is 97%-98%. HEENT: Normocephalic, atraumatic. No JVD. CARDIOVASCULAR: Systolic ejection murmur at the lower left sternal border. No S3 gallop. LUNGS: Decreased breath sounds at the bases. Minimal/less rhonchi. No wheezing. EXTREMITIES: Positive for mild edema. No cyanosis or clubbing. Calves are nontender to palpation. GI: Abdomen is soft and nontender to palpation. It is mildly distended. Bowel sounds are positive. SKIN: No acute rash. NEUROLOGIC: Exam limited at the present time. PERTINENT LABORATORY DATA: CAT scan of the abdomen and pelvis was done yesterday and reviewed. There is a focal consolidation in the left lower lobe suspicious for pneumonia. There are no acute intra-abdominal abnormalities. Abdominal ultrasound was also done. There is mild fatty infiltration of the liver. There is also a distended gallbladder noted. IMPRESSION: 1. Lethargy - resolved. 2. Acute bronchitis. 3. Advanced chronic obstructive pulmonary disease. 4. Left lower lobe pneumonia. 5. Metabolic alkalosis. PLAN: The patient appears comfortable this morning. She is not short of breath at rest. She is awake and alert. I did discuss the case with the night nurse at length. The night nurse stated that the patient had a very good night. On physical exam, there is certainly less bronchospasm noted. In addition, there is a significantly decreased alveolar-arterial gradient. I will continue the current nebulizer treatments and low-dose intravenous steroids for now. CAT scan of the abdomen is noted above. I would continue with the antibiotic coverage as per Infectious Disease. Input by Dr. Celeste is noted. I will also continue with the aspiration precautions. Clinical status of the patient is certainly improved - compared to the initial presentation. However, again, the future status/prognosis for this elderly patient does remain guarded. I will discuss the above the attending physician. Anil Tate MD [facility] # [id number]
[2018-04-18] MEDS: Magnesium Oxide 400 mg Tab UD PO SCH ×2 (10:13→17:27)
[2018-04-18] MEDS: cefTRIAXone 1 gm 1 GM/100 ML BAG IVPB SCH (10:13)
[2018-04-18] MEDS: MethylPREDNISolone 40 mg Vial IVP SCH ×2 (10:13→21:45)
--- NOTE | 2018-04-18 11:43 | PN ---
DATE: 04/18/2018 SUBJECTIVE: The patient has no complaints of any chest pain. No shortness of breath. No headaches or dizziness. PHYSICAL EXAMINATION: VITAL SIGNS: Temperature is 97.8, pulse is 55, blood pressure is 115/62, respiration is 19. GENERAL: The patient is lying in bed, flat, comfortable. HEENT: No oral lesion. Anicteric sclerae. Moist mucosa. NECK: No JVD, adenopathy, or thyromegaly. CARDIOVASCULAR: S1 and S2, regular. No murmurs, rubs, or gallops. LUNGS: Clear to auscultation bilaterally. No wheeze, rales, or rhonchi. ABDOMEN: Bowel sounds are positive, soft, nontender and nondistended. EXTREMITIES: No cyanosis, clubbing or edema. LABORATORY DATA: White count is 9.8, hemoglobin 10.7. Creatinine 0.7. ASSESSMENT: 1. Sepsis secondary to Escherichia coli. 2. Hospital-acquired pneumonia. 3. Delirium, improved. 4. Congestive heart failure secondary to diastolic dysfunction. 5. Chronic obstructive pulmonary disease, stable. 6. Obese with a body mass index of 33. 7. Hypertension. 9. Peripheral arterial disease. 10. Chronic back pain. 11. Metabolic alkalosis. PLAN: The patient has repeat cultures that have been ordered and have been negative. The patient is on Lasix daily. The patient is on Lipitor for dyslipidemia. She is on steroids by Pulmonary with Dr. Tate. The patient is on eye drops. She is on BiPAP. The patient is on Flagyl. She is being seen by Physical Therapy. We will see if the patient qualifies for TCU. Minh Scales MD
--- NOTE | 2018-04-18 13:58 | PN ---
DATE: 04/18/2018 SUBJECTIVE: The patient is in bed, in no acute distress, nontoxic. No fevers and chills. OBJECTIVE: VITAL SIGNS: On exam, temperature is 97, blood pressure is 117/60, respiratory rate of 18, heart rate of 84. HEENT: Examination is unremarkable. NECK: Supple. LUNGS: Have decreased breath sounds. HEART: Normal S1, S2. ABDOMEN: Soft, nontender. DATA: Laboratory examination reveals a white count of 9.8, hemoglobin of 10, platelets of 231. Chemistries are noted. The patient's creatinine is 0.7. Urinalysis is noted and serology is urine for Legionella antigen is negative. Blood cultures repeat are negative. Initial blood culture is positive for E. coli and the review of orders reveals the patient is on ceftriaxone and Flagyl. Urinalysis is noted. Urine culture was collected after the antibiotics were given. The patient had a CAT scan of the abdomen and pelvis, which reveals the gallbladder to be unremarkable. There is a left lower lobe suspicious for pneumonia. The patient also had an ultrasound of the abdomen. Distended gallbladder with normal common bile . ASSESSMENT AND PLAN: An 82-year-old female who was admitted with temperature of 100.8, tachycardia. Sepsis with Escherichia coli bacteremia, most likely secondary to urine. The urine culture was obtained after antibiotics were given. CAT scan of the abdomen is negative. The patient also with a left lower lobe community-acquired pneumonia. Although the patient was hospitalized recently, the patient was not hospitalized for more than 72 hours. By definition, she has left lower lobe community-acquired pneumonia and sepsis with Escherichia coli bacteremia and once her pulmonary status is improved, maybe able to switch to p.o. antibiotics to complete therapy, E-coli in the blood is pansensitive. Urinalysis was significant, but the urine culture is negative. The patient's white count is normalized. Discuss with Dr. Tate. Discuss with the patient and the patient's daughter at length. Thanh Celeste MD
[2018-04-18] MEDS: Latanoprost 2.5 ml Opht Soln OD SCH (21:45)
[2018-04-19] MEDS: Albuterol-Ipratrop 3 mg / 0.5 (3 ml) UD IH SCH ×4 (01:20→19:16)
[2018-04-19] MEDS: Budesonide 0.5 mg/2 ml Inhal Susp UD IH SCH ×2 (07:16→19:16)
--- NOTE | 2018-04-19 07:50 | PN ---
DATE: 04/19/2018 PULMONARY NOTE SUBJECTIVE: The patient appears comfortable this morning. She is not short of breath at rest. She is awake and alert. PHYSICAL EXAMINATION: VITAL SIGNS: Temperature is 98.3, pulse 86, respirations 18-20, blood pressure 174/90. Oxygen saturation on BiPAP is 96%-98%. HEENT: Normocephalic, atraumatic. No JVD. CARDIOVASCULAR: Systolic ejection murmur at the lower left sternal border. No S3 gallop. LUNGS: Decreased breath sounds at the bases. Minimal/less rhonchi. No wheezing. EXTREMITIES: Positive for mild edema. No cyanosis or clubbing. Calves are nontender to palpation. GASTROINTESTINAL: Abdomen is soft, nontender, nondistended. Bowel sounds are positive. SKIN: No acute rash. NEUROLOGIC: Limited at the present time. IMPRESSION: 1. Lethargy - resolved. 2. Acute bronchitis. 3. Advanced chronic obstructive pulmonary disease. 4. Left lower lobe pneumonia. 5. Metabolic alkalosis. PLAN: The patient appears comfortable this morning. She is not short of breath at rest. She is awake and alert. She does state to feeling better overall. I did discuss the case with the night nurse at length. The night nurse stated that the patient had a very good night. On physical exam, her bronchospasm continues to resolve. In addition, the alveolar-arterial gradient also continues to resolve. I will continue with the current nebulizer treatments and change to oral steroids this morning. The patient remains on antibiotic therapy - as per Infectious Disease. I did discuss the case with Dr. Celeste yesterday. Clinical status of the patient is definitely improved - compared to the initial presentation. However, again, the future status/prognosis for this elderly patient does remain very guarded. I will discuss the above with Dr. Scales. Anil Tate MD [facility]
[2018-04-19] MEDS: Insulin Reg-HIGH-Coverage SC SCH ×4 (08:22→22:00)
[2018-04-19] MEDS: cefTRIAXone 1 gm 1 GM/100 ML BAG IVPB SCH (11:04)
[2018-04-19] MEDS: Magnesium Oxide 400 mg Tab UD PO SCH ×2 (11:08→17:36)
--- NOTE | 2018-04-19 12:21 | CP.PCM.PN ---
Subjective - Date & Time of Evaluation Date of Evaluation: 04/19/18 Time of Evaluation: 10:20 - Subjective Subjective: Comfortable in bed, breathing is improving, no fevers overnight. Objective - Vital Signs/Intake and Output Vital Signs (last 24 hours): Temp Pulse Resp BP Pulse Ox 97.7 F 79 19 140/68 96 04/19/18 12:00 04/19/18 12:00 04/19/18 12:00 04/19/18 12:00 04/19/18 06:00 Intake and Output: 04/19/18 04/19/18 06:59 18:59 Intake Total 0 Balance 0 - Medications Medications: Current Medications Acetaminophen (Tylenol 325mg Tab) 650 mg PO Q4H PRN PRN Reason: Fever >100.5 F Last Admin: 04/14/18 23:36 Dose: 650 mg Albuterol/Ipratropium (Duoneb 3 Mg/0.5 Mg (3 Ml) Ud) 3 ml IH [id number] [facility] Last Admin: 04/19/18 07:16 Dose: 3 ml Albuterol/Ipratropium (Duoneb 3 Mg/0.5 Mg (3 Ml) Ud) 3 ml IH Q2H PRN PRN Reason: Shortness of Breath Last Admin: 04/16/18 23:48 Dose: 3 ml Atorvastatin Calcium (Lipitor) 40 mg PO HS [facility] Last Admin: 04/18/18 21:45 Dose: 40 mg Budesonide (Pulmicort Respules) 0.5 mg IH [id number] [facility] Last Admin: 04/19/18 07:16 Dose: 0.5 mg Furosemide (Lasix) 40 mg PO BID [facility] Last Admin: 04/19/18 11:07 Dose: 40 mg Ceftriaxone Sodium (Rocephin 1 Gram Ivpb) 1 gm in 100 mls @ 100 mls/hr IVPB DAILY [facility] PRN Reason: Protocol Stop: 04/26/18 10:07 Last Admin: 04/19/18 11:04 Dose: 100 mls/hr Insulin Human Regular (Humulin R High) 0 units SC ACHS BABAR PRN Reason: Protocol Last Admin: 04/19/18 08:22 Dose: 7 units Latanoprost (Xalatan Opht) 0 ml OD HS [facility] Last Admin: 04/18/18 21:45 Dose: 2.5 ml Magnesium Oxide (Mag-Ox) 400 mg PO BID [facility] Last Admin: 04/19/18 11:08 Dose: 400 mg Prednisone (Prednisone Tab) 30 mg PO DAILY [facility] Last Admin: 04/19/18 11:07 Dose: 30 mg - Labs Labs: 04/18/18 06:30 04/17/18 07:00 PT 12.7 SECONDS (9.4-12.5) H 04/14/18 21:16 INR 1.11 04/14/18 21:16 APTT 31.3 Seconds (25.1-36.5) 04/14/18 21:16 - Constitutional Appears: No Acute Distress, Chronically Ill - Head Exam Head Exam: NORMAL INSPECTION - ENT Exam ENT Exam: Mucous Membranes Moist - Respiratory Exam Respiratory Exam: Decreased Breath Sounds - Cardiovascular Exam Cardiovascular Exam: +S1, +S2 - GI/Abdominal Exam GI & Abdominal Exam: Soft. absent: Tenderness Assessment and Plan - Assessment and Plan (Free Text) Plan: Assessment sepsis due to left sided CAP as well as E. coli bacteremia probably from UTI history of ventilator-dependent respiratory failure probably secondary to atypical healthcare-associated pneumonia on top of severe COPD exacerbation in a patient with hypoxia history of left lower extremity skin and skin structure infection in a patient who had prior trauma to the said extremity chronic CHF COPD breast CA with history of double mastectomy history of diverticulitis history of gastrointestinal ulcer Bladder CA arthritis of the left shoulder Plan will continue Rocephin day 5 to complete 10-14 days of therapy will continue to monitor clinically overall prognosis is poor and patient is DNR and DNI
--- NOTE | 2018-04-19 14:59 | CP.PCM.DIS ---
<Navin Atkinson - Last Filed: 04/19/18 14:56> Provider - Provider Date of Admission: 04/14/18 23:17 Attending physician: Minh Scales MD Primary care physician: Minh Scales MD Consults: Pulm - Dr. Lea PINEDA - Dr. Celeste Time Spent in preparation of Discharge (in minutes): 45 Diagnosis - Discharge Diagnosis (1) COPD (chronic obstructive pulmonary disease) Status: Acute (2) Congestive heart failure (CHF) Status: Chronic (3) Pneumonia Status: Resolved (4) HTN (hypertension) Status: Chronic (5) HLD (hyperlipidemia) Status: Chronic Hospital Course - Lab Results Lab Results: Micro Results 04/16/18 11:30 Blood-Venous Blood Culture - Preliminary NO GROWTH AFTER 3 DAYS 04/16/18 11:05 Blood-Venous Blood Culture - Preliminary NO GROWTH AFTER 3 DAYS 04/15/18 14:45 Nose MRSA Culture (Admit) - Final MRSA NOT DETECTED 04/15/18 12:00 Urine,Clean Catch Urine Culture - Final No Growth (<1,000 CFU/ML) Most Recent Lab Values WBC 9.8 10^3/ul (4.5-11.0) 04/18/18 06:30 RBC 3.89 10^6/uL (3.5-6.1) 04/18/18 06:30 Hgb 10.7 g/dL (12.0-16.0) L 04/18/18 06:30 Hct 36.5 % (36.0-48.0) 04/18/18 06:30 MCV 93.8 fl (80.0-105.0) 04/18/18 06:30 MCH 27.5 pg (25.0-35.0) 04/18/18 06:30 MCHC 29.3 g/dl (31.0-37.0) L 04/18/18 06:30 RDW 16.5 % (11.5-14.5) H 04/18/18 06:30 Plt Count 231 10^3/uL (120.0-450.0) 04/18/18 06:30 MPV 12.4 fl (7.0-11.0) H 04/18/18 06:30 Gran % 88.6 % (50.0-68.0) H 04/18/18 06:30 Lymph % (Auto) 7.9 % (22.0-35.0) L 04/18/18 06:30 [place] % (Auto) 3.4 % (1.0-6.0) 04/18/18 06:30 Eos % (Auto) 0.0 % (1.5-5.0) L 04/18/18 06:30 Baso % (Auto) 0.1 % (0.0-3.0) 04/18/18 06:30 Gran # 8.70 (1.4-6.5) H 04/18/18 06:30 Lymph # (Auto) 0.8 (1.2-3.4) L 04/18/18 06:30 [place] # (Auto) 0.3 (0.1-0.6) 04/18/18 06:30 Eos # (Auto) 0.0 (0.0-0.7) 04/18/18 06:30 Baso # (Auto) 0.01 K/mm3 (0.0-2.0) 04/18/18 06:30 Neutrophils % (Manual) 90 % (50.0-70.0) H 04/17/18 07:00 Lymphocytes % (Manual) 4 % (22.0-35.0) L 04/17/18 07:00 Monocytes % (Manual) 6 % (1.0-6.0) 04/17/18 07:00 Platelet Evaluation Normal (NORMAL) 04/17/18 07:00 PT 12.7 SECONDS (9.4-12.5) H 04/14/18 21:16 INR 1.11 04/14/18 21:16 APTT 31.3 Seconds (25.1-36.5) 04/14/18 21:16 pCO2 62 mm/Hg (35-45) H 04/14/18 21:45 pO2 61.0 mm/Hg (80-100) L 04/14/18 21:45 HCO3 48.3 mmol/L (21-28) H* 04/14/18 21:45 ABG pH 7.50 (7.35-7.45) H 04/14/18 21:45 ABG Total CO2 50.2 mmol.L (22-28) H 04/14/18 21:45 ABG O2 Saturation 94.5 % (95-98) L 04/14/18 21:45 ABG Base Excess 21.2 mmol/L (-2.0-3.0) H 04/14/18 21:45 ABG Potassium 2.8 mmol/L (3.6-5.2) L 04/14/18 21:45 Sodium 135.0 mmol/L (132-148) 04/14/18 21:45 Chloride 89.0 mmol/L (98-107) L 04/14/18 21:45 Glucose 204 mg/dl (65-105) H 04/14/18 21:45 Lactate 1.2 mmol/L (0.7-2.1) 04/14/18 21:45 FiO2 36.0 % 04/14/18 21:45 Sodium 139 mmol/L (132-148) 04/17/18 07:00 Potassium 4.2 mmol/L (3.6-5.0) 04/17/18 07:00 Chloride 90 mmol/L (98-107) L 04/17/18 07:00 Carbon Dioxide 41 mmol/L (21-33) H 04/17/18 07:00 Anion Gap 12 (10-20) 04/17/18 07:00 BUN 44 mg/dL (7-21) H 04/17/18 07:00 Creatinine 0.7 mg/dl (0.7-1.2) 04/17/18 07:00 Est GFR ( Amer) > 60 04/17/18 07:00 Est GFR (Non-Af Amer) > 60 04/17/18 07:00 POC Glucose (mg/dL) 196 mg/dL (65-110) H 04/19/18 12:08 Random Glucose 294 mg/dL (70-110) H 04/17/18 07:00 Calcium 8.3 mg/dL (8.4-10.5) L 04/17/18 07:00 Phosphorus 3.3 mg/dL (2.5-4.5) 04/17/18 07:00 Magnesium 2.0 mg/dL (1.7-2.2) 04/17/18 07:00 Total Bilirubin 0.3 mg/dL (0.2-1.3) 04/17/18 07:00 AST 30 U/L (14-36) 04/17/18 07:00 ALT 26 U/L (7-56) 04/17/18 07:00 Alkaline Phosphatase 90 U/L (38-126) 04/17/18 07:00 Troponin I 0.03 ng/mL D 04/16/18 06:20 Total Protein 6.1 g/dL (5.8-8.3) 04/17/18 07:00 Albumin 3.2 g/dL (3.0-4.8) 04/17/18 07:00 Globulin 2.9 gm/dL 04/17/18 07:00 Albumin/Globulin Ratio 1.1 (1.1-1.8) 04/17/18 07:00 Procalcitonin 0.97 NG/ML (0.19-0.49) H 04/16/18 06:20 Arterial Blood Potassium 2.8 mmol/L (3.6-5.2) L 04/14/18 21:45 Urine Color Yellow (YELLOW) 04/18/18 04:30 Urine Appearance Clear (CLEAR) 04/18/18 04:30 Urine pH 5.5 (4.7-8.0) 04/18/18 04:30 Ur Specific [place] 1.010 (1.005-1.035) 04/18/18 04:30 Urine Protein Negative mg/dL (<30 mg/dL) 04/18/18 04:30 Urine Glucose (UA) 250 mg/dL (NEGATIVE) H 04/18/18 04:30 Urine Ketones Negative mg/dL (NEGATIVE) 04/18/18 04:30 Urine Blood Trace-intact (NEGATIVE) H 04/18/18 04:30 Urine Nitrate Negative (NEGATIVE) 04/18/18 04:30 Urine Bilirubin Negative (NEGATIVE) 04/18/18 04:30 Urine Urobilinogen 0.2 E.U./dL (<1 E.U./dL) 04/18/18 04:30 Ur Leukocyte Esterase Trace Queta/uL (NEGATIVE) H 04/18/18 04:30 Urine RBC 1 - 3 /hpf (0-2) 04/18/18 04:30 Urine WBC 5 - 10 /hpf (0-6) 04/18/18 04:30 Ur Epithelial Cells 6 - 8 /hpf (0-5) 04/18/18 04:30 Amorphous Sediment Few 04/15/18 12:00 Urine Bacteria Many (NEG) 04/15/18 12:00 Coarse Granular Casts Trace /hpf (0-2) H 04/15/18 12:00 Urine Other Uyeast 04/15/18 12:00 Ur L.pneumophila Ag Negative (NEGATIVE) 04/16/18 03:43 - Hospital Course Hospital Course: 82 year old female with past medical history of COPD, CHF, HTN, PAD, and chronic back pain with radiculopathy presented to the hospital for mild confusion at home. Patient was brought to the ED by family members. Patient was found to have left sided pneumonia. Patient was treated by ID with antibiotics. Patient will continue with Rocephin for 5 more days. Discharge Exam - Head Exam Head Exam: NORMAL INSPECTION Discharge Plan - Follow Up Plan Condition: GOOD Disposition: HOME/ ROUTINE Referrals: Minh Scales MD [Primary Care Provider] - <Minh Scales - Last Filed: 04/19/18 20:34> Provider - Provider Date of Admission: 04/14/18 23:17 Attending physician: Minh Scales MD Primary care physician: Minh Scales MD Hospital Course - Lab Results Lab Results: Micro Results 04/16/18 11:30 Blood-Venous Blood Culture - Preliminary NO GROWTH AFTER 3 DAYS 04/16/18 11:05 Blood-Venous Blood Culture - Preliminary NO GROWTH AFTER 3 DAYS 04/15/18 14:45 Nose MRSA Culture (Admit) - Final MRSA NOT DETECTED 04/15/18 12:00 Urine,Clean Catch Urine Culture - Final No Growth (<1,000 CFU/ML) Most Recent Lab Values WBC 9.8 10^3/ul (4.5-11.0) 04/18/18 06:30 RBC 3.89 10^6/uL (3.5-6.1) 04/18/18 06:30 Hgb 10.7 g/dL (12.0-16.0) L 04/18/18 06:30 Hct 36.5 % (36.0-48.0) 04/18/18 06:30 MCV 93.8 fl (80.0-105.0) 04/18/18 06:30 MCH 27.5 pg (25.0-35.0) 04/18/18 06:30 MCHC 29.3 g/dl (31.0-37.0) L 04/18/18 06:30 RDW 16.5 % (11.5-14.5) H 04/18/18 06:30 Plt Count 231 10^3/uL (120.0-450.0) 04/18/18 06:30 MPV 12.4 fl (7.0-11.0) H 04/18/18 06:30 Gran % 88.6 % (50.0-68.0) H 04/18/18 06:30 Lymph % (Auto) 7.9 % (22.0-35.0) L 04/18/18 06:30 [place] % (Auto) 3.4 % (1.0-6.0) 04/18/18 06:30 Eos % (Auto) 0.0 % (1.5-5.0) L 04/18/18 06:30 Baso % (Auto) 0.1 % (0.0-3.0) 04/18/18 06:30 Gran # 8.70 (1.4-6.5) H 04/18/18 06:30 Lymph # (Auto) 0.8 (1.2-3.4) L 04/18/18 06:30 [place] # (Auto) 0.3 (0.1-0.6) 04/18/18 06:30 Eos # (Auto) 0.0 (0.0-0.7) 04/18/18 06:30 Baso # (Auto) 0.01 K/mm3 (0.0-2.0) 04/18/18 06:30 Neutrophils % (Manual) 90 % (50.0-70.0) H 04/17/18 07:00 Lymphocytes % (Manual) 4 % (22.0-35.0) L 04/17/18 07:00 Monocytes % (Manual) 6 % (1.0-6.0) 04/17/18 07:00 Platelet Evaluation Normal (NORMAL) 04/17/18 07:00 PT 12.7 SECONDS (9.4-12.5) H 04/14/18 21:16 INR 1.11 04/14/18 21:16 APTT 31.3 Seconds (25.1-36.5) 04/14/18 21:16 pCO2 62 mm/Hg (35-45) H 04/14/18 21:45 pO2 61.0 mm/Hg (80-100) L 04/14/18 21:45 HCO3 48.3 mmol/L (21-28) H* 04/14/18 21:45 ABG pH 7.50 (7.35-7.45) H 04/14/18 21:45 ABG Total CO2 50.2 mmol.L (22-28) H 04/14/18 21:45 ABG O2 Saturation 94.5 % (95-98) L 04/14/18 21:45 ABG Base Excess 21.2 mmol/L (-2.0-3.0) H 04/14/18 21:45 ABG Potassium 2.8 mmol/L (3.6-5.2) L 04/14/18 21:45 Sodium 135.0 mmol/L (132-148) 04/14/18 21:45 Chloride 89.0 mmol/L (98-107) L 04/14/18 21:45 Glucose 204 mg/dl (65-105) H 04/14/18 21:45 Lactate 1.2 mmol/L (0.7-2.1) 04/14/18 21:45 FiO2 36.0 % 04/14/18 21:45 Sodium 139 mmol/L (132-148) 04/17/18 07:00 Potassium 4.2 mmol/L (3.6-5.0) 04/17/18 07:00 Chloride 90 mmol/L (98-107) L 04/17/18 07:00 Carbon Dioxide 41 mmol/L (21-33) H 04/17/18 07:00 Anion Gap 12 (10-20) 04/17/18 07:00 BUN 44 mg/dL (7-21) H 04/17/18 07:00 Creatinine 0.7 mg/dl (0.7-1.2) 04/17/18 07:00 Est GFR ( Amer) > 60 04/17/18 07:00 Est GFR (Non-Af Amer) > 60 04/17/18 07:00 POC Glucose (mg/dL) 281 mg/dL (65-110) H 04/19/18 16:32 Random Glucose 294 mg/dL (70-110) H 04/17/18 07:00 Calcium 8.3 mg/dL (8.4-10.5) L 04/17/18 07:00 Phosphorus 3.3 mg/dL (2.5-4.5) 04/17/18 07:00 Magnesium 2.0 mg/dL (1.7-2.2) 04/17/18 07:00 Total Bilirubin 0.3 mg/dL (0.2-1.3) 04/17/18 07:00 AST 30 U/L (14-36) 04/17/18 07:00 ALT 26 U/L (7-56) 04/17/18 07:00 Alkaline Phosphatase 90 U/L (38-126) 04/17/18 07:00 Troponin I 0.03 ng/mL D 04/16/18 06:20 Total Protein 6.1 g/dL (5.8-8.3) 04/17/18 07:00 Albumin 3.2 g/dL (3.0-4.8) 04/17/18 07:00 Globulin 2.9 gm/dL 04/17/18 07:00 Albumin/Globulin Ratio 1.1 (1.1-1.8) 04/17/18 07:00 Procalcitonin 0.97 NG/ML (0.19-0.49) H 04/16/18 06:20 Arterial Blood Potassium 2.8 mmol/L (3.6-5.2) L 04/14/18 21:45 Urine Color Yellow (YELLOW) 04/18/18 04:30 Urine Appearance Clear (CLEAR) 04/18/18 04:30 Urine pH 5.5 (4.7-8.0) 04/18/18 04:30 Ur Specific [place] 1.010 (1.005-1.035) 04/18/18 04:30 Urine Protein Negative mg/dL (<30 mg/dL) 04/18/18 04:30 Urine Glucose (UA) 250 mg/dL (NEGATIVE) H 04/18/18 04:30 Urine Ketones Negative mg/dL (NEGATIVE) 04/18/18 04:30 Urine Blood Trace-intact (NEGATIVE) H 04/18/18 04:30 Urine Nitrate Negative (NEGATIVE) 04/18/18 04:30 Urine Bilirubin Negative (NEGATIVE) 04/18/18 04:30 Urine Urobilinogen 0.2 E.U./dL (<1 E.U./dL) 04/18/18 04:30 Ur Leukocyte Esterase Trace Queta/uL (NEGATIVE) H 04/18/18 04:30 Urine RBC 1 - 3 /hpf (0-2) 04/18/18 04:30 Urine WBC 5 - 10 /hpf (0-6) 04/18/18 04:30 Ur Epithelial Cells 6 - 8 /hpf (0-5) 04/18/18 04:30 Amorphous Sediment Few 04/15/18 12:00 Urine Bacteria Many (NEG) 04/15/18 12:00 Coarse Granular Casts Trace /hpf (0-2) H 04/15/18 12:00 Urine Other Uyeast 04/15/18 12:00 Ur L.pneumophila Ag Negative (NEGATIVE) 04/16/18 03:43 - Hospital Course Hospital Course: Pt seen and examined. I have reviewed the note of the biomedical scientist and agree with it. I have discussed the assessment and plan with the resident. I have reviewed the patient's labs and medications. Pt improving. Spoke to daughter. She is interested in going to [facility]. SOB has improved. She is on IV Abx.
[2018-04-19] MEDS: Latanoprost 2.5 ml Opht Soln OD SCH (22:01)
[2018-04-20] MEDS: Albuterol-Ipratrop 3 mg / 0.5 (3 ml) UD IH SCH ×3 (01:05→14:10)
[2018-04-20 05:32] VITALS: O2SAT 92
--- NOTE | 2018-04-20 07:26 | PN ---
DATE: 04/20/2018 PULMONARY NOTE SUBJECTIVE: The patient appears comfortable this morning. She is not short of breath at rest. She is awake and alert. PHYSICAL EXAMINATION: VITALS: Temperature is 98.1, pulse 82, respirations 18/20, blood pressure 146/63. Oxygen saturation on nasal cannula is 92-95%. HEENT: Normocephalic, atraumatic. No JVD. CARDIOVASCULAR: Systolic ejection murmur at the lower left sternal border. No S3 gallop. LUNGS: Decreased breath sounds at the bases. Minimal/less rhonchi. No wheezing. EXTREMITIES: Positive for mild edema. No cyanosis. No clubbing. Calves are nontender to palpation. GI: Abdomen is soft, nontender and nondistended. Bowel sounds are positive. SKIN: No acute rash. NEUROLOGIC: Limited at the present time. IMPRESSION: 1. Lethargy - resolved. 2. Acute bronchitis. 3. Advanced chronic obstructive pulmonary disease. 4. Left lower lobe pneumonia. 5. Metabolic alkalosis. PLAN: The patient appears comfortable this morning. She is not short of breath at rest. She is awake and alert. She does state to feeling much better overall. I did discuss the case with the night nurse at length. The night nurse stated that the patient had a very good night. On physical exam, her bronchospasm continues to resolve. In addition, the alveolar-arterial gradient is also much less. I will continue with the current nebulizer treatments and oral steroids (changed yesterday) for now. The patient remains on antibiotic therapy - as per Infectious Disease. Input by Dr. Zimmer is noted. Temperatures have now fully resolved. The leukocytosis has also fully resolved. Clinical status of the patient is significantly improved - compared to the initial presentation. However, again, the future status/prognosis for this elderly patient does remain guarded. I will discuss the above with the attending physician. Anil Tate MD [facility]
[2018-04-20] MEDS: Budesonide 0.5 mg/2 ml Inhal Susp UD IH SCH (07:55)
[2018-04-20] MEDS: Insulin Reg-HIGH-Coverage SC SCH ×2 (08:08→11:22)
[2018-04-20] MEDS: Magnesium Oxide 400 mg Tab UD PO SCH (10:16)
[2018-04-20] MEDS: cefTRIAXone 1 gm 1 GM/100 ML BAG IVPB SCH (10:17)
[2018-04-20 11:59] VITALS: BP 156/78; PULSE 98; RESP 18; TEMP 98.3
--- NOTE | 2018-04-20 16:19 | PN ---
DATE: 04/20/2018 SUBJECTIVE: The patient is seen early this morning in room 271, bed 1. The patient is awake and alert. The patient's daughter is at the bedside. PHYSICAL EXAMINATION: VITAL SIGNS: On exam, temperature is 98, blood pressure is 150/70, respiratory rate of 16. HEENT: Examination of HEENT is unremarkable. NECK: Supple. LUNGS: Decreased breath sounds. HEART: Normal S1, S2. ABDOMEN: Soft. LABORATORY DATA: Laboratory examination reveals a white count of 9.8, hemoglobin of 10, platelets of 231. Coagulation is noted. Chemistries reveals the patient to be on BUN of 35, creatinine of 1. Procalcitonin 0.97. Urinalysis is noted. Urine for Legionella antigen is negative. Microbiology reveals E. coli in the blood. ASSESSMENT AND PLAN: An 82-year-old female, who was admitted with sepsis, left-sided community-acquired pneumonia as well as Escherichia coli bacteremia, probably from a urinary tract infection on day #6 of ceftriaxone, may complete 10-14 days, maybe able to switch to p.o. once the patient is stabilized. We will follow with you. Thanh Celeste MD
--- NOTE | 2018-04-21 07:44 | DS ---
HISTORY OF PRESENT ILLNESS: The patient has no complaints of any chest pain. No shortness of breath. No headaches. She was admitted to the hospital because of difficulty breathing. Her breathing has improved. She is going to subacute rehab. Please see the discharged note that was done yesterday. PHYSICAL EXAMINATION: VITAL SIGNS: She has a temperature of 98.3, pulse of 98, blood pressure is 156/78. ASSESSMENT: 1. Hospital-acquired pneumonia. 2. Chronic obstructive pulmonary disease, stable. 3. Congestive heart failure secondary to systolic dysfunction, stable. 4. Hypertension. 5. Peripheral arterial disease. PLAN: The patient is currently receiving IV antibiotics. She has finished her IV antibiotics. She is going to be discharged home. She was cleared by Dr. Tate. I did speak to him. The patient is going to subacute rehab. CONDITION: Stable. ACTIVITIES: Increase as tolerated. Minh Scales MD
== END 2018-04-20 14:39 | DRG 871 ==
LOC: ED 20:49 → ERH 23:17 → 2RSO 04-15 00:33
PROVIDERS: ADMIT Internal Medicine Nephrology; ATTEND Internal Medicine Nephrology
PROC: 5A09357 Assistance with Respiratory Ventilation, Less than 24 Consecutive Hours, Continuous Positive Airway Pressure (ICD-10-PCS; 2018-04-15)
PROC: 5A09457 Assistance with Respiratory Ventilation, 24-96 Consecutive Hours, Continuous Positive Airway Pressure (ICD-10-PCS; principal; 2018-04-17)
DX: A41.51 Sepsis due to Escherichia coli [E. coli] (principal); J18.9 Pneumonia, unspecified organism; I50.43 Acute on chronic combined systolic (congestive) and diastolic (congestive) heart failure; J44.0 Chronic obstructive pulmonary disease with (acute) lower respiratory infection; E87.3 Alkalosis; I11.0 Hypertensive heart disease with heart failure; J20.9 Acute bronchitis, unspecified; E11.51 Type 2 diabetes mellitus with diabetic peripheral angiopathy without gangrene; E83.42 Hypomagnesemia; E78.5 Hyperlipidemia, unspecified; E83.39 Other disorders of phosphorus metabolism; K21.9 Gastro-esophageal reflux disease without esophagitis; M19.012 Primary osteoarthritis, left shoulder; F03.90 Unspecified dementia, unspecified severity, without behavioral disturbance, psychotic disturbance, mood disturbance, and anxiety; E11.42 Type 2 diabetes mellitus with diabetic polyneuropathy; N28.9 Disorder of kidney and ureter, unspecified; Y95 Nosocomial condition; Z66 Do not resuscitate; M54.16 Radiculopathy, lumbar region; E66.9 Obesity, unspecified; Z68.33 Body mass index [BMI] 33.0-33.9, adult; Z99.81 Dependence on supplemental oxygen; Z85.3 Personal history of malignant neoplasm of breast; Z85.51 Personal history of malignant neoplasm of bladder; Z79.84 Long term (current) use of oral hypoglycemic drugs; Z90.13 Acquired absence of bilateral breasts and nipples; Z87.891 Personal history of nicotine dependence; Z87.11 Personal history of peptic ulcer disease

== ENCOUNTER 2018-07-17 11:02 | Inpatient (IN) | payer MEDICARE, BC ==
[2018-07-17 11:44] LABS: BASO # 0.02 K/mm3 (0.0-2.0); BASO % 0.2 % (0.0-3.0); EOS # 0.2 (0.0-0.7); EOS % 1.5 % (1.5-5.0); GRAN # 9.23 (1.4-6.5); GRAN % 83.1 % (50.0-68.0); HEMOGLOBIN 10.5 g/dL (12.0-16.0); LYMPH # 0.9 (1.2-3.4); LYMPH % 7.6 % (22.0-35.0); MEAN CELL VOLUME 93.9 fl (80.0-105.0); MEAN CORPUSCULAR HEMOGLOBIN 28.9 pg (25.0-35.0); MEAN CORPUSCULAR HGB CONC 30.8 g/dl (31.0-37.0); MEAN PLATELET VOLUME 11.7 fl (7.0-11.0); MONO # 0.9 (0.1-0.6); MONO % 7.6 % (1.0-6.0); RBC 3.63 10^6/uL (3.5-6.1); RED CELL DISTRIBUTION WIDTH 16.3 % (11.5-14.5); WHITE BLOOD COUNT 11.1 10^3/uL (4.5-11.0)
--- NOTE | 2018-07-17 11:46 | ED PDOC ---
Arrival/HPI - General Chief Complaint: Altered Mental Status Time Seen by Provider: 07/17/18 11:08 Historian: Patient, Family - Critical Care Critical Care Minutes: 30 minutes (35 minutes) - History of Present Illness Narrative History of Present Illness (Text): 07/17/18 11:46 83 f with pmhx of end stage COPD fibrosis presents to the ED, accompanied by family, with altered mental status for the last two days. Patient's daughter reports her mother has taken a multitude of medication that was not prescribed for her. Per the patient's daughter, the pharmacy had given the patient medicati on prescribed for someone else and the patient has been confused and lethargic for the past two days. Patient's daughter states, the patient lives at home with health aids. Patient denies any current pain, chest pain, belly pain, vomiting, diarrhea, headache, or any other complaints. No PMD Time/Duration: Other (2 days) Symptom Onset: Gradual Symptom Course: Unchanged Activities at Onset: Light Context: Home Past Medical History - Provider Review Nursing Documentation Reviewed: Yes - Infectious Disease Hx of Infectious Diseases: None - Tetanus Immunization Tetanus Immunization: Unknown - Cardiac Hx Cardiac Disorders: Yes (VARICOSITIES) Hx Congestive Heart Failure: Yes Hx Hypertension: Yes - Pulmonary Hx Chronic Obstructive Pulmonary Disease (COPD): Yes (HOME O2 3 LITERS CONTINOUSLY) - Neurological Hx Neurological Disorder: Yes HX Cerebrovascular Accident: No Hx Dementia: Yes - HEENT Hx HEENT Disorder: Yes Hx Deafness: Yes (L HEARING AIDE) - Renal Hx Renal Disorder: No - Endocrine/Metabolic Hx Diabetes Mellitus Type 2: Yes - Hematological/Oncological Hx Blood Disorders: Yes Hx Cancer: Yes (BREAST CA-MASTECTOMY,BLADDER CA CHEMOTHERAPHY ON REMISSION) - Integumentary Hx Dermatological Disorder: Yes Other/Comment: [id number] BRUISING FROM MULTIPLE FALLS,LEFT TEMPORAL,BILATERAL KNEE,LEFT HAND . CELLULITIS BILATERAL LE. - Musculoskeletal/Rheumatological Hx Arthritis: Yes (LEFT SHOULDER) - Gastrointestinal Hx Gastrointestinal Disorders: Yes Hx Gastroesophageal Reflux: Yes - Genitourinary/Gynecological Hx Genitourinary Disorders: Yes (HYSTERECTOMY,MASTECTOMY 1989 BILATERAL) - Psychiatric Hx Psychophysiologic Disorder: No Hx Substance Use: No - Surgical History Hx Mastectomy: Yes (1989) - Anesthesia Hx Anesthesia: Yes Hx Anesthesia Reactions: No Hx Malignant Hyperthermia: No - Suicidal Assessment Feels Threatened In Home Enviroment: No Family/Social History - Physician Review Nursing Documentation Reviewed: Yes Family/Social History: No Known Family HX Smoking Status: Former Smoker Hx Alcohol Use: No Hx Substance Use: No Hx Substance Use Treatment: No Allergies/Home Meds Allergies/Adverse Reactions: Allergies aspirin Allergy (Verified 07/17/18 11:11) PAIN Home Medications: Home Meds Medication Instructions Recorded Confirmed Furosemide [Lasix] 40 mg PO BID 01/20/16 04/14/18 Potassium Chloride [Klor-Con 10] 20 meq PO DAILY 08/31/16 04/14/18 Lactobacillus Acidophilus/Fos 1 tab PO DAILY 03/20/18 04/14/18 [Acidophilus Probiotic Tablet] MetFORMIN [glucoPHAGE] 1,000 mg PO DAILY 04/14/18 04/14/18 Review of Systems - Physician Review All systems were reviewed & negative as marked: Yes - Review of Systems Cardiovascular: absent: Chest Pain Gastrointestinal: absent: Abdominal Pain (belly pain), Diarrhea, Vomiting Neurological: absent: Headache Physical Exam - Physical Exam Narrative Physical Exam (Text): 07/17/18 11:50 Gen: VS reviewed, somnolent but alert and arousable to voice, well developed, well nourished, nontoxic, mild distress Eye: EOMI, pupils are pinpoint and minimally reactive to light Neck: no JVD, supple, no adenopathy CV: tachycardic, regular rhythm, no rubs,no murmur Pulm: no distress, clear to auscultation, no wheeze, no rhonchi, diminished breath sounds in the bilateral lung bases, no rales Abd: soft, nontender, no guarding, no rebound, no rigidity Ext: trace edema in the lower extremities, there is a large dressing of the left lower leg. Skin: good color, no rash, no cyanosis Psych:unable to fully assess second to somnolence Neuro: patient moves all extremities spontaneously, there is a tremor at rest seen in both arms, unable to elicit reflexes in the limbs, there is no clonus of the extremities, patient follows commands appropriately, otherwise unable to fully assess second to somnolence 07/17/18 14:20 Vital Signs Reviewed: Yes Vital Signs Temp Pulse Resp BP Pulse Ox 07/17/18 11:02 99.4 F 82 18 133/63 92 L Temperature: Afebrile Blood Pressure: Normal Pulse: Regular Respiratory Rate: Normal Appearance: Positive for: Well-Appearing Pain Distress: None Finger Stick Blood Glucose: 276 Medical Decision Making ED Course and Treatment: 07/17/18 13:[address] schrader, physician design and sales consultant. Family have refused association with dr. gutierrez. patient was found to be taking the wrong pills when they were picked up from the pharmacy two days ago. i have discussed the case with poison control (at 12:10) and it seems the current clinical presentation is not consistent with serotonin syndrome and supportive care was recommended (IVF). patient was found to have a significantly elevated co2. co2 levels have a relatively closed correlation to arterial numbers. the elevated co2 numbers are fitting the patient's current clinical picture of co2 narcosis. as per dr. schrader consult to dr. olivera for pulmonary. case was discussed with dr. grant and states he will see the patient in consultation. the patient was noted to have a tremor of the hands, it was possible this is a dyxtonic reaction. typically i wound give benedryl if there is a severe dystonic recation but i deferred this as such a medication would cause worsening drowsiness. an alternative ,if considered would be to give cogentin but i intentially would prefer the patient to be npo until a critical care consult is appreciated. 07/17/18 14:00 - Lab Interpretations Lab Results: 07/17/18 11:33 Lab Results 07/17/18 11:33: WBC 11.1 H, RBC 3.63, Hgb 10.5 L, Hct 34.1 L, MCV 93.9, MCH 28.9, MCHC 30.8 L, RDW 16.3 H, Plt Count 221, MPV 11.7 H, Gran % 83.1 H, Lymph % (Auto) 7.6 L, [place] % (Auto) 7.6 H, Eos % (Auto) 1.5, Baso % (Auto) 0.2, Gran # 9.23 H, Lymph # (Auto) 0.9 L, [place] # (Auto) 0.9 H, Eos # (Auto) 0.2, Baso # (Auto) 0.02 - RAD Interpretation Narrative RAD Interpretations (Text): 07/17/18 12:36 Procedure: Chest X-ray Time: 07/17/2018 12:23:37 Dictator: Krysten Quinn MD Impression: Small to moderate left pleural effusion and/or consolidation. Mild to moderate pulmonary venous congestion. Mild cardiomegaly. 07/17/18 13:20 Procedure: Head CT witout contrast Time: 07/17/2018 12:58:34 Dictator: Krysten Quinn MD Impression: Generalized atrophy. Mild chronic not nonspecific white matter changes. Scattered chronic bilateral basal ganglia lacunar type infarcts. Re-identified extra-axial calcification the in the left inferior/mid frontal region and parietal region may represent large dural based calcifications or calcified meningiomas. Mucosal thickening of the ethmoid air cells. Probable 3 mm osteoma, left ethmoid air cells. Radiology Orders: 07/17/18 11:35 CHEST PORTABLE [RAD] Stat Overhead Crane Inspector: Radiologist - EKG Interpretation EKG Interpretation (Text): 07/17/18 16:36 1123: sinus rhythm at 99 bpm, nml qrs, nml axis, nonspecific t wave abn Interpreted by ED Physician: Yes - Scribe Statement The provider has reviewed the documentation as recorded by the Scribe Jasmin Hernandez All medical record entries made by the Scribe were at my direction and personally dictated by me. I have reviewed the chart and agree that the record accurately reflects my personal performance of the history, physical exam, medical decision making, and the department course for this patient. I have also personally directed, reviewed, and agree with the discharge instructions and disposition. Disposition/Present on Arrival - Present on Arrival Any Indicators Present on Arrival: No History of DVT/PE: No History of Uncontrolled Diabetes: No Urinary Catheter: No History of Decub. Ulcer: No History Surgical Site Infection Following: None - Disposition Have Diagnosis and Disposition been Completed?: Yes Diagnosis: COPD (chronic obstructive pulmonary disease), Hypercapnemia Disposition: HOSPITALIZED Disposition Time: 14:03 Patient Plan: Admission, ICU Patient Problems: Current Active Problems Problem Status Onset COPD (chronic obstructive pulmonary disease) Acute Hypercapnia Acute Condition: FAIR
[2018-07-17 12:12] LABS: ALB/GLOB RATIO 1.3 (1.1-1.8); ALBUMIN 3.7 g/dL (3.0-4.8); ALT/SGPT 21 U/L (7-56); AST/SGOT 25 U/L (14-36); BLOOD UREA NITROGEN 33 mg/dL (7-21); CALCIUM 8.5 mg/dL (8.4-10.5); GFR NON-AFRICAN AMERICAN 39
[2018-07-17 12:20] LABS: VENOUS BLOOD GAS BASE EXCESS 18.9 mmol/L (0.0-2.0); VENOUS BLOOD GAS PO2 118 mm/Hg (30-55); VENOUS BLOOD PH 7.33 (7.32-7.43)
--- NOTE | 2018-07-17 12:27 | RAD ---
HISTORY: pneumonia COMPARISON: Chest x-ray performed 04/14/18 TECHNIQUE: Chest, one view. FINDINGS: Examination limited by habitus and hypoinflation. LUNGS: Small to moderate left pleural effusion and/or consolidation. Mild to moderate pulmonary venous congestion. No definite pneumothorax. CARDIOVASCULAR: Mild cardiomegaly. Ectatic aorta. Atherosclerotic calcifications of the aorta. OSSEOUS STRUCTURES: Degenerative changes. Partially imaged deformity of the left humeral head. VISUALIZED UPPER ABDOMEN: Unremarkable. OTHER FINDINGS: None. IMPRESSION: Small to moderate left pleural effusion and/or consolidation. Mild to moderate pulmonary venous congestion. Mild cardiomegaly.
--- NOTE | 2018-07-17 13:02 | CT ---
Date of service: 07/17/2018 PROCEDURE: CT HEAD WITHOUT CONTRAST. HISTORY: altered mentation COMPARISON: Noncontrast head CT performed 03/20/18 TECHNIQUE: Axial computed tomography images were obtained through the head/brain without intravenous contrast. Radiation dose: Total exam DLP = 828.43 mGy-cm. This CT exam was performed using one or more of the following dose reduction techniques: Automated exposure control, adjustment of the mA and/or kV according to patient size, and/or use of iterative reconstruction technique. FINDINGS: HEMORRHAGE: No intracranial hemorrhage. BRAIN: No mass effect or edema. Also again seen is an elliptical shaped extra-axial calcification in the left inferior/mid frontal and parietal region that could represent a large dural base calcification however the possibility of an incidental partially calcified meningioma not excluded. Scattered periventricular and subcortical white matter hypodensities, which are nonspecific, but often seen with chronic microvascular ischemic disease. Few scattered chronic appearing bilateral basal ganglia lacunar type infarcts. Please note that MRI with diffusion imaging is more sensitive in the detection of acute ischemic event. VENTRICLES: No hydrocephalus. CALVARIUM: Unremarkable. PARANASAL SINUSES: Mucosal thickening of the ethmoid air cells. Probable 3 mm osteoma, left ethmoid air cells. MASTOID AIR CELLS: Unremarkable as visualized. No inflammatory changes. OTHER FINDINGS: None. IMPRESSION: Generalized atrophy. Mild chronic not nonspecific white matter changes. Scattered chronic bilateral basal ganglia lacunar type infarcts. Re-identified extra-axial calcification the in the left inferior/mid frontal region and parietal region may represent large dural based calcifications or calcified meningiomas. Mucosal thickening of the ethmoid air cells. Probable 3 mm osteoma, left ethmoid air cells.
--- NOTE | 2018-07-17 14:35 | CP.PCM.CON ---
History of Present Illness - History of Present Illness History of Present Illness: Resident Consult Note for ICU PMH: PSH: SHx: FHx: Allergies: aspirin PMD: Past Patient History - Infectious Disease Hx of Infectious Diseases: None - Tetanus Immunizations Tetanus Immunization: Unknown - Past Social History Smoking Status: Former Smoker - CARDIAC Hx Cardiac Disorders: Yes (VARICOSITIES) Hx Congestive Heart Failure: Yes Hx Hypertension: Yes - PULMONARY Hx Chronic Obstructive Pulmonary Disease (COPD): Yes (HOME O2 3 LITERS CONTINOUSLY) - NEUROLOGICAL Hx Neurological Disorder: Yes HX Cerebrovascular Accident: No Hx Dementia: Yes - HEENT Hx HEENT Problems: Yes Hx Deafness: Yes (L HEARING AIDE) - RENAL Hx Chronic Kidney Disease: No - ENDOCRINE/METABOLIC Hx Diabetes Mellitus Type 2: Yes - HEMATOLOGICAL/ONCOLOGICAL Hx Blood Disorders: Yes Hx Cancer: Yes (BREAST CA-MASTECTOMY,BLADDER CA CHEMOTHERAPHY ON REMISSION) - INTEGUMENTARY Hx Dermatological Problems: Yes Other/Comment: [id number] BRUISING FROM MULTIPLE FALLS,LEFT TEMPORAL,BILATERAL KNEE,LEFT HAND . CELLULITIS BILATERAL LE. - MUSCULOSKELETAL/RHEUMATOLOGICAL Hx Arthritis: Yes (LEFT SHOULDER) - GASTROINTESTINAL Hx Gastrointestinal Disorders: Yes Hx Gastroesophageal Reflux: Yes - GENITOURINARY/GYNECOLOGICAL Hx Genitourinary Disorders: Yes (HYSTERECTOMY,MASTECTOMY 1989 BILATERAL) - PSYCHIATRIC Hx Psychophysiologic Disorder: No Hx Substance Use: No - SURGICAL HISTORY Hx Mastectomy: Yes (1989) - ANESTHESIA Hx Anesthesia: Yes Hx Anesthesia Reactions: No Hx Malignant Hyperthermia: No Meds Allergies/Adverse Reactions: Allergies Allergy/AdvReac Type Severity Reaction Status Date / Time aspirin Allergy PAIN Verified 07/17/18 11:11 Results - Vital Signs Recent Vital Signs: Last Vital Signs Temp 99.4 F 07/17/18 11:02 Pulse 83 07/17/18 13:13 Resp 27 H 07/17/18 13:13 BP 111/55 L 07/17/18 13:13 Pulse Ox 88 L 07/17/18 13:13 - Labs Result Diagrams: 07/17/18 11:33 07/17/18 11:33 Labs: Laboratory Results - last 24 hr 07/17/18 07/17/18 07/17/18 11:33 11:33 11:59 WBC 11.1 H RBC 3.63 Hgb 10.5 L Hct 34.1 L MCV 93.9 MCH 28.9 MCHC 30.8 L RDW 16.3 H Plt Count 221 MPV 11.7 H Gran % 83.1 H Lymph % (Auto) 7.6 L [place] % (Auto) 7.6 H Eos % (Auto) 1.5 Baso % (Auto) 0.2 Gran # 9.23 H Lymph # (Auto) 0.9 L [place] # (Auto) 0.9 H Eos # (Auto) 0.2 Baso # (Auto) 0.02 pO2 118 H VBG pH 7.33 VBG pCO2 95.0 H* VBG HCO3 50.1 H VBG Total CO2 53.0 H VBG O2 Sat (Calc) 99.6 H VBG Base Excess 18.9 H VBG Potassium 3.3 L Glucose 287 H Lactate 1.4 FiO2 21.0 Sodium 133 134.0 Potassium 3.4 L Chloride 80 L 87.0 L Carbon Dioxide > 40 H Anion Gap 10 BUN 33 H Creatinine 1.3 H Est GFR ( Amer) 47 Est GFR (Non-Af Amer) 39 Random Glucose 287 H Calcium 8.5 Magnesium 1.8 Total Bilirubin 0.3 AST 25 ALT 21 Alkaline Phosphatase 82 Total Protein 6.5 Albumin 3.7 Globulin 2.8 Albumin/Globulin Ratio 1.3 Venous Blood Potassium 3.3 L Assessment & Plan - Assessment and Plan (Free Text) Plan: Neuro Cardio - Date & Time Date: 07/17/18 Time: 14:35
[2018-07-17 14:39] LABS: ACETAMINOPHEN < 10.0 ug/ml (10.0-20.0); SALICYLATE < 1 mg/dL (2.0-20.0)
[2018-07-17 14:42] LABS: INR 0.97; PARTIAL THROMBOPLASTIN TIME 27.2 Seconds (25.1-36.5)
--- NOTE | 2018-07-17 14:46 | CP.PCM.CON ---
History of Present Illness - History of Present Illness History of Present Illness: MICU CONSULT NOTE HPI Patient is 83yo female with PMHx of end stage COPD on home O2, pulmonary fibrosis, HTN, Obesity, dementia, lives at home with 2 aides, presents from with 2 days of worsening faituge, lethargy, somnolence, and decreased interaction. As per the family, who was at bedside, and provided all of the history, patient wad accidentally given someones else medications by her pharmacy, of which she taken 2-3 days worth. Medications include Seroquel, Gabapentin. Pt's family denies, fever, chills cough, cp, sob, palpitations, ANDERSON, dizziness, falls, trauma. No other constitutional symptoms. As per the family patient has advanced idrectives stating she is DNR/DNI, will bring in papers. PMHx as above PSHx as above Meds as per EMR Social former smoker 50+pk years, denies etoh, drug use, lives by herself with aide help FHx NC ROS as above Review of Systems - Review of Systems Review of Systems: as per HPI Past Patient History - Infectious Disease Hx of Infectious Diseases: None - Tetanus Immunizations Tetanus Immunization: Unknown - Past Social History Smoking Status: Former Smoker - CARDIAC Hx Cardiac Disorders: Yes (VARICOSITIES) Hx Congestive Heart Failure: Yes Hx Hypertension: Yes - PULMONARY Hx Chronic Obstructive Pulmonary Disease (COPD): Yes (HOME O2 3 LITERS [place] NTINOUSLY) - NEUROLOGICAL Hx Neurological Disorder: Yes HX Cerebrovascular Accident: No Hx Dementia: Yes - HEENT Hx HEENT Problems: Yes Hx Deafness: Yes (L HEARING AIDE) - RENAL Hx Chronic Kidney Disease: No - ENDOCRINE/METABOLIC Hx Diabetes Mellitus Type 2: Yes - HEMATOLOGICAL/ONCOLOGICAL Hx Blood Disorders: Yes Hx Cancer: Yes (BREAST CA-MASTECTOMY,BLADDER CA CHEMOTHERAPHY ON REMISSION) - INTEGUMENTARY Hx Dermatological Problems: Yes Other/Comment: [id number] BRUISING FROM MULTIPLE FALLS,LEFT TEMPORAL,BILATERAL KNEE,LEFT HAND . CELLULITIS BILATERAL LE. - MUSCULOSKELETAL/RHEUMATOLOGICAL Hx Arthritis: Yes (LEFT SHOULDER) - GASTROINTESTINAL Hx Gastrointestinal Disorders: Yes Hx Gastroesophageal Reflux: Yes - GENITOURINARY/GYNECOLOGICAL Hx Genitourinary Disorders: Yes (HYSTERECTOMY,MASTECTOMY 1990 BILATERAL) - PSYCHIATRIC Hx Psychophysiologic Disorder: No Hx Substance Use: No - SURGICAL HISTORY Hx Mastectomy: Yes (1989) - ANESTHESIA Hx Anesthesia: Yes Hx Anesthesia Reactions: No Hx Malignant Hyperthermia: No Meds Allergies/Adverse Reactions: Allergies Allergy/AdvReac Type Severity Reaction Status Date / Time aspirin Allergy PAIN Verified 07/17/18 11:11 Physical Exam - Constitutional Appears: Non-toxic, No Acute Distress - Head Exam Head Exam: NORMAL INSPECTION - Eye Exam Eye Exam: Normal appearance - ENT Exam ENT Exam: Mucous Membranes Moist - Respiratory Exam Respiratory Exam: Decreased Breath Sounds, NORMAL BREATHING PATTERN - Cardiovascular Exam Cardiovascular Exam: REGULAR RHYTHM, +S1, +S2 - GI/Abdominal Exam GI & Abdominal Exam: Normal Bowel Sounds, Soft - Extremities Exam Extremities exam: Positive for: pedal edema - Neurological Exam Additional comments: somnolent, but arousable, AAOx2 - Skin Skin Exam: Normal Color, Warm Results - Vital Signs Recent Vital Signs: Last Vital Signs Temp 99.4 F 07/17/18 11:02 Pulse 83 07/17/18 13:13 Resp 27 H 07/17/18 13:13 BP 111/55 L 07/17/18 13:13 Pulse Ox 88 L 07/17/18 13:13 - Labs Result Diagrams: 07/17/18 11:33 07/17/18 11:33 Labs: Laboratory Results - last 24 hr 07/17/18 07/17/18 07/17/18 11:33 11:33 11:59 WBC 11.1 H RBC 3.63 Hgb 10.5 L Hct 34.1 L MCV 93.9 MCH 28.9 MCHC 30.8 L RDW 16.3 H Plt Count 221 MPV 11.7 H Gran % 83.1 H Lymph % (Auto) 7.6 L [place] % (Auto) 7.6 H Eos % (Auto) 1.5 Baso % (Auto) 0.2 Gran # 9.23 H Lymph # (Auto) 0.9 L [place] # (Auto) 0.9 H Eos # (Auto) 0.2 Baso # (Auto) 0.02 pO2 118 H VBG pH 7.33 VBG pCO2 95.0 H* VBG HCO3 50.1 H VBG Total CO2 53.0 H VBG O2 Sat (Calc) 99.6 H VBG Base Excess 18.9 H VBG Potassium 3.3 L Glucose 287 H Lactate 1.4 FiO2 21.0 Sodium 133 134.0 Potassium 3.4 L Chloride 80 L 87.0 L Carbon Dioxide > 40 H Anion Gap 10 BUN 33 H Creatinine 1.3 H Est GFR ( Amer) 47 Est GFR (Non-Af Amer) 39 Random Glucose 287 H Calcium 8.5 Magnesium 1.8 Total Bilirubin 0.3 AST 25 ALT 21 Alkaline Phosphatase 82 Total Protein 6.5 Albumin 3.7 Globulin 2.8 Albumin/Globulin Ratio 1.3 Venous Blood Potassium 3.3 L - Imaging and Cardiology Chest x-ray Status: Image reviewed by me, Report reviewed by me Assessment & Plan - Assessment and Plan (Free Text) Assessment: 83yo female with PMhx COPD on home O2, obesity, HTN, CKD presents with lethargy, AMS Lethargy AMS Fatigue COPD HTN - currently afebrile, BP stable, O2 sat 95% on BIPAP, somnolent, but arousable, answers questions, oriented to place and person - ABG pending - CT head done, results noted - EKG, NSR, nml axis, QTc 454 Recommend: - cont with BIPAP as tolerated, wean off, obtain ABG with shock panel - panculture, UCx, BCx, obtain UA, Procal - BP control - verify home meds - FS control, check TSH, HgbA1C, Lipid panel - IVF hydration - NPO - monitor LFTs, QTc - GI ppx - DVT ppx, HSQ - Admit to MICU Pt is DNR/DNI as per family
--- NOTE | 2018-07-17 15:16 | CARD ---
APPROVED REPORT Date of service: 07/17/2018 EKG Measurement Heart [id number] [id number] <Conclusion> Sinus rhythm with paroxysmal atrial tachycardia Nonspecific ST and T wave abnormality Abnormal ECG
[2018-07-17 15:38] LABS: PH,URINE 5.5 (4.7-8.0); URINE BILIRUBIN NEGATIVE (NEGATIVE); URINE BLOOD NEGATIVE (NEGATIVE); URINE GLUCOSE (UA) NEGATIVE (NEGATIVE); URINE LEUKOCYTE ESTERASE SMALL Leu/uL (NEGATIVE); URINE PROTEIN NEGATIVE mg/dL (<30 mg/dL); URINE UROBILINOGEN 0.2 E.U./dL (<1 E.U./dL)
[2018-07-17 15:39] LABS: URINE APPEARANCE CLEAR (CLEAR); URINE COLOR YELLOW (YELLOW)
[2018-07-17 15:41] LABS: URINE BACTERIA MANY (NEG); URINE RBC NEGATIVE /hpf (0-2); URINE WBC 0 - 2 /hpf (0-6)
[2018-07-17] MEDS: Sodium Chloride 0.9% 1,000 ML IV SCH (16:34)
[2018-07-17 16:53] LABS: HDL CHOLESTEROL 59 mg/dL (29-60)
[2018-07-17 17:02] LABS: ARTERIAL BLOOD GAS O2 SAT 95.9 % (95-98); ARTERIAL BLOOD GAS PCO2 90 mm/Hg (35-45); ARTERIAL BLOOD GAS PH 7.36 (7.35-7.45); ARTERIAL BLOOD GAS TCO2 53.6 mmol.L (22-28)
[2018-07-17 17:03] LABS: ARTERIAL BLOOD GAS HCO3 50.8 mmol/L (21-28)
[2018-07-17 17:04] LABS: LDL CHOLESTEROL 55 mg/dL (0-129)
[2018-07-17 20:15] VITALS: BMI 32.3
[2018-07-17] MEDS ORDERED: Influenza Vaccine 60 mcg/0.5 mL SYR (4YR UP) IM ONE (20:16)
[2018-07-17] MEDS ORDERED: Pneumococcal 23-Valent Vaccine IM ONE (20:16)
[2018-07-17] MEDS: Cefepime 1gm in NS 100ml 1 GM/100 ML BAG IVPB SCH (22:19)
[2018-07-18] MEDS: Sodium Chloride 0.9% 1,000 ML IV SCH (00:46)
--- NOTE | 2018-07-18 01:14 | CON ---
DATE OF CONSULTATION: 07/17/2018 REFERRING PHYSICIAN: Conchita Simpson MD REASON FOR CONSULTATION: Respiratory failure. HISTORY OF PRESENT ILLNESS: This is an 83-year-old female with chronic obstructive lung disease, pulmonary fibrosis, may have sleep apnea syndrome, cardiomyopathy, hypertension, history of dementia, diabetes, history of breast cancer requiring mastectomy, had been on chemotherapy, degenerative joint disease, history of GERD, brought into ER by the family because of change in mental status from two days, found to be hypoxemic with CO2 retention and respiratory failure, placed on noninvasive ventilation, presently still lethargic, arousable, goes back to sleep. No hemoptysis or emesis. No hematuria. Has a chronic leg swelling. PAST MEDICAL HISTORY: As per history of present illness. FAMILY HISTORY: No significant cardiopulmonary disease reported. SOCIAL HISTORY: Former smoker. Denies any alcohol use. MEDICATIONS: She is on heparin 5000 units subcu every 12 hours, Protonix 40 mg daily, IV fluid normal saline 120 mL/h. Home medications include prednisone 5 mg daily, Norvasc 10 mg daily, venlafaxine 75 mg daily, Travatan drops each eye, potassium supplement, metformin 1000 mg daily, Namenda 10 mg daily, Microzide 25 mg daily, Lasix 40 mg twice a day, Breo 100/25 one puff once a day, Aricept 10 mg h.s., Lipitor 80 mg daily, albuterol/Atrovent nebulizer every 6 hours p.r.n. ALLERGIES: NONE KNOWN. REVIEW OF SYSTEMS: Lethargic, sleepy, arousable. No headaches. No hemoptysis, hematemesis, hematuria. No diarrhea. Does have leg swelling. Multiple bruises. PHYSICAL EXAMINATION: GENERAL: Lethargic, on noninvasive ventilation. VITAL SIGNS: Temperature is 98, heart rate 67, respiratory rate is 21, blood pressure 90/68, pulse ox 99% on BiPAP. HEENT: Moist mucous membranes. Crowded airway. Mallampati score is 4. Short thick neck. LUNGS: Scattered rhonchi. Poor airflow. HEART: S1 and S2. ABDOMEN: Distended. Positive bowel sounds. EXTREMITIES: No edema. NEUROLOGIC: Lethargic, arousable. LABORATORY DATA: Hemoglobin 10.5, hematocrit 34.1, WBC 11.1, platelet count 221,000. INR 0.97. PTT 27. ABG shows pH 7.36, pCO2 of 90, O2 of 69 on admission. Sodium 133, potassium of 3.4, chloride 80, bicarbonate more than 40, BUN 33, creatinine is 1.3, glucose 287, calcium 8.5, magnesium 1.8. Total bili 0.3, AST 25, ALT 21, alk phos is 82. Albumin is 3.7. Urinalysis shows wbc 0-2. Salicylate level is negative. Acetaminophen level is negative. CAT scan of the head was nondiagnostic. IMPRESSION AND PLAN: Respiratory failure, chronic obstructive lung disease, probably has hypoventilation syndrome, hypertension, renal failure, history of breast cancer. The patient is seen by director organizational, being admitted to intensive care unit, will continue BiPAP. We will request the patient NG tube for feeding and medication. Gastric prophylaxis, DVT prophylaxis, IV fluid, IV steroids, antibiotics. Follow up ABG, chest x-ray, CBC, and CMP in the morning. Fall precautions. Critical care time spent more than 35 minutes. Thank you and we will follow with you. Oswaldo Emerson MD
[2018-07-18 05:49] LABS: ARTERIAL BLOOD GAS HEMOGLOBIN 9.9 g/dL (11.7-17.4); ARTERIAL BLOOD GAS O2 CAPACITY 13.6 mL/dl (16-24); ARTERIAL BLOOD GAS O2 CONTENT 13.6 ML/dl (15-23); ARTERIAL BLOOD GAS O2 SAT 99.9 % (95-98); ARTERIAL BLOOD GAS PCO2 101 mm/Hg (35-45); ARTERIAL BLOOD GAS PH 7.28 (7.35-7.45); ARTERIAL BLOOD GAS TCO2 50.6 mmol.L (22-28)
[2018-07-18 06:04] LABS: ARTERIAL BLOOD GAS HCO3 47.5 mmol/L (21-28)
--- NOTE | 2018-07-18 06:14 | HP ---
DATE OF EXAM: 07/17/2018 The patient was seen and examined at the bedside 07/17/2018, this history and physical is for 07/17/2018. CHIEF COMPLAINT: Altered mental status. HISTORY OF PRESENT ILLNESS: Mrs. Lina Oakley is an 83-year-old female with end-stage COPD, fibrosis came to the emergency department accompanied by family with altered mental status with last 2 days. The patient daughter reports her mother has taken a multitude of medications that has not prescribed for her. Per the patient's daughter, the pharmacy had given the patient medication prescribed by someone else and the patient has been confused and lethargic. For the past 2 days, the patient's daughter states the patient lives at home with health aides. The patient denies any current pain. The patient is not very good historian. No fever. No chills. No hematuria, hematochezia. No headache. No dizziness. PAST MEDICAL HISTORY: As above. History of varicosities; congestive heart failure; COPD; hearing aid; diabetes mellitus type 2; history of breast cancer, mastectomy; bladder cancer, chemotherapy, on remission; left shoulder pain; GERD; dyspepsia; hysterectomy; mastectomy, bilateral. FAMILY HISTORY: Father, mother noncontributory. HABITS: Former smoker. No drugs. No ethanol. No substance abuse. ALLERGIES: SHE IS ALLERGIC WITH ASPIRIN. HOME MEDICATIONS: Lasix, Lactobacillus acidophilus, Glucophage. REVIEW OF SYSTEMS: The patient was seen and examined at the bedside in the emergency room complaining about belly pain. No chest pain. No diarrhea, vomiting. No headache. No dizziness. No fever. No chills. No hematuria, hematochezia. PHYSICAL EXAMINATION VITAL SIGNS: Temperature 98.4, pulse 82, respiratory rate 18, blood pressure 133/56, pulse oximetry 92%. HEENT: Head is normocephalic, atraumatic. Eyes, PERRLA. Extraocular muscles are intact. Conjunctivae clear. Nose patent. Mucous membranes moist. NECK: Supple. No carotid bruits. No JVD, thyromegaly. CHEST: Clear to auscultation. ABDOMEN: Soft. Bowel sounds present. No organomegaly. EXTREMITIES: No edema. No cyanosis. NEUROLOGIC: The patient is awake, but looks like confused, not obeying simple orders. LABORATORY DATA: White blood cell 11.1, hemoglobin 10.5, hematocrit 34.1, platelets 221. Sodium 133, potassium 3.4, BUN 33, creatinine 1.3, glucose 287. , arterial pressure 3.2. ASSESSMENT AND PLAN: Mrs. Cele Mills is an 83-year-old female with leukocytosis, anemia, hypokalemia replaced, hypochloremia, renal insufficiency, hyperglycemia, urinary tract infection. Drug screen negative for salicylates, acetaminophen. CAT scan of the head done. The patient with history of end-stage chronic obstructive pulmonary disease who have home oxygen, pulmonary fibrosis, hypertension, obesity, dementia, lives at home with two aides, came with fatigue, lethargy,somnolence, decrease interaction, altered mental status. The patient is on bilevel positive airway pressure. Arterial blood gas done. CAT scan of the head done, results are pending. EKG normal sinus with normal acute axis QTC 454. Continue bilevel positive airway pressure as tolerated. Zavala cultures, blood pressure control. Verify home medications, fingerstick, IV fluid, n.p.o. Monitoring liver function test, deep venous thrombosis prophylaxis, gastrointestinal prophylaxis. The patient admitted in the unit. The patient is do not resuscitate and do not intubate as per the patient's family. Repeat laboratories. We will followup. Conchita Simpson MD ZEYNEP
[2018-07-18 06:18] LABS: EOS % 0.1 % (1.5-5.0); GRAN # 8.23 (1.4-6.5); GRAN % 95.4 % (50.0-68.0); LYMPH # 0.3 (1.2-3.4); LYMPH % 3.1 % (22.0-35.0); MEAN CORPUSCULAR HEMOGLOBIN 27.9 pg (25.0-35.0); MEAN CORPUSCULAR HGB CONC 29.3 g/dl (31.0-37.0); MEAN PLATELET VOLUME 11.6 fl (7.0-11.0); MONO # 0.1 (0.1-0.6); MONO % 1.4 % (1.0-6.0); PLATELET COUNT 196 10^3/uL (120.0-450.0); RBC 3.59 10^6/uL (3.5-6.1); WHITE BLOOD COUNT 8.6 10^3/uL (4.5-11.0)
[2018-07-18 06:30] LABS: INR 0.96; PARTIAL THROMBOPLASTIN TIME 30.4 Seconds (25.1-36.5)
[2018-07-18 06:36] LABS: ALB/GLOB RATIO 1.1 (1.1-1.8); ALBUMIN 3.3 g/dL (3.0-4.8); CALCIUM 8.4 mg/dL (8.4-10.5)
[2018-07-18] MEDS: Acetylcysteine 20% Inhal Soln (4ml) IH SCH ×2 (08:06→17:35)
[2018-07-18] MEDS: Arformoterol 15 mcg/2 ml Inh Sol IH SCH ×2 (08:07→17:36)
[2018-07-18] MEDS: Budesonide 0.5 mg/2 ml Inhal Susp UD IH SCH ×2 (08:07→17:35)
[2018-07-18 09:39] LABS: LYMPHOCYTE 2 % (22.0-35.0); NEUTROPHIL 98 % (50.0-70.0); PLATELET ESTIMATE NORMAL (NORMAL)
[2018-07-18] MEDS ORDERED: Insulin Lispro (humaLOG) MEDIUM Coverage SC SCH (11:30)
[2018-07-18] MEDS: Insulin Lispro (humaLOG) MEDIUM Coverage SC SCH ×3 (11:43→22:46)
--- NOTE | 2018-07-18 12:31 | CP.PCM.PN ---
Subjective - Date & Time of Evaluation Date of Evaluation: 07/18/18 Time of Evaluation: 07:15 - Subjective Subjective: Patient seen and examined, more awake today, interactive, taken off BIPAP Objective - Vital Signs/Intake and Output Vital Signs (last 24 hours): Temp Pulse Resp BP Pulse Ox 98.1 F 109 H 24 117/55 L 100 07/18/18 04:00 07/18/18 08:10 07/17/18 21:00 07/17/18 21:00 07/17/18 21:00 Intake and Output: 07/18/18 07/18/18 06:59 18:59 Intake Total 1540 Balance 1540 - Medications Medications: Current Medications Acetylcysteine (Acetylcysteine 20%) 3 ml IH BID BABAR Last Admin: 07/18/18 08:06 Dose: 3 ml Arformoterol Tartrate (Brovana) 15 mcg IH [id number] BABAR Last Admin: 07/18/18 08:07 Dose: 15 mcg Budesonide (Pulmicort Respules) 0.5 mg IH [id number] [facility]ABAR Last Admin: 07/18/18 08:07 Dose: 0.5 mg Heparin Sodium (Porcine) (Heparin) 5,000 units SC Q12 [facility]AB[facility]; Protocol Last Admin: 07/18/18 10:57 Dose: 5,000 units Cefepime HCl (Maxipime 1gm) 1 gm in 100 mls @ 25 mls/hr IVPB Q24H [facility]AB[facility]; Protocol Last Admin: 07/17/18 22:19 Dose: 25 mls/hr Insulin Human Lispro (Humalog Med) 0 units SC ACHS BABAR; Protocol Last Admin: 07/18/18 11:43 Dose: 1 unit Methylprednisolone (Solu-Medrol) 60 mg IVP Q12 [facility]AB[facility] Last Admin: 07/18/18 10:56 Dose: 60 mg Pantoprazole Sodium (Protonix Inj) 40 mg IVP DAILY BABAR Last Admin: 07/18/18 10:56 Dose: 40 mg - Labs Labs: 07/18/18 06:00 07/18/18 06:00 PT 11.0 SECONDS (9.4-12.5) 07/18/18 06:00 INR 0.96 07/18/18 06:00 APTT 30.4 Seconds (25.1-36.5) 12/16/18 06:00 - Constitutional Appears: Non-toxic, No Acute Distress - Head Exam Head Exam: NORMAL INSPECTION - Eye Exam Eye Exam: Normal appearance - ENT Exam ENT Exam: Mucous Membranes Moist - Neck Exam Neck Exam: Full ROM - Respiratory Exam Respiratory Exam: Clear to Ausculation Bilateral, NORMAL BREATHING PATTERN - Cardiovascular Exam Cardiovascular Exam: REGULAR RHYTHM, +S1, +S2 - GI/Abdominal Exam GI & Abdominal Exam: Soft, Normal Bowel Sounds - Extremities Exam Extremities Exam: Full ROM, Normal Inspection - Neurological Exam Neurological Exam: Alert, Awake, Oriented x3 - Psychiatric Exam Psychiatric exam: Normal Affect - Skin Skin Exam: Normal Color, Warm Assessment and Plan - Assessment and Plan (Free Text) Assessment: 83yo female with PMhx COPD on home O2, obesity, HTN, CKD presents with lethargy, AMS, which has rsolved Lethargy AMS Fatigue COPD HTN UTI - currently afebrile, BP stable, O2 sat 95% on high flow 50%, awake, alert, conversing with family, mental status significantly improved - ABG with chronic resp acidosis and metabolic alkalosis - CT head done, results noted - EKG, NSR, nml axis, QTc 454 Recommend: - cont with supp o2 as needed, goal sat 90%, BIPAP at night, patient is awake, alert, NAD, ABG with chronic resp acidosis/metabolic alkalosis - pcont with Cefepime - BP control - FS control, check TSH, HgbA1C, Lipid panel - DC IVF - diabetic diet - GI ppx - DVT ppx, HSQ - transfer to telemetry DNR/DNI
--- NOTE | 2018-07-18 13:05 | RAD ---
HISTORY: res.fail COMPARISON: Chest x-ray performed 07/17/18 TECHNIQUE: Chest, one view. FINDINGS: Examination limited by habitus. External wires and leads obscure evaluation of the underlying parenchyma. LUNGS: Small left pleural effusion and/or consolidation. Mild to moderate pulmonary venous congestion. No definite pneumothorax. CARDIOVASCULAR: Cardiomegaly. Ectatic aorta. Atherosclerotic calcification present. OSSEOUS STRUCTURES: Degenerative changes. Osseous demineralization. VISUALIZED UPPER ABDOMEN: Unremarkable. OTHER FINDINGS: None. IMPRESSION: Small left pleural effusion and/or consolidation. Mild to moderate pulmonary venous congestion. Cardiomegaly.
[2018-07-18] MEDS: Armodafinil 250 mg Tab PO SCH (15:44)
[2018-07-18] MEDS ORDERED: Venlafaxine 75 mg ER Cap PO ONE (20:17)
--- NOTE | 2018-07-18 20:59 | PN ---
DATE: 07/18/2018 REFERRING PHYSICIAN: Conchita Simpson MD SUBJECTIVE: She is sitting up in a bed, more awake and alert than yesterday. Presently, she is on high-flow nasal cannula. Pulse ox is about 87% to 88%. Has a cough with diffuse wheezing. No hemoptysis or emesis. No hematuria. No diarrhea. Does have leg swelling. OBJECTIVE: GENERAL: Moderate distress. VITAL SIGNS: Temperature is 98, heart rate is 80, respiratory rate is 22, blood pressure 120/59, pulse ox 92% on high-flow nasal cannula. HEENT: Moist mucous membrane. Crowded airway. Mallampati score is 4. NECK: Supple. No JVD. LUNGS: Bilateral expiratory wheezing. HEART: S1 and S2, tachycardic. ABDOMEN: Obese, nontender. Positive bowel sounds. EXTREMITIES: Trace edema. NEUROLOGICAL: Lethargic, sleepy but arousable. More awake than yesterday. MEDICATIONS: She is on Mucomyst 20% inhaled twice a day, Brovana inhaled twice a day, heparin 5000 units subcu every 12 hours, insulin coverage, cefepime 1 g IV every 12 hours, Protonix 40 mg daily, Pulmicort inhaled twice a day, Solu-Medrol 60 mg every 12 hours. LABORATORY DATA: Shows hemoglobin 10, hematocrit 34.1, WBC 8.6, platelets 196. INR 0.96. ABG this morning showed pH of 7.28, pCO2 of 101, pO2 of 132, this is on 60% oxygen on BiPAP. Sodium 135, potassium 4.1, chloride 88, bicarbonate is 44, BUN 31, creatinine 1.1, glucose 221, magnesium 2.2, AST 24, ALT 27, albumin 3.3. Microbiology: Urine culture has gram-negative rods, more than 100,000 colonies. Chest x-ray done this morning shows small left pleural effusion or consolidation, [id number] pulmonary venous congestion and cardiomegaly. IMPRESSION AND PLAN: Respiratory failure, chronic obstructive lung disease, may have hypoventilation syndrome, hypertension, renal failure, history of breast cancer. Case was discussed with ICU resident. Spoke to nursing staff, also spoke to respiratory therapist. May continue high-flow oxygen and titrate FiO2 to pulse ox 90. May use BiPAP while sleeping or lethargic. We will add Nuvigil in the morning. Continue steroids, inhaled bronchodilator and also, for urinary tract infection, antibiotics. Gastric prophylaxis, deep venous thrombosis prophylaxis. The patient is do not resuscitate and do not intubate. Overall, poor prognosis. Critical care time spent more than 35 minutes. Thank you and we will follow with you. Oswaldo Emerson MD
[2018-07-18] MEDS: Cefepime 1gm in NS 100ml 1 GM/100 ML BAG IVPB SCH (21:13)
[2018-07-18] MEDS: Latanoprost 2.5 ml Opht Soln OU SCH (21:29)
[2018-07-19 05:35] LABS: ARTERIAL BLOOD GAS O2 CAPACITY 13.7 mL/dl (16-24); ARTERIAL BLOOD GAS O2 CONTENT 13.3 ML/dl (15-23); ARTERIAL BLOOD GAS O2 SAT 97.2 % (95-98); ARTERIAL BLOOD GAS PH 7.39 (7.35-7.45); ARTERIAL BLOOD GAS TCO2 52.1 mmol.L (22-28)
[2018-07-19 06:45] LABS: ARTERIAL BLOOD GAS HCO3 49.6 mmol/L (21-28); ARTERIAL BLOOD GAS PCO2 82 mm/Hg (35-45)
[2018-07-19 07:08] LABS: GRAN # 7.93 (1.4-6.5); GRAN % 85.8 % (50.0-68.0); HEMOGLOBIN 10.4 g/dL (12.0-16.0); LYMPH # 0.5 (1.2-3.4); LYMPH % 5.5 % (22.0-35.0); MEAN CELL VOLUME 93.8 fl (80.0-105.0); MEAN CORPUSCULAR HEMOGLOBIN 28.1 pg (25.0-35.0); MEAN PLATELET VOLUME 11.4 fl (7.0-11.0); MONO # 0.8 (0.1-0.6); MONO % 8.7 % (1.0-6.0); RBC 3.7 10^6/uL (3.5-6.1); RED CELL DISTRIBUTION WIDTH 15.9 % (11.5-14.5); WHITE BLOOD COUNT 9.2 10^3/uL (4.5-11.0)
[2018-07-19 07:49] LABS: ALB/GLOB RATIO 1.2 (1.1-1.8); ALBUMIN 3.5 g/dL (3.0-4.8); ALT/SGPT 21 U/L (7-56); AST/SGOT 27 U/L (14-36); BLOOD UREA NITROGEN 34 mg/dL (7-21); CALCIUM 9.2 mg/dL (8.4-10.5); GFR NON-AFRICAN AMERICAN 60
[2018-07-19] MEDS: Budesonide 0.5 mg/2 ml Inhal Susp UD IH SCH ×2 (08:09→19:41)
[2018-07-19] MEDS: Acetylcysteine 20% Inhal Soln (4ml) IH SCH ×2 (08:09→19:41)
[2018-07-19] MEDS: Arformoterol 15 mcg/2 ml Inh Sol IH SCH ×2 (08:09→19:41)
[2018-07-19] MEDS: Insulin Lispro (humaLOG) MEDIUM Coverage SC SCH ×3 (08:50→17:05)
[2018-07-19] MEDS: Pantoprazole 40 mg EC Tab PO SCH (08:50)
--- NOTE | 2018-07-19 08:52 | PN ---
DATE: 07/18/2018 SUBJECTIVE: The patient is an 83-year-old female. The patient was seen and examined at bedside on 07/18/2018, looking comfortable. but confused. No headache. No dizziness. No chest pain. No palpitation. No fever. No chills. PHYSICAL EXAMINATION: VITAL SIGNS: Temperature 98, heart rate 80, respiratory rate 22, blood pressure 120/50, pulse oximetry 92% , nasal cannula. HEENT: Head is normocephalic, atraumatic. Eyes, PERRLA. Extraocular muscles intact. Conjunctivae clear. Nose patent. Mucous membranes moist. NECK: Supple. No carotid bruits. No JVD or thyromegaly. CHEST: Bilaterally symmetrical. HEART: S1 and S2 positive. LUNGS: Clear to auscultation. ABDOMEN: Soft. Bowel sounds present. No organomegaly. EXTREMITIES: No edema. No cyanosis. NEUROLOGIC: The patient is awake, alert, but lethargic. Getting more awake MEDICATIONS: Mucomyst, Brovana, heparin, Cefepime, Protonix, Pulmicort, and Solu-Medrol. LABORATORY DATA: Hemoglobin 10, hematocrit 34.1, white blood cell 29, platelets 196. Sodium noted , potassium 4.1, BUN 31, creatinine 1.1. Glucose 221. ASSESSMENT AND PLAN: The patient is an 83-year-old lady with respiratory failure, chronic obstructive lung disease, has hypoventilation syndrome, hypertension, renal failure, history of breast cancer, got admitted in the intensive care unit, getting high flow oxygen. Dr. Emerson is on the case. May use BiPAP while sleeping. Lethargy is getting better. Dr. Emerson added Nuvigil in the morning. Continue tapering dose of steroid. Repeat labs. We will follow up. Conchita Simpson MD MTDD
[2018-07-19] MEDS: Venlafaxine 75 mg ER Cap PO SCH (09:46)
[2018-07-19] MEDS: Armodafinil 250 mg Tab PO SCH (09:46)
[2018-07-19] MEDS ORDERED: Levalbuterol 0.63 MG/3 ML Inhal Soln UD IH STA (11:29)
[2018-07-19] MEDS: Albuterol-Ipratrop 3 mg / 0.5 (3 ml) UD IH PRN ×2 (11:42→14:10)
--- NOTE | 2018-07-19 12:14 | CP.PCM.APN ---
Subjective - Date & Time of Evaluation Date of Evaluation: 07/19/18 Time of Evaluation: 08:00 - Subjective Subjective: seen and examined 83 F PMHx end stage COPD with fibrosis home 02 dependent, CHF, HTN, DM, Breast CA with masectomy, bladder CA s/p chemo in remission, arrived to ED accompanied by family, with AMS for the last two days. Patient's daughter reports her mother has taken a multitude of medication that was not prescribed for her. Per the patient's daughter, the pharmacy had given the patient medication prescribed for someone else and the patient has been confused and lethargic for the past two days. Patient's daughter states, the patient lives at home with health aids. Patient denies fever, chills, ANDERSON, dizziness, chest pain, cough, dyspnea, hemoptysis, abdominal pain, N/V/D, hematemesis or rectal bleeding. ROS may not be reliable patient is AAOx3, but with some intermittent confusion. Review of Systems - Review of Systems Systems not reviewed;Unavailable: Altered Mental Status - Cardiovascular Cardiovascular: As Per HPI - Respiratory Respiratory: As Per HPI - Gastrointestinal Gastrointestinal: As Per HPI Objective - Vital Signs/Intake and Output Vital Signs (last 24 hours): Temp Pulse Resp BP Pulse Ox 98.5 F 93 H 18 140/65 94 L 07/19/18 04:00 07/19/18 10:00 07/18/18 20:16 07/18/18 17:33 07/18/18 17:00 Intake and Output: 07/19/18 07/19/18 06:59 18:59 Intake Total 340 Output Total 900 Balance -560 - Medications Medications: Current Medications Acetylcysteine (Acetylcysteine 20%) 3 ml IH BID BABAR Last Admin: 07/19/18 08:09 Dose: 3 ml Albuterol/Ipratropium (Duoneb 3 Mg/0.5 Mg (3 Ml) Ud) 3 ml IH Q2H PRN PRN Reason: Shortness of Breath Last Admin: 07/19/18 11:42 Dose: 3 ml Arformoterol Tartrate (Brovana) 15 mcg IH [id number] BABAR Last Admin: 07/19/18 08:09 Dose: 15 mcg Budesonide (Pulmicort Respules) 0.5 mg IH [id number] BABAR Last Admin: 07/19/18 08:09 Dose: 0.5 mg Donepezil HCl (Aricept) 10 mg PO HS BABAR Last Admin: 07/18/18 21:13 Dose: 10 mg Heparin Sodium (Porcine) (Heparin) 5,000 units SC Q12 BABAR; Protocol Last Admin: 07/19/18 09:44 Dose: 5,000 units Cefepime HCl (Maxipime 1gm) 1 gm in 100 mls @ 25 mls/hr IVPB Q24H BABAR; Protocol Last Admin: 07/18/18 21:13 Dose: 25 mls/hr Insulin Human Lispro (Humalog Med) 0 units SC ACHS BABAR; Protocol Last Admin: 07/19/18 11:50 Dose: 1 unit Latanoprost (Xalatan Opht) 1 ml OU HS [facility] Last Admin: 07/18/18 21:29 Dose: 1 ml Memantine (Namenda) 10 mg PO Q12 [facility] Last Admin: 07/19/18 09:46 Dose: 10 mg Methylprednisolone (Solu-Medrol) 60 mg IVP Q12 [facility] Last Admin: 07/19/18 09:45 Dose: 60 mg Pantoprazole Sodium (Protonix Ec Tab) 40 mg PO 0600 [facility] Last Admin: 07/19/18 08:50 Dose: 40 mg Venlafaxine HCl (Effexor Xr) 75 mg PO DAILY [facility] Last Admin: 07/19/18 09:46 Dose: 75 mg - Labs Labs: 07/19/18 06:00 07/19/18 06:00 PT 11.0 SECONDS (9.4-12.5) 07/18/18 06:00 INR 0.96 07/18/18 06:00 APTT 30.4 Seconds (25.1-36.5) 07/18/18 06:00 - Constitutional Appears: Non-toxic, No Acute Distress, Chronically Ill - Head Exam Head Exam: ATRAUMATIC - Eye Exam Eye Exam: EOMI, PERRL - Neck Exam Neck Exam: Full ROM - Respiratory Exam Respiratory Exam: Decreased Breath Sounds, Wheezes - Cardiovascular Exam Cardiovascular Exam: REGULAR RHYTHM, +S1, +S2 - GI/Abdominal Exam GI & Abdominal Exam: Soft, Normal Bowel Sounds - Exam Additional comments: positive urine culture ESBL positive/ MDRO - Extremities Exam Extremities Exam: Full ROM, Normal Capillary Refill - Neurological Exam Neurological Exam: Alert, Altered, Awake, CN II-XII Intact Neuro motor strength exam: Left Upper Extremity: 5, Right Upper Extremity: 5, Left Lower Extremity: 5, Right Lower Extremity: 5 - Psychiatric Exam Psychiatric exam: Agitated - Skin Skin Exam: Dry, Intact, Warm Assessment and Plan - Assessment and Plan (Free Text) Assessment: AMS COPD CO2 retention UTI ESBL/MDRO Plan: AMS neurology consulted will await recommendations CO2 retention, end stage COPD home [address] Emerson consulted continue high flow 02, Solumedrol 60mg Q12H will await further recommendations. Positive urine culture ESBL positive, MDRO Dr. Celeste ID consulted resistance to Cefepime will change to Merrem which is ID restricted only 2 doses available at this time, will await ID consult and further recommendations. PT ute is pending CM/SW for discharge planning
--- NOTE | 2018-07-19 13:02 | PN ---
DATE: 07/19/2018 PULMONARY PROGRESS NOTE REFERRING PHYSICIAN: Dr. Simpson. SUBJECTIVE: The patient is sitting up in bed, awake, alert, verbal. No acute distress. Currently, on high-flow oxygen. No hemoptysis, hematosis, hematuria or diarrhea reported. OBJECTIVE: GENERAL: Moderate distress. VITAL SIGNS: Blood pressure 140/65, pulse 98, oxygen saturation 94, temperature 98.6. HEENT: Moist mucous membranes. Crowded airway. Mallampati score is 4. NECK: Supple. No JVD. CARDIOVASCULAR: S1, S2 audible. LUNGS: Few rhonchi bilaterally. ABDOMEN: Obese but nontender. Positive bowel sounds. No organomegaly. EXTREMITIES: Trace edema, bilateral lower extremities. NEUROLOGIC: Awake, alert, verbal. Periods of confusion. LABORATORY DATA: Reviewed. WBC 9.2, RBC 3.7, hemoglobin 10.4, hematocrit 34.7, platelets 221; pCO2 of 82, pO2 of 75, HCO3 of 49.6, ABG pH 7.39. Sodium 141, potassium 3.5, chloride 90, carbon dioxide 45, anion gap 10, BUN 34, creatinine 0.9, GFR 60, POC glucose 184, random glucose 203. Calcium 9.2, phosphorus 2.5, magnesium 2.1. Total bilirubin 0.4, AST 24, ALT 21, alkaline phosphatase 86, total protein 6.5, albumin 3.5, globulin 3.0, albumin globulin ratio 1.2. Urine culture, preliminary Gram-negative rods. MEDICATIONS: Reviewed. Mucomyst inhalation twice a day, Brovana 15 mcg inhalation every 12 hours, Pulmicort 0.5 mg inhalation every 12 hours, cefepime 1 g daily, Aricept 10 mg at bedtime, heparin 5000 units subcutaneous every 12 hours, Humalog sliding scale, latanoprost to both eyes at bedtime, Namenda 10 mg every 12 hours, Solu-Medrol 60 mg IV push every 12 hours, Protonix 40 mg daily, Effexor 75 mg daily. IMPRESSION AND PLAN: Respiratory failure, chronic obstructive lung disease, hypoventilation syndrome, hypertension, renal failure, history of breast cancer. Spoke with patient's daughter who is at bedside. All questions answered. Continue high-flow oxygen and titrate the FiO2, pulse ox 90. Continue BiPAP at bedtime or when patient is sleeping and lethargic. We will discontinue Nuvigil as the patient is awake this morning and daughter does not want patient to have stimulant. Continue steroids and her bronchodilators, antibiotic therapy, gastric prophylaxis, deep venous thrombosis prophylaxis. The patient is do not resuscitate, do not intubate. Case discussed with nursing staff. Critical care time spent more than 35 minutes. The patient was seen and examined with Dr. Emerson. Discussed assessment and plan as described above. Thank you for this consult and we will follow with you. Manuel Vincent APN Oswaldo Emerson MD [place]
[2018-07-19] MEDS: Meropenem IV 1 gm in NS 1 GM/50 ML BAG IVPB SCH ×2 (13:29→22:00)
--- NOTE | 2018-07-19 15:31 | CON ---
DATE: 07/19/2018 NEUROLOGY CONSULT CHIEF COMPLAINT: Transient altered mental status. HISTORY OF PRESENT ILLNESS: This is an 83-year-old woman with past medical history of end-state COPD with fibrosis, home oxygen dependence, CHF, hypertension, type 2 diabetes mellitus, breast cancer, mastectomy, back and status post chemo in remission, came to the hospital for change in mental status in past few days multiple medications that was not prescribed for her. She thinks she is lethargic and was found to have elevated blood gas of 100 which is indicating that she has CO2 retention, currently on BiPAP, doing much better. Her mental status is currently improving, occasional delirium; otherwise is much better than her initial presentation. CAT scan of the head showed no change in intracranial abnormalities, chronic ischemic changes. Currently, the patient is following commands, moving all extremities. PAST MEDICAL HISTORY: As above. FAMILY HISTORY: Noncontributory. SOCIAL HISTORY: No illicit drug use, smoking, or EtOH abuse. ALLERGIES: TO ASPIRIN. REVIEW OF SYSTEMS: A 14-point review of systems is negative except as per HPI. MEDICATIONS: Reviewed by nurse's reconciliation sheet. LABORATORY DATA: Today's pCO2 is 82, pO2 is 75, bicarb is 49.6. Sodium is 141, potassium 3.5, chloride 90, carbon dioxide 45, BUN of 34, creatinine 0.9, and random glucose 203. PHYSICAL EXAMINATION GENERAL: The patient is sitting up in bed, in no acute distress. VITAL SIGNS: Temperature is 98.5, pulse rate of 89, blood pressure 140/65, respirations 18 by high flow oxygen. HEENT: Atraumatic and normocephalic. PERRLA. Extraocular muscles are intact. NECK: Supple. No JVD. No adenopathy noted. LUNGS: Clear to auscultation. No adventitious sounds. HEART: S1 and S2. Normal rate and rhythm. No murmurs, rubs, or gallops. ABDOMEN: Soft, nontender, and nondistended. Bowel sounds present. EXTREMITIES: No clubbing. No cyanosis. Peripheral pulses 2+ bilaterally. NEUROLOGICAL: The patient is alert and oriented to person, place, month, and year. Recall time is 0/2. Poor attention span. Slow thought process. Cranial nerves II through XII are intact. Motor exam: Moves all extremities equally. Toes are downgoing bilaterally. Sensory: Light touch, pinprick, proprioception and vibration are intact. DTRs are 2+ throughout and 1 at both knees and ankles. Coordination: [id number] intact. No dysmetria noted. Gait is deferred for now. ASSESSMENT AND PLAN: This is an 83-year-old woman with history of end-stage chronic obstructive pulmonary disease with fibrosis, home oxygen dependent, seizure, hypertension, type 2 diabetes mellitus, breast cancer, mastectomy, bladder cancer status post chemo and radiation right in the ER accompanied by family with altered mental status in the past few days. The patient's daughter reported that her mother had taken multitude of medications which was not prescribed for her. The patient was confused and lethargic, found to have CO2 retention and some metabolic derangements. CAT scan of the head showed no acute intracranial abnormalities. At this time, trace altered mental status secondary to CO2 retention with underlying urinary tract infection with a toxic metabolic encephalopathy picture, superimposed underlying chronic medical conditions. 1. At this time, I recommend continue with bilevel positive airway pressure versus CO2 retention and monitor her blood gases. 2. Monitor her electrolytes and correct accordingly. 3. Keep her blood sugar at 140-180. 4. Recommend Nuvigil up to 50 p.o. daily if needed p.r.n. for neuronal activity. 5. Continue with Namenda 10 mg every 12 hours as well as 10 mg p.o. at bedtime for cognitive impairment and continue current present medical management, PT/OT evaluation. Thank you for this consult. Lloyd Mitchell MD
[2018-07-19] MEDS: Latanoprost 2.5 ml Opht Soln OU SCH (22:10)
[2018-07-20] MEDS: Insulin Lispro (humaLOG) MEDIUM Coverage SC SCH ×5 (00:16→22:41)
[2018-07-20] MEDS: Albuterol-Ipratrop 3 mg / 0.5 (3 ml) UD IH PRN (04:15)
[2018-07-20 05:14] LABS: ARTERIAL BLOOD GAS HEMOGLOBIN 10.2 g/dL (11.7-17.4); ARTERIAL BLOOD GAS O2 CAPACITY 13.9 mL/dl (16-24); ARTERIAL BLOOD GAS O2 CONTENT 13.4 ML/dl (15-23); ARTERIAL BLOOD GAS O2 SAT 96.5 % (95-98); ARTERIAL BLOOD GAS PH 7.41 (7.35-7.45); ARTERIAL BLOOD GAS TCO2 53.2 mmol.L (22-28)
[2018-07-20 05:16] LABS: ARTERIAL BLOOD GAS HCO3 50.7 mmol/L (21-28)
[2018-07-20 05:17] LABS: ARTERIAL BLOOD GAS PCO2 80 mm/Hg (35-45)
[2018-07-20] MEDS: Meropenem IV 1 gm in NS 1 GM/50 ML BAG IVPB SCH ×3 (05:18→22:37)
[2018-07-20] MEDS: Pantoprazole 40 mg EC Tab PO SCH (05:19)
[2018-07-20 07:01] LABS: GRAN # 7.15 (1.4-6.5); HEMOGLOBIN 10.2 g/dL (12.0-16.0); LYMPH # 0.3 (1.2-3.4); MEAN CELL VOLUME 96.2 fl (80.0-105.0); MEAN CORPUSCULAR HEMOGLOBIN 27.9 pg (25.0-35.0); MEAN CORPUSCULAR HGB CONC 29.1 g/dl (31.0-37.0); MEAN PLATELET VOLUME 11.7 fl (7.0-11.0); MONO # 0.2 (0.1-0.6); RBC 3.65 10^6/uL (3.5-6.1); RED CELL DISTRIBUTION WIDTH 16.3 % (11.5-14.5); WHITE BLOOD COUNT 7.7 10^3/uL (4.5-11.0)
[2018-07-20] MEDS: Arformoterol 15 mcg/2 ml Inh Sol IH SCH ×2 (07:19→20:40)
[2018-07-20] MEDS: Acetylcysteine 20% Inhal Soln (4ml) IH SCH ×4 (07:19→22:18)
[2018-07-20] MEDS: Budesonide 0.5 mg/2 ml Inhal Susp UD IH SCH ×2 (07:20→20:40)
[2018-07-20 07:48] LABS: ALB/GLOB RATIO 1.1 (1.1-1.8); ALBUMIN 3.4 g/dL (3.0-4.8); ALT/SGPT 27 U/L (7-56); AST/SGOT 27 U/L (14-36); BLOOD UREA NITROGEN 33 mg/dL (7-21); CALCIUM 9.2 mg/dL (8.4-10.5); GFR NON-AFRICAN AMERICAN > 60
[2018-07-20] MEDS: Venlafaxine 75 mg ER Cap PO SCH (09:38)
--- NOTE | 2018-07-20 12:22 | CP.PCM.PCO ---
Physician Communication Note - Physician Communication Note Physician Communication Note: PT recommended KJ when medically cleared, PT is on 1:1, AMS/agitation
--- NOTE | 2018-07-20 12:37 | CP.PCM.CON ---
History of Present Illness - History of Present Illness History of Present Illness: 83 year old female with PMH of COPD, CHF, breast CA with history of double mastectomy, history of diverticulitis, history of gastrointestinal ulcer, Bladder CA, arthritis of the left shoulder, history of sepsis due to left sided CAP as well as E. coli bacteremia probably from UTI, history of ventilator- dependent respiratory failure probably secondary to atypical healthcare- associated pneumonia on top of severe COPD exacerbation in a patient with hypoxia, history of left lower extremity skin and skin structure infection in a patient who had prior trauma to the said extremity came in to [facility] because of lethargy and generalized weakness for the past 2-3 days. She has no fevers, no vomiting, no diarrhea, no loss of consciousness. Urine cx were taken and are showing ESBL-producing organisms. Infectious diseases consult is requested to further evaluate and manage. Review of Systems - Review of Systems All systems: reviewed and no additional remarkable complaints except (as per HPI) Past Patient History - Infectious Disease Hx of Infectious Diseases: None - Tetanus Immunizations Tetanus Immunization: Unknown - Past Social History Smoking Status: Former Smoker - CARDIAC Hx Cardiac Disorders: Yes (VARICOSITIES) Hx Congestive Heart Failure: Yes Hx Hypercholesterolemia: Yes Hx Hypertension: Yes Hx Peripheral Edema: Yes (ble +1 pitting) - PULMONARY Hx Respiratory Disorders: Yes Hx Chronic Obstructive Pulmonary Disease (COPD): Yes (HOME O2 3 LITERS CONTINOUSLY) Hx Emphysema: Yes Hx Pneumonia: Yes - NEUROLOGICAL Hx Neurological Disorder: Yes HX Cerebrovascular Accident: No Hx Dementia: Yes - HEENT Hx HEENT Problems: Yes (eyeglasses) Hx Deafness: Yes (b/l hearing aids at home) - RENAL Hx Chronic Kidney Disease: No - ENDOCRINE/METABOLIC Hx Endocrine Disorders: Yes Hx Diabetes Mellitus Type 2: Yes - HEMATOLOGICAL/ONCOLOGICAL Hx Blood Disorders: Yes Hx Cancer: Yes (BREAST CA-MASTECTOMY,BLADDER CA CHEMOTHERAPHY ON REMISSION) Other/Comment: no chemo post b/l mastectomy in 1989, pt had 4 botulism injections into the bladder ca site - INTEGUMENTARY Hx Dermatological Problems: Yes Other/Comment: multiple skin discolorations to both arms & dry skin, 1.2cm x 1.6cm purple blister to rle redness to rle, lle 0.8cm x 0.9cm dry growth lle redness and variscosities, small dry red scab 0.2cm to outer left great toe - MUSCULOSKELETAL/RHEUMATOLOGICAL Hx Arthritis: Yes (LEFT SHOULDER) Hx Falls: Yes (multiple) Hx Fractures: Yes (left shoulder) Hx Unsteady Gait: Yes (uses rollator) - GASTROINTESTINAL Hx Gastrointestinal Disorders: Yes (contentnt of bowels) Hx Gastroesophageal Reflux: Yes Hx Ulcer: Yes - GENITOURINARY/GYNECOLOGICAL Hx Genitourinary Disorders: Yes (HYSTERECTOMY,MASTECTOMY 1989 BILATERAL) Hx Incontinence: Yes - PSYCHIATRIC Hx Psychophysiologic Disorder: No Hx Anxiety: Yes Hx Substance Use: No - SURGICAL HISTORY Hx Surgeries: Yes (tonsillectomy) Hx Hysterectomy: Yes Hx Mastectomy: Yes (1989) - ANESTHESIA Hx Anesthesia: Yes Hx Anesthesia Reactions: No Hx Malignant Hyperthermia: No Meds Allergies/Adverse Reactions: Allergies Allergy/AdvReac Type Severity Reaction Status Date / Time aspirin Allergy PAIN Verified 07/17/18 11:11 - Medications Medications: Current Medications Acetylcysteine (Acetylcysteine 20%) 3 ml IH BID BABAR Last Admin: 07/19/18 19:41 Dose: 3 ml Albuterol/Ipratropium (Duoneb 3 Mg/0.5 Mg (3 Ml) Ud) 3 ml IH Q2H PRN PRN Reason: Shortness of Breath Last Admin: 07/20/18 04:15 Dose: 3 ml Arformoterol Tartrate (Brovana) 15 mcg IH [id number] BABAR Last Admin: 07/19/18 19:41 Dose: 15 mcg Budesonide (Pulmicort Respules) 0.5 mg IH [id number] BABAR Last Admin: 07/19/18 19:41 Dose: 0.5 mg Donepezil HCl (Aricept) 10 mg PO HS BABAR Last Admin: 07/19/18 22:05 Dose: 10 mg Heparin Sodium (Porcine) (Heparin) 5,000 units SC Q12 BABAR; Protocol Last Admin: 07/19/18 22:53 Dose: 5,000 units Meropenem (Merrem Iv 1 Gm Premix) 1 gm in 50 mls @ 100 mls/hr IVPB Q8 BABAR; Protocol Stop: 07/26/18 14:01 Last Admin: 07/20/18 05:18 Dose: 100 mls/hr Insulin Human Lispro (Humalog Med) 0 units SC ACHS BABAR; Protocol Last Admin: 07/20/18 00:16 Dose: Not Given Latanoprost (Xalatan Opht) 1 ml OU HS [facility] Last Admin: 07/19/18 22:10 Dose: 1 ml Memantine (Namenda) 10 mg PO Q12 [facility] Last Admin: 07/19/18 22:05 Dose: 10 mg Methylprednisolone (Solu-Medrol) 60 mg IVP Q12 [facility] Last Admin: 07/19/18 22:05 Dose: 60 mg Pantoprazole Sodium (Protonix Ec Tab) 40 mg PO 0600 [facility] Last Admin: 07/20/18 05:19 Dose: 40 mg Venlafaxine HCl (Effexor Xr) 75 mg PO DAILY [facility] Last Admin: 07/19/18 09:46 Dose: 75 mg Physical Exam - Constitutional Appears: Chronically Ill - Head Exam Head Exam: NORMAL INSPECTION - Respiratory Exam Respiratory Exam: Decreased Breath Sounds - Cardiovascular Exam Cardiovascular Exam: +S1, +S2 - GI/Abdominal Exam GI & Abdominal Exam: Soft. absent: Tenderness Results - Vital Signs Recent Vital Signs: Last Vital Signs Temp 98.6 F 07/20/18 05:27 Pulse 128 H 07/20/18 05:27 Resp 26 H 07/20/18 02:00 BP 171/84 H 07/20/18 05:27 Pulse Ox 96 07/20/18 02:00 - Labs Result Diagrams: 07/20/18 05:00 07/20/18 05:00 Labs: Laboratory Results - last 24 hr 07/19/18 07/19/18 07/19/18 06:00 06:00 07:31 WBC 9.2 RBC 3.70 Hgb 10.4 L Hct 34.7 L MCV 93.8 MCH 28.1 MCHC 30.0 L RDW 15.9 H Plt Count 221 MPV 11.4 H Gran % 85.8 H Lymph % (Auto) 5.5 L Gilmer % (Auto) 8.7 H Eos % (Auto) 0.0 L Baso % (Auto) 0.0 Gran # 7.93 H Lymph # (Auto) 0.5 L Gilmer # (Auto) 0.8 H Eos # (Auto) 0.0 Baso # (Auto) 0.00 pCO2 pO2 HCO3 ABG pH ABG Total CO2 ABG O2 Saturation ABG O2 Content ABG Base Excess ABG Hemoglobin ABG Carboxyhemoglobin POC ABG HHb (Measured) ABG Methemoglobin ABG O2 Capacity Hgb O2 Saturation FiO2 Sodium 141 Potassium 3.5 L Chloride 90 L Carbon Dioxide 45 H Anion Gap 10 BUN 34 H Creatinine 0.9 Est GFR ( Amer) > 60 Est GFR (Non-Af Amer) 60 POC Glucose (mg/dL) 184 H Random Glucose 203 H Calcium 9.2 Phosphorus 2.5 Magnesium 2.1 Total Bilirubin 0.4 AST 27 ALT 21 Alkaline Phosphatase 86 Total Protein 6.5 Albumin 3.5 Globulin 3.0 Albumin/Globulin Ratio 1.2 07/19/18 07/19/18 07/19/18 08:42 11:02 16:24 WBC RBC Hgb Hct MCV MCH MCHC RDW Plt Count MPV Gran % Lymph % (Auto) Gilmer % (Auto) Eos % (Auto) Baso % (Auto) Gran # Lymph # (Auto) Gilmer # (Auto) Eos # (Auto) Baso # (Auto) pCO2 pO2 HCO3 ABG pH ABG Total CO2 ABG O2 Saturation ABG O2 Content ABG Base Excess ABG Hemoglobin ABG Carboxyhemoglobin POC ABG HHb (Measured) ABG Methemoglobin ABG O2 Capacity Hgb O2 Saturation FiO2 Sodium Potassium Chloride Carbon Dioxide Anion Gap BUN Creatinine Est GFR ( Amer) Est GFR (Non-Af Amer) POC Glucose (mg/dL) 171 H 190 H 273 H Random Glucose Calcium Phosphorus Magnesium Total Bilirubin AST ALT Alkaline Phosphatase Total Protein Albumin Globulin Albumin/Globulin Ratio 07/20/18 07/20/18 03:58 04:50 WBC RBC Hgb Hct MCV MCH MCHC RDW Plt Count MPV Gran % Lymph % (Auto) Gilmer % (Auto) Eos % (Auto) Baso % (Auto) Gran # Lymph # (Auto) Gilmer # (Auto) Eos # (Auto) Baso # (Auto) pCO2 80 H* pO2 69.0 L HCO3 50.7 H* ABG pH 7.41 ABG Total CO2 53.2 H ABG O2 Saturation 96.5 ABG O2 Content 13.4 L ABG Base Excess 22.4 H ABG Hemoglobin 10.2 L ABG Carboxyhemoglobin 2.4 H POC ABG HHb (Measured) 3.4 ABG Methemoglobin 1.0 ABG O2 Capacity 13.9 L Hgb O2 Saturation 93.2 L FiO2 60.0 Sodium Potassium Chloride Carbon Dioxide Anion Gap BUN Creatinine Est GFR ( Amer) Est GFR (Non-Af Amer) POC Glucose (mg/dL) 125 H Random Glucose Calcium Phosphorus Magnesium Total Bilirubin AST ALT Alkaline Phosphatase Total Protein Albumin Globulin Albumin/Globulin Ratio Assessment & Plan - Assessment and Plan (Free Text) Plan: Assessment consider sepsis due to ESBL Klebsiella UTI history of sepsis due to left sided CAP as well as E. coli bacteremia probably from UTI history of ventilator-dependent respiratory failure probably secondary to atypical healthcare-associated pneumonia on top of severe COPD exacerbation in a patient with hypoxia history of left lower extremity skin and skin structure infection in a patient who had prior trauma to the said extremity chronic CHF COPD breast CA with history of double mastectomy history of diverticulitis history of gastrointestinal ulcer Bladder CA arthritis of the left shoulder Plan we have started Merrem and will monitor clinically overall prognosis is poor and patient is DNR and DNI
--- NOTE | 2018-07-20 12:57 | PN ---
DATE: 07/20/2018 PULMONARY PROGRESS NOTE REFERRING PHYSICIAN: Dr. Simpson SUBJECTIVE: The patient in bed, asleep with BiPAP mask on. The patient currently has one-to-one. No hemoptysis, hematosis, hematuria, diarrhea or leg swelling reported. OBJECTIVE: GENERAL: No acute distress. VITAL SIGNS: Blood pressure 170/80, pulse 122, temperature 98.6, oxygen saturation 95%. HEENT: Moist mucous membranes. Crowded airway. Mallampati score of 4. NECK: Supple. No JVD. CARDIOVASCULAR: S1, S2 audible. LUNGS: Few rhonchi bilaterally. ABDOMEN: Obese, nontender. No distension. No organomegaly. EXTREMITIES: Trace edema bilateral lower extremities. NEUROLOGIC: The patient is asleep, but arousable. MEDICATIONS: Reviewed. Mucomyst 3 mL inhalation twice a day, DuoNeb 3 mL inhalation every 2 hours p.r.n., Norvasc 10 mg p.o. daily, Brovana 15 mcg every 12 hours, Lipitor 80 mg at bedtime, Pulmicort 0.5 mg inhalation every 12 hours, Persantine 25 mg 3 times a day, Aricept 10 mg at bedtime, Lasix 20 mg twice a day, heparin 5000 units subcutaneously every 12 hours, hydrochlorothiazide 25 mg p.o. daily, Humalog sliding scale, latanoprost 1 mL both eyes at bedtime, Namenda 10 mg every 12 hours, meropenem 1 g every 8 hours, Solu-Medrol 60 mg IV push every 12 hours, Protonix 40 mg daily, Effexor 75 mg daily. LABORATORY DATA: Reviewed. WBC 7.7, RBC 3.65, hemoglobin 10.2, hematocrit 35.1, platelets 218. PCO2 80, PO2 69, HCO3 is 50.7. ABG, pH 7.41. Sodium 144, potassium 3.8, chloride 93, carbon dioxide 46, anion gap 9, BUN 33, creatinine 0.7, GFR greater than 60, POC glucose 220, random glucose 241, calcium 9.2, phosphorus 3.8, magnesium 3.2, total bilirubin 0.4. AST 27, ALT 27, alkaline phosphatase 77, total protein 6.4, albumin 3.4, globulin 3.0, albumin-globulin ratio 1.1. IMPRESSION AND PLAN: Respiratory failure, chronic obstructive lung disease, hypoventilation syndrome, hypertension, renal failure, history of breast cancer. Continue supportive care. Continue BiPAP at bedtime and as needed. We will decrease Solu-Medrol to 40 mg every 12 hours. Continue inhaled bronchodilators, antibiotic therapy, gastric prophylaxis, deep venous thrombosis prophylaxis. The patient is a do not resuscitate, do not intubate. Case discussed with nursing staff. Critical care time spent more than 35 minutes. The patient was seen and examined with Dr. Emerson. Discussed assessment and plan as described above. Thank you for this consult and we will follow with you. Manuel Vincent APN Oswaldo Emerson MD ZEYNEP
--- NOTE | 2018-07-20 17:29 | PQF ---
PROVIDER RESPONSE TEXT: Acute respiratory failure hypoxia and hypercapnea REVIEWER QUERY TEXT: Respiratory Failure Acuity and Type Respiratory Failure is documented in the Medical Record. Please specify the type and acuity (includes suspected or probable) Such as: -- Acute respiratory failure - With hypoxia - With hypercapnia -- Chronic respiratory failure - With hypoxia - With hypercapnia -- Acute on chronic respiratory failure - With hypoxia - With hypercapnia -- Other, please specify The patient's Clinical Indicators include: Documentation of resp failure w/ hypoxia on BiPap requires clarification as to ACUITY POA Query created by: Jaimee Fernández on 07/19/2018 1:59 PM Electronically signed by: Oswaldo Emerson MD 07/20/2018 5:26 PM
--- NOTE | 2018-07-20 20:09 | CON ---
DATE OF CONSULTATION: 07/20/2018 HISTORY OF PRESENT ILLNESS: In short, the patient is an 83-year-old female with not known previous psychiatric history. The patient was admitted on ICU status post altered mental status for the past 2 days, rule out sepsis due to ESBL Klebsiella UTI versus the patient was provided with medication for another patient and the patient was very confused. Psych consult was called for evaluation of periods of agitation and confusion. The patient was seen and examined today. The patient is on BiPAP mask. The patient was able to communicate with this typewriter mechanic only with one-word answer. The patient knows that she is in the hospital. The patient said that she feels little bit better. The patient said that she feels hungry. The patient denied feeling depressed or expressed any thoughts of killing herself or others. This typewriter mechanic did not want to overwhelm the patient with all of the questions considering the condition. Medical team notes were reviewed. The patient is on antibiotics. Overall prognosis is poor and the patient is DNR and DNI. Previous history reviewed. The patient has never been admitted to the psychiatric inpatient unit and never been consulted by this typewriter mechanic in the past. Discussed with nursing staff. PHYSICAL EXAMINATION: GENERAL: The patient is quiet today, does not exhibit any aggressive or agitated behavior. VITAL SIGNS: Reviewed. The patient is tachycardic at 126, respirations 18, oxygen saturation is about 96 to 16. MEDICATIONS: Reviewed. The patient is on multiple medications. In regard to psychotropic medications, the patient is on Effexor, Namenda, Aricept, and many more for her medical condition. LABORATORY DATA: Labs reviewed, most recent was from today. Hemoglobin and hematocrit kind of low. Coagulation reviewed. Gas reviewed. PCO2 is high. Chemistry reviewed. Urinalysis reviewed. Toxicology reviewed. Microbiology reviewed, Klebsiella pneumonia, and urine culture. MENTAL STATUS EXAMINATION: As this typewriter mechanic described above, the patient appears to be calm. The patient is on BiPAP machine, was able to communicate only with yes or no answers. Mood described as okay, "I feel hungry." Thought process concrete. Thought content, the patient has episodes of agitation and confusion, which was related to the delirium stage. Denied thoughts of harming herself or others. Denied intents or plan. Insight and judgment seem to be improving. Impulses are well controlled today, but the patient had episodes of restlessness and anxiety. IMPRESSION: The patient is in delirium stage, which seems to be multifactorial. The patient most likely has dementia because the patient is on Namenda and Aricept. The patient took medications, which did not belong to her. Please see admission note for more detailed information. PLAN: Continue current management. Continue current medications. Effexor was started by medical team. This typewriter mechanic is not sure why this was started. As-needed medication might be helpful such as Ativan at the nighttime for restless and agitated behavior. Family should be involved. We will follow up and advise accordingly. Thank you very much for letting me participate in the care of your patient. Lalitha Carson MD MTDDominik
[2018-07-20] MEDS: MethylPREDNISolone 40 mg Vial IVP SCH (22:38)
[2018-07-20] MEDS: Latanoprost 2.5 ml Opht Soln OU SCH (22:44)
--- NOTE | 2018-07-20 23:31 | PN ---
DATE: 07/20/2018 SUBJECTIVE: The patient has no complaints of any chest pain or shortness of breath. She is able to respond to questions. She does get confused at times. She is on BiPAP. PHYSICAL EXAMINATION VITAL SIGNS: Temperature is 98.6, pulse , blood pressure is 170/80, respirations 18. GENERAL: The patient is lying in bed, flat, comfortable. HEENT: No oral lesion. Anicteric sclerae. Moist mucosa. NECK: No JVD, adenopathy, or thyromegaly. CARDIOVASCULAR: S1 and S2, regular. No murmurs, rubs, or gallops. LUNGS: Clear to auscultation bilaterally. No wheeze, rales, or rhonchi. ABDOMEN: Bowel sounds are positive, soft, nontender and nondistended. EXTREMITIES: No cyanosis, clubbing or edema. LABS: White count 7.7, hemoglobin 10.2. Creatinine 0.7. ASSESSMENT: 1. Acute respiratory failure with hypoxia and hypercapnia, improving. 2. Chronic obstructive pulmonary disease. 3. Congestive heart failure secondary to diastolic dysfunction - systolic dysfunction, stable. 4. Medication overdose. 5. Dementia, Alzheimer's type. 6. Anxiety. 7. Hypertension. 8. Dyslipidemia. 9. Glaucoma. 10. Peripheral arterial disease. 11. Anemia, chronic. PLAN: The patient is more awake and alert compared to yesterday according to the patient's daughter, whom I spoke with. The patient does have anemia. She has an ABG that shows pCO2 is elevated, her pH is 7.4, her PaO2 is 69. She is going to continue on BiPAP. She is being followed by Pulmonary. She is on nebulizer treatments. She is receiving venlafaxine for her anxiety. The patient is on heparin for DVT prophylaxis. She is on Lipitor for dyslipidemia. She is on meropenem for antibiotics. The patient is on memantine for her dementia. She is on amlodipine for her hypertension. She is on latanoprost 0.005% in the evening to her eyes. She is on a carbohydrate consistent diet. She is also on insulin sliding scale with coverage. She has a fingerstick that is mildly elevated in the low 200s. She will have repeat blood work done tomorrow. Minh Scales MD [facility] # [id number]
[2018-07-21] MEDS: Meropenem IV 1 gm in NS 1 GM/50 ML BAG IVPB SCH ×3 (06:15→22:00)
[2018-07-21] MEDS: Pantoprazole 40 mg EC Tab PO SCH (06:15)
[2018-07-21 06:43] LABS: GRAN # 7.2 (1.4-6.5); GRAN % 87.9 % (50.0-68.0); HEMOGLOBIN 10.9 g/dL (12.0-16.0); LYMPH # 0.4 (1.2-3.4); LYMPH % 4.9 % (22.0-35.0); MEAN CELL VOLUME 96.2 fl (80.0-105.0); MEAN CORPUSCULAR HEMOGLOBIN 27.9 pg (25.0-35.0); MEAN CORPUSCULAR HGB CONC 29.1 g/dl (31.0-37.0); MEAN PLATELET VOLUME 11.7 fl (7.0-11.0); MONO # 0.6 (0.1-0.6); MONO % 7.2 % (1.0-6.0); RBC 3.9 10^6/uL (3.5-6.1); RED CELL DISTRIBUTION WIDTH 15.9 % (11.5-14.5); WHITE BLOOD COUNT 8.2 10^3/uL (4.5-11.0)
[2018-07-21] MEDS: Arformoterol 15 mcg/2 ml Inh Sol IH SCH ×2 (07:05→21:10)
[2018-07-21] MEDS: Budesonide 0.5 mg/2 ml Inhal Susp UD IH SCH ×2 (07:05→21:10)
[2018-07-21 07:38] LABS: ALB/GLOB RATIO 1.1 (1.1-1.8); ALBUMIN 3.5 g/dL (3.0-4.8); ALT/SGPT 22 U/L (7-56); AST/SGOT 25 U/L (14-36); BLOOD UREA NITROGEN 32 mg/dL (7-21); CALCIUM 9.3 mg/dL (8.4-10.5); GFR NON-AFRICAN AMERICAN > 60
[2018-07-21 08:31] LABS: ARTERIAL BLOOD GAS HEMOGLOBIN 11.2 g/dL (11.7-17.4); ARTERIAL BLOOD GAS O2 CAPACITY 15.3 mL/dl (16-24); ARTERIAL BLOOD GAS O2 CONTENT 12.1 ML/dl (15-23); ARTERIAL BLOOD GAS O2 SAT 78.9 % (95-98); ARTERIAL BLOOD GAS PH 7.51 (7.35-7.45); ARTERIAL BLOOD GAS TCO2 63.8 mmol.L (22-28)
[2018-07-21 08:32] LABS: ARTERIAL BLOOD GAS HCO3 61.4 mmol/L (21-28); ARTERIAL BLOOD GAS PCO2 77 mm/Hg (35-45)
[2018-07-21] MEDS: Insulin Lispro (humaLOG) MEDIUM Coverage SC SCH ×5 (09:05→22:00)
[2018-07-21] MEDS: MethylPREDNISolone 40 mg Vial IVP SCH ×2 (09:24→21:19)
[2018-07-21] MEDS: Venlafaxine 75 mg ER Cap PO SCH (09:25)
--- NOTE | 2018-07-21 10:41 | CP.PCM.PCO ---
Physician Communication Note - Physician Communication Note Physician Communication Note: hypoxia noted, mentation improving. PT recommends KJ
--- NOTE | 2018-07-21 12:36 | CP.PCM.PN ---
Subjective - Date & Time of Evaluation Date of Evaluation: 07/21/18 Time of Evaluation: 08:50 - Subjective Subjective: Still on high flow oxygen, no fevers. Objective - Vital Signs/Intake and Output Vital Signs (last 24 hours): Temp Pulse Resp BP Pulse Ox 98.6 F 80 24 170/80 H 95 07/20/18 05:27 07/20/18 10:54 07/20/18 06:46 07/20/18 09:40 07/20/18 06:46 Intake and Output: 07/20/18 07/20/18 06:59 18:59 Intake Total 150 Output Total 600 Balance -450 - Medications Medications: Current Medications Acetylcysteine (Acetylcysteine 20%) 3 ml IH BID [facility] Last Admin: 07/20/18 07:19 Dose: 3 ml Albuterol/Ipratropium (Duoneb 3 Mg/0.5 Mg (3 Ml) Ud) 3 ml IH Q2H PRN PRN Reason: Shortness of Breath Last Admin: 07/20/18 04:15 Dose: 3 ml Amlodipine Besylate (Norvasc) 10 mg PO DAILY [facility] Last Admin: 07/20/18 09:40 Dose: 10 mg Arformoterol Tartrate (Brovana) 15 mcg IH [id number] [facility] Last Admin: 07/20/18 07:19 Dose: 15 mcg Atorvastatin Calcium (Lipitor) 80 mg PO HS [facility] Budesonide (Pulmicort Respules) 0.5 mg IH [id number] [facility] Last Admin: 07/20/18 07:20 Dose: 0.5 mg Dipyridamole (Persantine) 25 mg PO TID [facility] Last Admin: 07/20/18 09:40 Dose: 25 mg Donepezil HCl (Aricept) 10 mg PO HS [facility] Last Admin: 07/19/18 22:05 Dose: 10 mg Furosemide (Lasix) 40 mg PO BID [facility] Last Admin: 07/20/18 09:39 Dose: 40 mg Heparin Sodium (Porcine) (Heparin) 5,000 units SC Q12 [facility]; Protocol Last Admin: 07/20/18 09:38 Dose: 5,000 units Hydrochlorothiazide (Hydrodiuril) 25 mg PO DAILY [facility] Last Admin: 07/20/18 09:39 Dose: 25 mg Meropenem (Merrem Iv 1 Gm Premix) 1 gm in 50 mls @ 100 mls/hr IVPB Q8 [facility]; Protocol Stop: 07/26/18 14:01 Last Admin: 07/20/18 05:18 Dose: 100 mls/hr Insulin Human Lispro (Humalog Med) 0 units SC ACHS [facility]; Protocol Last Admin: 07/20/18 11:22 Dose: Not Given Latanoprost (Xalatan Opht) 1 ml OU HS [facility] Last Admin: 07/19/18 22:10 Dose: 1 ml Memantine (Namenda) 10 mg PO Q12 [facility] Last Admin: 07/20/18 09:39 Dose: 10 mg Methylprednisolone (Solu-Medrol) 40 mg IVP Q12 [facility] Pantoprazole Sodium (Protonix Ec Tab) 40 mg PO 0600 [facility] Last Admin: 07/20/18 05:19 Dose: 40 mg Venlafaxine HCl (Effexor Xr) 75 mg PO DAILY [facility] Last Admin: 07/20/18 09:38 Dose: 75 mg - Labs Labs: 07/20/18 05:00 07/20/18 05:00 PT 11.0 SECONDS (9.4-12.5) 07/18/18 06:00 INR 0.96 07/18/18 06:00 APTT 30.4 Seconds (25.1-36.5) 07/18/18 06:00 - Constitutional Appears: Chronically Ill - Head Exam Head Exam: NORMAL INSPECTION - Respiratory Exam Respiratory Exam: Decreased Breath Sounds - Cardiovascular Exam Cardiovascular Exam: +S1, +S2 - GI/Abdominal Exam GI & Abdominal Exam: Soft. absent: Tenderness Assessment and Plan - Assessment and Plan (Free Text) Plan: Assessment consider sepsis due to ESBL Klebsiella UTI history of sepsis due to left sided CAP as well as E. coli bacteremia probably from UTI history of ventilator-dependent respiratory failure probably secondary to atypical healthcare-associated pneumonia on top of severe COPD exacerbation in a patient with hypoxia history of left lower extremity skin and skin structure infection in a patient who had prior trauma to the said extremity chronic CHF COPD breast CA with history of double mastectomy history of diverticulitis history of gastrointestinal ulcer Bladder CA arthritis of the left shoulder Plan continue Merrem day 2 and will monitor clinically overall prognosis is poor and patient is DNR and DNI
[2018-07-21] MEDS ORDERED: Potassium Chloride 20 mEq ER Tab PO ONE ×2 (13:41→16:54)
--- NOTE | 2018-07-21 14:35 | PN ---
DATE: 07/21/2018 PULMONARY PROGRESS NOTE REFERRING PHYSICIAN: Dr. Scales. SUBJECTIVE: The patient is sitting up in bed with son-in-law at bedside, high-flow oxygen ongoing. The patient is alert and verbal. No acute distress. No overnight events reported. OBJECTIVE: GENERAL: No acute distress. VITAL SIGNS: Blood pressure 148/69, pulse 96, oxygen saturation 94% and temperature afebrile. HEENT: Moist mucous membranes. Crowded airway. Mallampati score of 4. NECK: Supple. No JVD. CARDIOVASCULAR: S1, S2 audible. LUNGS: Few rhonchi bilaterally. ABDOMEN: Obese and nontender. No distention. No organomegaly. EXTREMITIES: Trace bilateral lower extremity edema. NEUROLOGIC: Awake, alert and verbal. Follows simple commands. MEDICATIONS: Reviewed. Mucomyst 3 mL inhalation twice a day, DuoNeb 3 mL inhalation every 2 hours p.r.n., Norvasc 10 mg daily, Brovana 15 mcg every 12 hours, Lipitor 80 mg at bedtime, Pulmicort 0.5 mg every 12 hours, Persantine 25 mg 3 times a day, Aricept 10 mg at bedtime, Lasix 40 mg twice a day, heparin 5000 units subcutaneously every 12 hours, hydrochlorothiazide 25 mg daily, Humalog insulin sliding scale, latanoprost to both eyes at night, Ativan 0.5 mg IV three times a day p.r.n., Namenda 10 mg every 12 hours, meropenem 1 g every 8 hours, Solu-Medrol 40 every 12 hours, Protonix 40 mg daily, Effexor 75 mg p.o. daily. LABORATORY DATA: Reviewed. Sodium 141, potassium 3.2, chloride 83, carbon dioxide 52, anion gap 9, BUN 32, creatinine 0.8, GFR greater than 60, POC glucose 217, random glucose 220. Calcium 9.3, phosphorus 3.0, magnesium 1.9. Total bilirubin 0.6, AST 25, ALT 22, alkaline phosphatase 80, total protein 6.5, albumin 3.5, globulin 3.1, albumin-globulin ratio of 1.1. IMPRESSION AND PLAN: Respiratory failure with hypoxia and hypercapnia, chronic obstructive lung disease, hypoventilation syndrome, hypertension, renal failure, history of breast cancer. Pulmonary point of view, continue supportive care, continue bilevel positive airway pressure at bedtime and as needed. Titrate high-flow oxygen FiO2 to obtain pulse ox 88% to 90%. We will give one dose of potassium chloride 20 mEq for hypokalemia noted today. Continue steroids, inhaled bronchodilators, antibiotic therapy, gastric prophylaxis, deep venous thrombosis prophylaxis. Son in law questions answered. The patient is do not resuscitate, do not intubate. Case discussed with nursing staff. We will order followup labs in the morning. Critical care time spent more than 35 minutes. The patient was seen and examined with Dr. Emerson. Discussed assessment and plan as described above. Thank you for this consult and we will follow with you. Manuel Vincent APN Oswaldo Emerson MD [facility]
--- NOTE | 2018-07-21 16:41 | PN ---
DATE: 07/21/2018 SUBJECTIVE: The patient was followed up today. The patient presented much better compared with yesterday. There is patient's son-in-law next to her. He reported that at the present moment the patient presented much better. The patient's son-in-law reported that the pharmacy dispensed wrong medication for the patient and she was hallucinating. At the present moment, the patient is doing much better. The patient reported that she does not have any hallucinations any longer. The patient reported that she feels better overall. OBJECTIVE: VITAL SIGNS: Seems to be stable. Pulse is 77, respirations 23, oxygen saturation is be 96. MEDICATIONS: Reviewed. LABORATORY DATA: Labs reviewed. Microbiology is Klebsiella pneumoniae urine cath. MENTAL STATUS EXAM: The patient presented to be alert, oriented, pleasant. Mood described as feeling better. Affect was more reactive, mood congruent. Thought process coherent and goal directed. Thought content, the patient denied any hallucinations, but prior to coming to the hospital, the patient had hallucinations, most likely due to medical condition. The patient was diagnosed with E-coli bacteremia and sepsis due to be Klebsiella pneumoniae. On top of that, the patient was provided wrong medications by the pharmacy and combination of the factors could give the patient such presentation. PLAN: Continue monitoring. We will follow up. The patient has improvement with her presentation. We will advise accordingly. Thank you very much for letting me participate in the care of your patient. Lalitha Carson MD [facility]
--- NOTE | 2018-07-21 20:17 | PN ---
DATE: 07/21/2018 SUBJECTIVE: The patient is more awake and alert. She has no complaints of any chest pain or shortness of breath. PHYSICAL EXAMINATION: VITAL SIGNS: Temperature is 98.3, pulse of 77, blood pressure is 148/69, respirations 24. GENERAL: The patient is lying in bed, flat, comfortable. HEENT: No oral lesion. Anicteric sclerae. Moist mucosa. NECK: No JVD, adenopathy, or thyromegaly. CARDIOVASCULAR: S1 and S2, regular. No murmurs, rubs, or gallops. LUNGS: Clear to auscultation bilaterally. No wheeze, rales, or rhonchi. ABDOMEN: Bowel sounds are positive, soft, nontender and nondistended. EXTREMITIES: no cyanosis, clubbing or edema. LABORATORY DATA: White count of 8.2, hemoglobin 10.9, creatinine is 0.8, potassium is 3.2. ASSESSMENT: 1. Acute respiratory failure with hypoxia and hypercapnia, improving. 2. Chronic obstructive pulmonary disease. 3. Congestive heart failure secondary to diastolic dysfunction, stable. 4. Medication overdose, resolved. 5. Dementia, Alzheimer's type. 6. Anxiety. 7. Hypertension. 8. Dyslipidemia. 9. Glaucoma. 10. Peripheral arterial disease. 11. Anemia, chronic. PLAN: The patient is being followed by Dr. Emerson. She was given potassium replacement for her hypokalemia. She is on high-flow oxygen.. She had an ABG that showed a pH of 7.51, with a pCO2 of 77, and a PaO2 of 41. She is on Aricept for her dementia. She is on venlafaxine for her anxiety. She is receiving heparin for DVT prophylaxis. She received potassium for replacement. She is on Lipitor for dyslipidemia. She is on Norvasc for her hypertension. She is on Protonix daily for her GERD. She is on BiPAP. I did speak to the patient's daughter at the bedside to give an update on the patient's diagnosis and plan of care she has made. Minh Scales MD
[2018-07-21] MEDS: Latanoprost 2.5 ml Opht Soln OU SCH (22:00)
[2018-07-22 06:50] LABS: ARTERIAL BLOOD GAS HEMOGLOBIN 10.6 g/dL (11.7-17.4); ARTERIAL BLOOD GAS O2 CAPACITY 14.4 mL/dl (16-24); ARTERIAL BLOOD GAS O2 CONTENT 12.4 ML/dl (15-23); ARTERIAL BLOOD GAS O2 SAT 86.3 % (95-98); ARTERIAL BLOOD GAS PCO2 64 mm/Hg (35-45); ARTERIAL BLOOD GAS PH 7.52 (7.35-7.45); ARTERIAL BLOOD GAS TCO2 54.3 mmol.L (22-28)
[2018-07-22 06:53] LABS: ARTERIAL BLOOD GAS HCO3 52.3 mmol/L (21-28)
[2018-07-22] MEDS: Pantoprazole 40 mg EC Tab PO SCH (06:56)
[2018-07-22] MEDS: Meropenem IV 1 gm in NS 1 GM/50 ML BAG IVPB SCH ×3 (06:56→21:26)
[2018-07-22 07:11] LABS: GRAN # 6.36 (1.4-6.5); GRAN % 85.1 % (50.0-68.0); HEMOGLOBIN 11.1 g/dL (12.0-16.0); LYMPH # 0.7 (1.2-3.4); LYMPH % 9.8 % (22.0-35.0); MEAN CELL VOLUME 93.2 fl (80.0-105.0); MEAN CORPUSCULAR HEMOGLOBIN 28.1 pg (25.0-35.0); MEAN CORPUSCULAR HGB CONC 30.2 g/dl (31.0-37.0); MEAN PLATELET VOLUME 11.8 fl (7.0-11.0); MONO # 0.4 (0.1-0.6); MONO % 5.1 % (1.0-6.0); RBC 3.95 10^6/uL (3.5-6.1); RED CELL DISTRIBUTION WIDTH 15.6 % (11.5-14.5); WHITE BLOOD COUNT 7.5 10^3/uL (4.5-11.0)
[2018-07-22] MEDS: Acetylcysteine 20% Inhal Soln (4ml) IH SCH ×3 (07:16→20:09)
[2018-07-22 07:47] LABS: ALB/GLOB RATIO 1.1 (1.1-1.8); ALBUMIN 3.3 g/dL (3.0-4.8); ALT/SGPT 31 U/L (7-56); AST/SGOT 22 U/L (14-36); BLOOD UREA NITROGEN 43 mg/dL (7-21); GFR NON-AFRICAN AMERICAN 60
[2018-07-22] MEDS: Arformoterol 15 mcg/2 ml Inh Sol IH SCH ×2 (08:20→20:10)
[2018-07-22] MEDS: Albuterol-Ipratrop 3 mg / 0.5 (3 ml) UD IH PRN (08:20)
[2018-07-22] MEDS: Budesonide 0.5 mg/2 ml Inhal Susp UD IH SCH ×2 (08:21→20:10)
[2018-07-22] MEDS: Insulin Lispro (humaLOG) MEDIUM Coverage SC SCH ×4 (08:30→21:31)
[2018-07-22] MEDS ORDERED: Potassium Chloride 20 mEq ER Tab PO ONE ×2 (08:46→18:00)
--- NOTE | 2018-07-22 10:29 | PN ---
DATE: 07/22/2018 SUBJECTIVE: The patient has no complaints of any chest pain or shortness of breath. No headache or dizziness. She is more awake and alert. PHYSICAL EXAMINATION: VITAL SIGNS: Temperature is 98.3, pulse of 101, blood pressure 144/85, and respirations 22. GENERAL: The patient is lying in bed, flat, comfortable. HEENT: No oral lesion. Anicteric sclerae. Moist mucosa. NECK: No JVD, adenopathy, or thyromegaly. CARDIOVASCULAR: S1 and S2, regular. No murmurs, rubs, or gallops. LUNGS: Clear to auscultation bilaterally. No wheeze, rales, or rhonchi. ABDOMEN: Bowel sounds are positive, soft, nontender and nondistended. EXTREMITIES: No cyanosis, clubbing or edema. LABORATORY DATA: White count of 7.5 and hemoglobin 11.1. Potassium is 3.1 and creatinine is 0.9. The patient's ABG has been reviewed. ASSESSMENT: 1. Acute respiratory failure with hypoxia and hypercapnia, improving. 2. Chronic obstructive pulmonary disease. 3. Congestive heart failure secondary to diastolic dysfunction, stable. 4. Medication overdose, resolved. 5. Dementia, Alzheimer's type. 6. Anxiety. 7. Hypertension. 8. Dyslipidemia. 9. Glaucoma. 10. Peripheral arterial disease. 11. Anemia, chronic. PLAN: The patient was seen by Dr. Doty from Psychiatry. I appreciate her input. I did review her notes. The patient is receiving Aricept for her dementia. She is on lorazepam as needed. She is receiving Brovana for her COPD. She is on venlafaxine for her anxiety. The patient is on heparin for DVT prophylaxis. She is on hydrochlorothiazide for her hypertension. The patient is also receiving potassium replacement for her hypokalemia. The patient is on Lasix daily. She is on Lipitor for dyslipidemia. The patient is on Solu-Medrol. I did speak to the patient's daughter to give an update on the patient's diagnosis and plan of care. She remains sick given that she is requiring high doses of oxygen for her hypoxia. Her elevated CO2 is improving slowly. She is able to eat. She may need facility that is able to handle her respiratory needs. Minh Scales MD [facility] # [id number]
--- NOTE | 2018-07-22 10:42 | CP.PCM.PCO ---
Physician Communication Note - Physician Communication Note Physician Communication Note: patient may require cpap at home CM will follow up
[2018-07-22] MEDS: Venlafaxine 75 mg ER Cap PO SCH (11:10)
[2018-07-22] MEDS: MethylPREDNISolone 40 mg Vial IVP SCH ×2 (11:10→21:25)
--- NOTE | 2018-07-22 12:07 | CP.PCM.PN ---
Subjective - Date & Time of Evaluation Date of Evaluation: 07/22/18 Time of Evaluation: 10:30 - Subjective Subjective: Comfortable in bed although still on high flow oxygen, no fevers, no abdominal pain. Objective - Vital Signs/Intake and Output Vital Signs (last 24 hours): Temp Pulse Resp BP Pulse Ox 98.3 F 77 17 148/69 96 07/20/18 20:00 07/21/18 11:40 07/21/18 11:40 07/21/18 09:25 07/21/18 11:40 - Medications Medications: Current Medications Acetylcysteine (Acetylcysteine 20%) 3 ml IH BID [facility] Last Admin: 07/20/18 22:18 Dose: 3 ml Albuterol/Ipratropium (Duoneb 3 Mg/0.5 Mg (3 Ml) Ud) 3 ml IH Q2H PRN PRN Reason: Shortness of Breath Last Admin: 07/20/18 04:15 Dose: 3 ml Amlodipine Besylate (Norvasc) 10 mg PO DAILY [facility] Last Admin: 07/21/18 09:25 Dose: 10 mg Arformoterol Tartrate (Brovana) 15 mcg IH [id number] [facility] Last Admin: 07/21/18 07:05 Dose: 15 mcg Atorvastatin Calcium (Lipitor) 80 mg PO HS [facility] Last Admin: 07/20/18 22:36 Dose: 80 mg Budesonide (Pulmicort Respules) 0.5 mg IH [id number] [facility] Last Admin: 07/21/18 07:05 Dose: 0.5 mg Dipyridamole (Persantine) 25 mg PO TID [facility] Last Admin: 07/21/18 09:25 Dose: 25 mg Donepezil HCl (Aricept) 10 mg PO HS [facility] Last Admin: 07/20/18 22:36 Dose: 10 mg Furosemide (Lasix) 40 mg PO BID [facility] Last Admin: 07/21/18 09:25 Dose: 40 mg Heparin Sodium (Porcine) (Heparin) 5,000 units SC Q12 [facility]; Protocol Last Admin: 07/21/18 09:24 Dose: 5,000 units Hydrochlorothiazide (Hydrodiuril) 25 mg PO DAILY [facility] Last Admin: 07/21/18 09:25 Dose: 25 mg Meropenem (Merrem Iv 1 Gm Premix) 1 gm in 50 mls @ 100 mls/hr IVPB Q8 [facility]; Protocol Stop: 07/26/18 14:01 Last Admin: 07/21/18 06:15 Dose: 100 mls/hr Insulin Human Lispro (Humalog Med) 0 units SC ACHS [facility]; Protocol Last Admin: 07/21/18 09:35 Dose: 3 unit Latanoprost (Xalatan Opht) 1 ml OU HS [facility] Last Admin: 07/20/18 22:44 Dose: 1 ml Lorazepam (Ativan) 0.5 mg IV TID [facility]; Protocol PRN Reason: restlessness/agitation Memantine (Namenda) 10 mg PO Q12 [facility] Last Admin: 07/21/18 09:25 Dose: 10 mg Methylprednisolone (Solu-Medrol) 40 mg IVP Q12 [facility] Last Admin: 07/21/18 09:24 Dose: 40 mg Pantoprazole Sodium (Protonix Ec Tab) 40 mg PO 0600 [facility] Last Admin: 07/21/18 06:15 Dose: 40 mg Venlafaxine HCl (Effexor Xr) 75 mg PO DAILY [facility] Last Admin: 07/21/18 09:25 Dose: 75 mg - Labs Labs: 07/21/18 05:30 07/21/18 05:30 PT 11.0 SECONDS (9.4-12.5) 07/18/18 06:00 INR 0.96 07/18/18 06:00 APTT 30.4 Seconds (25.1-36.5) 07/18/18 06:00 - Constitutional Appears: Chronically Ill - Head Exam Head Exam: NORMAL INSPECTION - Respiratory Exam Respiratory Exam: Decreased Breath Sounds - Cardiovascular Exam Cardiovascular Exam: +S1, +S2 - GI/Abdominal Exam GI & Abdominal Exam: Soft. absent: Tenderness Assessment and Plan - Assessment and Plan (Free Text) Plan: Assessment consider sepsis due to ESBL Klebsiella UTI history of sepsis due to left sided CAP as well as E. coli bacteremia probably from UTI history of ventilator-dependent respiratory failure probably secondary to atypi anabel healthcare-associated pneumonia on top of severe COPD exacerbation in a patient with hypoxia history of left lower extremity skin and skin structure infection in a patient who had prior trauma to the said extremity chronic CHF COPD breast CA with history of double mastectomy history of diverticulitis history of gastrointestinal ulcer Bladder CA arthritis of the left shoulder Plan continue Merrem day 3 and will continue to monitor clinically overall prognosis is poor and patient is DNR and DNI
--- NOTE | 2018-07-22 14:20 | PN ---
DATE: 07/22/2018 PULMONARY PROGRESS NOTE REFERRING PHYSICIAN: Dr. Moseley. SUBJECTIVE: The patient is sitting up in bed, reports feeling well today, still on high-flow oxygen. No headache, rhinitis, cough, shortness of breath, chest pain, abdominal pain, nausea, vomiting, diarrhea, leg pain or leg swelling reported. OBJECTIVE: GENERAL: No acute distress. VITAL SIGNS: Blood pressure 109/84, pulse 80, oxygen saturation 94%, temperature 97.8. HEENT: Moist mucous membranes. NECK: Supple. No JVD. RESPIRATORY: Few scattered rhonchi. No wheezing. CARDIOVASCULAR: S1, S2 audible. ABDOMEN: Soft, nontender. No distension. No organomegaly. EXTREMITIES: No bilateral lower extremity edema. MEDICATIONS: Reviewed. Mucomyst 3 mL inhalation twice a day, DuoNeb 3 mL inhalation every 2 hours p.r.n., Norvasc 10 mg daily, Brovana 15 mcg every 12 hours, Lipitor 80 mg at bedtime, Pulmicort 0.5 mg inhalation every 12 hours, Persantine 25 mg 3 times a day, Aricept 10 mg at bedtime, Lasix 40 mg twice a day, heparin 5000 units every 12 hours, hydrochlorothiazide 25 mg p.o. daily, Humalog sliding scale a.c. and at bedtime, latanoprost 1 mL at bedtime, Ativan 0.5 mg IV 3 times a day p.r.n., Namenda 10 mg every 12 hours, meropenem 1 g every 8 hours, Solu-Medrol 40 mg every 12 hours, Protonix 40 mg daily, potassium chloride 40 meq once today and then 20 mEq daily, Effexor 75 mg daily. LABORATORY DATA: Reviewed. WBC 7.5, RBC 3.95, hemoglobin 11.1, hematocrit 36.8, platelets 221. PCO2 64, PO2 46, HCO3 is 52.3. ABG, pH 7.52. Sodium 135, potassium 3.1, chloride 80, carbon dioxide 50, anion gap 8, BUN 43, creatinine 0.9, GFR 60, random glucose 246, calcium 9.0, phosphorus 3.2, magnesium 1.8, total bilirubin 0.6. AST 22, ALT 31, alkaline phosphatase 71, total protein 6.2, globulin 2.9, albumin-globulin ratio 1.1. IMPRESSION AND PLAN: Acute respiratory failure with hypoxia and hypercapnia, improving; chronic obstructive pulmonary disease; congestive heart failure secondary to diastolic dysfunction; dementia, Alzheimer's type; anxiety; hypertension; dyslipidemia; glaucoma; peripheral artery disease; anemia; chronic anemia; history of breast cancer; hypoventilation syndrome. Pulmonary point of view, continue BiPAP use at bedtime and as needed. Continue high-flow oxygen titrate FIO2 for pulse ox 88-90%. Continue steroids, inhaled bronchodilators, antibiotic therapy, gastric prophylaxis, deep venous thrombosis prophylaxis. We believe the patient would benefit from physical therapy, out of bed to chair, fall precautions, need to monitor electrolytes. The patient is do not resuscitate, do not intubate. Case discussed with nursing staff. Critical care time spent more than 35 minutes. This patient was seen and examined with Dr. Emerson. Discussed assessment and plan as described above. Thank you for this consult, we will follow with you. Manuel Vincent APN Oswaldo Emerson MD [facility]
--- NOTE | 2018-07-22 20:08 | PN ---
DATE: 07/22/2018 SUBJECTIVE: The patient was seen today. The patient presented much better as compared for the past couple of days. The patient was more alert and oriented, but at the same time the patient does not remember this medical underwriter. Shortly, the patient was admitted with altered mental status, sepsis. The patient also was provided with home medication by her pharmacy. The patient was in delirium stage. This medical underwriter followed up the patient for agitation and confusion as well as delirium. The patient improved significantly. PHYSICAL EXAMINATION: VITAL SIGNS: Seems to be stable. MENTAL STATUS EXAM: The patient appears to be alert and oriented, pleasant, cooperative. The patient is on nasal cannula oxygenation. The patient described her mood as okay and feel better. Affect was reactive, mood congruent. Thought process was coherent and goal directed. Thought content, the patient denied visual, auditory, or tactile hallucinations. Denied paranoid ideation. The patient denied thoughts of harming herself or others. Denied intent or plan. Insight and judgment seems to be fair. Impulses are well controlled. LABORATORY DATA: Labs reviewed. Most recent was from today. Chemistry was reviewed. Urinalysis reviewed. Toxicology reviewed. MEDICATIONS: Reviewed in regards of the psychotropic medications. The patient is on Effexor which was started by Dr. Emerson. IMPRESSION: Most likely, the patient was in delirium stage due to multiple factors, medications as well as sepsis. PLAN: Continue current management. Continue current medication. The patient is doing much better. The patient seems to be not in any danger to self or others. This medical underwriter will sign off. Should you have any questions, give me a call back. Thank you very much for letting me to participate in the care of your patient. Lalitha Carson MD
[2018-07-22] MEDS: Latanoprost 2.5 ml Opht Soln OU SCH (21:26)
[2018-07-23] MEDS: Pantoprazole 40 mg EC Tab PO SCH (05:24)
[2018-07-23] MEDS: Meropenem IV 1 gm in NS 1 GM/50 ML BAG IVPB SCH ×2 (05:24→16:21)
[2018-07-23 07:44] LABS: GRAN # 7.29 (1.4-6.5); GRAN % 86.3 % (50.0-68.0); HEMOGLOBIN 10.5 g/dL (12.0-16.0); LYMPH # 0.6 (1.2-3.4); LYMPH % 7.5 % (22.0-35.0); MEAN CELL VOLUME 92.1 fl (80.0-105.0); MEAN CORPUSCULAR HEMOGLOBIN 27.7 pg (25.0-35.0); MEAN CORPUSCULAR HGB CONC 30.1 g/dl (31.0-37.0); MEAN PLATELET VOLUME 11.1 fl (7.0-11.0); MONO # 0.5 (0.1-0.6); MONO % 6.2 % (1.0-6.0); RBC 3.79 10^6/uL (3.5-6.1); RED CELL DISTRIBUTION WIDTH 15.6 % (11.5-14.5); WHITE BLOOD COUNT 8.4 10^3/uL (4.5-11.0)
[2018-07-23] MEDS ORDERED: Potassium Chloride 20 mEq ER Tab PO SCH (08:00)
[2018-07-23] MEDS: Insulin Lispro (humaLOG) MEDIUM Coverage SC SCH ×2 (08:03→12:30)
[2018-07-23 08:18] LABS: ALB/GLOB RATIO 1.2 (1.1-1.8); ALT/SGPT 29 U/L (7-56); AST/SGOT 17 U/L (14-36); BLOOD UREA NITROGEN 47 mg/dL (7-21); CALCIUM 8.4 mg/dL (8.4-10.5); GFR NON-AFRICAN AMERICAN > 60
[2018-07-23] MEDS: Acetylcysteine 20% Inhal Soln (4ml) IH SCH (08:21)
[2018-07-23] MEDS: Arformoterol 15 mcg/2 ml Inh Sol IH SCH (08:21)
[2018-07-23] MEDS: Budesonide 0.5 mg/2 ml Inhal Susp UD IH SCH (08:22)
[2018-07-23] MEDS: Venlafaxine 75 mg ER Cap PO SCH (11:11)
[2018-07-23] MEDS: MethylPREDNISolone 40 mg Vial IVP SCH (11:14)
--- NOTE | 2018-07-23 11:21 | PN ---
PULMONARY PROGRESS NOTE DATE: 07/23/2018 REFERRING PHYSICIAN: Dr. Scales. SUBJECTIVE: The patient sitting up in bed with nasal cannula in place. Reports feeling well today. No headache, rhinitis, cough, shortness of breath, chest pain, abdominal pain, nausea, vomiting, diarrhea, leg pain, leg swelling reported. OBJECTIVE: GENERAL: No acute distress. VITAL SIGNS: Blood pressure 144/68, pulse 90, temperature 98.3, oxygen saturation 95%. HEENT: Moist mucous membranes. NECK: Supple. No JVD. RESPIRATORY: Few rhonchi bilaterally. CARDIOVASCULAR: S1 and S2, audible. ABDOMEN: Soft and nontender. No distention, no organomegaly. EXTREMITIES: No bilateral lower extremity edema. NEUROLOGIC: Awake, alert and verbal. Follows simple commands. MEDICATIONS: Reviewed. Mucomyst 3 mL inhalation twice a day, DuoNeb 3 mL inhalation every 2 hours p.r.n., Norvasc 10 mg daily, Brovana 15 mcg every 12 hours, Lipitor 80 mg at bedtime, Pulmicort 0.5 mg every 12 hours, Persantine 25 mg 3 times a day, Aricept 10 mg at bedtime, Lasix 40 mg twice a day, heparin 5000 units subcutaneous every 12 hours, hydrochlorothiazide 25 mg p.o. daily, Humalog sliding scale, latanoprost eye drops at bedtime, Ativan 0.5 mg IV 3 times a day p.r.n., Namenda 10 mg every 12 hours, meropenem 1 g IV piggyback every 8 hours, Solu-Medrol 40 mg IV push every 12 hours, Protonix 40 mg daily, potassium chloride 20 mEq in the morning, Effexor 75 mg p.o. daily. LABORATORY DATA: Reviewed. WBC 8.4, RBC 3.79, hemoglobin 10.5, hematocrit 34.9, platelets 198. Sodium 135, potassium 4.6, chloride 84, carbon dioxide 45, anion gap 11, BUN 47, creatinine 0.8, GFR greater than 60, POC glucose 274, random glucose 272, calcium 8.4, phosphorus 4.3, magnesium 2.1, total bilirubin 0.4. AST 17, ALT 29, alkaline phosphatase 65, total protein 5.4, albumin 3.0, globulin 2.4, albumin-globulin ratio 1.2. IMPRESSION AND PLAN: Acute respiratory failure with hypoxia and hypercapnia, improving; chronic obstructive pulmonary disease; congestive heart failure secondary to diastolic dysfunction; hypertension; dyslipidemia, peripheral artery disease, glaucoma, dementia, Alzheimer's type; anxiety; chronic anemia; history of breast cancer; hypoventilation syndrome. Pulmonary point of view, continue BiPAP use at bedtime. Continue supplement oxygen. Continue steroids, inhaled bronchodilators, gastric prophylaxis, deep venous thrombosis prophylaxis. Continue antibiotic therapy. Continue physical therapy, fall precautions, sleep apnea precaution, continue to monitor electrolytes. This patient was seen and examined with Dr. Emerson. Discussed assessment and plan as described above. Thank you for this consult, we will follow with you. Manuel Vincent APN Oswaldo Emerson MD [facility]
--- NOTE | 2018-07-23 11:53 | DS ---
HISTORY OF PRESENT ILLNESS: This is an 83-year-old female who had come into the hospital because she had overdosed on medications that were mistakenly given by her pharmacist. The patient was placed in the ICU. She was in ICU respiratory failure with hypoxia and hypercapnia. She had been placed on BiPAP. She has improvement of symptoms. The patient is currently comfortable. She is out of the ICU and on the telemetry for. She will need subacute rehab for physical therapy. I did speak to the patient's daughter and she is agreeable. The patient will be discharged today to go to physical therapy. The patient is awake and alert. She is comfortable. She has no complaints of any headaches or dizziness. No nausea or vomiting. She is tolerating her diet. PHYSICAL EXAMINATION: VITAL SIGNS: Temperature is 98.3, pulse of 90, blood pressure is 144/60, respirations 18, O2 saturation 95%. GENERAL: The patient is lying in bed, flat, comfortable. HEENT: No oral lesion. Anicteric sclerae. Moist mucosa. NECK: No JVD, adenopathy, or thyromegaly. CARDIOVASCULAR: S1 and S2, regular. No murmurs, rubs, or gallops. LUNGS: Clear to auscultation bilaterally. No wheeze, rales, or rhonchi. ABDOMEN: Bowel sounds are positive, soft, nontender and nondistended. EXTREMITIES: no cyanosis, clubbing or edema. LABORATORY DATA White count of 8.4, hemoglobin 10.5, platelet count is 198. Chemistry shows a sodium 135, potassium 4.6, creatinine is 0.8. ASSESSMENT: 1. Acute respiratory failure with hypoxia, hypercapnia, improved. 2. Drug overdose of prescription medications. 3. Congestive heart failure secondary to diastolic dysfunction. 4. Chronic obstructive pulmonary disease. 5. Dementia, Alzheimer's type. 6. Anxiety. 7. Hypertension. 8. Dyslipidemia. 9. Glaucoma. 10. Peripheral arterial disease. 11. Anemia, chronic. PLAN: The patient is on for her COPD. She is going to continue with venlafaxine for her anxiety. The patient is on heparin for DVT prophylaxis. The patient is on hydrochlorothiazide for her hypertension. The patient is on Lasix daily. She is getting potassium replacement. She is on Lipitor for dyslipidemia. The patient is on memantine for her dementia, Alzheimer's type. She is on Protonix daily. She is on her glaucoma medications with latanoprost 0.05%. Discharged to Transitional Care Unit. Follow up with primary care doctor in 1 to 2 weeks' after discharge from subacute rehab. Condition stable. Activities increase as tolerated. Addendum: Patient has CRF due to COPD. Plan is to discontinue with BIPAP and order Trilogy Non-invasive Ventilation in AVAPS-AE mode to target volume control and reduce elevated PCO2 levels the patient has been experiencing on BiPAP. Without Non-Invasive Ventilation patient may endure additional hospital admissions or even life threatening events. Pt's daughter changed her mind and will be taking her mother home. Minh Scales MD MTDD
--- NOTE | 2018-07-23 14:56 | CP.PCM.PN ---
Subjective - Date & Time of Evaluation Date of Evaluation: 07/23/18 Time of Evaluation: 10:25 - Subjective Subjective: Comfortable, no fevers, not in distress. Objective - Vital Signs/Intake and Output Vital Signs (last 24 hours): Temp Pulse Resp BP Pulse Ox 97.8 F 107 H 21 111/66 96 07/22/18 08:33 07/22/18 10:50 07/22/18 10:55 07/22/18 11:10 07/22/18 10:50 Intake and Output: 07/22/18 07/22/18 06:59 18:59 Intake Total 600 Output Total 1000 Balance -400 - Medications Medications: Current Medications Acetylcysteine (Acetylcysteine 20%) 3 ml IH BID [facility] Last Admin: 07/22/18 08:20 Dose: 3 ml Albuterol/Ipratropium (Duoneb 3 Mg/0.5 Mg (3 Ml) Ud) 3 ml IH Q2H PRN PRN Reason: Shortness of Breath Last Admin: 07/22/18 08:20 Dose: 3 ml Amlodipine Besylate (Norvasc) 10 mg PO DAILY [facility] Last Admin: 07/22/18 11:10 Dose: 10 mg Arformoterol Tartrate (Brovana) 15 mcg IH [id number] [facility] Last Admin: 07/22/18 08:20 Dose: 15 mcg Atorvastatin Calcium (Lipitor) 80 mg PO HS [facility] Last Admin: 07/21/18 21:19 Dose: 80 mg Budesonide (Pulmicort Respules) 0.5 mg IH [id number] [facility] Last Admin: 07/22/18 08:21 Dose: 0.5 mg Dipyridamole (Persantine) 25 mg PO TID [facility] Last Admin: 07/22/18 11:10 Dose: 25 mg Donepezil HCl (Aricept) 10 mg PO HS [facility] Last Admin: 07/21/18 21:19 Dose: 10 mg Furosemide (Lasix) 40 mg PO BID [facility] Last Admin: 07/22/18 11:07 Dose: 40 mg Heparin Sodium (Porcine) (Heparin) 5,000 units SC Q12 [facility]; Protocol Last Admin: 07/22/18 11:07 Dose: 5,000 units Hydrochlorothiazide (Hydrodiuril) 25 mg PO DAILY [facility] Last Admin: 07/22/18 11:10 Dose: 25 mg Meropenem (Merrem Iv 1 Gm Premix) 1 gm in 50 mls @ 100 mls/hr IVPB Q8 [facility]; Protocol Stop: 07/26/18 14:01 Last Admin: 07/22/18 06:56 Dose: 100 mls/hr Insulin Human Lispro (Humalog Med) 0 units SC ACHS [facility]; Protocol Last Admin: 07/22/18 11:23 Dose: 5 unit Latanoprost (Xalatan Opht) 1 ml OU HS [facility] Last Admin: 07/21/18 22:00 Dose: 1 ml Lorazepam (Ativan) 0.5 mg IV TID PRN; Protocol PRN Reason: restlessness/agitation Memantine (Namenda) 10 mg PO Q12 [facility] Last Admin: 07/22/18 11:10 Dose: 10 mg Methylprednisolone (Solu-Medrol) 40 mg IVP Q12 [facility] Last Admin: 07/22/18 11:10 Dose: 40 mg Pantoprazole Sodium (Protonix Ec Tab) 40 mg PO 0600 [facility] Last Admin: 07/22/18 06:56 Dose: 40 mg Potassium Chloride (K-Dur 20 Meq Er Tab) 40 meq PO ONCE ONE Stop: 07/22/18 18:01 Potassium Chloride (K-Dur 20 Meq Er Tab) 20 meq PO BRK [facility] Venlafaxine HCl (Effexor Xr) 75 mg PO DAILY [facility] Last Admin: 07/22/18 11:10 Dose: 75 mg - Labs Labs: 07/22/18 06:30 07/22/18 06:30 PT 11.0 SECONDS (9.4-12.5) 07/18/18 06:00 INR 0.96 07/18/18 06:00 APTT 30.4 Seconds (25.1-36.5) 07/18/18 06:00 - Constitutional Appears: Chronically Ill - Head Exam Head Exam: NORMAL INSPECTION - Respiratory Exam Respiratory Exam: Decreased Breath Sounds - Cardiovascular Exam Cardiovascular Exam: +S1, +S2 - GI/Abdominal Exam GI & Abdominal Exam: Soft. absent: Tenderness Assessment and Plan - Assessment and Plan (Free Text) Plan: Assessment consider sepsis due to ESBL Klebsiella UTI history of sepsis due to left sided CAP as well as E. coli bacteremia probably from UTI history of ventilator-dependent respiratory failure probably secondary to atypical healthcare-associated pneumonia on top of severe COPD exacerbation in a patient with hypoxia history of left lower extremity skin and skin structure infection in a patient who had prior trauma to the said extremity chronic CHF COPD breast CA with history of double mastectomy history of diverticulitis history of gastrointestinal ulcer Bladder CA arthritis of the left shoulder Plan continue Merrem day 4 and will continue to monitor clinically - may be able to switch to PO ciprofloxacin when ready to be discharged overall prognosis is poor and patient is DNR and DNI
[2018-07-23 18:29] VITALS: BP 144/68; PULSE 90; RESP 18; TEMP 98.3; O2SAT 95
== END 2018-07-23 18:27 | disposition home health service (06) | DRG 189 ==
LOC: ED 11:02 → ERH 13:59 → CCU 17:15 → 2RSO 07-22 22:34
PROVIDERS: ADMIT Internal Medicine; ATTEND Internal Medicine Nephrology
PROC: 5A09457 Assistance with Respiratory Ventilation, 24-96 Consecutive Hours, Continuous Positive Airway Pressure (ICD-10-PCS; principal; 2018-07-17)
DX: J96.01 Acute respiratory failure with hypoxia (principal); G92 Toxic encephalopathy; E87.4 Mixed disorder of acid-base balance; N39.0 Urinary tract infection, site not specified; I13.0 Hypertensive heart and chronic kidney disease with heart failure and stage 1 through stage 4 chronic kidney disease, or unspecified chronic kidney disease; I50.40 Unspecified combined systolic (congestive) and diastolic (congestive) heart failure; T50.901A Poisoning by unspecified drugs, medicaments and biological substances, accidental (unintentional), initial encounter; J96.02 Acute respiratory failure with hypercapnia; J44.9 Chronic obstructive pulmonary disease, unspecified; J84.10 Pulmonary fibrosis, unspecified; E11.65 Type 2 diabetes mellitus with hyperglycemia; E87.6 Hypokalemia; E87.8 Other disorders of electrolyte and fluid balance, not elsewhere classified; N18.9 Chronic kidney disease, unspecified; E11.22 Type 2 diabetes mellitus with diabetic chronic kidney disease; D64.9 Anemia, unspecified; G30.9 Alzheimer's disease, unspecified; F02.80 Dementia in other diseases classified elsewhere, unspecified severity, without behavioral disturbance, psychotic disturbance, mood disturbance, and anxiety; E78.5 Hyperlipidemia, unspecified; F41.9 Anxiety disorder, unspecified; H40.9 Unspecified glaucoma; E11.51 Type 2 diabetes mellitus with diabetic peripheral angiopathy without gangrene; K21.9 Gastro-esophageal reflux disease without esophagitis; Z66 Do not resuscitate; M19.012 Primary osteoarthritis, left shoulder; B96.1 Klebsiella pneumoniae [K. pneumoniae] as the cause of diseases classified elsewhere; Z79.84 Long term (current) use of oral hypoglycemic drugs; Z85.3 Personal history of malignant neoplasm of breast; Z87.891 Personal history of nicotine dependence; Z99.81 Dependence on supplemental oxygen; Z90.13 Acquired absence of bilateral breasts and nipples; Z85.51 Personal history of malignant neoplasm of bladder; Z92.21 Personal history of antineoplastic chemotherapy; Z92.3 Personal history of irradiation

== ENCOUNTER 2018-08-16 08:40 | Inpatient (IN) | payer MEDICARE, BC ==
[2018-08-16 09:19] LABS: VENOUS BLOOD GAS BASE EXCESS 22.3 mmol/L (0.0-2.0); VENOUS BLOOD GAS PO2 88 mm/Hg (30-55)
[2018-08-16 09:20] LABS: BASO # 0.01 K/mm3 (0.0-2.0); BASO % 0.2 % (0.0-3.0); EOS % 0.2 % (1.5-5.0); GRAN # 2.62 (1.4-6.5); GRAN % 62.8 % (50.0-68.0); HEMOGLOBIN 10.4 g/dL (12.0-16.0); LYMPH # 0.7 (1.2-3.4); LYMPH % 17.2 % (22.0-35.0); MEAN CELL VOLUME 92.5 fl (80.0-105.0); MEAN CORPUSCULAR HGB CONC 30.2 g/dl (31.0-37.0); MONO # 0.8 (0.1-0.6); MONO % 19.6 % (1.0-6.0); RBC 3.72 10^6/uL (3.5-6.1); RED CELL DISTRIBUTION WIDTH 15.5 % (11.5-14.5); WHITE BLOOD COUNT 4.2 10^3/uL (4.5-11.0)
[2018-08-16] MEDS: Albuterol-Ipratrop 3 mg / 0.5 (3 ml) UD IH STA ×3 (09:25→10:22)
[2018-08-16 09:30] LABS: ARTERIAL BLOOD GAS O2 CAPACITY 13.9 mL/dl (16-24); ARTERIAL BLOOD GAS O2 CONTENT 13.9 ML/dl (15-23); ARTERIAL BLOOD GAS O2 SAT 99.7 % (95-98); ARTERIAL BLOOD GAS PH 7.33 (7.35-7.45); ARTERIAL BLOOD GAS TCO2 64.1 mmol.L (22-28)
[2018-08-16 09:37] LABS: ARTERIAL BLOOD GAS HCO3 60.6 mmol/L (21-28); ARTERIAL BLOOD GAS PCO2 115 mm/Hg (35-45)
--- NOTE | 2018-08-16 10:05 | RAD ---
Date of service: 08/16/2018 HISTORY: SOB COMPARISON: 07/18/2018 FINDINGS: LUNGS: No active pulmonary disease. PLEURA: Small left pleural effusion CARDIOVASCULAR: Aortic calcification Normal cardiac size. Mild vascular congestion OSSEOUS STRUCTURES: No significant abnormalities. VISUALIZED UPPER ABDOMEN: Normal. OTHER FINDINGS: None. IMPRESSION: Mild vascular congestion. Small left effusion
[2018-08-16 10:17] LABS: ALB/GLOB RATIO 1.3 (1.1-1.8); ALBUMIN 3.6 g/dL (3.0-4.8); CALCIUM 8.6 mg/dL (8.4-10.5)
[2018-08-16 10:19] LABS: TROPONIN I 0.07 ng/mL
[2018-08-16] MEDS ORDERED: Potassium Chloride 40 mEq/30 ml LIQ UD PO STA (10:19)
[2018-08-16] MEDS: Albuterol-Ipratrop 3 mg / 0.5 (3 ml) UD IH SCH (10:23)
--- NOTE | 2018-08-16 10:57 | ED PDOC ---
Arrival/HPI - General Chief Complaint: Respiratory Distress Time Seen by Provider: 08/16/18 09:01 Historian: Family - History of Present Illness Narrative History of Present Illness (Text): 08/16/18 10:50 83yo female with past medical history of hypertension, CHF, COPD bib EMS for complaint of SOB, cough x 3days. The daughter by the bedside states the SOB became worse this morning and her PO saturation was 50 this morning. Notes that patient is on 2L of Oxygen at home. Otherwise denies fever, chills, chest pain, diaphoresis, nausea, vomiting, diarrhea, sick contact, travel, any other complaint. Past Medical History - Provider Review Nursing Documentation Reviewed: Yes - Infectious Disease Hx of Infectious Diseases: None - Tetanus Immunization Tetanus Immunization: Unknown - Cardiac Hx Cardiac Disorders: Yes (VARICOSITIES) Hx Congestive Heart Failure: Yes Hx Hypertension: Yes Hx Peripheral Edema: Yes (ble +1 pitting) - Pulmonary Hx Respiratory Disorders: Yes Hx Chronic Obstructive Pulmonary Disease (COPD): Yes (HOME O2 3 LITERS CONTINOUSLY) Hx Emphysema: Yes Hx Pneumonia: Yes - Neurological Hx Neurological Disorder: Yes HX Cerebrovascular Accident: No Hx Dementia: Yes - HEENT Hx HEENT Disorder: Yes (eyeglasses) Hx Deafness: Yes (b/l hearing aids at home) - Renal Hx Renal Disorder: No - Endocrine/Metabolic Hx Endocrine Disorders: Yes Hx Diabetes Mellitus Type 2: Yes - Hematological/Oncological Hx Blood Disorders: Yes Hx Cancer: Yes (BREAST CA-MASTECTOMY,BLADDER CA CHEMOTHERAPHY ON REMISSION) Other/Comment: no chemo post b/l mastectomy in 1989, pt had 4 botulism injections into the bladder ca site - Integumentary Hx Dermatological Disorder: Yes - Musculoskeletal/Rheumatological Hx Arthritis: Yes (LEFT SHOULDER) Hx Falls: Yes (multiple) Hx Fractures: Yes (left shoulder) Hx Unsteady Gait: Yes (uses rollator) - Gastrointestinal Hx Gastrointestinal Disorders: Yes (contentnt of bowels) Hx Gastroesophageal Reflux: Yes - Genitourinary/Gynecological Hx Genitourinary Disorders: Yes (HYSTERECTOMY,MASTECTOMY 1989 BILATERAL) Hx Incontinence: Yes - Psychiatric Hx Psychophysiologic Disorder: No Hx Anxiety: Yes Hx Substance Use: No - Surgical History Hx Hysterectomy: Yes Hx Mastectomy: Yes (1989) - Anesthesia Hx Anesthesia: Yes Hx Anesthesia Reactions: No Hx Malignant Hyperthermia: No - Suicidal Assessment Feels Threatened In Home Enviroment: No Family/Social History - Physician Review Nursing Documentation Reviewed: Yes Family/Social History: Unknown Family HX Smoking Status: Former Smoker Hx Alcohol Use: No Hx Substance Use: No Hx Substance Use Treatment: No Allergies/Home Meds Allergies/Adverse Reactions: Allergies aspirin Allergy (Verified 08/16/18 08:48) PAIN Home Medications: Home Meds Medication Instructions Recorded Confirmed Furosemide [Lasix] 40 mg PO BID 01/20/16 08/16/18 MetFORMIN [glucoPHAGE] 1,000 mg PO DAILY 04/14/18 08/16/18 Albuterol 0.083% [Albuterol 0.083% 2.5 mg IH Q6 PRN 07/17/18 08/16/18 Inhal [place] (2.5 mg/3 ml) UD] Atorvastatin [Lipitor] 80 mg PO HS 07/17/18 08/16/18 Dipyridamole [Persantine] 25 mg PO TID 07/17/18 08/16/18 Fluticasone/Vilanterol 100/25 1 puff INH DAILY 07/17/18 08/16/18 [Breo Ellipta 100-25 MCG INH] Hydrochlorothiazide [Microzide] 25 mg PO DAILY 07/17/18 08/16/18 Memantine [Namenda] 10 mg PO BID 07/17/18 08/16/18 Travoprost [Travatan Z] 1 drop EACHEYE HS 07/17/18 08/16/18 Venlafaxine HCl [Venlafaxine HCl 75 mg PO DAILY 07/17/18 08/16/18 ER] Fluticasone/Vilanterol [Breo 1 packet NEB DAILY 08/16/18 08/16/18 Ellipta 100-25 Mcg INH] Pantoprazole Sodium [Protonix] 40 mg PO DAILY 08/16/18 08/16/18 acetaZOLAMIDE [Acetazolamide] 125 mg PO DAILY 08/16/18 08/16/18 Review of Systems - Physician Review All systems were reviewed & negative as marked: Yes - Review of Systems Constitutional: Normal Eyes: Normal ENT: Normal Respiratory: SOB, Cough Cardiovascular: Normal Gastrointestinal: Normal Genitourinary Female: Normal Musculoskeletal: Normal Skin: Normal Neurological: Normal Endocrine: Normal Hemo/Lymphatic: Normal Psychiatric: Normal Physical Exam Vital Signs Reviewed: Yes Vital Signs Temp Pulse Resp BP Pulse Ox 08/16/18 10:19 73 21 117/51 L 99 08/16/18 09:20 72 08/16/18 08:40 98.7 F 87 29 H 128/76 94 L Temperature: Afebrile Blood Pressure: Normal Pulse: Regular Respiratory Rate: Tachypneic Appearance: Positive for: Well-Appearing, Non-Toxic, Comfortable Pain Distress: None Mental Status: Positive for: Alert and Oriented X 3 - Systems Exam Head: Present: Atraumatic, Normocephalic Pupils: Present: PERRL Extroacular Muscles: Present: EOMI Conjunctiva: Present: Normal Mouth: Present: Moist Mucous Membranes Neck: Present: Normal Range of Motion Respiratory/Chest: Present: Clear to Auscultation, Good Air Exchange, Wheezes, Rales (B/L). No: Respiratory Distress, Accessory Muscle Use, Decreased Breath Sounds, Retracting Cardiovascular: Present: Regular Rate and Rhythm, Normal S1, S2. No: Murmurs Abdomen: No: Tenderness, Distention, Peritoneal Signs Back: Present: Normal Inspection Upper Extremity: Present: Normal Inspection. No: Cyanosis, Edema Lower Extremity: Present: Normal Inspection. No: Edema Neurological: Present: GCS=15, CN II-XII Intact, Speech Normal Skin: Present: Warm, Dry, Normal Color. No: Rashes Psychiatric: Present: Alert, Oriented x 3, Normal Insight, Normal Concentration Medical Decision Making ED Course and Treatment: 08/16/18 19:24 83yo female present with complaint of SOB and cough x 2days. Labs Chest xray EKG EKG Sinus rhythm with PAC @ 82bpm. None-stemi Labs was reviewed and elevated bnp was noted elevated. PT was given 40mg of Lasix on the field by EMS. Potassium was repleted. PT is hypercapnic in her ABG and was placed on Biparb at FIO2 50. Bipap (1) 18. BIPARP (E) 5 and she was noted to be much better in emergency department Case was SANDRA gutierrez and pt was admitted to his service for COPD/CHF exacerbation Result and plan was DW pt's daughter and she agreed. - Lab Interpretations Lab Results: pCO2 115 mm/Hg (35-45) H* 08/16/18 09:28 pO2 158.0 mm/Hg (80-100) H 08/16/18 09:28 HCO3 60.6 mmol/L (21-28) H* 08/16/18 09:28 ABG pH 7.33 (7.35-7.45) L 08/16/18 09: ABG Total CO2 64.1 mmol.L (22-28) H 08/16/18 09:28 ABG O2 Saturation 99.7 % (95-98) H 08/16/18 09: ABG O2 Content 13.9 ML/dl (15-23) L 08/16/18: ABG Base Excess 29.5 mmol/L (-2.0-3.0) H 08/16/18: ABG Hemoglobin 10.0 g/dL (11.7-17.4) L 08/16/18 ABG Carboxyhemoglobin 2.5 % (0.5-1.5) H 08/16/18: POC ABG HHb (Measured) 0.3 % (0-5) 08/16/18 ABG Methemoglobin 0.8 % (0.0-3.0) 08/16/18 ABG O2 Capacity 13.9 mL/dl (16-24) L 08/16/18:28 VBG pH 7.30 (7.32-7.43) L 08/16/18 09:00 VBG pCO2 112.0 (40-60) H* 08/16/18 09:00 VBG HCO3 55.1 mmol/l (21-28) H 08/16/18 09:00 VBG Total CO2 58.5 mmol.L (22-28) H 08/16/18 09:00 VBG O2 Sat (Calc) 97.7 % (40-65) H 08/16/18 09:00 VBG Base Excess 22.3 mmol/L (0.0-2.0) H 08/16/18 09:00 VBG Potassium 3.0 mmol/L (3.6-5.2) L 08/16/18 09: Hgb O2 Saturation 96.5 % (95.0-98.0) 08/16/18: Sodium 136.0 mmol/L (132-148) 08/16/18 09:00 Chloride 86.0 mmol/L (98-107) L 08/16/18 09:00 Glucose 246 mg/dl (65-105) H 08/16/18 09:00 Lactate 1.1 mmol/L (0.7-2.1) 08/16/18 09:00 FiO2 100.0 % 08/16/18 09:28 Troponin I 0.07 ng/mL D 08/16/18 09:40 NT-Pro-B Natriuret Pep 1480 pg/mL (0-450) H 08/16/18 09:40 Total Bilirubin 0.2 mg/dL (0.2-1.3) 08/16/18 09:40 AST 37 U/L (14-36) H D 08/16/18 09:40 ALT 34 U/L (7-56) 08/16/18 09:40 Alkaline Phosphatase 86 U/L (38-126) 08/16/18 09:40 Total Protein 6.5 g/dL (5.8-8.3) 08/16/18 09:40 Albumin 3.6 g/dL (3.0-4.8) 08/16/18 09:40 Globulin 2.9 gm/dL 08/16/18 09:40 Albumin/Globulin Ratio 1.3 (1.1-1.8) 08/16/18 09:40 - RAD Interpretation Radiology Orders: 08/16/18 09:11 CHEST PORTABLE [RAD] Stat - Medication Orders Current Medication Orders: Potassium Chloride (Potassium Chloride 20 Meq/100 Ml) 20 meq in 100 mls @ 50 mls/hr IVPB Q2H [facility] Stop: 08/16/18 12:18 Last Admin: 08/16/18 10:26 Dose: 50 mls/hr eMAR Start Stop Document 08/16/18 10:26 SRE (Rec: 08/16/18 10:26 SRE [id number]) Intravenous Solution Start Date 08/16/18 Start Time 10:26 End Date 08/16/18 End time 12:30 Total Infusion Time 124 Discontinued Medications Albuterol/Ipratropium (Duoneb 3 Mg/0.5 Mg (3 Ml) Ud) 3 ml IH Q15M [facility] Stop: 08/16/18 09:13 Last Admin: 08/16/18 10:22 Dose: 3 ml Albuterol/Ipratropium (Duoneb 3 Mg/0.5 Mg (3 Ml) Ud) 3 ml IH Q15M [facility] Stop: 08/16/18 10:31 Last Admin: 08/16/18 10:23 Dose: Not Given Non-Admin Reason: duplicate Methylprednisolone (Solu-Medrol) 125 mg IVP STAT STA Stop: 08/16/18 09:13 Last Admin: 08/16/18 10:24 Dose: 125 mg IVP Administration Document 08/16/18 10:24 SRE (Rec: 08/16/18 10:24 SRE [id number]) Charges for Administration # of IVP Administrations 1 Potassium Chloride (Potassium Chloride Oral Soln) 40 meq PO STAT [facility] Stop: 08/16/18 10:20 Last Admin: 08/16/18 10:25 Dose: 40 meq Disposition/Present on Arrival - Present on Arrival Any Indicators Present on Arrival: No History of DVT/PE: No History of Uncontrolled Diabetes: Yes Urinary Catheter: No History of Decub. Ulcer: No History Surgical Site Infection Following: None - Disposition Have Diagnosis and Disposition been Completed?: Yes Diagnosis: COPD (chronic obstructive pulmonary disease), Hypokalemia, Hypercapnia, Congestive heart failure Disposition: HOSPITALIZED Disposition Time: 11:00 Patient Plan: Admission Patient Problems: Current Active Problems Problem Status Onset COPD (chronic obstructive pulmonary disease) Acute Hypercapnia Acute Hypokalemia Acute Congestive heart failure (CHF) Chronic Condition: FAIR
[2018-08-16 11:14] LABS: INR 1.03; PARTIAL THROMBOPLASTIN TIME 22.3 Seconds (25.1-36.5); PROTHROMBIN TIME 11.9 SECONDS (9.4-12.5)
[2018-08-16 12:10] LABS: ARTERIAL BLOOD GAS PH 7.37 (7.35-7.45)
[2018-08-16] MEDS ORDERED: Potassium Chloride 20 mEq ER Tab PO STA (12:11)
[2018-08-16 12:12] LABS: ARTERIAL BLOOD GAS HCO3 53.2 mmol/L (21-28); ARTERIAL BLOOD GAS PCO2 92 mm/Hg (35-45)
--- NOTE | 2018-08-16 12:17 | CP.PCM.HP ---
<Chiara Wahl - Last Filed: 08/17/18 14:41> History of Present Illness - History of Present Illness History of Present Illness: Please note history as per EMR as patient unable to provide history as she was altered and on BiPAP. No family at bedside. 83yo female PMHx HTN, CHF, COPD presented with SOB and cough for 3 days. Patient was brought in today by daughter as her SOB worsened and O2 saturation at home was 50% on 2L O2. As per EMR patient had no other complaints of fever, chills, chest pain, diaphoresis, nausea, vomiting, bowel/baldder complaints, travel/sick contacts. ROS unobtainable secondary to patient's clinical condition. PMHx: HTN, cardiomyopathy, chronic lung dz, COPD, obesity, DEONTE, DM2, dementia, arthritis, GERD, bladder ca on chemo at one point, mastectomy Meds: pls see chart ALL: asa SocHx: former tobacco use FamHx: noncontributory Present on Admission - Present on Admission Any Indicators Present on Admission: No Review of Systems - Review of Systems Systems not reviewed;Unavailable: Altered Mental Status Past Patient History - Infectious Disease Hx of Infectious Diseases: None - Tetanus Immunizations Tetanus Immunization: Unknown - Past Social History Smoking Status: Former Smoker - CARDIAC Hx Cardiac Disorders: Yes (VARICOSITIES) Hx Congestive Heart Failure: Yes Hx Hypertension: Yes Hx Peripheral Edema: Yes (ble +1 pitting) - PULMONARY Hx Respiratory Disorders: Yes Hx Chronic Obstructive Pulmonary Disease (COPD): Yes (HOME O2 3 LITERS CONTINOUSLY) Hx Emphysema: Yes Hx Pneumonia: Yes - NEUROLOGICAL Hx Neurological Disorder: Yes HX Cerebrovascular Accident: No Hx Dementia: Yes - HEENT Hx HEENT Problems: Yes (eyeglasses) Hx Deafness: Yes (b/l hearing aids at home) - RENAL Hx Chronic Kidney Disease: No - ENDOCRINE/METABOLIC Hx Endocrine Disorders: Yes Hx Diabetes Mellitus Type 2: Yes - HEMATOLOGICAL/ONCOLOGICAL Hx Blood Disorders: Yes Hx Cancer: Yes (BREAST CA-MASTECTOMY,BLADDER CA CHEMOTHERAPHY ON REMISSION) Other/Comment: no chemo post b/l mastectomy in 1989, pt had 4 botulism injections into the bladder ca site - INTEGUMENTARY Hx Dermatological Problems: Yes - MUSCULOSKELETAL/RHEUMATOLOGICAL Hx Arthritis: Yes (LEFT SHOULDER) Hx Falls: Yes (multiple) Hx Fractures: Yes (left shoulder) Hx Unsteady Gait: Yes (uses rollator) - GASTROINTESTINAL Hx Gastrointestinal Disorders: Yes (contentnt of bowels) Hx Gastroesophageal Reflux: Yes - GENITOURINARY/GYNECOLOGICAL Hx Genitourinary Disorders: Yes (HYSTERECTOMY,MASTECTOMY 1989 BILATERAL) Hx Incontinence: Yes - PSYCHIATRIC Hx Psychophysiologic Disorder: No Hx Anxiety: Yes Hx Substance Use: No - SURGICAL HISTORY Hx Hysterectomy: Yes Hx Mastectomy: Yes (1989) - ANESTHESIA Hx Anesthesia: Yes Hx Anesthesia Reactions: No Hx Malignant Hyperthermia: No Meds Allergies/Adverse Reactions: Allergies Allergy/AdvReac Type Severity Reaction Status Date / Time aspirin Allergy PAIN Verified 08/16/18 08:48 Physical Exam - Constitutional Appears: Chronically Ill - Head Exam Head Exam: ATRAUMATIC, NORMAL INSPECTION, NORMOCEPHALIC - Eye Exam Eye Exam: Normal appearance. absent: Conjunctival injection, Scleral icterus - ENT Exam Additional comments: on BiPAP - Respiratory Exam Respiratory Exam: Rhonchi, Wheezes. absent: Accessory Muscle Use, Rales - Cardiovascular Exam Cardiovascular Exam: +S1, +S2 - GI/Abdominal Exam GI & Abdominal Exam: Normal Bowel Sounds, Soft. absent: Firm, Guarding, Rigid, Tenderness - Extremities Exam Extremities exam: Positive for: pedal edema - Neurological Exam Neurological exam: Altered - Psychiatric Exam Additional comments: altered - Skin Skin Exam: Dry, Intact Results - Vital Signs Recent Vital Signs: Last Vital Signs Temp 98.7 F 08/16/18 08:40 Pulse 76 08/16/18 11:30 Resp 21 08/16/18 10:19 BP 117/51 L 08/16/18 10:19 Pulse Ox 99 08/16/18 10:19 - Labs Result Diagrams: 08/17/18 07:30 08/17/18 07:30 Labs: Laboratory Results - last 24 hr 08/16/18 08/16/18 08/16/18 08:45 09:00 09:00 WBC 4.2 L D RBC 3.72 Hgb 10.4 L Hct 34.4 L MCV 92.5 MCH 28.0 MCHC 30.2 L RDW 15.5 H Plt Count 167 MPV 12.0 H Gran % 62.8 Lymph % (Auto) 17.2 L Pope % (Auto) 19.6 H Eos % (Auto) 0.2 L Baso % (Auto) 0.2 Gran # 2.62 Lymph # (Auto) 0.7 L Pope # (Auto) 0.8 H Eos # (Auto) 0.0 Baso # (Auto) 0.01 PT 11.9 INR 1.03 APTT 22.3 L pCO2 pO2 88 H HCO3 ABG pH ABG Total CO2 ABG O2 Saturation ABG O2 Content ABG Base Excess ABG Hemoglobin ABG Carboxyhemoglobin POC ABG HHb (Measured) ABG Methemoglobin ABG O2 Capacity ABG Potassium VBG pH 7.30 L VBG pCO2 112.0 H* VBG HCO3 55.1 H VBG Total CO2 58.5 H VBG O2 Sat (Calc) 97.7 H VBG Base Excess 22.3 H VBG Potassium 3.0 L Hgb O2 Saturation Sodium 136.0 Chloride 86.0 L Glucose 246 H Lactate 1.1 FiO2 21.0 Inspiratory BiPAP Potassium Carbon Dioxide Anion Gap BUN Creatinine Est GFR ( Amer) Est GFR (Non-Af Amer) Random Glucose Calcium Total Bilirubin AST ALT Alkaline Phosphatase Lactate Dehydrogenase Total Creatine Kinase Troponin I NT-Pro-B Natriuret Pep Total Protein Albumin Globulin Albumin/Globulin Ratio Arterial Blood Potassium Venous Blood Potassium 3.0 L Influenza Typ A,B (EIA) 08/16/18 08/16/18 08/16/18 09:28 09:40 10:08 WBC RBC Hgb Hct MCV MCH MCHC RDW Plt Count MPV Gran % Lymph % (Auto) Pope % (Auto) Eos % (Auto) Baso % (Auto) Gran # Lymph # (Auto) Pope # (Auto) Eos # (Auto) Baso # (Auto) PT INR APTT pCO2 115 H* pO2 158.0 H HCO3 60.6 H* ABG pH 7.33 L ABG Total CO2 64.1 H ABG O2 Saturation 99.7 H ABG O2 Content 13.9 L ABG Base Excess 29.5 H ABG Hemoglobin 10.0 L ABG Carboxyhemoglobin 2.5 H POC ABG HHb (Measured) 0.3 ABG Methemoglobin 0.8 ABG O2 Capacity 13.9 L ABG Potassium VBG pH VBG pCO2 VBG HCO3 VBG Total CO2 VBG O2 Sat (Calc) VBG Base Excess VBG Potassium Hgb O2 Saturation 96.5 Sodium 137 Chloride 79 L Glucose Lactate FiO2 100.0 Inspiratory BiPAP Potassium 2.8 L* D Carbon Dioxide 52 H Anion Gap 9 L BUN 40 H Creatinine 1.4 H Est GFR ( Amer) 43 Est GFR (Non-Af Amer) 36 Random Glucose 230 H Calcium 8.6 Total Bilirubin 0.2 AST 37 H D ALT 34 Alkaline Phosphatase 86 Lactate Dehydrogenase 620 Total Creatine Kinase 26 L Troponin I 0.07 D NT-Pro-B Natriuret Pep 1480 H Total Protein 6.5 Albumin 3.6 Globulin 2.9 Albumin/Globulin Ratio 1.3 Arterial Blood Potassium Venous Blood Potassium Influenza Typ A,B (EIA) Negative for flu a/b 08/16/18 12:05 WBC RBC Hgb Hct MCV MCH MCHC RDW Plt Count MPV Gran % Lymph % (Auto) Pope % (Auto) Eos % (Auto) Baso % (Auto) Gran # Lymph # (Auto) Pope # (Auto) Eos # (Auto) Baso # (Auto) PT INR APTT pCO2 92 H* pO2 83.0 HCO3 53.2 H* ABG pH 7.37 ABG Total CO2 56.0 H ABG O2 Saturation 98.0 ABG O2 Content ABG Base Excess 22.3 H ABG Hemoglobin ABG Carboxyhemoglobin POC ABG HHb (Measured) ABG Methemoglobin ABG O2 Capacity ABG Potassium 3.7 VBG pH VBG pCO2 VBG HCO3 VBG Total CO2 VBG O2 Sat (Calc) VBG Base Excess VBG Potassium Hgb O2 Saturation Sodium 137.0 Chloride 94.0 L Glucose 257 H Lactate 1.7 FiO2 50.0 Inspiratory BiPAP 18 Potassium Carbon Dioxide Anion Gap BUN Creatinine Est GFR ( Amer) Est GFR (Non-Af Amer) Random Glucose Calcium Total Bilirubin AST ALT Alkaline Phosphatase Lactate Dehydrogenase Total Creatine Kinase Troponin I NT-Pro-B Natriuret Pep Total Protein Albumin Globulin Albumin/Globulin Ratio Arterial Blood Potassium 3.7 Venous Blood Potassium Influenza Typ A,B (EIA) Assessment & Plan - Assessment and Plan (Free Text) Assessment: 1. COPD exacerbation with CO2 retention 2. Diastolic cardiomyopathy 3. HTN 4. HLD 5. PVD 6. Obesity 7. DEONTE 8. DM2 9. Dementia 10. Arthritis 11. GERD 12. Bladder ca s/p chemo 13. Anxiety 14. Breast ca s/p mastectomy 15. Hypokalemia Plan: Patient's vitals, blood work, and imaging reviewed in chart. Patient admitted to [facility] for COPD exacerbation and CO2 retention. Currently on BiPAP. Repeat ABG from initial in the ER has slightly improved. Another ABG ordered for AM. CXR sh owed mild vascular congestion with small left pleural effusion. Will repeat CXR in the AM. Pulm Dr. Emerson consulted. Patient started on IV steroids and breathing treatments and antibiotics. Patient has elevated proBNP. Cardiology consulted for cardiomyopathy. Continue antiHTN meds and diuretics as ordered. Blood cultures prelim negative x 2. Continue home lipitor. Patient pending speech/swallow eval in light of altered mentation. GI and DVT ppx in place. PT/OT ordered. Will continue to monitor closely. Discussed with Dr. Loyda Wahl PGY3 <Minh Scales S - Last Filed: 08/17/18 19:10> Results - Vital Signs Recent Vital Signs: Last Vital Signs Temp 97.5 F L 08/17/18 17:46 Pulse 100 H 08/17/18 17:46 Resp 20 08/17/18 17:46 BP 175/85 H 08/17/18 17:46 Pulse Ox 95 08/17/18 06:00 - Labs Result Diagrams: 08/17/18 07:30 08/17/18 07:30 Labs: Laboratory Results - last 24 hr 08/16/18 08/17/18 08/17/18 22:39 05:15 07:30 WBC RBC Hgb Hct MCV MCH MCHC RDW Plt Count MPV pCO2 86 H* pO2 85.0 HCO3 55.8 H* ABG pH 7.42 ABG Total CO2 58.4 H ABG O2 Saturation 98.6 H ABG Base Excess 25.5 H ABG Potassium 3.8 Sodium 142.0 142 Chloride 98.0 86 L Glucose 272 H Lactate 1.2 FiO2 50.0 Potassium 4.0 Carbon Dioxide 52 H Anion Gap 8 L BUN 47 H Creatinine 1.0 Est GFR ( Amer) > 60 Est GFR (Non-Af Amer) 53 POC Glucose (mg/dL) Random Glucose 278 H Hemoglobin A1c Calcium 9.0 Phosphorus 4.7 H Magnesium 2.1 Total Bilirubin 0.2 AST 35 ALT 36 Alkaline Phosphatase 82 Troponin I 0.05 D Total Protein 6.7 Albumin 3.6 Globulin 3.1 Albumin/Globulin Ratio 1.2 Triglycerides 133 Cholesterol 174 LDL Cholesterol Direct 70 HDL Cholesterol 67 H Arterial Blood Potassium 3.8 08/17/18 08/17/18 08/17/18 07:30 07:30 11:43 WBC 8.6 D RBC 3.80 Hgb 10.5 L Hct 35.8 L MCV 94.2 MCH 27.6 MCHC 29.3 L RDW 15.6 H Plt Count 171 MPV 11.8 H pCO2 pO2 HCO3 ABG pH ABG Total CO2 ABG O2 Saturation ABG Base Excess ABG Potassium Sodium Chloride Glucose Lactate FiO2 Potassium Carbon Dioxide Anion Gap BUN Creatinine Est GFR ( Amer) Est GFR (Non-Af Amer) POC Glucose (mg/dL) 286 H Random Glucose Hemoglobin A1c 8.4 H Calcium Phosphorus Magnesium Total Bilirubin AST ALT Alkaline Phosphatase Troponin I Total Protein Albumin Globulin Albumin/Globulin Ratio Triglycerides Cholesterol LDL Cholesterol Direct HDL Cholesterol Arterial Blood Potassium 08/17/18 15:56 WBC RBC Hgb Hct MCV MCH MCHC RDW Plt Count MPV pCO2 pO2 HCO3 ABG pH ABG Total CO2 ABG O2 Saturation ABG Base Excess ABG Potassium Sodium Chloride Glucose Lactate FiO2 Potassium Carbon Dioxide Anion Gap BUN Creatinine Est GFR ( Amer) Est GFR (Non-Af Amer) POC Glucose (mg/dL) 232 H Random Glucose Hemoglobin A1c Calcium Phosphorus Magnesium Total Bilirubin AST ALT Alkaline Phosphatase Troponin I Total Protein Albumin Globulin Albumin/Globulin Ratio Triglycerides Cholesterol LDL Cholesterol Direct HDL Cholesterol Arterial Blood Potassium Assessment & Plan - Assessment and Plan (Free Text) Plan: Pt seen and examined by me. I have reviewed the note of the manager medical and I agree with it. I have discussed the assessment and plan with the resident. I have reviewed the medications and the last labs. Pt being followed by Dr Emerson from pulmonary. She has an acute COPD exacerbation. She is on IV Abx and steroids. She had BCx x 2 that were negative. She will need PT. She is DNR/DNI and I confirmed that with the pt's daughter.
[2018-08-16] MEDS: Levalbuterol 1.25 MG/3 ML Inhal Soln UD IH SCH ×3 (12:30→19:08)
[2018-08-16] MEDS: MethylPREDNISolone 40 mg Vial IVP SCH ×2 (13:00→22:40)
[2018-08-16 14:49] LABS: URINE BILIRUBIN NEGATIVE (NEGATIVE); URINE BLOOD NEGATIVE (NEGATIVE); URINE GLUCOSE (UA) NEGATIVE (NEGATIVE); URINE LEUKOCYTE ESTERASE NEGATIVE Leu/uL (NEGATIVE); URINE PROTEIN 30 mg/dL (<30 mg/dL); URINE UROBILINOGEN 0.2 E.U./dL (<1 E.U./dL)
[2018-08-16 14:49] LABS: PHENCYCLIDINE, UR NEGATIVE (NEGATIVE)
[2018-08-16 14:50] LABS: URINE APPEARANCE CLEAR (CLEAR); URINE COLOR YELLOW (YELLOW)
[2018-08-16 14:52] LABS: BARBITURATES, UR NEGATIVE (NEGATIVE); BENZODIAZEPINES, UR NEGATIVE (NEGATIVE); OPIATES, UR NEGATIVE (NEGATIVE)
[2018-08-16 14:55] LABS: CALCIUM 8.6 mg/dL (8.4-10.5)
[2018-08-16 14:58] LABS: URINE BACTERIA FEW /hpf; URINE FINE GRANULAR CAST 0 - 2 /hpf; URINE RBC 0 - 2 /hpf (0-2)
[2018-08-16 14:59] LABS: URINE AMORPHOUS SEDIMENT FEW /hpf
[2018-08-16 15:04] LABS: TROPONIN I 0.07 ng/mL
[2018-08-16] MEDS ORDERED: Potassium Chloride 20 mEq/15 ml LIQ UD PO STA (17:10)
[2018-08-16 22:14] VITALS: BMI 32.0
[2018-08-16] MEDS ORDERED: Influenza Vaccine 60 mcg/0.5 mL SYR (4YR UP) IM ONE (22:15)
[2018-08-16] MEDS ORDERED: Pneumococcal 23-Valent Vaccine IM ONE (22:15)
--- NOTE | 2018-08-17 03:42 | CON ---
DATE OF CONSULTATION: 08/16/2018 REFERRING PHYSICIAN: Minh Scales MD REASON FOR CONSULTATION: Respiratory failure. HISTORY OF PRESENT ILLNESS: This is an 83-year-old female with known history of chronic obstructive lung disease, heart failure, history of breast cancer, also has a history of bladder cancer, at one point she was on chemotherapy, remote history of mastectomy, came in because of cough and shortness of breath for the last few days. In ER, her saturation was in 50s, started on noninvasive ventilation, lethargic, arousable. Has cough and shortness of breath. No hemoptysis, hematemesis or hematuria. No diarrhea reported. PAST MEDICAL HISTORY: Hypertensive cardiomyopathy, chronic lung disease, obesity, may have sleep apnea syndrome, diabetes, dementia, arthritis, GERD. FAMILY HISTORY: No significant cardiopulmonary disease reported. SOCIAL HISTORY: Former smoker. HOME MEDICATIONS: Norvasc 10 mg daily, acetazolamide 25 mg daily, venlafaxine 75 mg daily, tolvaptan 1 drop daily, Protonix 40 mg daily, metformin 1000 mg daily, Namenda 10 mg twice a day, hydrochlorothiazide 25 mg daily, Lasix 40 mg twice a day, Breo Ellipta 1 puff daily, Aricept 10 mg daily, Persantine 25 mg three times a day, Lipitor 80 mg daily, albuterol inhaler every 6 hours p.r.n. ALLERGIES: ASPIRIN. REVIEW OF SYSTEMS: Lethargic, on noninvasive ventilation. Has a cough. No hemoptysis, no vomiting, no hematuria, no diarrhea. Does have leg swelling. PHYSICAL EXAMINATION: GENERAL: Very lethargic, on noninvasive ventilation. VITAL SIGNS: Temperature is 98, heart rate is 80, respiratory rate is 22, blood pressure 123/67, pulse ox 95% on BiPAP. HEENT: Moist mucous membranes. Crowded airway. Mallampati score is 44. NECK: Short thick neck. LUNGS: Scattered rhonchi and wheezing. HEART: S1 and S2. ABDOMEN: Soft, nontender, nondistended. EXTREMITIES: Does have edema. NEUROLOGICAL: Lethargic, arousable. LABORATORY DATA: Hemoglobin 10.4, hematocrit 34.4, WBC 4.2, platelets 167,000. INR 1.03. PTT 22. Blood gases show pH 7.37, pCO2 of 92, O2 was 83, this is on 50 mL oxygen on BiPAP. On admission, her pH was 7.33, pCO2 was 115. Chemistries show sodium 136, potassium 4.0, chloride 84, bicarbonate 46, BUN 43, creatinine 1.3, glucose 256, calcium is 8.6. Troponin 0.07. AST 37, ALT 34, alk phos is 86. ProBNP 1480. Urinalysis shows some protein, otherwise unremarkable. Drug screen is negative. Influenza A and B nondiagnostic. Chest x-ray done today shows mild vascular congestion and small effusion. IMPRESSION AND PLAN: Respiratory failure with CO2 retention and hypoxemia, requiring noninvasive ventilation; chronic obstructive lung disease, also component of diastolic cardiac dysfunction with heart failure; hypertension; hyperlipidemia; peripheral vascular disease; dementia; anxiety disorder; chronic anemia; history of breast cancer; may have hypoventilation syndrome; history of bladder cancer in the past. Agree with Dr. Scales with the present management. Need IV and inhaled steroids, antibiotics, diuretics, gastric prophylaxis, DVT prophylaxis. Continue noninvasive ventilation. Follow up ABG, chest x-ray, CBC, and CMP in the morning. Critical care time spent more than 35 minutes. Thank you and we will follow with you. Oswaldo Emerson MD
[2018-08-17 05:20] LABS: ARTERIAL BLOOD GAS O2 SAT 98.6 % (95-98); ARTERIAL BLOOD GAS PH 7.42 (7.35-7.45); ARTERIAL BLOOD GAS TCO2 58.4 mmol.L (22-28)
[2018-08-17] MEDS: Pantoprazole 40 mg EC Tab PO SCH (05:22)
[2018-08-17] MEDS: MethylPREDNISolone 40 mg Vial IVP SCH ×3 (05:36→22:28)
[2018-08-17 05:55] LABS: ARTERIAL BLOOD GAS HCO3 55.8 mmol/L (21-28); ARTERIAL BLOOD GAS PCO2 86 mm/Hg (35-45)
--- NOTE | 2018-08-17 06:23 | CP.PCM.PN ---
<Sathya Wahlima - Last Filed: 08/17/18 14:51> Subjective - Date & Time of Evaluation Date of Evaluation: 08/17/18 Time of Evaluation: 10:30 - Subjective Subjective: Pgy3 Medicine Progress note for Dr. Scales Patient seen and examined at bedside. Nursing reports no acute events overnight. Patient stayed on BiPAP overnight. Patient is more awake and oriented x [address] and able to answer simple questions. She denied any pain and denied any cough/fever. Patient was afebrile throughout the night. I spoke to daughter Lina at length regarding what brought patient in to the hospital. She was recently discharged from [facility] and lives at home on the first floor of her daughter's building. Patient has a homemaker that comes 4 times/week for 2 hours/day and has a live in aid. Patient is also seen by physical therapy twice/week. Over the weekend the patient's son noted that she was unable to open her eyes and was lethargic. She was placed on home BiPAP however her mentation did not improve. When patient was seen by PT the following day she was noted to have an O2 sat of 50% and was sent to the ER. Complete ROS unobtainable secondary to patient condition. Objective - Vital Signs/Intake and Output Vital Signs (last 24 hours): Temp Pulse Resp BP Pulse Ox 97.0 F L 88 20 158/68 H 95 08/17/18 06:00 08/17/18 06:00 08/17/18 06:00 08/17/18 06:00 08/17/18 06:00 Intake and Output: 08/16/18 08/17/18 18:59 06:59 Intake Total 0 Output Total 600 Balance -600 - Medications Medications: Current Medications Acetazolamide (Diamox 250 Mg Tab) 125 mg PO DAILY [facility] Amlodipine Besylate (Norvasc) 10 mg PO DAILY [facility] Atorvastatin Calcium (Lipitor) 80 mg PO HS [facility] Last Admin: 08/16/18 22:41 Dose: Not Given Donepezil HCl (Aricept) 10 mg PO HS [facility] Last Admin: 08/16/18 22:41 Dose: Not Given Doxycycline Hyclate (Doryx) 100 mg PO Q12 [facility]; Protocol Last Admin: 08/16/18 22:41 Dose: Not Given Enoxaparin Sodium (Lovenox) 30 mg SC DAILY [facility]; Protocol Furosemide (Lasix) 20 mg IVP BID [facility] Last Admin: 08/16/18 19:07 Dose: 20 mg Levalbuterol HCl (Xopenex) 1.25 mg IH TID [facility] Last Admin: 08/16/18 19:08 Dose: 1.25 mg Metformin HCl (Glucophage) 1,000 mg PO DAILY [facility] Methylprednisolone (Solu-Medrol) 40 mg IVP Q8 [facility] Last Admin: 08/17/18 05:36 Dose: 40 mg Fluticasone/Vilanterol [Breo Ellipta 100-25 Mcg Inh] 1 Packet (Home Med) 1 packet NEB DAILY [facility] Pantoprazole Sodium (Protonix Ec Tab) 40 mg PO 0600 [facility] Last Admin: 08/17/18 05:22 Dose: Not Given - Labs Labs: 08/16/18 09:00 08/16/18 14:30 PT 11.9 SECONDS (9.4-12.5) 08/16/18 08:45 INR 1.03 08/16/18 08:45 APTT 22.3 Seconds (25.1-36.5) L 08/16/18 08:45 - Constitutional Appears: Chronically Ill - Head Exam Head Exam: ATRAUMATIC, NORMAL INSPECTION, NORMOCEPHALIC - Eye Exam Eye Exam: Normal appearance. absent: Conjunctival injection, Scleral icterus - ENT Exam Additional comments: BiPAP in place - Respiratory Exam Respiratory Exam: Rhonchi, Wheezes - Cardiovascular Exam Cardiovascular Exam: +S1, +S2. absent: Murmur - GI/Abdominal Exam GI & Abdominal Exam: Soft, Normal Bowel Sounds. absent: Firm, Guarding, Rigid, Tenderness - Exam Additional comments: friedman in place - Extremities Exam Additional comments: optiform noted on RLE and LLE - Neurological Exam Neurological Exam: Awake (arousable) - Psychiatric Exam Additional comments: aox2 - Skin Skin Exam: Dry, Intact Assessment and Plan - Assessment and Plan (Free Text) Assessment: 1. COPD exacerbation with CO2 retention 2. Diastolic cardiomyopathy 3. HTN 4. HLD 5. PVD 6. Obesity 7. DEONTE 8. DM2 9. Dementia 10. Arthritis 11. GERD 12. Bladder ca s/p chemo 13. Anxiety 14. Breast ca s/p mastectomy 15. Hypokalemia Plan: Patient mentation improved this AM than on admission. Patient continues to be on BiPAP at this time. ABG this AM improving. Appreciate pulm reccs. Continue current management with IV steroids, breathing treatments, and abx. Repeat CXR this AM relatively unchanged. Continue RISS and accucheck q6h. Patient pending repeat speech/swallow eval as she is more awake at this time. Pending PT eval. GI and DVT ppx in place. Patient's case was discussed in detail with daughter Lina and questions and concerns were addressed at great length. Discussed with Dr. Loyda Wahl PGY3 <Minh Scales S - Last Filed: 08/17/18 19:06> Objective - Vital Signs/Intake and Output Vital Signs (last 24 hours): Temp Pulse Resp BP Pulse Ox 97.5 F L 100 H 20 175/85 H 95 08/17/18 17:46 08/17/18 17:46 08/17/18 17:46 08/17/18 17:46 08/17/18 06:00 Intake and Output: 08/17/18 08/17/18 06:59 18:59 Intake Total 0 0 Output Total 600 Balance -600 0 - Medications Medications: Current Medications Acetazolamide (Diamox 250 Mg Tab) 125 mg PO DAILY [facility] Last Admin: 08/17/18 10:23 Dose: Not Given Amlodipine Besylate (Norvasc) 10 mg PO DAILY [facility] Last Admin: 08/17/18 10:24 Dose: Not Given Atorvastatin Calcium (Lipitor) 80 mg PO HS [facility] Last Admin: 08/16/18 22:41 Dose: Not Given Donepezil HCl (Aricept) 10 mg PO HS [facility] Last Admin: 08/16/18 22:41 Dose: Not Given Doxycycline Hyclate (Doryx) 100 mg PO Q12 [facility]; Protocol Last Admin: 08/17/18 10:23 Dose: Not Given Enoxaparin Sodium (Lovenox) 30 mg SC DAILY [facility]; Protocol Last Admin: 08/17/18 10:45 Dose: 30 mg Furosemide (Lasix) 20 mg IVP BID [facility] Last Admin: 08/17/18 10:44 Dose: 20 mg Insulin Human Lispro (Humalog Med) 0 units SC Q6H [facility]; Protocol Last Admin: 08/17/18 16:30 Dose: Not Given Levalbuterol HCl (Xopenex) 1.25 mg IH 0800,1400,2000 [facility] Last Admin: 08/17/18 13:28 Dose: 1.25 mg Methylprednisolone (Solu-Medrol) 40 mg IVP Q8 [facility] Last Admin: 08/17/18 13:15 Dose: 40 mg Fluticasone/Vilanterol [Breo Ellipta 100-25 Mcg Inh] 1 Packet (Home Med) 1 packet NEB DAILY [facility] Last Admin: 08/17/18 10:24 Dose: Not Given Pantoprazole Sodium (Protonix Ec Tab) 40 mg PO 0600 [facility] Last Admin: 08/17/18 05:22 Dose: Not Given - Labs Labs: 08/17/18 07:30 08/17/18 07:30 PT 11.9 SECONDS (9.4-12.5) 08/16/18 08:45 INR 1.03 08/16/18 08:45 APTT 22.3 Seconds (25.1-36.5) L 08/16/18 08:45 Assessment and Plan - Assessment and Plan (Free Text) Assessment: Pt seen and examined by me. I have reviewed the note of the medical billing manager and I agree with it. I have discussed the assessment and plan with the resident. I have reviewed the medications and the last labs.The pt has acute COPD with hypercapnea. I spoke to the pt's daughter this am to give an update. The pt will be placed on on Solumedrol and Neb treatments. She will be placed on BIPAP. ABG was reviewed. She was seen by pulmonary. She has HTN that is controlled. Pt is on tele. She is more awake today then she was in the ER.
[2018-08-17 07:44] LABS: HEMOGLOBIN 10.5 g/dL (12.0-16.0); MEAN CELL VOLUME 94.2 fl (80.0-105.0); MEAN CORPUSCULAR HEMOGLOBIN 27.6 pg (25.0-35.0); MEAN CORPUSCULAR HGB CONC 29.3 g/dl (31.0-37.0); MEAN PLATELET VOLUME 11.8 fl (7.0-11.0); RBC 3.8 10^6/uL (3.5-6.1); RED CELL DISTRIBUTION WIDTH 15.6 % (11.5-14.5); WHITE BLOOD COUNT 8.6 10^3/uL (4.5-11.0)
[2018-08-17] MEDS: Levalbuterol 1.25 MG/3 ML Inhal Soln UD IH SCH ×3 (07:57→19:56)
[2018-08-17 08:04] LABS: LDL CHOLESTEROL 70 mg/dL (0-129)
[2018-08-17 08:08] LABS: ALB/GLOB RATIO 1.2 (1.1-1.8); ALBUMIN 3.6 g/dL (3.0-4.8); ALT/SGPT 36 U/L (7-56); AST/SGOT 35 U/L (14-36); BLOOD UREA NITROGEN 47 mg/dL (7-21); GFR NON-AFRICAN AMERICAN 53; HDL CHOLESTEROL 67 mg/dL (29-60)
--- NOTE | 2018-08-17 08:51 | RAD ---
Date of service: 08/17/2018 HISTORY: Shortness of breath COMPARISON: 08/16/2018 FINDINGS: LUNGS: The lungs are well inflated. Again seen is right basilar atelectasis. There is moderate pulmonary venous congestion. PLEURA: Persistent small left pleural effusion. No pneumothorax. CARDIOVASCULAR: Mild cardiomegaly. There are aortic atherosclerotic calcifications present. OSSEOUS STRUCTURES: Within normal limits for the patient's age. VISUALIZED UPPER ABDOMEN: Normal. OTHER FINDINGS: None. IMPRESSION: Moderate pulmonary venous congestion and small left pleural effusion.
[2018-08-17] MEDS ORDERED: Enoxaparin 30 mg Syringe SC SCH (10:00)
[2018-08-17] MEDS: VILANTEROL NEB SCH (10:24)
[2018-08-17] MEDS: FLUTICASONE NEB SCH (10:24)
[2018-08-17] MEDS ORDERED: Insulin Lispro (humaLOG) LOW Coverage SC SCH ×2 (10:30→15:03)
--- NOTE | 2018-08-17 11:13 | CARD ---
APPROVED REPORT Date of service: 08/16/2018 EKG Measurement Heart [id number] <Conclusion> Sinus rhythm with marked sinus arrhythmia with premature atrial complexes Septal infarct, age undetermined Abnormal ECG
--- NOTE | 2018-08-17 13:05 | PN ---
DATE: 08/17/2018 PULMONARY PROGRESS NOTE REFERRING PHYSICIAN: Minh Scales MD SUBJECTIVE: The patient is lying in bed. Head of bed elevated. BiPAP is in place. No acute distress. No overnight events reported. The patient is awake, alert, and verbal. No hemoptysis, hematemesis, hematuria, diarrhea, or leg swelling reported. OBJECTIVE: GENERAL: No acute distress. VITAL SIGNS: Blood pressure 158/68, pulse 88, temperature 97, and oxygen 95%. HEENT: Moist mucous membranes. Crowded airway. Mallampati score is 4. NECK: Supple. No JVD. Short and thick. LUNGS: Scattered rhonchi bilaterally. Mild wheezing. CARDIOVASCULAR: S1 and S2. ABDOMEN: Soft and nontender. Nondistended. EXTREMITIES: +1 edema bilateral lower extremity. NEUROLOGIC: Awake, alert and verbal. MEDICATIONS: Reviewed. Diamox 125 mg daily, Norvasc 10 mg daily, Lipitor 80 mg at bedtime, Aricept 10 mg at bedtime, Doxycycline 100 mg every 12 hours, Lovenox 30 mg subcutaneous daily, Lasix 20 mg IV push twice a day, Xopenex 1.25 mg inhalation three times a day, Solu-Medrol 40 mg every 8 hours, Protonix 40 mg daily. LABORATORY DATA: Reviewed. WBC 8.6, RBC 3.8, hemoglobin 10.5, hematocrit 35.8 and platelets 171. PCO2 86, PO2 85, HCO3 55.8, 7.42. Sodium 142, potassium 4.0, chloride 86, carbon dioxide 52, anion gap 8, BUN 46, creatinine 1, GFR 53, random glucose 270, calcium 9.0, phosphorous 4.6, magnesium 2.1, total bilirubin 0.2, AST 35, ALT 36, alkaline phosphatase 82, total protein 6.7, albumin 3.6, globulin 3.1, albumin-globulin ratio 1.2, triglycerides 133, cholesterol 174, LDL cholesterol 70 and HDL cholesterol 67. Blood cultures preliminary no growth after 24 hours. Chest x-ray shows moderate pulmonary venous congestion and small left pleural effusion. IMPRESSION AND PLAN: Respiratory failure with CO2 retention, hypoxemia requiring noninvasive ventilation, chronic obstructive lung disease. The patient also has diastolic cardiac dysfunction with heart failure, hypertension, hyperlipidemia, peripheral vascular disease, dementia, anxiety disorder, chronic anemia, history of breast cancer, hypoventilation syndrome and history of bladder cancer in the past. The patient currently on continuous bilevel positive airway pressure, we will place bilevel positive airway pressure to be used at bedtime and as needed. We will order oxygen at 1 liter via nasal cannula to titrate both oximetry 90% or greater, oxygen via nasal cannula is only to be used if the patient is awake and not lethargic or sleepy. Continue inhaled steroids, antibiotics, diuretics, gastric prophylaxis, deep venous thrombosis prophylaxis. This patient was seen and examined with Dr. Emerson. Discussed assessment and plan as described above. Thank you for this consult. We will follow with you. Manuel Vincent APN Oswaldo Emerson MD
--- NOTE | 2018-08-17 14:33 | CP.PCM.PCO ---
Physician Communication Note - Physician Communication Note Physician Communication Note: PT eval is pending CM/SW for D/C planning
[2018-08-17] MEDS: Insulin Lispro (humaLOG) MEDIUM Coverage SC SCH ×2 (16:30→22:28)
--- NOTE | 2018-08-17 22:26 | CON ---
DATE OF CONSULTATION: 08/17/2018 REQUESTING PHYSICIAN: Dr. Scales. REASON FOR CONSULTATION: Congestive heart failure. HISTORY OF PRESENT ILLNESS: This is an 83-year-old woman with a history of COPD who was admitted with worsening dyspnea and cough in the past several days. She was markedly hypoxic in the emergency room. She was also hypercapnic. She was placed on BiPAP with significant improvement in her symptoms. She is now seen lying in bed on telemetry and is more comfortable. She denies any chest pain. PAST MEDICAL HISTORY: Notable for COPD, hypertension, congestive heart failure. She has also undergone a prior hysterectomy as well as bilateral mastectomy. She has a history of bladder cancer, for which she underwent chemotherapy. She also has a history of diabetes. MEDICATIONS AT HOME: Include Lasix 40 mg b.i.d, Glucophage 1000 mg daily, albuterol inhaler, Lipitor 80 mg daily, Persantine 25 mg t.i.d., Breo Ellipta, hydrochlorothiazide 25 mg daily, Namenda 10 mg b.i.d., Levaquin eye drops, Protonix, acetazolamide. ALLERGIES: SHE HAS HAD A REACTION TO ASPIRIN IN THE PAST. SOCIAL HISTORY: She is a former smoker. She denies alcohol use. FAMILY HISTORY: Both parents were from age-related illness. REVIEW OF SYSTEMS: Ten-point review of systems is otherwise unremarkable. PHYSICAL EXAMINATION: GENERAL: She is an elderly woman who appears comfortable at the present time. VITAL SIGNS: Her blood pressure is 160/70 with a pulse of 90, respirations are 16. She is afebrile. HEENT: Normocephalic, atraumatic. NECK: Supple. No JVD present. CHEST: Bilateral rhonchi heard. No rales noted. HEART: PMI displaced laterally with a systolic murmur at the left sternal border. ABDOMEN: Soft, nontender with normoactive bowel sounds. EXTREMITIES: 1+ leg edema. SKIN: Warm and dry. PSYCHIATRIC: Normal mood and affect. NEUROLOGIC: Alert and oriented x3. DIAGNOSTIC DATA: Potassium 4.0, BUN and creatinine 47 and 1.0. Glucose is 278. White count is 8.6, hemoglobin and hematocrit 10.5 and 35.8 with a platelet count of 171,000. Initial blood gas shows pH 7.42 with a pCO2 of 86 and a pO2 of 85. Troponin 0.05. BNP is 1480. Electrocardiogram shows sinus rhythm with mild sinus arrhythmia and premature atrial complexes; prior anteroseptal wall myocardial infarction pattern cannot be excluded. Chest x-ray reveals normal cardiac silhouette with mild increased vascular markings. IMPRESSION: 1. Respiratory insufficiency secondary to advanced chronic obstructive pulmonary disease, appears to have a component of mildly decompensated congestive heart failure, acute on chronic, diastolic. 2. Mild anemia. 3. History of hypertension and hyperlipidemia. 4. Probable sleep apnea. 5. Rest of the problems as noted. RECOMMENDATIONS: Aggressive pulmonary therapy should continue. Low-dose IV Lasix will be administered for now. The rest of her antihypertensive regimen therapy will continue. Negative fluid balance is advised. Thank you for this consultation. I would be happy to follow along and make further recommendations as needed. Willem Carvajal MD MTDDominik
[2018-08-18] MEDS: Insulin Lispro (humaLOG) MEDIUM Coverage SC SCH ×2 (04:00→10:26)
--- NOTE | 2018-08-18 05:45 | CP.PCM.PN ---
<Chiara Wahl - Last Filed: 08/18/18 15:45> Subjective - Date & Time of Evaluation Date of Evaluation: 08/18/18 Time of Evaluation: 07:00 - Subjective Subjective: Pgy3 Medicine note for Dr. Scales Patient seen and examined at bedside. Nursing reported no acute events overnight. Patient remained on BiPAP overnight. This AM she was ao x 3 and communicative. Patient denied any acute complaints of chest pain, palpitations, SOB, cough, and abdominal pain. She wanted to take her BiPAP mask off but was counseled to not do so. Patient also complained of being thirsty. She was started on a diet this AM as per speech/swallow recommendations. Patient eager to go home. Objective - Vital Signs/Intake and Output Vital Signs (last 24 hours): Temp Pulse Resp BP Pulse Ox 97.8 F 84 20 169/82 H 97 08/18/18 00:01 08/18/18 02:00 08/18/18 00:01 08/18/18 00:01 08/18/18 00:01 Intake and Output: 08/17/18 08/18/18 18:59 06:59 Intake Total 0 0 Output Total 360 Balance 0 -360 - Medications Medications: Current Medications Acetazolamide (Diamox 250 Mg Tab) 125 mg PO DAILY [facility] Last Admin: 08/17/18 10:23 Dose: Not Given Amlodipine Besylate (Norvasc) 10 mg PO DAILY [facility] Last Admin: 08/17/18 10:24 Dose: Not Given Atorvastatin Calcium (Lipitor) 80 mg PO [facility] Last Admin: 08/17/18 21:33 Dose: Not Given Donepezil HCl (Aricept) 10 mg PO HS [facility] Last Admin: 08/17/18 21:32 Dose: Not Given Doxycycline Hyclate (Doryx) 100 mg PO Q12 [facility]; Protocol Last Admin: 08/17/18 21:32 Dose: Not Given Enoxaparin Sodium (Lovenox) 30 mg SC DAILY [facility]; Protocol Last Admin: 08/17/18 10:45 Dose: 30 mg Furosemide (Lasix) 20 mg IVP BID [facility] Last Admin: 08/17/18 10:44 Dose: 20 mg Insulin Human Lispro (Humalog Med) 0 units SC Q6H [facility]; Protocol Last Admin: 08/18/18 04:00 Dose: Not Given Levalbuterol HCl (Xopenex) 1.25 mg IH 0800,1400,2000 [facility] Last Admin: 08/17/18 19:56 Dose: 1.25 mg Methylprednisolone (Solu-Medrol) 40 mg IVP Q8 [facility] Last Admin: 08/17/18 22:28 Dose: 40 mg Fluticasone/Vilanterol [Breo Ellipta 100-25 Mcg Inh] 1 Packet (Home Med) 1 packet NEB DAILY [facility] Last Admin: 08/17/18 10:24 Dose: Not Given Pantoprazole Sodium (Protonix Ec Tab) 40 mg PO 0600 [facility] Last Admin: 08/17/18 05:22 Dose: Not Given - Labs Labs: 08/17/18 07:30 08/17/18 07:30 PT 11.9 SECONDS (9.4-12.5) 08/16/18 08:45 INR 1.03 08/16/18 08:45 APTT 22.3 Seconds (25.1-36.5) L 08/16/18 08:45 - Constitutional Appears: Chronically Ill - Head Exam Head Exam: ATRAUMATIC, NORMAL INSPECTION, NORMOCEPHALIC - Eye Exam Eye Exam: EOMI, Normal appearance. absent: Conjunctival injection, Scleral icterus - ENT Exam Additional comments: BiPAP in place - Respiratory Exam Respiratory Exam: Rhonchi, Wheezes. absent: Accessory Muscle Use, Rales, Stridor - Cardiovascular Exam Cardiovascular Exam: +S1, +S2 - GI/Abdominal Exam GI & Abdominal Exam: Soft, Normal Bowel Sounds. absent: Distended, Firm, Guarding, Rigid, Tenderness - Extremities Exam Extremities Exam: absent: Pedal Edema Additional comments: optiform noted on RLE and LLE - Neurological Exam Neurological Exam: Alert, Awake - Psychiatric Exam Psychiatric exam: Normal Affect, Normal Mood - Skin Skin Exam: Dry, Normal Color, Warm Assessment and Plan - Assessment and Plan (Free Text) Assessment: 1. Acute on chronic COPD exacerbation with CO2 retention 2. Diastolic cardiomyopathy 3. HTN 4. HLD 5. PVD 6. Obesity 7. DEONTE 8. DM2 9. Dementia 10. Arthritis 11. GERD 12. Bladder ca s/p chemo 13. Anxiety 14. Breast ca s/p mastectomy 15. Hypokalemia Plan: Patient mentation improved this AM than on admission. ABG noted. Continue BiPAP at this time. Pulm ordered echo to r/o pulmonary HTN- will follow up. Will continue IV steroids, nebulizer treatments, abx, and diuretics at this time. Patient's blood sugar elevaed likely due to steroids. RISS changed to high dose with accuchecks achs. Dysphagia diet in place with sodium and fluid restriction. Added hydralazine 10mg prn for SBP > 160mmHg. GI and DVT ppx in place. PT recommending KJ upon discharge- tool worker aware and has informed daughter. W ill continue to monitor patient closely. Discussed with Dr. Loyda Wahl PGY3 <Minh Scales S - Last Filed: 08/18/18 18:32> Objective - Vital Signs/Intake and Output Vital Signs (last 24 hours): Temp Pulse Resp BP Pulse Ox 97.1 F L 97 H 18 167/70 H 97 08/18/18 12:00 08/18/18 13:57 08/18/18 12:00 08/18/18 18:07 08/18/18 06:00 Intake and Output: 08/18/18 08/18/18 06:59 18:59 Intake Total 0 Output Total 360 Balance -360 - Medications Medications: Current Medications Acetazolamide (Diamox 250 Mg Tab) 125 mg PO DAILY [facility] Last Admin: 08/18/18 10:22 Dose: 125 mg Amlodipine Besylate (Norvasc) 10 mg PO DAILY [facility] Last Admin: 08/18/18 10:21 Dose: 10 mg Atorvastatin Calcium (Lipitor) 80 mg PO HS [facility] Last Admin: 08/17/18 21:33 Dose: Not Given Donepezil HCl (Aricept) 10 mg PO HS [facility] Last Admin: 08/17/18 21:32 Dose: Not Given Doxycycline Hyclate (Doryx) 100 mg PO Q12 [facility]; Protocol Last Admin: 08/18/18 10:21 Dose: 100 mg Enoxaparin Sodium (Lovenox) 30 mg SC DAILY [facility]; Protocol Last Admin: 08/18/18 10:27 Dose: 30 mg Furosemide (Lasix) 20 mg IVP BID [facility] Last Admin: 08/18/18 18:07 Dose: 20 mg Hydralazine HCl (Apresoline) 10 mg IVP Q6 PRN PRN Reason: Systolic Blood Pressure > 160 Insulin Human Lispro (Humalog High) 0 units SC ACHS [facility]; Protocol Last Admin: 08/18/18 18:07 Dose: 10 u Levalbuterol HCl (Xopenex) 1.25 mg IH 0800,1400,2000 [facility] Last Admin: 08/18/18 13:49 Dose: 1.25 mg Methylprednisolone (Solu-Medrol) 40 mg IVP Q8 [facility] Last Admin: 08/18/18 17:30 Dose: 40 mg Fluticasone/Vilanterol [Breo Ellipta 100-25 Mcg Inh] 1 Packet (Home Med) 1 packet NEB DAILY [facility] Last Admin: 08/18/18 10:23 Dose: Not Given Pantoprazole Sodium (Protonix Ec Tab) 40 mg PO 0600 [facility] Last Admin: 08/18/18 06:13 Dose: Not Given - Labs Labs: 08/18/18 08:07 08/18/18 08:07 PT 11.9 SECONDS (9.4-12.5) 08/16/18 08:45 INR 1.03 08/16/18 08:45 APTT 22.3 Seconds (25.1-36.5) L 08/16/18 08:45 Assessment and Plan - Assessment and Plan (Free Text) Plan: Pt seen and examined by me. I have reviewed the note of the medical radiation tech and I agree with it. I have discussed the assessment and plan with the resident. I have reviewed the medications and the last labs. Pt with improving COPD. She is is on steriods with Duonebs. Will need to control her Glc with insulin. She will need PT and possible KJ. She is being followed by Pulmonary. Potassium has been replaced
[2018-08-18] MEDS: Pantoprazole 40 mg EC Tab PO SCH (06:13)
[2018-08-18 06:18] LABS: ARTERIAL BLOOD GAS HCO3 61.6 mmol/L (21-28); ARTERIAL BLOOD GAS HEMOGLOBIN 11.2 g/dL (11.7-17.4); ARTERIAL BLOOD GAS O2 CAPACITY 15.2 mL/dl (16-24); ARTERIAL BLOOD GAS O2 CONTENT 14.2 ML/dl (15-23); ARTERIAL BLOOD GAS O2 SAT 93.3 % (95-98); ARTERIAL BLOOD GAS PCO2 95 mm/Hg (35-45); ARTERIAL BLOOD GAS PH 7.42 (7.35-7.45); ARTERIAL BLOOD GAS TCO2 64.5 mmol.L (22-28)
[2018-08-18] MEDS: MethylPREDNISolone 40 mg Vial IVP SCH ×3 (06:21→22:17)
--- NOTE | 2018-08-18 06:58 | PQF ---
PROVIDER RESPONSE TEXT: Acute on chronic COPD with CO2 retention REVIEWER QUERY TEXT: Respiratory Failure Acuity and Type Respiratory Failure is documented in the Medical Record. Please specify the type and acuity (includes suspected or probable) Such as: -- Acute respiratory failure - With hypoxia - With hypercapnia -- Chronic respiratory failure - With hypoxia - With hypercapnia -- Acute on chronic respiratory failure - With hypoxia - With hypercapnia -- Other, please specify The patient's Clinical Indicators include: Your consult on 08/16 notes that patient was admitted with respiratory failure with hypoxia and CO2 re tention. Please specify acuity (acute, chronic, acute on chronic). Query created by: Jeannie Martines on 08/17/2018 11:35 AM Electronically signed by: Chiara Wahl 08/18/2018 6:55 AM
[2018-08-18 08:14] LABS: BASO # 0.01 K/mm3 (0.0-2.0); BASO % 0.1 % (0.0-3.0); GRAN # 7.6 (1.4-6.5); GRAN % 88.2 % (50.0-68.0); HEMOGLOBIN 11.3 g/dL (12.0-16.0); LYMPH # 0.8 (1.2-3.4); LYMPH % 9.5 % (22.0-35.0); MEAN CELL VOLUME 96.3 fl (80.0-105.0); MEAN CORPUSCULAR HEMOGLOBIN 27.6 pg (25.0-35.0); MEAN CORPUSCULAR HGB CONC 28.6 g/dl (31.0-37.0); MEAN PLATELET VOLUME 11.8 fl (7.0-11.0); MONO # 0.2 (0.1-0.6); MONO % 2.2 % (1.0-6.0); RBC 4.1 10^6/uL (3.5-6.1); RED CELL DISTRIBUTION WIDTH 15.9 % (11.5-14.5); WHITE BLOOD COUNT 8.6 10^3/uL (4.5-11.0)
[2018-08-18] MEDS: Levalbuterol 1.25 MG/3 ML Inhal Soln UD IH SCH ×3 (08:19→21:28)
[2018-08-18 09:01] LABS: ALB/GLOB RATIO 1.2 (1.1-1.8); ALBUMIN 3.5 g/dL (3.0-4.8); ALT/SGPT 38 U/L (7-56); AST/SGOT 30 U/L (14-36); BLOOD UREA NITROGEN 50 mg/dL (7-21); CALCIUM 9.5 mg/dL (8.4-10.5); GFR NON-AFRICAN AMERICAN 53
[2018-08-18] MEDS: FLUTICASONE NEB SCH (10:23)
[2018-08-18] MEDS: VILANTEROL NEB SCH (10:23)
[2018-08-18] MEDS: Enoxaparin 30 mg Syringe SC SCH (10:27)
--- NOTE | 2018-08-18 11:07 | PN ---
DATE: 08/18/2018 SUBJECTIVE: The patient is seen lying in bed on telemetry. She remains on a BiPAP mask. She states she is feeling somewhat better. Her current medications include Aricept, Diamox, doxycycline, Breo Ellipta, Lasix 20 mg IV b.i.d., Lovenox, Norvasc 10 mg daily, Solu-Medrol, and Xopenex. PHYSICAL EXAMINATION: GENERAL: She is an elderly woman who appears relatively comfortable. VITAL SIGNS: Blood pressure is 160/80 with a pulse of 86 and sinus, respirations are 16. She is afebrile. HEENT: No JVD. CHEST: Bilateral scattered rhonchi heard. HEART: PMI displaced laterally. Systolic murmur is present in the left sternal border. ABDOMEN: Soft, nontender with normoactive bowel sounds. EXTREMITIES: 1+ leg edema. DIAGNOSTIC DATA: Potassium 4.1, BUN and creatinine are 50 and 1 with a sodium 148, white count is 8.6, hemoglobin and hematocrit are 11.3 and 39.5 with a platelet count [id number]. Recent arterial blood gas showed a pH 7.42, pCO2 of 95 and a pO2 of 57. IMPRESSION: 1. Respiratory insufficiency secondary to advanced chronic obstructive pulmonary disease. 2. Mildly decompensated heart failure, [id number], diastolic. 3. Mild anemia. 4. Probable sleep apnea. 5. History of hypertension and hyperlipidemia. 6. Worsening prerenal azotemia with hypernatremia. RECOMMENDATIONS: Current medications, we will continue for now. Aggressive bronchodilator therapy should continue as well. Sodium and fluid restrictions are advised. Her overall prognosis is guarded. We will be happy to follow and make further recommendations as appropriate. Willem Carvajal MD
[2018-08-18] MEDS: Insulin Lispro (HUMAlog) HIGH Coverage SC SCH ×3 (13:33→22:08)
--- NOTE | 2018-08-18 14:02 | CP.PCM.PCO ---
Physician Communication Note - Physician Communication Note Physician Communication Note: COPD with hypoxia and hypercapnia, bipap, solumedrol, PT eval pending
--- NOTE | 2018-08-18 14:04 | CP.PCM.PCO ---
Physician Communication Note - Physician Communication Note Physician Communication Note: PT recommending KJ CM/SW for D/C planning
--- NOTE | 2018-08-18 15:22 | PN ---
DATE: 08/18/2018 PULMONARY PROGRESS NOTE REFERRING PHYSICIAN: Dr. Scales. SUBJECTIVE: The patient is lying in bed, BiPAP in place; awake, alert, and verbal. No acute distress. No overnight events reported. No hematuria, hematemesis, hemoptysis, diarrhea, or leg swelling reported. OBJECTIVE: GENERAL: No acute distress. VITAL SIGNS: Blood pressure 188/73, pulse 98, temperature 97.1, and oxygen saturation 97%. HEENT: Moist mucous membranes. Mallampati score is 4. Crowded airway. NECK: Supple. No JVD. Short and thick. LUNGS: Scattered rhonchi bilaterally. CARDIOVASCULAR: S1 and S2 audible. ABDOMEN: Soft and nontender. No distention. EXTREMITIES: +1 bilateral lower extremity edema. NEUROLOGIC: Awake, alert, and verbal. MEDICATIONS: Reviewed. Diamox 125 mg daily, Norvasc 10 mg daily, Lipitor 80 mg at dinner, Aricept 10 mg at dinner, doxycycline 100 mg every 12 hours, Lovenox 30 mg subcutaneous daily, Lasix 20 mg IV push twice a day, Humalog sliding scale before meals and at bedtime, Xopenex 1.25 mg three times a day, Solu-Medrol 40 mg every 8 hours, and Protonix 40 mg daily. LABORATORY DATA: Reviewed. WBC 8.6, RBC 4.1, hemoglobin 11.3, hematocrit 39.5, and platelets 192. PCO2 of 95, pO2 of 57, HCO3 of 61.6, pH 7.42. Sodium 148, potassium 4.1, chloride 92, carbon dioxide 53, anion gap 7, BUN 50, creatinine 1, GFR 53, POC glucose 421, random glucose 279, calcium 9.5, total bilirubin 0.5, AST 30, ALT 38, alkaline phosphatase 89, total protein 6.4, albumin 3.5, globulin 2.9, albumin-globulin ratio 1.2. Urine culture final; no growth. Blood culture preliminary; no growth after 48 hours. IMPRESSION AND PLAN: Respiratory failure with CO2 retention, hypoxemia requiring noninvasive ventilation, chronic obstructive lung disease, diastolic cardiac dysfunction with heart failure, hypertension, hyperlipidemia, peripheral vascular disease, dementia, anxiety disorder, chronic anemia, history of breast cancer, hypoventilation syndrome, and history of bladder cancer in the past. The patient is currently using bilevel positive airway pressure at bedtime and as needed, nasal cannula at 1 liter, titrating to pulse oximetry 90% or greater. Continue antibiotics, diuretics, gastric prophylaxis, deep venous thrombosis prophylaxis, and inhaled bronchodilators. We will order ABG labs in the morning. We will order echocardiogram to be done to rule out pulmonary hypertension. The patient would benefit from physical therapy, out of bed to chair. This patient was seen and examined with Dr. Emerson. Discussed assessment and plan as described above. Thank you for this consult. We will follow with you. Manuel Vincent APN Oswaldo Emerson MD
[2018-08-18] MEDS ORDERED: Insulin Lispro (HUMAlog) HIGH Coverage SC SCH (16:30)
[2018-08-19] MEDS: MethylPREDNISolone 40 mg Vial IVP SCH ×2 (05:23→17:56)
[2018-08-19] MEDS: Pantoprazole 40 mg EC Tab PO SCH (05:31)
[2018-08-19 06:12] LABS: ARTERIAL BLOOD GAS HCO3 51.9 mmol/L (21-28); ARTERIAL BLOOD GAS HEMOGLOBIN 11.2 g/dL (11.7-17.4); ARTERIAL BLOOD GAS O2 CAPACITY 15.3 mL/dl (16-24); ARTERIAL BLOOD GAS O2 CONTENT 14.4 ML/dl (15-23); ARTERIAL BLOOD GAS O2 SAT 94.4 % (95-98); ARTERIAL BLOOD GAS PCO2 80 mm/Hg (35-45); ARTERIAL BLOOD GAS PH 7.42 (7.35-7.45); ARTERIAL BLOOD GAS TCO2 54.4 mmol.L (22-28)
[2018-08-19 07:16] LABS: BASO # 0.01 K/mm3 (0.0-2.0); BASO % 0.1 % (0.0-3.0); GRAN # 7.49 (1.4-6.5); GRAN % 89.8 % (50.0-68.0); HEMOGLOBIN 10.6 g/dL (12.0-16.0); LYMPH # 0.5 (1.2-3.4); LYMPH % 6.5 % (22.0-35.0); MEAN CELL VOLUME 95.7 fl (80.0-105.0); MEAN CORPUSCULAR HEMOGLOBIN 28.4 pg (25.0-35.0); MEAN CORPUSCULAR HGB CONC 29.7 g/dl (31.0-37.0); MEAN PLATELET VOLUME 11.6 fl (7.0-11.0); MONO # 0.3 (0.1-0.6); MONO % 3.6 % (1.0-6.0); RBC 3.73 10^6/uL (3.5-6.1); WHITE BLOOD COUNT 8.3 10^3/uL (4.5-11.0)
[2018-08-19 07:42] LABS: ALB/GLOB RATIO 1.1 (1.1-1.8); ALBUMIN 3.4 g/dL (3.0-4.8)
[2018-08-19] MEDS: Levalbuterol 1.25 MG/3 ML Inhal Soln UD IH SCH ×3 (08:01→19:47)
[2018-08-19] MEDS: Insulin Lispro (HUMAlog) HIGH Coverage SC SCH ×3 (08:57→17:57)
[2018-08-19] MEDS: Enoxaparin 30 mg Syringe SC SCH (09:02)
[2018-08-19] MEDS ORDERED: Potassium Chloride 20 mEq ER Tab PO ONE ×2 (09:42→15:44)
--- NOTE | 2018-08-19 09:43 | CP.PCM.PN ---
<Chiara Wahl - Last Filed: 08/19/18 15:36> Subjective - Date & Time of Evaluation Date of Evaluation: 08/19/18 Time of Evaluation: 07:30 - Subjective Subjective: Pgy3 Medicine progress note for Dr. Scales Patient seen and examined at bedside. Patient on BiPAP overnight. No acute events overnight. Patient has nasal cannula in place when she is eating. Patient denied any acute complaints of chest pain, palpitations, SOB, cough, abd pain, nausea, vomiting, bowel/bladder complaints, pain in her legs b/l. Objective - Vital Signs/Intake and Output Vital Signs (last 24 hours): Temp Pulse Resp BP Pulse Ox 98.0 F 74 98 H 142/73 95 08/19/18 06:00 08/19/18 07:45 08/19/18 06:00 08/19/18 09:03 08/19/18 06:00 Intake and Output: 08/19/18 08/19/18 06:59 18:59 Intake Total 240 Output Total 350 Balance -110 - Medications Medications: Current Medications Acetazolamide (Diamox 250 Mg Tab) 125 mg PO DAILY [facility] Last Admin: 08/19/18 09:03 Dose: 125 mg Amlodipine Besylate (Norvasc) 10 mg PO DAILY [facility] Last Admin: 08/19/18 09:03 Dose: 10 mg Atorvastatin Calcium (Lipitor) 80 mg PO HS [facility] Last Admin: 08/18/18 22:50 Dose: 80 mg Donepezil HCl (Aricept) 10 mg PO HS [facility] Last Admin: 08/18/18 22:17 Dose: 10 mg Doxycycline Hyclate (Doryx) 100 mg PO Q12 [facility]; Protocol Last Admin: 08/19/18 09:03 Dose: 100 mg Enoxaparin Sodium (Lovenox) 30 mg SC DAILY [facility]; Protocol Last Admin: 08/19/18 09:02 Dose: 30 mg Furosemide (Lasix) 20 mg IVP BID [facility] Last Admin: 08/19/18 09:02 Dose: 20 mg Hydralazine HCl (Apresoline) 10 mg IVP Q6 PRN PRN Reason: Systolic Blood Pressure > 160 Insulin Human Lispro (Humalog High) 0 units SC ACHS [facility]; Protocol Last Admin: 08/19/18 08:57 Dose: 10 u Levalbuterol HCl (Xopenex) 1.25 mg IH 0800,1400,2000 [facility] Last Admin: 08/19/18 08:01 Dose: 1.25 mg Methylprednisolone (Solu-Medrol) 40 mg IVP Q8 [facility] Last Admin: 08/19/18 05:23 Dose: 40 mg Fluticasone/Vilanterol [Breo Ellipta 100-25 Mcg Inh] 1 Packet (Home Med) 1 packet NEB DAILY [facility] Last Admin: 08/18/18 10:23 Dose: Not Given Pantoprazole Sodium (Protonix Ec Tab) 40 mg PO 0600 [facility] Last Admin: 08/19/18 05:31 Dose: 40 mg Potassium Chloride (K-Dur 20 Meq Er Tab) 40 meq PO ONCE ONE Stop: 08/19/18 09:43 - Labs Labs: 08/19/18 07:00 08/19/18 07:00 PT 11.9 SECONDS (9.4-12.5) 08/16/18 08:45 INR 1.03 08/16/18 08:45 APTT 22.3 Seconds (25.1-36.5) L 08/16/18 08:45 - Constitutional Appears: Non-toxic, No Acute Distress - Head Exam Head Exam: ATRAUMATIC, NORMAL INSPECTION, NORMOCEPHALIC - Eye Exam Eye Exam: EOMI, Normal appearance. absent: Conjunctival injection, Scleral icterus - ENT Exam ENT Exam: Mucous Membranes Moist - Respiratory Exam Respiratory Exam: Rhonchi, NORMAL BREATHING PATTERN. absent: Accessory Muscle Use, Decreased Breath Sounds, Rales, Wheezes - Cardiovascular Exam Cardiovascular Exam: +S1, +S2 - GI/Abdominal Exam GI & Abdominal Exam: Soft, Normal Bowel Sounds. absent: Firm, Guarding, Rigid, Tenderness - Extremities Exam Additional comments: optiform noted on RLE and LLE - Neurological Exam Neurological Exam: Alert, Awake, CN II-XII Intact, Oriented x3 - Psychiatric Exam Psychiatric exam: Normal Affect, Normal Mood - Skin Skin Exam: Dry, Normal Color, Warm Assessment and Plan - Assessment and Plan (Free Text) Assessment: 1. Acute on chronic COPD exacerbation with CO2 retention 2. Diastolic cardiomyopathy 3. HTN 4. HLD 5. PVD 6. Obesity 7. DEONTE 8. DM2 9. Dementia 10. GERD 11. Anxiety 12. Hypokalemia Plan: Patient's blood work, labs, and vitals reviewed. ABG slightly improved this AM. Patient has CXR and ABG ordered for AM. Continue BiPAP at this time and continue nebulizer treatments and IV steroids. Potassium repleted- will f/u CMP in AM. Patient to have echo done today to eval for pulm HTN and diastolic cardiomyopat hy- will f/u. Continue norvasc for blood pressure control with hydralazine prn. Maintain normotension. Continue accuchecks and RISS for DM. Cotinue home lipitor for HLD. Contiue home aricept for Dementia-Alzheimer's type. GI and DVT ppx in place. PT recommending KJ upon discharge- flavor room worker aware and has informed daughter. Will continue to monitor patient closely. Discussed with Dr Loyda Wahl PGY3 <Minh Scales S - Last Filed: 08/20/18 17:32> Objective - Vital Signs/Intake and Output Vital Signs (last 24 hours): Temp Pulse Resp BP Pulse Ox 98.1 F 114 H 20 147/65 100 08/20/18 12:00 08/20/18 12:00 08/20/18 12:00 08/20/18 12:00 08/20/18 06:00 Intake and Output: 08/20/18 08/20/18 06:59 18:59 Intake Total 120 Output Total 450 Balance -330 - Medications Medications: Current Medications Acetazolamide (Diamox 250 Mg Tab) 125 mg PO BID [facility] Last Admin: 08/20/18 10:43 Dose: 125 mg Amlodipine Besylate (Norvasc) 10 mg PO DAILY [facility] Last Admin: 08/20/18 10:43 Dose: 10 mg Atorvastatin Calcium (Lipitor) 80 mg PO HS [facility] Last Admin: 08/20/18 00:42 Dose: Not Given Donepezil HCl (Aricept) 10 mg PO HS [facility] Last Admin: 08/19/18 22:30 Dose: Not Given Doxycycline Hyclate (Doryx) 100 mg PO Q12 [facility]; Protocol Last Admin: 08/20/18 10:42 Dose: 100 mg Enoxaparin Sodium (Lovenox) 30 mg SC DAILY [facility]; Protocol Last Admin: 08/20/18 10:43 Dose: 30 mg Hydralazine HCl (Apresoline) 10 mg IVP Q6 PRN PRN Reason: Systolic Blood Pressure > 160 Insulin Human Lispro (Humalog High) 0 units SC ACHS [facility]; Protocol Last Admin: 08/20/18 12:04 Dose: 15 units Levalbuterol HCl (Xopenex) 1.25 mg IH 0800,1400,2000 [facility] Last Admin: 08/20/18 13:19 Dose: 1.25 mg Metformin HCl (Glucophage) 1,000 mg PO DAILY [facility] Last Admin: 08/20/18 13:08 Dose: 1,000 mg Methylprednisolone (Solu-Medrol) 40 mg IVP Q8 [facility] Last Admin: 08/20/18 13:09 Dose: 40 mg Fluticasone/Vilanterol [Breo Ellipta 100-25 Mcg Inh] 1 Packet (Home Med) 1 packet NEB DAILY [facility] Last Admin: 08/20/18 10:43 Dose: Not Given Pantoprazole Sodium (Protonix Ec Tab) 40 mg PO 0600 [facility] Last Admin: 08/20/18 06:26 Dose: 40 mg - Labs Labs: 08/20/18 08:20 08/20/18 08:20 PT 11.9 SECONDS (9.4-12.5) 08/16/18 08:45 INR 1.03 08/16/18 08:45 APTT 22.3 Seconds (25.1-36.5) L 08/16/18 08:45 Assessment and Plan - Assessment and Plan (Free Text) Plan: Pt seen and examined by me. I have reviewed the note of the medical driver and I agree with it. I have discussed the assessment and plan with the resident. I have reviewed the medications and the last labs. Pt with acute COPD and is on IV steroids. She is also on Duoneb treatements. She is on an ISS for her DM-2. BP is being maintained on Hydralazine. Daughter is interested in KJ. She is on Norvasc for HTN. She has CHF due to diastolic dysfunction.
[2018-08-19] MEDS: VILANTEROL NEB SCH (10:56)
[2018-08-19] MEDS: FLUTICASONE NEB SCH (10:56)
[2018-08-19] MEDS ORDERED: Insulin Lispro 1 UNITS/0.01 ML SC ONE ×2 (11:47→21:14)
--- NOTE | 2018-08-19 13:21 | CP.PCM.PCO ---
Physician Communication Note - Physician Communication Note Physician Communication Note: continuous bipap, repeat labs, abg, cxr in am. echo pending
--- NOTE | 2018-08-19 13:50 | PN ---
DATE: 08/19/2018 PULMONARY PROGRESS NOTE REFERRING PHYSICIAN: Dr. Scales. SUBJECTIVE: The patient is sitting up in bed. Nasal cannula in place. Nurse is at bedside. The patient placed on 10 L via nasal cannula, only saturating at 87%. Nurse reports the patient's saturation increases above 90 with BiPAP, BiPAP to be placed. No overnight events reported. No acute distress. No hematemesis, hematuria, hemoptysis, diarrhea, or leg swelling reported. OBJECTIVE: GENERAL: No acute distress. VITAL SIGNS: Blood pressure 142/73, pulse 74, temperature 98, and oxygen saturation 95% on BiPAP. HEENT: Moist mucous membranes. Crowded airway. Mallampati score is 4. NECK: Supple. No JVD. Short and thick. LUNGS: Scattered rhonchi bilaterally. CARDIOVASCULAR: S1 and S2 audible. ABDOMEN: Soft and nontender. No distention. EXTREMITIES: +1 bilateral lower extremity edema. NEUROLOGICAL: Awake, alert, verbal, and follows commands. MEDICATIONS: Reviewed. Diamox 125 mg daily, Norvasc 10 mg daily, Lipitor 80 mg at bedtime, Aricept 10 mg at bedtime, doxycycline 100 mg every 12 hours, Lovenox 30 mg subcutaneous daily, Lasix 20 mg IV push twice a day, hydralazine 10 mg every 6 hours p.r.n., Humalog sliding scale a.c. and at bedtime, Xopenex 1.25 mg inhalation three times a day, Solu-Medrol 40 mg every 8 hours, and Protonix 40 mg daily. LABORATORY DATA: Reviewed. WBC 8.3, RBC 3.73, hemoglobin 11.6, hematocrit 35.7, and platelets 205. PCO2 80, pO2 60, HCO3 51.9. ABG; pH 7.42. Sodium 141, potassium 3.3, chloride 87, carbon dioxide 49, anion gap 8, BUN 45, creatinine 1.3. GFR 47, POC glucose 316, random glucose 295. Calcium 9.0, phosphors 3.7, magnesium 2.0. Total bilirubin 0.4, AST 33, ALT 30, alkaline phosphatase 80, total protein 6.5, albumin 3.4, globulin 3.0, albumin-globulin ratio 1.1. IMPRESSION AND PLAN: Respiratory failure with CO2 retention, hypoxemia requiring noninvasive ventilation, chronic obstructive lung disease, diastolic cardiac dysfunction with heart failure, hypertension, hyperlipidemia, peripheral vascular disease, dementia, anxiety disorder, chronic anemia, history of breast cancer, hypoventilation syndrome, and history of bladder cancer. Continue bilevel positive airway pressure use at bedtime and as needed. Continue antibiotics, gastric prophylaxis, deep venous thrombosis prophylaxis, and inhaled bronchodilators. We will discontinue Lasix and increase Diamox to 225 mg twice a day. We will order ABG, chest x-ray, and labs in the morning. Echocardiogram ordered, pending to be done. This patient was seen and examined with Dr. Emerson. Discussed assessment and plan as described above. Thank you for this consult. We will follow with you. Manuel Vincent APN Oswaldo Emerson MD
--- NOTE | 2018-08-19 18:20 | CARD ---
APPROVED REPORT Date of service: 08/19/2018 EXAM: Two-dimensional and M-mode echocardiogram with Doppler and color Doppler. INDICATION R/O PULMONARY HTN 2D DIMENSIONS Left Atrium (2D)3.6 (1.6-4.0cm)IVSd1.1 (0.7-1.1cm) LVDd4.5 (3.9-5.9cm)PWd1.2 (0.7-1.1cm) LVDs2.7 (2.5-4.0cm)FS (%) 39.3 % LVEF (%)69.9 (>50%) M-Mode DIMENSIONS Aortic Root3.10 (2.2-3.7cm)Aortic Cusp Exc.1.90 (1.5-2.0cm) Aortic Valve AoV Peak Rmbpvhfc101.0cm/Eliezer Peak GR.14mmHg Mitral Valve MV E Armgbsep69.7cm/sMV A Fneaoqfh573.0cm/sE/A ratio0.8 TDI Lateral E' Peak V6.14cm/sMedial E' Peak V4.78cm/sE/Lateral E'14.0 E/Medial E'17.9 Pulmonary Valve PV Peak Pqcicmyw145.0cm/sPV Peak Grad.5mmHg Tricuspid Valve TR Peak [id number]/sRAP [id number] Peak Gr.25mmHg [id number] LEFT VENTRICLE The left ventricle is normal size. There is mild concentric left ventricular hypertrophy. The left ventricular function is normal. The left ventricular ejection fraction is within the normal range. There is normal LV segmental wall motion. RIGHT VENTRICLE The right ventricle is normal size. The right ventricular systolic function is normal. ATRIA The left atrium size is normal. The right atrium size is normal. The interatrial septum is intact with no evidence for an atrial septal defect. AORTIC VALVE The aortic valve is normal in structure. No aortic regurgitation is present. There is no aortic valvular stenosis. MITRAL VALVE The mitral valve is normal in structure. There is no mitral valve regurgitation noted. TRICUSPID VALVE The tricuspid valve is normal in structure. There is mild tricuspid regurgitation. PULMONIC VALVE The pulmonary valve is normal in structure. GREAT VESSELS The aortic root is normal in size. The IVC is normal in size and collapses >50% with inspiration. PERICARDIAL EFFUSION There is no pleural effusion. There is no pericardial effusion. <Conclusion> Normal chamber size. Normal LV systolic function. Mild concentric LVH. Mild TR.
[2018-08-20] MEDS: Insulin Lispro (HUMAlog) HIGH Coverage SC SCH ×5 (00:40→21:51)
[2018-08-20] MEDS: MethylPREDNISolone 40 mg Vial IVP SCH ×4 (00:42→21:52)
[2018-08-20 06:26] LABS: ARTERIAL BLOOD GAS HCO3 48.4 mmol/L (21-28); ARTERIAL BLOOD GAS HEMOGLOBIN 8.7 g/dL (11.7-17.4); ARTERIAL BLOOD GAS O2 CONTENT 11.9 ML/dl (15-23); ARTERIAL BLOOD GAS PCO2 80 mm/Hg (35-45); ARTERIAL BLOOD GAS PH 7.39 (7.35-7.45); ARTERIAL BLOOD GAS TCO2 50.9 mmol.L (22-28)
[2018-08-20] MEDS: Pantoprazole 40 mg EC Tab PO SCH (06:26)
[2018-08-20] MEDS: Levalbuterol 1.25 MG/3 ML Inhal Soln UD IH SCH ×3 (08:06→19:24)
[2018-08-20 08:43] LABS: BASO # 0.03 K/mm3 (0.0-2.0); BASO % 0.4 % (0.0-3.0); GRAN # 7.06 (1.4-6.5); GRAN % 87.3 % (50.0-68.0); HEMOGLOBIN 10.5 g/dL (12.0-16.0); LYMPH # 0.6 (1.2-3.4); LYMPH % 7.1 % (22.0-35.0); MEAN CELL VOLUME 94.1 fl (80.0-105.0); MEAN CORPUSCULAR HEMOGLOBIN 28.1 pg (25.0-35.0); MEAN CORPUSCULAR HGB CONC 29.8 g/dl (31.0-37.0); MEAN PLATELET VOLUME 11.6 fl (7.0-11.0); MONO # 0.4 (0.1-0.6); MONO % 5.2 % (1.0-6.0); RBC 3.74 10^6/uL (3.5-6.1); RED CELL DISTRIBUTION WIDTH 15.6 % (11.5-14.5); WHITE BLOOD COUNT 8.1 10^3/uL (4.5-11.0)
[2018-08-20 09:20] LABS: ALB/GLOB RATIO 1.2 (1.1-1.8); ALBUMIN 3.5 g/dL (3.0-4.8); ALT/SGPT 27 U/L (7-56); AST/SGOT 24 U/L (14-36); BLOOD UREA NITROGEN 39 mg/dL (7-21); CALCIUM 9.4 mg/dL (8.4-10.5); GFR NON-AFRICAN AMERICAN 53
--- NOTE | 2018-08-20 10:30 | RAD ---
Date of service: 08/20/2018 HISTORY: rule out infiltrate COMPARISON: 08/17/2018 FINDINGS: LUNGS: No active pulmonary disease. PLEURA: Small left pleural effusion CARDIOVASCULAR: Mild aortic calcification Normal cardiac size. Mild vascular congestion OSSEOUS STRUCTURES: No significant abnormalities. VISUALIZED UPPER ABDOMEN: Normal. OTHER FINDINGS: None. IMPRESSION: Vascular congestion and small left pleural effusion
[2018-08-20] MEDS: Enoxaparin 30 mg Syringe SC SCH (10:43)
[2018-08-20] MEDS: VILANTEROL NEB SCH (10:43)
[2018-08-20] MEDS: FLUTICASONE NEB SCH (10:43)
--- NOTE | 2018-08-20 11:57 | CP.PCM.PN ---
<Chiara Wahl - Last Filed: 08/20/18 14:10> Subjective - Date & Time of Evaluation Date of Evaluation: 08/20/18 Time of Evaluation: 08:00 - Subjective Subjective: Pgy3 Medicine progress note for Dr. Scales Patient seen and examined with daughter Lina at bedside. Nursing reported no acute events overnight. Patent on BiPAP overnight and tolerated well. This AM patient was oriented x 3 and communicative. Expressed wanting to be strong enough to attend her granddaughter's wedding in December. Patient denied any acute complaints of fever, chills, chest pain, palpitations, cough, abdominal pain, nausea, vomiting, bowel/bladder complaints, pain in her legs bilaterally. Patient is tolerating diet. Objective - Vital Signs/Intake and Output Vital Signs (last 24 hours): Temp Pulse Resp BP Pulse Ox 98.5 F 83 20 111/52 L 100 08/20/18 06:00 08/20/18 09:00 08/20/18 06:00 08/20/18 10:43 08/20/18 06:00 Intake and Output: 08/20/18 08/20/18 06:59 18:59 Intake Total 120 Output Total 450 Balance -330 - Medications Medications: Current Medications Acetazolamide (Diamox 250 Mg Tab) 125 mg PO BID [facility] Last Admin: 08/20/18 10:43 Dose: 125 mg Amlodipine Besylate (Norvasc) 10 mg PO DAILY [facility] Last Admin: 08/20/18 10:43 Dose: 10 mg Atorvastatin Calcium (Lipitor) 80 mg PO [facility] Last Admin: 08/20/18 00:42 Dose: Not Given Donepezil HCl (Aricept) 10 mg PO [facility] Last Admin: 08/19/18 22:30 Dose: Not Given Doxycycline Hyclate (Doryx) 100 mg PO Q12 [facility]; Protocol Last Admin: 08/20/18 10:42 Dose: 100 mg Enoxaparin Sodium (Lovenox) 30 mg SC DAILY [facility]; Protocol Last Admin: 08/20/18 10:43 Dose: 30 mg Hydralazine HCl (Apresoline) 10 mg IVP Q6 PRN PRN Reason: Systolic Blood Pressure > 160 Insulin Human Lispro (Humalog High) 0 units SC [facility]; Protocol Last Admin: 08/20/18 08:33 Dose: 10 units Levalbuterol HCl (Xopenex) 1.25 mg IH 0800,1400,2000 [facility] Last Admin: 08/20/18 08:06 Dose: 1.25 mg Methylprednisolone (Solu-Medrol) 40 mg IVP Q8 [facility] Last Admin: 08/20/18 06:24 Dose: 40 mg Fluticasone/Vilanterol [Breo Ellipta 100-25 Mcg Inh] 1 Packet (Home Med) 1 packet NEB DAILY [facility] Last Admin: 08/20/18 10:43 Dose: Not Given Pantoprazole Sodium (Protonix Ec Tab) 40 mg PO 0600 [facility] Last Admin: 08/20/18 06:26 Dose: 40 mg - Labs Labs: 08/20/18 08:20 08/20/18 08:20 PT 11.9 SECONDS (9.4-12.5) 08/16/18 08:45 INR 1.03 08/16/18 08:45 APTT 22.3 Seconds (25.1-36.5) L 08/16/18 08:45 - Constitutional Appears: Non-toxic, No Acute Distress, Chronically Ill - Head Exam Head Exam: ATRAUMATIC, NORMAL INSPECTION, NORMOCEPHALIC - Eye Exam Eye Exam: EOMI, Normal appearance. absent: Conjunctival injection, Scleral icterus - ENT Exam ENT Exam: Mucous Membranes Moist - Respiratory Exam Respiratory Exam: Rhonchi, NORMAL BREATHING PATTERN. absent: Accessory Muscle Use, Rales, Wheezes, Respiratory Distress - Cardiovascular Exam Cardiovascular Exam: +S1, +S2 - GI/Abdominal Exam GI & Abdominal Exam: Soft, Normal Bowel Sounds. absent: Firm, Guarding, Rigid, Tenderness - Rectal Exam Rectal Exam: Deferred - Neurological Exam Neurological Exam: Alert, Awake, Oriented x3 - Psychiatric Exam Psychiatric exam: Normal Affect, Normal Mood - Skin Skin Exam: Dry, Intact, Normal Color, Warm Assessment and Plan - Assessment and Plan (Free Text) Assessment: 1. Acute on chronic COPD exacerbation with CO2 retention 2. Diastolic cardiomyopathy 3. HTN 4. HLD 5. PVD 6. Obesity 7. DEONTE 8. DM2 9. Dementia 10. GERD 11. Anxiety Plan: Patient's blood work, vitals, and imaging reviewed in chart. Patient mentation has much improved. No longer requires telemetry. Patient continues to be on IV steroids and breathing treatments at this time. Daily ABG ordered as patient requiring BiPAP at bedtime and intermittently throughout the day. As per pulm patient to be placed on high flow O2 40L 60% oxygen to titrate to goal pulse ox of 88%. Patient's echo revealed RVSP 35mmHg; normal chamber size and systolic function with mild concentric LVH and mild TR. Continue norvasc for blood pressure control with hydralazine prn. Maintain normotension. Patient restarted on home metformin 1000mg daily in addition to high RISS as patient's blood sugars have been elevated likely secondary to steroid use. Will continue to monitor closely with accuchecks achs. Cotinue home lipitor for HLD. Contiue home aricept for Dementia-Alzheimer's type. GI and DVT ppx in place. Long family discussion was had with daughter Lina regarding where patient should be discharged. It was agreed that she would be discharged to [facility] when medically optimized. Discussed with Dr Loyda Wahl PGY3 <Minh Sclaes S - Last Filed: 08/20/18 17:30> Objective - Vital Signs/Intake and Output Vital Signs (last 24 hours): Temp Pulse Resp BP Pulse Ox 98.1 F 114 H 20 147/65 100 08/20/18 12:00 08/20/18 12:00 08/20/18 12:00 08/20/18 12:00 08/20/18 06:00 Intake and Output: 08/20/18 08/20/18 06:59 18:59 Intake Total 120 Output Total 450 Balance -330 - Medications Medications: Current Medications Acetazolamide (Diamox 250 Mg Tab) 125 mg PO BID [facility] Last Admin: 08/20/18 10:43 Dose: 125 mg Amlodipine Besylate (Norvasc) 10 mg PO DAILY [facility] Last Admin: 08/20/18 10:43 Dose: 10 mg Atorvastatin Calcium (Lipitor) 80 mg PO HS [facility] Last Admin: 08/20/18 00:42 Dose: Not Given Donepezil HCl (Aricept) 10 mg PO HS [facility] Last Admin: 08/19/18 22:30 Dose: Not Given Doxycycline Hyclate (Doryx) 100 mg PO Q12 [facility]; Protocol Last Admin: 08/20/18 10:42 Dose: 100 mg Enoxaparin Sodium (Lovenox) 30 mg SC DAILY [facility]; Protocol Last Admin: 08/20/18 10:43 Dose: 30 mg Hydralazine HCl (Apresoline) 10 mg IVP Q6 PRN PRN Reason: Systolic Blood Pressure > 160 Insulin Human Lispro (Humalog High) 0 units SC ACHS [facility]; Protocol Last Admin: 08/20/18 12:04 Dose: 15 units Levalbuterol HCl (Xopenex) 1.25 mg IH 0800,1400,2000 [facility] Last Admin: 08/20/18 13:19 Dose: 1.25 mg Metformin HCl (Glucophage) 1,000 mg PO DAILY [facility] Last Admin: 08/20/18 13:08 Dose: 1,000 mg Methylprednisolone (Solu-Medrol) 40 mg IVP Q8 [facility] Last Admin: 08/20/18 13:09 Dose: 40 mg Fluticasone/Vilanterol [Breo Ellipta 100-25 Mcg Inh] 1 Packet (Home Med) 1 packet NEB DAILY [facility] Last Admin: 08/20/18 10:43 Dose: Not Given Pantoprazole Sodium (Protonix Ec Tab) 40 mg PO 0600 [facility] Last Admin: 08/20/18 06:26 Dose: 40 mg - Labs Labs: 08/20/18 08:20 08/20/18 08:20 PT 11.9 SECONDS (9.4-12.5) 08/16/18 08:45 INR 1.03 08/16/18 08:45 APTT 22.3 Seconds (25.1-36.5) L 08/16/18 08:45 Assessment and Plan - Assessment and Plan (Free Text) Plan: Pt seen and examined by me. I have reviewed the note of the medical information specialist and I agree with it. I have discussed the assessment and plan with the resident. I have reviewed the medications and the last labs. See the note that was dictated by me today.
--- NOTE | 2018-08-20 12:36 | PN ---
DATE: 08/20/2018 REFERRING PHYSICIAN: Dr. Scales. SUBJECTIVE: The patient is lying in bed with BiPAP in place. No acute distress. No overnight events reported. No hemoptysis, hematemesis, hematuria, diarrhea, or leg swelling reported. OBJECTIVE: VITAL SIGNS: Blood pressure 111/52, pulse 83, temperature 98.5, and oxygen saturation 100 on BiPAP. GENERAL: No acute distress. HEENT: Moist mucous membranes. Crowded airway. Mallampati score is 4. NECK: Supple. No JVD. Short and thick. LUNGS: Scattered rhonchi bilaterally. CARDIOVASCULAR: S1 and S2 audible. ABDOMEN: Soft, nontender. No distention. EXTREMITIES: Trace bilateral lower extremity edema. NEUROLOGICAL: Awake, alert, verbal, and follows commands. MEDICATIONS: Reviewed. Diamox 125 mg twice a day, Norvasc 10 mg daily, Lipitor 80 mg at bedtime, Aricept 10 mg at bedtime, doxycycline 100 mg every 12 hours, Lovenox 30 mg subcutaneous daily, hydralazine 10 mg every 6 hours p.r.n., Humalog sliding scale a.c. and at bedtime, Xopenex 1.25 mg inhalation three times a day, Solu-Medrol 40 mg every 8 hours and Protonix 40 mg daily. LABORATORY DATA: Reviewed. WBC 8.1, RBC 3.74, hemoglobin 10.5, hematocrit 35.2 and platelets 203. PCO2 18, pO2 90, HCO3 48.4. ABG; pH 7.39. Sodium 138, potassium 3.6, chloride 88, carbon dioxide 45, anion gap 9, BUN 39, creatinine 1. GFR 53, POC glucose 328, calcium 9.4. Total bilirubin 0.3, AST 24, ALT 27, alkaline phosphatase 76, total protein 6.4, albumin 3.5, globulin 2.9, albumin-globulin ratio 1.2. Chest x-ray shows vascular congestion and small left pleural effusion. Echocardiogram shows normal LV systolic function, mild concentric LVH, mild tricuspid regurgitation, RVSP 35, ejection fraction 69. IMPRESSION AND PLAN: Respiratory failure with CO2 retention, hypoxemia requiring noninvasive ventilation, chronic obstructive lung disease, diastolic cardiac dysfunction with heart failure, hypertension, hyperlipidemia, peripheral vascular disease, dementia, anxiety disorder, chronic anemia, history of breast cancer, hypoventilation syndrome and history of bladder cancer. Continue bilevel positive airway pressure use at bedtime and as needed. Continue antibiotics, gastric prophylaxis, deep venous thrombosis prophylaxis, and inhaled bronchodilators. We will place patient on high flow oxygen 40 L, 60% oxygen titrating to pulse ox 88. Recommend physical therapy for patient. We will order arterial blood gas and labs in the morning. This patient was seen and examined with Dr. Emerson. Discussed assessment and plan as described above. Thank you for this consult. We will follow with you. Manuel Vincent APN Oswaldo Emerson MD [facility]
[2018-08-20] MEDS ORDERED: Insulin Lispro 1 UNITS/0.01 ML SC ONE (14:50)
--- NOTE | 2018-08-20 14:50 | CP.PCM.PCO ---
Physician Communication Note - Physician Communication Note Physician Communication Note: patient for possible KJ Mon. if improved as per Dr. Emerson
--- NOTE | 2018-08-20 21:05 | PN ---
DATE: 08/20/2018 SUBJECTIVE: The patient has no complaints of any chest pain or shortness of breath. She has no headache or dizziness. She is more awake and alert. PHYSICAL EXAMINATION: VITAL SIGNS: Temperature is 98.1, pulse of 114, blood pressure 147/65, respirations 20. GENERAL: The patient is lying in bed, flat, comfortable. HEENT: No oral lesion. Anicteric sclerae. Moist mucosa. NECK: No JVD, adenopathy, or thyromegaly. CARDIOVASCULAR: S1 and S2, regular. No murmurs, rubs, or gallops. LUNGS: Clear to auscultation bilaterally. No wheeze, rales, or rhonchi. ABDOMEN: Bowel sounds are positive, soft, nontender and nondistended. EXTREMITIES: no cyanosis, clubbing or edema. LABS: White count of 8.1, hemoglobin 10.5, creatinine is 1. Chest x-ray shows vascular congestion and small left pleural effusion. ASSESSMENT: 1. Acute chronic obstructive pulmonary disease with hypocapnia. 2. Congestive heart failure secondary to diastolic dysfunction. 3. Hypertension. 4. Dyslipidemia. 5. Obesity. 6. Obstructive sleep apnea. 7. Diabetes type 2. 8. Dementia, Alzheimer's type. 9. Gastroesophageal reflux disease. 10. Anxiety. PLAN: The patient is currently comfortable. I did review the notes from the resident that were done today. I went over the medications and labs. I discussed the case in length. I spoke with the patient's daughter at the bedside. The patient is going to continue with metformin for diabetes. She is on Lovenox for deep vein thrombosis prophylaxis. She is on steroids. She is on Xopenex. The patient is receiving Aricept. She does have an ABG that showed a pH of 7.39 with a pCO2 of 80. She will continue to stay in the hospital until she is cleared by Pulmonary to be discharged. Minh Scales MD
[2018-08-21] MEDS: MethylPREDNISolone 40 mg Vial IVP SCH ×3 (05:30→23:20)
[2018-08-21] MEDS: Pantoprazole 40 mg EC Tab PO SCH (05:30)
[2018-08-21] MEDS: Levalbuterol 1.25 MG/3 ML Inhal Soln UD IH SCH ×3 (07:52→20:30)
[2018-08-21] MEDS: Insulin Lispro (HUMAlog) HIGH Coverage SC SCH ×4 (08:24→23:20)
[2018-08-21 09:13] LABS: BASO # 0.02 K/mm3 (0.0-2.0); BASO % 0.2 % (0.0-3.0); GRAN # 9.46 (1.4-6.5); GRAN % 91.2 % (50.0-68.0); HEMOGLOBIN 11.6 g/dL (12.0-16.0); LYMPH # 0.8 (1.2-3.4); LYMPH % 7.6 % (22.0-35.0); MEAN CELL VOLUME 91.4 fl (80.0-105.0); MEAN CORPUSCULAR HEMOGLOBIN 28.4 pg (25.0-35.0); MONO # 0.1 (0.1-0.6); PLATELET COUNT 217 10^3/uL (120.0-450.0); RBC 4.09 10^6/uL (3.5-6.1); RED CELL DISTRIBUTION WIDTH 15.2 % (11.5-14.5); WHITE BLOOD COUNT 10.4 10^3/uL (4.5-11.0)
[2018-08-21 09:41] LABS: ATYPICAL LYMPHOCYTE 1 % (0.0-0.0); BAND 1 % (0-2); LYMPHOCYTE 8 % (22.0-35.0); METAMYELOCYTE 2 %; MONOCYTE 6 % (1.0-6.0); NEUTROPHIL 82 % (50.0-70.0)
[2018-08-21 09:42] LABS: PLATELET ESTIMATE NORMAL (NORMAL)
[2018-08-21] MEDS: Enoxaparin 30 mg Syringe SC SCH (09:54)
[2018-08-21] MEDS: FLUTICASONE NEB SCH (09:54)
[2018-08-21] MEDS: VILANTEROL NEB SCH (09:54)
[2018-08-21 10:22] LABS: ALB/GLOB RATIO 1.2 (1.1-1.8); ALBUMIN 3.6 g/dL (3.0-4.8); CALCIUM 9.5 mg/dL (8.4-10.5)
[2018-08-21] MEDS ORDERED: DiphenhydrAMINE 1% 1 EA TUBE TOP PRN ×2 (14:18→14:22)
[2018-08-21] MEDS ORDERED: Potassium Chloride 20 mEq ER Tab PO ONE (14:42)
--- NOTE | 2018-08-21 16:33 | PN ---
DATE: 08/21/2018 SUBJECTIVE: The patient has no complaints of any chest pain or shortness of breath. No headaches or dizziness. OBJECTIVE VITAL SIGNS: Temperature is 98.7, pulse of 81, blood pressure is 146/64, respirations 20. GENERAL: The patient is lying in bed, flat, comfortable. HEENT: No oral lesion. Anicteric sclerae. Moist mucosa. NECK: No JVD, adenopathy, or thyromegaly. CARDIOVASCULAR: S1 and S2, regular. No murmurs, rubs, or gallops. LUNGS: Clear to auscultation bilaterally. No wheeze, rales, or rhonchi. ABDOMEN: Bowel sounds are positive, soft, nontender and nondistended. EXTREMITIES: no cyanosis, clubbing or edema. LABORATORY DATA: White count of 10.4, hemoglobin 11.6. Potassium is 3.1. ASSESSMENT: 1. Acute chronic obstructive pulmonary disease with hypercapnia. 2. Congestive heart failure secondary to diastolic dysfunction, stable. 3. Hypertension. 4. Hypokalemia. 5. Dyslipidemia. 6. Obesity. 7. Obstructive sleep apnea. 8. Diabetes, type 2. 9. Dementia, Alzheimer's type. 10. Gastroesophageal reflux disease. 11. Anxiety. PLAN: The patient is currently receiving Aricept for dementia. The patient is receiving Diamox; this was started by the nurse practitioner for Dr. Emerson. The patient is on metformin for her diabetes. She is on insulin. The patient is on Lovenox for DVT prophylaxis. She is on Norvasc for hypertension. She is on Xopenex. She uses BiPAP and high flow. I did speak to the patient's daughter this morning to give her an update on the patient's diagnoses and plan of care. Minh Scales MD
--- NOTE | 2018-08-21 23:08 | PN ---
DATE: 08/21/2018 PULMONARY PROGRESS NOTE REFERRING PHYSICIAN: Dr. Scales. SUBJECTIVE: She is out of bed to chair, on high-flow nasal cannula. Daughter is at bedside. Respiratory therapist is at bedside. Still has a cough and shortness of breath. No vomiting. No hematuria. No diarrhea. Does have leg swelling. PHYSICAL EXAMINATION: VITAL SIGNS: Temperature 98, heart rate 75, respiratory rate is 20, blood pressure 144/67, pulse oximetry 90% on high-flow nasal cannula. HEENT: Moist mucous membranes. Crowded airway. Mallampati score is 4. NECK: Supple. No JVD. LUNGS: Has crackles, scattered rhonchi and few wheezing. HEART: S1 and S2. ABDOMEN: Soft, nontender. No organomegaly. EXTREMITIES: Trace edema. NEUROLOGIC: Awake, alert, follows simple commands. MEDICATIONS: She is on hydralazine 10 mg every 6 hours p.r.n., also getting Benadryl p.r.n., Diamox 250 mg twice a day, doxycycline 100 mg twice a day, Breo inhaler daily, metformin 1000 mg daily, insulin coverage, Lipitor 80 mg daily, Lovenox 30 mg subcu daily, Norvasc 10 mg daily, Protonix 40 mg daily, Solu-Medrol 40 mg every 8 hours, Xopenex inhaler every 8 hours. LABORATORY DATA: Show hemoglobin 11.6, hematocrit 37.4, WBC 10.4, platelet count is 217. Sodium 138, potassium 3.1, chloride 90, bicarbonate 39, BUN 40, creatinine 1.1, glucose 219, calcium is 9.5, phosphorus 3.9, magnesium 2. AST 21, ALT 26, alk phos is 80, albumin is 3.6. Microbiology: Blood culture and urine culture, there is no growth. IMPRESSION AND PLAN: Respiratory failure with carbon dioxide retention and hypoxemia, requiring noninvasive ventilation and high-flow nasal cannula; chronic obstructive lung disease; also had cardiac diastolic dysfunction with heart failure; hypertension; hyperlipidemia; peripheral vascular disease; dementia; anxiety disorder; chronic anemia; history of breast cancer; also component of hypoventilation syndrome; history of bladder cancer. Case was discussed with the patient's daughter who is at beside. All her questions were answered. I also spoke with respiratory therapist and advised to titrate the high-flow oxygen to pulse oximetry about 88 to 90. Continue bilevel positive airway pressure while sleeping. Continue steroids and antibiotics. Continue diuretics. Follow up labs in the morning. Fall precautions. May benefit from therapy. Oswaldo Emerson MD
--- NOTE | 2018-08-22 06:13 | CARD ---
APPROVED REPORT Date of service: 08/21/2018 EKG Measurement Heart [id number] <Conclusion> Atrial fibrillation Septal infarct, age undetermined Abnormal ECG
[2018-08-22 06:37] LABS: ARTERIAL BLOOD GAS HCO3 37.5 mmol/L (21-28); ARTERIAL BLOOD GAS HEMOGLOBIN 10.3 g/dL (11.7-17.4); ARTERIAL BLOOD GAS O2 CAPACITY 14.1 mL/dl (16-24); ARTERIAL BLOOD GAS O2 CONTENT 13.3 ML/dl (15-23); ARTERIAL BLOOD GAS O2 SAT 94.4 % (95-98); ARTERIAL BLOOD GAS PCO2 62 mm/Hg (35-45); ARTERIAL BLOOD GAS PH 7.39 (7.35-7.45); ARTERIAL BLOOD GAS TCO2 39.4 mmol.L (22-28)
[2018-08-22 07:04] LABS: ALB/GLOB RATIO 1.2 (1.1-1.8); ALBUMIN 3.4 g/dL (3.0-4.8); ALT/SGPT 27 U/L (7-56); AST/SGOT 19 U/L (14-36); BLOOD UREA NITROGEN 40 mg/dL (7-21); CALCIUM 9.5 mg/dL (8.4-10.5); GFR NON-AFRICAN AMERICAN 53
[2018-08-22] MEDS: Pantoprazole 40 mg EC Tab PO SCH ×2 (07:04→12:19)
[2018-08-22] MEDS: MethylPREDNISolone 40 mg Vial IVP SCH ×3 (07:05→22:45)
[2018-08-22 07:13] LABS: BASO # 0.01 K/mm3 (0.0-2.0); BASO % 0.1 % (0.0-3.0); GRAN # 10.01 (1.4-6.5); GRAN % 89.7 % (50.0-68.0); LYMPH # 0.8 (1.2-3.4); LYMPH % 7.5 % (22.0-35.0); MEAN CORPUSCULAR HEMOGLOBIN 27.5 pg (25.0-35.0); MEAN CORPUSCULAR HGB CONC 30.2 g/dl (31.0-37.0); MEAN PLATELET VOLUME 11.9 fl (7.0-11.0); MONO # 0.3 (0.1-0.6); MONO % 2.7 % (1.0-6.0); RED CELL DISTRIBUTION WIDTH 15.1 % (11.5-14.5); WHITE BLOOD COUNT 11.2 10^3/uL (4.5-11.0)
[2018-08-22] MEDS: Levalbuterol 1.25 MG/3 ML Inhal Soln UD IH SCH ×3 (07:27→22:00)
[2018-08-22] MEDS: Insulin Lispro (HUMAlog) HIGH Coverage SC SCH ×4 (08:22→22:22)
[2018-08-22] MEDS: Enoxaparin 30 mg Syringe SC SCH (10:40)
[2018-08-22] MEDS: FLUTICASONE NEB SCH (10:41)
[2018-08-22] MEDS: VILANTEROL NEB SCH (10:41)
--- NOTE | 2018-08-22 16:27 | PN ---
DATE: 08/22/2018 SUBJECTIVE: The patient is 83-year-old, seen and examined, sitting in chair, seem to be little short of breath. She has bilateral +1 leg edema. As per nurse, seems to be confused at time and forgetful. PHYSICAL EXAMINATION: VITAL SIGNS: She is afebrile. Pulse 82, respiration 18 and blood pressure 146/75. LUNGS: Bilateral soft crackle at bases. HEART: S1 and S2, audible. ABDOMEN: Soft, obese and nontender. No rebound. No guarding. NEUROLOGICAL: She is awake, alert and able to communicate, answer simple questions. EXTREMITIES: Bilateral leg +1 edema. LABORATORY DATA: WBC 11.2, hemoglobin 11, hematocrit 36 and platelets 257. Chemistry; sodium 138, potassium 3.6, chloride 92, CO2 of 40, BUN 40, creatinine 1.0 and blood sugar 471. ASSESSMENT: 1. Chronic obstructive pulmonary disease, exacerbation. 2. Longstanding history of smoking. 3. Congestive heart failure, diastolic dysfunction. 4. Hyperlipidemia. 5. Bilateral leg edema. 6. Non-insulin dependant diabetes. 7. Peptic ulcer disease. 8. Anxiety disorder. 9. Hypercarbia. 10. Dementia. PLAN: So currently, the patient is on hydralazine. She is getting Aricept, acetazolamide. She is on oral antibiotic that is doxycycline. She will be started on her Effexor. She is on metformin 1000 mg daily. Her blood sugar seem to be running high probably that is because of steroid. We will cut down her steroid to every 12 hours, give her extra dose of Lasix and we will followup clinical status close with. Mary Brown MD
--- NOTE | 2018-08-22 20:06 | PN ---
DATE: 08/22/2018 PULMONARY PROGRESS NOTE REFERRING PHYSICIAN: Dr. Minh Scales SUBJECTIVE: She is out of bed to chair, feels much better compared to yesterday. Still have cough, shortness of breath. No nausea, no diarrhea, mild leg swelling. PHYSICAL EXAMINATION: VITAL SIGNS: Temperature is 98, heart rate 84, respiratory rate is 18, blood pressure 146/75, pulse ox is 92% on 6 liters nasal cannula. HEENT: Moist mucous membranes. Crowded airway. Mallampati score is 4. NECK: Supple. No JVD. CARDIOPULMONARY: S1, S2. LUNGS: Have a few crackles, scattered rhonchi and wheezing. ABDOMEN: Soft, nontender, no organomegaly. EXTREMITIES: Trace edema. NEUROLOGIC: Awake and follows simple command. LABORATORY DATA: Shows hemoglobin 11.0, hematocrit 36.4, WBC 11.2, platelet count is 257. Blood gases shows pH 7.39, pCO2 is 62, O2 of 58. Sodium 138, potassium 2.6, chloride 92, bicarbonate is 40, BUN 40, creatinine 1.0, glucose 250, calcium 9.5, AST 19, ALT 27, alk phos is 73. Albumin is 3.4. Microbiology, blood culture, urine culture, there is no growth. MEDICATIONS: She is on hydralazine 10 mg every 6 hours p.r.n., Aricept 10 mg at bedtime, Benadryl every 6 hours p.r.n., Diamox 250 mg twice a day, doxycycline 100 mg twice a day, 37.5 mg daily, Breo Ellipta 1 puff daily, metformin 1000 mg daily, insulin coverage, Lasix 40 mg daily, Lipitor 80 mg at bedtime, Lovenox 30 mg subcutaneously daily, Namenda 10 mg twice a day, Norvasc 10 mg daily, Protonix 40 mg daily Solu-Medrol 40 mg every 12 hours, Xopenex inhaled every 8 hour. IMPRESSION AND PLAN: Respiratory failure with CO2 retention and hypoxemia, requiring noninvasive ventilation, been on high-flow oxygen changed to nasal cannula this afternoon, obstructive lung disease, cardiac diastolic dysfunction, hypertension, hyperlipidemia, peripheral vascular disease, dementia, anxiety disorder, anemia, history of breast cancer, history of bladder cancer. Case discussed the patient's daughter at the bedside who is a nurse by profession. I also spoke to respiratory therapist. We will continue Diamox for now. Follow up electrolytes in the morning especially by Dr. Jones. Continue IV steroids, antibiotics. I am worried about her oropharyngeal dysphagia being followed by speech therapy. She should be sitting up while eating, fall precaution. Will benefit from therapy. Follow up labs in the morning. We will follow with you. Oswaldo Emerson MD
[2018-08-23] MEDS: Insulin Lispro (HUMAlog) HIGH Coverage SC SCH ×4 (06:52→22:08)
[2018-08-23 07:58] LABS: BASO # 0.01 K/mm3 (0.0-2.0); BASO % 0.1 % (0.0-3.0); GRAN # 10.46 (1.4-6.5); GRAN % 92.4 % (50.0-68.0); HEMOGLOBIN 10.8 g/dL (12.0-16.0); LYMPH # 0.7 (1.2-3.4); LYMPH % 5.8 % (22.0-35.0); MEAN CELL VOLUME 92.7 fl (80.0-105.0); MEAN CORPUSCULAR HEMOGLOBIN 27.3 pg (25.0-35.0); MEAN CORPUSCULAR HGB CONC 29.4 g/dl (31.0-37.0); MEAN PLATELET VOLUME 12.1 fl (7.0-11.0); MONO # 0.2 (0.1-0.6); MONO % 1.7 % (1.0-6.0); RBC 3.96 10^6/uL (3.5-6.1); RED CELL DISTRIBUTION WIDTH 15.1 % (11.5-14.5); WHITE BLOOD COUNT 11.3 10^3/uL (4.5-11.0)
[2018-08-23 07:59] VITALS: RESP 20
[2018-08-23 08:12] LABS: ALB/GLOB RATIO 1.3 (1.1-1.8); ALBUMIN 3.6 g/dL (3.0-4.8); CALCIUM 9.3 mg/dL (8.4-10.5)
[2018-08-23] MEDS: Levalbuterol 1.25 MG/3 ML Inhal Soln UD IH SCH ×3 (08:14→20:30)
[2018-08-23] MEDS: MethylPREDNISolone 40 mg Vial IVP SCH ×2 (10:05→22:05)
--- NOTE | 2018-08-23 10:23 | CP.PCM.DIS ---
<Chiara Wahl - Last Filed: 08/23/18 13:47> Provider - Provider Date of Admission: 08/16/18 11:06 Attending physician: Minh Scales MD Primary care physician: Yonis Murrell MD Consults: 08/16/18 12:10 Cardiology Consult Routine Comment: Consulting Provider: Willem Carvajal Consulting Physician: Willem Carvajal Reason for Consult: CHF exacerbation Pulmonology Consult Routine Comment: Consulting Provider: Oswaldo Emerson Consulting Physician: Oswaldo Emerson Reason for Consult: COPD exacerbation 08/16/18 21:53 Nursing Referral for Palliative Care Routine Comment: claribel score Physician Instructions: Reason For Exam: eval Social Work Referral Routine Comment: d/c plan Physician Instructions: Reason For Exam: eval 08/16/18 22:15 Case Management Referral Routine Comment: Physician Instructions: Reason For Exam: Reason for Referral: Discharge Planning Inpatient [employer] Core Measures Referral Routine Comment: chf Physician Instructions: Reason For Exam: eval Nursing Referral for Wound Care Routine Comment: healing rle wound Physician Instructions: Reason For Exam: eval Transition In Care/Readmission Reduction Routine Comment: chf Physician Instructions: Reason For Exam: eval Time Spent in preparation of Discharge (in minutes): 45 Hospital Course - Lab Results Lab Results: Micro Results 08/16/18 09:00 Blood-Venous Blood Culture - Final NO GROWTH AFTER 5 DAYS 08/16/18 09:00 Blood-Venous Gram Stain - Final TEST NOT PERFORMED 08/16/18 08:45 Blood-Venous Blood Culture - Final NO GROWTH AFTER 5 DAYS 08/16/18 08:45 Blood-Venous Gram Stain - Final TEST NOT PERFORMED 08/16/18 16:35 Urine,Catheterized Urine Culture - Final No Growth (<1,000 CFU/ML) Most Recent Lab Values WBC 11.3 10^3/uL (4.5-11.0) H 08/23/18 07:45 RBC 3.96 10^6/uL (3.5-6.1) 08/23/18 07:45 Hgb 10.8 g/dL (12.0-16.0) L 08/23/18 07:45 Hct 36.7 % (36.0-48.0) 08/23/18 07:45 MCV 92.7 fl (80.0-105.0) 08/23/18 07:45 MCH 27.3 pg (25.0-35.0) 08/23/18 07:45 MCHC 29.4 g/dl (31.0-37.0) L 08/23/18 07:45 RDW 15.1 % (11.5-14.5) H 08/23/18 07:45 Plt Count 250 10^3/uL (120.0-450.0) 08/23/18 07:45 MPV 12.1 fl (7.0-11.0) H 08/23/18 07:45 Gran % 92.4 % (50.0-68.0) H 08/23/18 07:45 Lymph % (Auto) 5.8 % (22.0-35.0) L 08/23/18 07:45 [place] % (Auto) 1.7 % (1.0-6.0) 08/23/18 07:45 Eos % (Auto) 0.0 % (1.5-5.0) L 08/23/18 07:45 Baso % (Auto) 0.1 % (0.0-3.0) 08/23/18 07:45 Gran # 10.46 (1.4-6.5) H 08/23/18 07:45 Lymph # (Auto) 0.7 (1.2-3.4) L 08/23/18 07:45 [place] # (Auto) 0.2 (0.1-0.6) 08/23/18 07:45 Eos # (Auto) 0.0 (0.0-0.7) 08/23/18 07:45 Baso # (Auto) 0.01 K/mm3 (0.0-2.0) 08/23/18 07:45 Neutrophils % (Manual) 82 % (50.0-70.0) H 08/21/18 09:00 Band Neutrophils % 1 % (0-2) 08/21/18 09:00 Lymphocytes % (Manual) 8 % (22.0-35.0) L 08/21/18 09:00 Atypical Lymphs % 1 % (0.0-0.0) H 08/21/18 09:00 Monocytes % (Manual) 6 % (1.0-6.0) 08/21/18 09:00 Metamyelocytes % 2 % 08/21/18 09:00 Platelet Evaluation Normal (NORMAL) 08/21/18 09:00 PT 11.9 SECONDS (9.4-12.5) 08/16/18 08:45 INR 1.03 08/16/18 08:45 APTT 22.3 Seconds (25.1-36.5) L 08/16/18 08:45 pCO2 62 mm/Hg (35-45) H 08/22/18 06:20 pO2 58.0 mm/Hg (80-100) L 08/22/18 06:20 HCO3 37.5 mmol/L (21-28) H 08/22/18 06:20 ABG pH 7.39 (7.35-7.45) 08/22/18 06:20 ABG Total CO2 39.4 mmol.L (22-28) H 08/22/18 06:20 ABG O2 Saturation 94.4 % (95-98) L 08/22/18 06:20 ABG O2 Content 13.3 ML/dl (15-23) L 08/22/18 06:20 ABG Base Excess 10.7 mmol/L (-2.0-3.0) H 08/22/18 06:20 ABG Hemoglobin 10.3 g/dL (11.7-17.4) L 08/22/18 06:20 ABG Carboxyhemoglobin 2.4 % (0.5-1.5) H 08/22/18 06:20 POC ABG HHb (Measured) 5.4 % (0-5) H 08/22/18 06:20 ABG Methemoglobin 0.8 % (0.0-3.0) 08/22/18 06:20 ABG O2 Capacity 14.1 mL/dl (16-24) L 08/22/18 06:20 ABG Potassium 3.8 mmol/L (3.6-5.2) 08/17/18 05:15 VBG pH 7.30 (7.32-7.43) L 08/16/18 09:00 VBG pCO2 112.0 (40-60) H* 08/16/18 09:00 VBG HCO3 55.1 mmol/l (21-28) H 08/16/18 09:00 VBG Total CO2 58.5 mmol.L (22-28) H 08/16/18 09:00 VBG O2 Sat (Calc) 97.7 % (40-65) H 08/16/18 09:00 VBG Base Excess 22.3 mmol/L (0.0-2.0) H 08/16/18 09:00 VBG Potassium 3.0 mmol/L (3.6-5.2) L 08/16/18 09:00 Hgb O2 Saturation 91.3 % (95.0-98.0) L 08/22/18 06:20 Sodium 142.0 mmol/L (132-148) 08/17/18 05:15 Chloride 98.0 mmol/L (98-107) 08/17/18 05:15 Glucose 272 mg/dl (65-105) H 08/17/18 05:15 Lactate 1.2 mmol/L (0.7-2.1) 08/17/18 05:15 FiO2 35.0 % 08/22/18 06:20 Inspiratory BiPAP 18 08/16/18 12:05 Crit Value Called To Roddy munson rn 08/20/18 06:05 Crit Value Called By Keiry russell(box spring upholsterer) 08/20/18 06:05 Blood Gas Notified Time 615 08/20/18 06:05 Sodium 138 mmol/L (132-148) 08/23/18 07:45 Potassium 3.9 mmol/L (3.6-5.0) 08/23/18 07:45 Chloride 93 mmol/L (98-107) L 08/23/18 07:45 Carbon Dioxide 38 mmol/L (21-33) H 08/23/18 07:45 Anion Gap 12 (10-20) 08/23/18 07:45 BUN 48 mg/dL (7-21) H 08/23/18 07:45 Creatinine 1.2 mg/dl (0.7-1.2) 08/23/18 07:45 Est GFR ( Amer) 52 08/23/18 07:45 Est GFR (Non-Af Amer) 43 08/23/18 07:45 POC Glucose (mg/dL) 324 mg/dL (65-110) H 08/23/18 06:24 Random Glucose 314 mg/dL (70-110) H* D 08/23/18 07:45 Hemoglobin A1c 8.4 % (4.2-6.5) H 08/17/18 07:30 Calcium 9.3 mg/dL (8.4-10.5) 08/23/18 07:45 Phosphorus 3.9 mg/dL (2.5-4.5) 08/21/18 09:00 Magnesium 2.0 mg/dL (1.7-2.2) 08/21/18 09:00 Total Bilirubin 0.3 mg/dL (0.2-1.3) 08/23/18 07:45 AST 20 U/L (14-36) 08/23/18 07:45 ALT 31 U/L (7-56) 08/23/18 07:45 Alkaline Phosphatase 74 U/L (38-126) 08/23/18 07:45 Lactate Dehydrogenase 620 U/L (333-699) 08/16/18 09:40 Total Creatine Kinase 26 U/L (35-230) L 08/16/18 09:40 Troponin I 0.05 ng/mL D 08/16/18 22:39 NT-Pro-B Natriuret Pep 1480 pg/mL (0-450) H 08/16/18 09:40 Total Protein 6.4 g/dL (5.8-8.3) 08/23/18 07:45 Albumin 3.6 g/dL (3.0-4.8) 08/23/18 07:45 Globulin 2.8 gm/dL 08/23/18 07:45 Albumin/Globulin Ratio 1.3 (1.1-1.8) 08/23/18 07:45 Triglycerides 133 mg/dL (35-160) 08/17/18 07:30 Cholesterol 174 mg/dL (130-200) 08/17/18 07:30 LDL Cholesterol Direct 70 mg/dL (0-129) 08/17/18 07:30 HDL Cholesterol 67 mg/dL (29-60) H 08/17/18 07:30 Arterial Blood Potassium 3.8 mmol/L (3.6-5.2) 08/17/18 05:15 Venous Blood Potassium 3.0 mmol/L (3.6-5.2) L 08/16/18 09:00 Urine Color Yellow (YELLOW) 08/16/18 14:35 Urine Appearance Clear (CLEAR) 08/16/18 14:35 Urine pH 6.0 (4.7-8.0) 08/16/18 14:35 Ur Specific [place] >= 1.030 (1.005-1.035) 08/16/18 14:35 Urine Protein 30 mg/dL (<30 mg/dL) H 08/16/18 14:35 Urine Glucose (UA) Negative mg/dL (NEGATIVE) 08/16/18 14:35 Urine Ketones Negative mg/dL (NEGATIVE) 08/16/18 14:35 Urine Blood Negative (NEGATIVE) 08/16/18 14:35 Urine Nitrate Negative (NEGATIVE) 08/16/18 14:35 Urine Bilirubin Negative (NEGATIVE) 08/16/18 14:35 Urine Urobilinogen 0.2 E.U./dL (<1 E.U./dL) 08/16/18 14:35 Ur Leukocyte Esterase Negative Queta/uL (NEGATIVE) 08/16/18 14:35 Urine RBC 0 - 2 /hpf (0-2) 08/16/18 14:35 Urine WBC 1 - 3 /hpf (0-6) 08/16/18 14:35 Ur Epithelial Cells 4 - 5 /hpf (0-5) 08/16/18 14:35 Amorphous Sediment Few /hpf (NONE) 08/16/18 14:35 Urine Bacteria Few /hpf (NONE) 08/16/18 14:35 Fine Granular Casts 0 - 2 /hpf (NONE) 08/16/18 14:35 Urine Opiates Screen Negative (NEGATIVE) 08/16/18 14:19 Urine Methadone Screen Negative (NEGATIVE) 08/16/18 14:19 Ur Barbiturates Screen Negative (NEGATIVE) 08/16/18 14:19 Ur Phencyclidine Scrn Negative (NEGATIVE) 08/16/18 14:19 Ur Amphetamines Screen Negative (NEGATIVE) 08/16/18 14:19 U Benzodiazepines Scrn Negative (NEGATIVE) 08/16/18 14:19 U Oth Cocaine Metabols Negative (NEGATIVE) 08/16/18 14:19 U Cannabinoids Screen Negative (NEGATIVE) 08/16/18 14:19 Influenza Typ A,B (EIA) Negative for flu a/b (NEGATIVE) 08/16/18 10:08 - Hospital Course Hospital Course: Upon Admission 83yo female PMHx HTN, CHF, COPD presented with SOB and cough for 3 days. Patient was brought in by daughter as her SOB worsened and O2 saturation at home was 50% on 2L O2. ROS was unobtainable secondary to patient clinical condition. As per EMR patient had no other complaints of fever, chills, chest pain, diaphoresis, nausea, vomiting, bowel/baldder complaints, travel/sick contacts. Hospital Course Patient admitted to [facility] for COPD exacerbation and CO2 retention and placed on BiPAP. ABG showed hypercapnic respiratory acidosis. CXR showed mild vascular congestion with small left pleural effusion. Pulm Dr. Emerson consulted. Patient started on IV steroids and breathing treatments and antibiotics. Patient's antiHTN meds, HLD meds, and diuretics were continued. Blood cultures were negative x 2. Patient was placed on RISS high as her sugars were elevated secondary to steroid use. Patient had a speech/swallow evaluation that recommended Dysphagia diet with sodium and fluid restriction. Patient had daily ABGs and mentation improved. Repeat CXR was relatively unchanged. Pulm ordered an echo that revealed RVSP 35mmHg; normal chamber size and systolic function with mild concentric LVH and mild TR. As per pulm patient to be placed on high flow O2 40L 60% oxygen to titrate to goal pulse ox of 88%. Long family discussion was had with daughter Lina regarding where patient should be discharged. It was agreed that she would be discharged to [facility] when medically optimized. On day of discharge patient was deemed medically optimized for discharge to [facility]. Discharge Instructions "You are being discharged from [facility] to [facility] Please continue working with Physical Therapy when at the [facility]. You will be continued on BiPAP at night. You are being discharged on a prednisone taper to be taken as prescribed. Regarding your diet please continue a mechanically finely chopped solids with nectar thick liquids. Please follow up with your Primary Care Doctor Dr. Murrell 7 days after discharge from [facility]. Please also follow up with your pvc monitor within 10 days of discharge from [facility]. If symptoms return please visit your nearest Emergency Room." Instructions discussed in detail with patient and daughter who verbalized understanding and agreement. Please note this is a discharge summary. For full hospital course please refer to EMR. Discharge Exam - Additional Findings Additional findings: - Constitutional Appears: Non-toxic, No Acute Distress, Chronically Ill - Head Exam Head Exam: ATRAUMATIC, NORMAL INSPECTION, NORMOCEPHALIC - Eye Exam Eye Exam: EOMI, Normal appearance. absent: Conjunctival injection, Scleral icterus - ENT Exam ENT Exam: Mucous Membranes Moist - Respiratory Exam Respiratory Exam: Rhonchi, NORMAL BREATHING PATTERN. absent: Accessory Muscle Use, Rales, Wheezes, Respiratory Distress - Cardiovascular Exam Cardiovascular Exam: +S1, +S2 - GI/Abdominal Exam GI & Abdominal Exam: Soft, Normal Bowel Sounds. absent: Firm, Guarding, Rigid, Tenderness - Rectal Exam Rectal Exam: Deferred - Neurological Exam Neurological Exam: Alert, Awake, Oriented x3 - Psychiatric Exam Psychiatric exam: Normal Affect, Normal Mood - Skin Skin Exam: Dry, Intact, Normal Color, Warm Discharge Plan - Discharge Medications Prescriptions: RX: predniSONE [predniSONE Tab] See Taper PO DAILY 18 Days tab - Follow Up Plan Condition: FAIR Disposition: REHAB FACILITY/REHAB UNIT Instructions: Preventing Falls, Heart Failure (DC), Pulmonary Edema (DC), Pulmonary Edema (GEN), Hypokalemia (DC), Ascites (DC), Ascites (GEN) Additional Instructions: You are being discharged from [facility] to [facility] Please continue working with Physical Therapy when at the [facility]. You will be continued on BiPAP at night. You are being discharged on a prednisone taper to be taken as prescribed. Regarding your diet please continue a mechanically finely chopped solids with nectar thick liquids. Please follow up with your Primary Care Doctor Dr. Murrell 7 days after discharge from [facility]. Please also follow up with your pvc monitor within 10 days of discharge from [facility]. If symptoms return please visit your nearest Emergency Room. Referrals: Yonis Murrell MD [Primary Care Provider] - Oswaldo Emerson MD [Staff Provider] - <Minh Scales - Last Filed: 08/23/18 17:03> Provider - Provider Date of Admission: 08/16/18 11:06 Attending physician: Minh Scales MD Primary care physician: Yonis Murrell MD Consults: 08/16/18 12:10 Cardiology Consult Routine Comment: Consulting Provider: Willem Carvajal Consulting Physician: Willem Carvajal Reason for Consult: CHF exacerbation Pulmonology Consult Routine Comment: Consulting Provider: Oswaldo Emerson Consulting Physician: Oswaldo Emerson Reason for Consult: COPD exacerbation 08/16/18 21:53 Nursing Referral for Palliative Care Routine Comment: claribel score Physician Instructions: Reason For Exam: eval Social Work Referral Routine Comment: d/c plan Physician Instructions: Reason For Exam: eval 08/16/18 22:15 Case Management Referral Routine Comment: Physician Instructions: Reason For Exam: Reason for Referral: Discharge Planning Inpatient [employer] Core Measures Referral Routine Comment: chf Physician Instructions: Reason For Exam: eval Nursing Referral for Wound Care Routine Comment: healing rle wound Physician Instructions: Reason For Exam: eval Transition In Care/Readmission Reduction Routine Comment: chf Physician Instructions: Reason For Exam: eval Hospital Course - Lab Results Lab Results: Micro Results 08/16/18 09:00 Blood-Venous Blood Culture - Final NO GROWTH AFTER 5 DAYS 08/16/18 09:00 Blood-Venous Gram Stain - Final TEST NOT PERFORMED 08/16/18 08:45 Blood-Venous Blood Culture - Final NO GROWTH AFTER 5 DAYS 08/16/18 08:45 Blood-Venous Gram Stain - Final TEST NOT PERFORMED 08/16/18 16:35 Urine,Catheterized Urine Culture - Final No Growth (<1,000 CFU/ML) Most Recent Lab Values WBC 11.3 10^3/uL (4.5-11.0) H 08/23/18 07:45 RBC 3.96 10^6/uL (3.5-6.1) 08/23/18 07:45 Hgb 10.8 g/dL (12.0-16.0) L 08/23/18 07:45 Hct 36.7 % (36.0-48.0) 08/23/18 07:45 MCV 92.7 fl (80.0-105.0) 08/23/18 07:45 MCH 27.3 pg (25.0-35.0) 08/23/18 07:45 MCHC 29.4 g/dl (31.0-37.0) L 08/23/18 07:45 RDW 15.1 % (11.5-14.5) H 08/23/18 07:45 Plt Count 250 10^3/uL (120.0-450.0) 08/23/18 07:45 MPV 12.1 fl (7.0-11.0) H 08/23/18 07:45 Gran % 92.4 % (50.0-68.0) H 08/23/18 07:45 Lymph % (Auto) 5.8 % (22.0-35.0) L 08/23/18 07:45 [place] % (Auto) 1.7 % (1.0-6.0) 08/23/18 07:45 Eos % (Auto) 0.0 % (1.5-5.0) L 08/23/18 07:45 Baso % (Auto) 0.1 % (0.0-3.0) 08/23/18 07:45 Gran # 10.46 (1.4-6.5) H 08/23/18 07:45 Lymph # (Auto) 0.7 (1.2-3.4) L 08/23/18 07:45 [place] # (Auto) 0.2 (0.1-0.6) 08/23/18 07:45 Eos # (Auto) 0.0 (0.0-0.7) 08/23/18 07:45 Baso # (Auto) 0.01 K/mm3 (0.0-2.0) 08/23/18 07:45 Neutrophils % (Manual) 82 % (50.0-70.0) H 08/21/18 09:00 Band Neutrophils % 1 % (0-2) 08/21/18 09:00 Lymphocytes % (Manual) 8 % (22.0-35.0) L 08/21/18 09:00 Atypical Lymphs % 1 % (0.0-0.0) H 08/21/18 09:00 Monocytes % (Manual) 6 % (1.0-6.0) 08/21/18 09:00 Metamyelocytes % 2 % 08/21/18 09:00 Platelet Evaluation Normal (NORMAL) 08/21/18 09:00 PT 11.9 SECONDS (9.4-12.5) 08/16/18 08:45 INR 1.03 08/16/18 08:45 APTT 22.3 Seconds (25.1-36.5) L 08/16/18 08:45 pCO2 66 mm/Hg (35-45) H 08/23/18 14:50 pO2 45.0 mm/Hg (80-100) L 08/23/18 14:50 HCO3 38.2 mmol/L (21-28) H 08/23/18 14:50 ABG pH 7.37 (7.35-7.45) 08/23/18 14:50 ABG Total CO2 40.2 mmol.L (22-28) H 08/23/18 14:50 ABG O2 Saturation 86.8 % (95-98) L 08/23/18 14:50 ABG O2 Content 12.3 ML/dl (15-23) L 08/23/18 14:50 ABG Base Excess 10.9 mmol/L (-2.0-3.0) H 08/23/18 14:50 ABG Hemoglobin 10.4 g/dL (11.7-17.4) L 08/23/18 14:50 ABG Carboxyhemoglobin 2.5 % (0.5-1.5) H 08/23/18 14:50 POC ABG HHb (Measured) 12.8 % (0-5) H 08/23/18 14:50 ABG Methemoglobin 0.8 % (0.0-3.0) 08/23/18 14:50 ABG O2 Capacity 14.2 mL/dl (16-24) L 08/23/18 14:50 ABG Potassium 3.8 mmol/L (3.6-5.2) 08/17/18 05:15 VBG pH 7.30 (7.32-7.43) L 08/16/18 09:00 VBG pCO2 112.0 (40-60) H* 08/16/18 09:00 VBG HCO3 55.1 mmol/l (21-28) H 08/16/18 09:00 VBG Total CO2 58.5 mmol.L (22-28) H 08/16/18 09:00 VBG O2 Sat (Calc) 97.7 % (40-65) H 08/16/18 09:00 VBG Base Excess 22.3 mmol/L (0.0-2.0) H 08/16/18 09:00 VBG Potassium 3.0 mmol/L (3.6-5.2) L 08/16/18 09:00 Hgb O2 Saturation 84.0 % (95.0-98.0) L 08/23/18 14:50 Sodium 142.0 mmol/L (132-148) 08/17/18 05:15 Chloride 98.0 mmol/L (98-107) 08/17/18 05:15 Glucose 272 mg/dl (65-105) H 08/17/18 05:15 Lactate 1.2 mmol/L (0.7-2.1) 08/17/18 05:15 FiO2 32.0 % 08/23/18 14:50 Inspiratory BiPAP 18 08/16/18 12:05 Crit Value Called To Roddy munson rn 08/20/18 06:05 Crit Value Called By Keiry russell(box spring upholsterer) 08/20/18 06:05 Blood Gas Notified Time 615 08/20/18 06:05 Sodium 138 mmol/L (132-148) 08/23/18 07:45 Potassium 3.9 mmol/L (3.6-5.0) 08/23/18 07:45 Chloride 93 mmol/L (98-107) L 08/23/18 07:45 Carbon Dioxide 38 mmol/L (21-33) H 08/23/18 07:45 Anion Gap 12 (10-20) 08/23/18 07:45 BUN 48 mg/dL (7-21) H 08/23/18 07:45 Creatinine 1.2 mg/dl (0.7-1.2) 08/23/18 07:45 Est GFR ( Amer) 52 08/23/18 07:45 Est GFR (Non-Af Amer) 43 08/23/18 07:45 POC Glucose (mg/dL) 266 mg/dL (65-110) H 08/23/18 16:15 Random Glucose 314 mg/dL (70-110) H* D 08/23/18 07:45 Hemoglobin A1c 8.4 % (4.2-6.5) H 08/17/18 07:30 Calcium 9.3 mg/dL (8.4-10.5) 08/23/18 07:45 Phosphorus 3.9 mg/dL (2.5-4.5) 08/21/18 09:00 Magnesium 2.0 mg/dL (1.7-2.2) 08/21/18 09:00 Total Bilirubin 0.3 mg/dL (0.2-1.3) 08/23/18 07:45 AST 20 U/L (14-36) 08/23/18 07:45 ALT 31 U/L (7-56) 08/23/18 07:45 Alkaline Phosphatase 74 U/L (38-126) 08/23/18 07:45 Lactate Dehydrogenase 620 U/L (333-699) 08/16/18 09:40 Total Creatine Kinase 26 U/L (35-230) L 08/16/18 09:40 Troponin I 0.05 ng/mL D 08/16/18 22:39 NT-Pro-B Natriuret Pep 1480 pg/mL (0-450) H 08/16/18 09:40 Total Protein 6.4 g/dL (5.8-8.3) 08/23/18 07:45 Albumin 3.6 g/dL (3.0-4.8) 08/23/18 07:45 Globulin 2.8 gm/dL 08/23/18 07:45 Albumin/Globulin Ratio 1.3 (1.1-1.8) 08/23/18 07:45 Triglycerides 133 mg/dL (35-160) 08/17/18 07:30 Cholesterol 174 mg/dL (130-200) 08/17/18 07:30 LDL Cholesterol Direct 70 mg/dL (0-129) 08/17/18 07:30 HDL Cholesterol 67 mg/dL (29-60) H 08/17/18 07:30 Arterial Blood Potassium 3.8 mmol/L (3.6-5.2) 08/17/18 05:15 Venous Blood Potassium 3.0 mmol/L (3.6-5.2) L 08/16/18 09:00 Urine Color Yellow (YELLOW) 08/16/18 14:35 Urine Appearance Clear (CLEAR) 08/16/18 14:35 Urine pH 6.0 (4.7-8.0) 08/16/18 14:35 Ur Specific [place] >= 1.030 (1.005-1.035) 08/16/18 14:35 Urine Protein 30 mg/dL (<30 mg/dL) H 08/16/18 14:35 Urine Glucose (UA) Negative mg/dL (NEGATIVE) 08/16/18 14:35 Urine Ketones Negative mg/dL (NEGATIVE) 08/16/18 14:35 Urine Blood Negative (NEGATIVE) 08/16/18 14:35 Urine Nitrate Negative (NEGATIVE) 08/16/18 14:35 Urine Bilirubin Negative (NEGATIVE) 08/16/18 14:35 Urine Urobilinogen 0.2 E.U./dL (<1 E.U./dL) 08/16/18 14:35 Ur Leukocyte Esterase Negative Queta/uL (NEGATIVE) 08/16/18 14:35 Urine RBC 0 - 2 /hpf (0-2) 08/16/18 14:35 Urine WBC 1 - 3 /hpf (0-6) 08/16/18 14:35 Ur Epithelial Cells 4 - 5 /hpf (0-5) 08/16/18 14:35 Amorphous Sediment Few /hpf (NONE) 08/16/18 14:35 Urine Bacteria Few /hpf (NONE) 08/16/18 14:35 Fine Granular Casts 0 - 2 /hpf (NONE) 08/16/18 14:35 Urine Opiates Screen Negative (NEGATIVE) 08/16/18 14:19 Urine Methadone Screen Negative (NEGATIVE) 08/16/18 14:19 Ur Barbiturates Screen Negative (NEGATIVE) 08/16/18 14:19 Ur Phencyclidine Scrn Negative (NEGATIVE) 08/16/18 14:19 Ur Amphetamines Screen Negative (NEGATIVE) 08/16/18 14:19 U Benzodiazepines Scrn Negative (NEGATIVE) 08/16/18 14:19 U Oth Cocaine Metabols Negative (NEGATIVE) 08/16/18 14:19 U Cannabinoids Screen Negative (NEGATIVE) 08/16/18 14:19 Influenza Typ A,B (EIA) Negative for flu a/b (NEGATIVE) 08/16/18 10:08 - Hospital Course Hospital Course: Pt seen and examined by me. I have reviewed the note of the medical translator and I agree with it. I have discussed the assessment and plan with the resident. I have reviewed the medications and the last labs. Pt was drowsy adn was given Ativan yesterday. She was going to be discharged to [facility] but will keep her in the hospital today. ABG was done and reviewed. She has acute COPD that has improved. Pulmonary is following the pt. 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 CXR was reviewed. She uses BIPAP for her breathing.
[2018-08-23] MEDS: VILANTEROL NEB SCH (11:18)
[2018-08-23] MEDS: FLUTICASONE NEB SCH (11:18)
[2018-08-23] MEDS: Enoxaparin 30 mg Syringe SC SCH (11:35)
[2018-08-23] MEDS: Pantoprazole 40 mg EC Tab PO SCH (11:37)
[2018-08-23] MEDS ORDERED: MethylPREDNISolone 40 mg Vial IVP SCH (12:00)
--- NOTE | 2018-08-23 13:08 | PN ---
DATE: 08/23/2018 PULMONARY PROGRESS NOTE REFERRING PHYSICIAN: Minh Scales MD SUBJECTIVE: The patient is lying in bed, head of bed elevated, nasal cannula in place. Oxygen saturation checked with oxygen 5 liters via nasal cannula shows 97%. No hemoptysis, hematosis, hematuria, diarrhea, leg pain or leg swelling reported. OBJECTIVE: GENERAL: No acute distress. VITAL SIGNS: Blood pressure 141/87, pulse 97, temperature 98.4, oxygen saturation 93% on room air. HEENT: Moist mucous membranes. Crowded airway. Mallampati score of 4. NECK: Supple. No JVD. CARDIOVASCULAR: S1, S2 audible. LUNGS: Scattered rhonchi with few crackles. ABDOMEN: Soft, nontender. No distension. No organomegaly. EXTREMITIES: Trace bilateral lower extremity edema. NEUROLOGIC: Awake, verbal, follows simple commands. MEDICATIONS: Reviewed. Diamox 250 twice a day, Norvasc 10 mg daily, Lipitor 80 mg at bedtime, Benadryl topically every 6 hours p.r.n., Aricept 10 mg at bedtime, doxycycline 100 mg every 12 hours, Lovenox 30 mg daily, Lasix 40 mg IV push daily, hydralazine 10 mg every 6 hours p.r.n., Humalog sliding scale a.c. and at bedtime, Xopenex 1.25 mg inhalation 3 times a day, Namenda 10 mg twice a day, metformin 1000 mg daily, Solu-Medrol 40 mg every 12 hours, Breo Ellipta daily, Protonix 40 mg daily, Effexor 37.5 mg daily. LABORATORY DATA: Reviewed. WBC 11.3, RBC 3.96, hemoglobin 10.8, hematocrit 36.7, platelets 250. Sodium 138, potassium 3.9, chloride 93, carbon dioxide 38, anion gap 12, BUN 48, creatinine 1.2, GFR 43. POC glucose 189, random glucose 314, calcium 9.3, total bilirubin 0.3. AST 20, ALT 31, alkaline phosphatase 74, total protein 6.4, albumin 3.6, globulin 3.8, albumin-globulin ratio 1.3. IMPRESSION AND PLAN: Respiratory failure with CO2 retention, hypoxemia requiring noninvasive ventilation, obstructive lung disease, cardiac diastolic dysfunction, hypertension, hyperlipidemia, peripheral vascular disease, dementia, anxiety disorder, anemia, history of breast cancer, history of bladder cancer. Respiratory blair, the patient is doing better today with decreased oxygen requirements. Continue to taper steroids and antibiotics. The patient will need BiPAP at bedtime for sleeping, sleep apnea precaution, head of bed elevated 45 degrees. The patient is at high risk for respiratory issue. Gastric prophylaxis, deep venous thrombosis prophylaxis. Continue to monitor oropharyngeal dysphagia. The patient should be sitting up while eating and remain elevated for an hour or more after eating. Fall precaution. The patient would benefit from physical therapy. The patient was seen and examined with Dr. Emerson. Discussed assessment and plan as described above. Thank you for this consult. We will follow with you. Manuel Vincent APN Oswaldo Emerson MD [id number]
[2018-08-23 15:00] LABS: ARTERIAL BLOOD GAS HCO3 38.2 mmol/L (21-28); ARTERIAL BLOOD GAS HEMOGLOBIN 10.4 g/dL (11.7-17.4); ARTERIAL BLOOD GAS O2 CAPACITY 14.2 mL/dl (16-24); ARTERIAL BLOOD GAS O2 CONTENT 12.3 ML/dl (15-23); ARTERIAL BLOOD GAS O2 SAT 86.8 % (95-98); ARTERIAL BLOOD GAS PCO2 66 mm/Hg (35-45); ARTERIAL BLOOD GAS PH 7.37 (7.35-7.45); ARTERIAL BLOOD GAS TCO2 40.2 mmol.L (22-28)
[2018-08-24] MEDS: Insulin Lispro (HUMAlog) HIGH Coverage SC SCH ×2 (07:06→11:30)
[2018-08-24 07:19] LABS: BASO # 0.01 K/mm3 (0.0-2.0); BASO % 0.1 % (0.0-3.0); GRAN # 10.65 (1.4-6.5); GRAN % 91.5 % (50.0-68.0); HEMOGLOBIN 10.9 g/dL (12.0-16.0); LYMPH # 0.8 (1.2-3.4); LYMPH % 6.9 % (22.0-35.0); MEAN CELL VOLUME 93.3 fl (80.0-105.0); MEAN CORPUSCULAR HEMOGLOBIN 28.2 pg (25.0-35.0); MEAN CORPUSCULAR HGB CONC 30.2 g/dl (31.0-37.0); MEAN PLATELET VOLUME 11.8 fl (7.0-11.0); MONO # 0.2 (0.1-0.6); MONO % 1.5 % (1.0-6.0); RBC 3.87 10^6/uL (3.5-6.1); RED CELL DISTRIBUTION WIDTH 15.4 % (11.5-14.5); WHITE BLOOD COUNT 11.6 10^3/uL (4.5-11.0)
[2018-08-24] MEDS: Levalbuterol 1.25 MG/3 ML Inhal Soln UD IH SCH ×2 (07:37→13:35)
[2018-08-24 07:43] LABS: ALB/GLOB RATIO 1.2 (1.1-1.8); ALBUMIN 3.4 g/dL (3.0-4.8); ALT/SGPT 26 U/L (7-56); AST/SGOT 21 U/L (14-36); BLOOD UREA NITROGEN 46 mg/dL (7-21); CALCIUM 8.9 mg/dL (8.4-10.5); GFR NON-AFRICAN AMERICAN 53
[2018-08-24 10:07] LABS: ARTERIAL BLOOD GAS HCO3 40.1 mmol/L (21-28); ARTERIAL BLOOD GAS HEMOGLOBIN 10.1 g/dL (11.7-17.4); ARTERIAL BLOOD GAS O2 CAPACITY 13.7 mL/dl (16-24); ARTERIAL BLOOD GAS O2 CONTENT 12.7 ML/dl (15-23); ARTERIAL BLOOD GAS O2 SAT 92.8 % (95-98); ARTERIAL BLOOD GAS PCO2 76 mm/Hg (35-45); ARTERIAL BLOOD GAS PH 7.33 (7.35-7.45); ARTERIAL BLOOD GAS TCO2 42.4 mmol.L (22-28)
--- NOTE | 2018-08-24 10:31 | CP.PCM.PN ---
<Chiara Wahl - Last Filed: 08/24/18 13:48> Subjective - Date & Time of Evaluation Date of Evaluation: 08/24/18 Time of Evaluation: 13:54 - Subjective Subjective: Pgy3 Medicine progress note for Dr. Scales Patient seen and examined at bedside. Patient was meant to be discharged the day before 08/23/18 to [facility] however the discharge was held as the patient had received Ativan the night prior for agitation. This morning nursing endorsed that the patient kept removing her BiPAP overnight and was noncompliant. This morning the patient's daughter was at bedside. Patient was sitting up in bed and daughter requested she be placed on BiPAP again.The patient was in no acute distress and denied any complaints of fever, chest pain, SOB, abd pain, pain/swelling in her legs bilaterally. It was discussed with the daughter whether she would be open to the patient being discharged to an LTAC. Daughter agreed to [facility] upon discharge and transportation was set up for 15:30. Patient was deemed medically optimized for discharge to [facility]. Objective - Vital Signs/Intake and Output Vital Signs (last 24 hours): Temp Pulse Resp BP Pulse Ox 97.5 F L 81 20 142/60 96 08/24/18 06:00 08/24/18 09:21 08/24/18 06:00 08/24/18 06:00 08/24/18 06:00 - Medications Medications: Current Medications Acetazolamide (Diamox 250 Mg Tab) 250 mg PO BID [facility] Last Admin: 08/23/18 18:31 Dose: 250 mg Amlodipine Besylate (Norvasc) 10 mg PO DAILY [facility] Last Admin: 08/23/18 11:36 Dose: 10 mg Atorvastatin Calcium (Lipitor) 80 mg PO HS [facility] Last Admin: 08/23/18 22:08 Dose: Not Given Diphenhydramine HCl (Benadryl Maximum Strength 1%) 0 ea TOP Q6H PRN PRN Reason: Itching / Pruritus Last Admin: 08/21/18 14:45 Dose: 1 apful Donepezil HCl (Aricept) 10 mg PO [facility] Last Admin: 08/23/18 22:08 Dose: Not Given Doxycycline Hyclate (Doryx) 100 mg PO Q12 [facility]; Protocol Last Admin: 08/23/18 22:08 Dose: Not Given Enoxaparin Sodium (Lovenox) 30 mg SC DAILY [facility]; Protocol Last Admin: 08/23/18 11:35 Dose: 30 mg Furosemide (Lasix) 40 mg IVP DAILY [facility] Last Admin: 08/23/18 10:04 Dose: 40 mg Hydralazine HCl (Apresoline) 10 mg IVP Q6 PRN PRN Reason: Systolic Blood Pressure > 160 Insulin Human Lispro (Humalog High) 0 units SC ACHS [facility]; Protocol Last Admin: 08/24/18 07:06 Dose: 7 units Levalbuterol HCl (Xopenex) 1.25 mg IH 0800,1400,2000 [facility] Last Admin: 08/24/18 07:37 Dose: 1.25 mg Memantine (Namenda) 10 mg PO BID [facility] Last Admin: 08/23/18 18:31 Dose: 10 mg Metformin HCl (Glucophage) 1,000 mg PO DAILY [facility] Last Admin: 08/23/18 11:37 Dose: 1,000 mg Methylprednisolone (Solu-Medrol) 40 mg IVP Q12 [facility] Last Admin: 08/23/18 22:05 Dose: 40 mg Fluticasone/Vilanterol [Breo Ellipta 100-25 Mcg Inh] 1 Packet (Home Med) 1 packet NEB DAILY [facility] Last Admin: 08/23/18 11:18 Dose: Not Given Pantoprazole Sodium (Protonix Ec Tab) 40 mg PO DAILY [facility] Last Admin: 08/23/18 11:37 Dose: 40 mg Venlafaxine HCl (Effexor) 37.5 mg PO DAILY [facility] Last Admin: 08/23/18 11:36 Dose: 37.5 mg - Labs Labs: 08/24/18 07:00 08/24/18 07:00 PT 11.9 SECONDS (9.4-12.5) 08/16/18 08:45 INR 1.03 08/16/18 08:45 APTT 22.3 Seconds (25.1-36.5) L 08/16/18 08:45 - Additional Findings Additional findings: - Constitutional Appears: Non-toxic, No Acute Distress, Chronically Ill - Head Exam Head Exam: ATRAUMATIC, NORMAL INSPECTION, NORMOCEPHALIC - Eye Exam Eye Exam: EOMI, Normal appearance. absent: Conjunctival injection, Scleral icterus - ENT Exam ENT Exam: Mucous Membranes Moist - Respiratory Exam Respiratory Exam: Rhonchi, NORMAL BREATHING PATTERN. absent: Accessory Muscle Use, Rales, Wheezes, Respiratory Distress - Cardiovascular Exam Cardiovascular Exam: +S1, +S2 - GI/Abdominal Exam GI & Abdominal Exam: Soft, Normal Bowel Sounds. absent: Firm, Guarding, Rigid, Tenderness - Rectal Exam Rectal Exam: Deferred - Neurological Exam Neurological Exam: Alert, Awake, Oriented x3 - Psychiatric Exam Psychiatric exam: Normal Affect, Normal Mood - Skin Skin Exam: Dry, Intact, Normal Color, Warm Assessment and Plan - Assessment and Plan (Free Text) Assessment: 1. Acute on chronic COPD exacerbation with CO2 retention on BiPAP 2. Diastolic cardiomyopathy 3. HTN 4. HLD 5. PVD 6. Obesity 7. DEONTE 8. DM2 9. Dementia 10. GERD 11. Anxiety Plan: Discharge Instructions "You are being discharged from [facility] Please continue working with Physical Therapy when at the LTAC You will be continued on BiPAP at night. You are being discharged on a prednisone taper to be taken as prescribed. Regarding your diet please continue a mechanically finely chopped solids with nectar thick liquids. Please follow up with your Primary Care Doctor Dr. Murrell 7 days after discharge from LTAC Please also follow up with your siebel crm developer within 10 days of discharge from LTAC . If symptoms return please visit your nearest Emergency Room." Patient's discharge instructions were discussed in detail with patient and daughter. <Minh Scales S - Last Filed: 08/24/18 20:01> Objective - Vital Signs/Intake and Output Vital Signs (last 24 hours): Temp Pulse Resp BP Pulse Ox 98.8 F 78 20 152/62 H 91 L 08/24/18 14:00 08/24/18 14:00 08/24/18 14:00 08/24/18 14:00 08/24/18 14:00 - Labs Labs: 08/24/18 07:00 08/24/18 07:00 PT 11.9 SECONDS (9.4-12.5) 08/16/18 08:45 INR 1.03 08/16/18 08:45 APTT 22.3 Seconds (25.1-36.5) L 08/16/18 08:45 Assessment and Plan - Assessment and Plan (Free Text) Assessment: Pt seen and examined by me. I have reviewed the note of the medical manager and I agree with it. I have discussed the assessment and plan with the resident. I have reviewed the medications and the last labs. Pt with acute COPD. She is on BIPAP and has CO2 retention. She will be sent to an LTAC. Spoke to the daughter to give update. Anxiety is controlled. HTN is controlled on the current meds. Eating and sleeping well.
[2018-08-24] MEDS: Enoxaparin 30 mg Syringe SC SCH (11:11)
[2018-08-24] MEDS: MethylPREDNISolone 40 mg Vial IVP SCH (11:12)
[2018-08-24] MEDS: Pantoprazole 40 mg EC Tab PO SCH (11:14)
[2018-08-24] MEDS: FLUTICASONE NEB SCH (11:15)
[2018-08-24] MEDS: VILANTEROL NEB SCH (11:15)
--- NOTE | 2018-08-24 13:44 | PN ---
DATE: 08/24/2018 PULMONARY PROGRESS NOTE REFERRING PHYSICIAN: Minh Scales. SUBJECTIVE: The patient is sitting up in bed with BiPAP on. Per nursing staff, patient refused BiPAP last night. This morning, patient was very sleepy, lethargic, ABGs are drawn. Daughter is at bedside. At this time, the patient in no acute distress. The patient reports feeling well. No hemoptysis, hematosis, hematuria, diarrhea, leg swelling reported. PHYSICAL EXAMINATION GENERAL: In no acute distress. VITAL SIGNS: Blood pressure 142/60, pulse 85, temperature 97.5, oxygen saturation 96. HEENT: Moist mucous membrane. Crowded airway. Mallampati score 4. NECK: Supple. No JVD. CARDIOVASCULAR: S1 and S2 audible. LUNGS: Scattered rhonchi bilaterally. ABDOMEN: Soft and nontender. No distention. No organomegaly. EXTREMITIES: Trace bilateral lower extremity edema. NEUROLOGIC: Awake, verbal. LABORATORY DATA: Reviewed WBC of 11.6, RBC 3.87, hemoglobin 10.9, hematocrit 36.1, platelets 247, PCO2 was 76, PO2 55, HCO3 40.1 ABG; pH 7.33. Sodium 140, potassium 3.6,chloride 95, carbon dioxide 42, anion gap 7, BUN 46, creatinine 1.0, GFR 53. POC glucose 314, random glucose 308, Calcium 8.9; total bilirubin 0.3, AST 21, ALT 26, alkaline phosphatase 71, total protein 6.1, albumin 3.4, globulin 2.7, albumin globulin ratio 1.2. MEDICATIONS: Diamox 250 mg twice a day, Norvasc 10 mg daily, Lipitor 80 mg at bedtime, Benadryl every six hours, Aricept 10 mg at bedtime, doxycycline 100 mg every 12 hours, Lovenox 30 mg daily, Lasix 40 mg daily, hydralazine 10 mg every six hours p.r.n. Humalog sliding scale a.c. and at bedtime, Xopenex 1.25 mg inhalation three times a day, Namenda 10 mg twice a day, metformin 1000 mg daily, Solu-Medrol 40 mg every 12 hours,p.o. daily, Protonix 40 mg daily, Effexor 37.5 mg daily. IMPRESSION AND PLAN: Respiratory failure with CO2 retention, hypoxemia requiring noninvasive ventilation, obstructive lung disease, cardiac diastolic dysfunction, hypertension, hyper lipidemia, peripheral vascular disease, dementia, anxiety disorder, anemia, history of breast cancer, history of bladder cancer. Pulmonary point of view, continue BiPAP use at bedtime and during the day when asleep. Continue Diamox, steroid, bronchodilators, sleep apnea precaution. Head of bed elevated 45 degrees. The patient is high risk for respiratory failure, gastric prophylaxis, deep venous thrombosis, prophylaxis. Monitor oropharyngeal dysphagia. The patient should be sitting up while eating and remain elevated for an hour one more after eating, fall precautions. We will order ABGs in the morning and Provigil 100 mg daily for daytime stimulant. The patient will benefit from physical therapy. This patient was seen and examined with Dr. Emerson. Discussed assessment and plan as described above. Thank you for this consult and we will follow with you. Manuel Vincent APN Oswaldo Emerson MD [id number]
[2018-08-24 15:09] VITALS: BP 152/62; PULSE 78; TEMP 98.8; O2SAT 91
== END 2018-08-24 16:40 | DRG 190 ==
LOC: ED 08:40 → ERH 11:06 → 2RNO 21:36 → UNDODISIN 08-17 01:49 → 5RSO 08-22 21:19
PROVIDERS: ADMIT Internal Medicine Nephrology; ATTEND Internal Medicine Nephrology
PROC: 5A09557 Assistance with Respiratory Ventilation, Greater than 96 Consecutive Hours, Continuous Positive Airway Pressure (ICD-10-PCS; principal; 2018-08-16)
PROC: 3E0F7GC Introduction of Other Therapeutic Substance into Respiratory Tract, Via Natural or Artificial Opening (ICD-10-PCS; 2018-08-17)
DX: J44.1 Chronic obstructive pulmonary disease with (acute) exacerbation (principal); I50.33 Acute on chronic diastolic (congestive) heart failure; J96.91 Respiratory failure, unspecified with hypoxia; J96.92 Respiratory failure, unspecified with hypercapnia; E87.2 Acidosis; I43 Cardiomyopathy in diseases classified elsewhere; I11.0 Hypertensive heart disease with heart failure; Z99.81 Dependence on supplemental oxygen; E87.6 Hypokalemia; E11.51 Type 2 diabetes mellitus with diabetic peripheral angiopathy without gangrene; F02.80 Dementia in other diseases classified elsewhere, unspecified severity, without behavioral disturbance, psychotic disturbance, mood disturbance, and anxiety; G30.9 Alzheimer's disease, unspecified; G47.33 Obstructive sleep apnea (adult) (pediatric); K21.9 Gastro-esophageal reflux disease without esophagitis; F41.9 Anxiety disorder, unspecified; E78.5 Hyperlipidemia, unspecified; R13.12 Dysphagia, oropharyngeal phase; T38.0X5A Adverse effect of glucocorticoids and synthetic analogues, initial encounter; D64.9 Anemia, unspecified; E66.9 Obesity, unspecified; Z68.30 Body mass index [BMI] 30.0-30.9, adult; Z85.51 Personal history of malignant neoplasm of bladder; Z85.3 Personal history of malignant neoplasm of breast; Z91.19 Patient's noncompliance with other medical treatment and regimen; Z92.21 Personal history of antineoplastic chemotherapy; Z90.13 Acquired absence of bilateral breasts and nipples; Z87.891 Personal history of nicotine dependence